=== PATIENT | female | born 1960 | race Caucasian/White ===

== ENCOUNTER 2021-06-24 11:18 | Emergency (ER) | payer BC, SELFPAY ==
--- NOTE | ~2021-06-24 | CT_ITS ---
EXAMINATION: CT HEAD WITHOUT CONTRAST CLINICAL INFORMATION: Dizziness. COMPARISON: 04/30/2020 TECHNIQUE: Contiguous axial imaging was performed from the skull base to vertex without intravenous administration of contrast. This CT examination was performed using dose optimization techniques as appropriate, variously including the following: *Automated exposure control *Adjustment of mA and/or kV according to patient size (this includes techniques or standardized protocols for targeted exams where dose is matched to indication/reason for exam; i.e. extremities or head) *Use of iterative reconstruction technique DLP: 616 mGy-cm FINDINGS: No evidence of acute intracranial hemorrhage or extra-axial fluid collection. No evidence of acute territorial infarction. No evidence of mass lesion, mass effect or midline shift. The ventricles are symmetric in configuration and normal in size. The basal cisterns are patent. The calvarium is intact. Limited views of the paranasal sinuses are unremarkable. Mastoid air cells are well aerated and middle ear cavities are clear. Limited views of the orbits demonstrate bilateral lens extractions. CT/CT head/brain wo con IMPRESSION: No acute intracranial pathology.
[2021-06-24 11:43] VITALS: BP 143/77; PULSE 89; RESP 18; TEMP 36.5; O2SAT 97; BMI 18.8
[2021-06-24 12:01] LABS: Glucose Urine UA NEG (NEG); Leukocyte Esterase Urine 1+ (NEG); Nitrite Urine NEG (NEG); Specific Gravity - Urine 1.025 (1.005-1.025); UACC Culture Trigger YES; Urine Blood NEG (NEG); Urine Ketones >=80 MG/DL (NEG); Urine Protein 1+ MG/DL (NEG-TRACE)
[2021-06-24 12:07] LABS: Appearance Urine HAZY; Color Urine YELLOW
[2021-06-24 12:20] LABS: Bacteria Urine 1+ /LPF; Mucus Urine TRACE /LPF; RBC Urine 0 /HPF (0); Squamous Epithelial Cell Urine 1+ /LPF
[2021-06-24 12:33] LABS: Basophils Percent Auto 0.4 % (0-2); Eosinophils Percent Auto 0.4 % (0-4); Hematocrit 37.1 % (37-47); Imm Gran Abs Auto 0.03 X10*3/uL (0.00-0.03); Imm Gran Pct Auto 0.4 % (0.0-0.4); Lymphocytes Absolute Auto 1.7 X10*3/uL (1.2-4.9); Lymphocytes Percent Auto 23.4 % (20-40); MANUAL DIFF FLAG NO; Mean Corpuscular Hemoglobin 34.9 pg (27.0-33.0); Mean Corpuscular Volume 99.5 fL (80-98); Mean Platelet Volume 10.1 fL (9.4-12.3); Monocytes Absolute Auto 0.7 X10*3/uL (0.1-1.2); Monocytes Percent Auto 9.5 % (2-11); Neutrophils Absolute Auto 4.9 X10*3/uL (2.0-8.3); Neutrophils Percent Auto 65.9 % (45-73); Platelet Count 136 X10*3/uL (160-400); Red Blood Count 3.73 X10*6/uL (4.20-5.50); Red Cell Distribution Width 13.6 % (11.0-16.0); White Blood Count 7.4 X10*3/uL (4.8-10.8)
--- NOTE | 2021-06-24 12:56 | ED_ITS ---
HPI - Dizziness General Chief Complaint: Dizziness Stated Complaint: dizziness Time Seen by Provider: 06/24/21 12:13 Source: patient Mode of arrival: ambulatory Limitations: no limitations History of Present Illness HPI Narrative: 60-year-old female who presents emergency department for evaluation of dizziness weakness, vomiting and diarrhea. Patient states that 4 days prior to evaluation she developed nausea vomiting and diarrhea. She states she vomited approximately 2-3 times per day for 2 days. She states that she had watery dark diarrhea every hour, too numerous to count events for 1-2 days. She states that the symptoms have resolved. During these 2 days, she did have midepigastric pain which she states felt like her pancreatitis pain-sharp, constant and 6/10. The patient does have a history of alcohol use disorder and she states that she was drinking 1 pt of vodka per day for 2 weeks, she has not had any alcohol to drink in 1 week. She states that yesterday at around 6:30 p.m. she felt off balance as if she was going to fall over. She also states she was feeling weak. She states that she has been most of the day in bed. She states that today whenever she got up she would feel off balance if she was going to fall over. She denied lightheadedness. She denied headache. She denied any other episodes of nausea, vomiting or diarrhea. She denied chest pain, shortness of breath or dyspnea on exertion. She has not noticed any pain or swelling in her extremities. Related Data Previous Rx's Medication Instructions Recorded solifenacin 5 mg tablet 5 mg PO DAILY #90 tab 11/03/20 alendronate 70 mg tablet 70 mg PO QWEEK #14 tab 11/07/20 magnesium 200 mg tablet 400 mg PO DAILY #180 tab 12/20/20 Allergies Allergy/AdvReac Type Severity Reaction Status Date / Time chlordiazepoxide AdvReac Intermediate severe Unverified 08/03/20 18:13 [From LIBRIUM] confusion and hallucinations Review of Systems Review of Systems: Yes all other systems are reviewed and are negative [facility] Past Medical History [facility] Narrative: Past medical history: Pancreatitis, alcohol use disorder. Past surgical history: None. Social history: The patient smokes 1 pack of cigarettes for many years she states too many years to count. The patient does have a history of alcohol use disorder, she states she was drinking 1 pt of vodka per day for 2 weeks but has not had an alcoholic drink for 1 week. She denies drug use. Medical History ETOH abuse Gallstone Osteoporosis Social History Social History Advance Directives: No Advance Directives Information Provided: No Patient : No Physical Exam Vital Signs: Vital Signs: Last Vital Signs Temp 97.7 F 06/24/21 11:43 Pulse 71 06/24/21 13:00 Resp 16 06/24/21 13:00 BP 135/86 06/24/21 13:00 Pulse Ox 100 06/24/21 13:00 Body Mass Index 18.8 Const: General: cooperative and no acute distress Orientation/consciousness : oriented to person and oriented to place Limitations: no limitations HENMT: Head: Yes normal to inspection, Yes normocephalic and Yes atraumatic Ears: external ears normal General nose exam: Normal external nose present Face and sinus: Yes normal facial exam Mouth: Normal oral and palatal mucosa present Throat: Yes posterior oropharynx normal Eyes: General: appearance normal, both eyes and all related structures Pupils: Equal, round and reactive pupils present Neck: Neck: Yes normal visual inspection, Yes no lymphadenopathy, Yes trachea midline and Yes supple Chest: Chest palpation & inspection: normal inspection of the chest and normal palpation of entire chest wall Resp: Effort & Inspection: normal respiratory effort and able to speak in complete sentences Auscultation: clear to auscultation bilaterally Cardio: Rate: regular rate Rhythm: regular rhythm Heart sounds: S1 normal heart sound present, S2 normal heart sound present and no murmurs GI: Inspection: Yes normal to inspection Palpation (GI): Soft to palpation, nontender and no guarding Auscultation: normal bowel sounds : General: Yes no CVA tenderness Back/Spine/Pelvis: Back: no CVA tenderness Skin: General skin exam: no rashes or lesions noted Neuro: General: oriented to person and oriented to place Cranial nerves: Yes CN's II-XII intact bilaterally and Yes Equal, round and reactive pupils present Cognition (Neuro): normal cognition Motor exam (neuro): 5/5 motor strength present throughout Coordination: [id number]-[id number] test normal and [id number] test normal Extrem: General: Yes normal to inspection Psych: Appearance: grossly normal Speech and movement: Normal speech and movement present Affect: normal affect Attitude: cooperative Thought process: Normal thought process present Thought content: Normal thought content present Course Course Course Narrative: 60-year-old female who presents emergency department for evaluation of nausea, vomiting diarrhea and abdominal pain 4 days prior which lasted 2 days resolved and lightheadedness and dizziness that started yesterday at around 6:30 p.m.. The patient's vital signs revealed elevated blood pressure of 143/77 otherwise were unremarkable. The patient's physical examination was normal including normal neurologic exam with normal cerebellar exam is well. The patient's differential includes but is not limited to stroke, cerebellar stroke, dehydration, positional vertigo, viral infection, GI bleed. I ordered a laboratory evaluation, CT scan of the brain, EKG, urinalysis. Patient will be treated with normal saline IV x1 L for potential dehydration is the cause for symptoms. 1505: The patient's laboratory evaluation revealed a low sodium of 129 otherwise was unremarkable. I suspect that this low-sodium is secondary to dilution the patient drinking large amounts of water. I did discuss this with the patient. Patient's symptoms are most likely consistent with a viral infection. Patient was able to get up and walk in the emergency department without any difficulty. The patient will be discharged home. The patient was given verbal and printed instructions prior to discharge. The patient was advised to follow-up with her PCP in 2 days and to return to the emergency department if her symptoms get worse or if she develops any new symptoms that are concerning to her. MDM - Dizziness Lab Data Result diagrams: 06/24/21 12:28 06/24/21 12:28 Labs: Lab Results 06/24/21 06/24/21 06/24/21 Range/Units 11:51 12:28 12:28 WBC 7.4 (4.8-10.8) X10*3/uL RBC 3.73 L (4.20-5.50) X10*6/uL Hgb 13.0 (12.0-16.0) g/dl Hct 37.1 (37-47) % MCV 99.5 H (80-98) fL MCH 34.9 H (27.0-33.0) pg MCHC 35.0 (31.0-35.0) g/dl RDW 13.6 (11.0-16.0) % Plt Count 136 L (160-400) X10*3/uL MPV 10.1 (9.4-12.3) fL Immature Gran % (Auto) 0.4 (0.0-0.4) % Neut % (Auto) 65.9 (45-73) % Lymph % (Auto) 23.4 (20-40) % [place] % (Auto) 9.5 (2-11) % Eos % (Auto) 0.4 (0-4) % Baso % (Auto) 0.4 (0-2) % Lymph # (Auto) 1.7 (1.2-4.9) X10*3/uL [place] # (Auto) 0.7 (0.1-1.2) X10*3/uL Eos # (Auto) 0.0 (0.0-0.4) X10*3/uL Baso # (Auto) 0.0 (0.0-0.2) X10*3/uL Abs Immat Gran (auto) 0.03 (0.00-0.03) X10*3/uL Absolute Neuts (auto) 4.9 (2.0-8.3) X10*3/uL Absolute Nucleated RBC 0.000 (0.0-0.012) X10*3/uL Nucleated RBC % (auto) 0.0 (0.0-0.2) /100WBC Sodium 129 L (135-145) mmol/L Potassium 4.2 (3.3-5.1) mmol/L Chloride 92 L (96-108) mmol/L Carbon Dioxide 24 (22-29) mmol/L Anion Gap 17 (12-20) BUN 13 (9-16) mg/dL Creatinine 0.67 (0.5-1.4) mg/dL Estim Creat Clear Calc 75.7 Estimated GFR > 60 Random Glucose 120 H (60-115) mg/dL Calcium 8.9 (8.4-10.2) mg/dL Troponin I High Sens (<3.5-17.0) ng/L Urine Color YELLOW Urine Appearance HAZY Urine pH 6.0 (5.0-8.0) Ur Specific [place] 1.025 (1.005-1.025) Urine Protein 1+ H (NEG-TRACE) MG/DL Urine Glucose (UA) NEG (NEG) MG/DL Urine Ketones >=80 (NEG) MG/DL Urine Blood NEG (NEG) Urine Nitrite NEG (NEG) Ur Leukocyte Esterase 1+ H (NEG) Urine RBC 0 (0) /HPF Urine WBC 5-9 H (0-4) /HPF Ur Squamous Epith Cells 1+ /LPF Urine Bacteria 1+ /LPF Urine Mucus TRACE /LPF 06/24/21 Range/Units 12:28 WBC (4.8-10.8) X10*3/uL RBC (4.20-5.50) X10*6/uL Hgb (12.0-16.0) g/dl Hct (37-47) % MCV (80-98) fL MCH (27.0-33.0) pg MCHC (31.0-35.0) g/dl RDW (11.0-16.0) % Plt Count (160-400) X10*3/uL MPV (9.4-12.3) fL Immature Gran % (Auto) (0.0-0.4) % Neut % (Auto) (45-73) % Lymph % (Auto) (20-40) % [place] % (Auto) (2-11) % Eos % (Auto) (0-4) % Baso % (Auto) (0-2) % Lymph # (Auto) (1.2-4.9) X10*3/uL [place] # (Auto) (0.1-1.2) X10*3/uL Eos # (Auto) (0.0-0.4) X10*3/uL Baso # (Auto) (0.0-0.2) X10*3/uL Abs Immat Gran (auto) (0.00-0.03) X10*3/uL Absolute Neuts (auto) (2.0-8.3) X10*3/uL Absolute Nucleated RBC (0.0-0.012) X10*3/uL Nucleated RBC % (auto) (0.0-0.2) /100WBC Sodium (135-145) mmol/L Potassium (3.3-5.1) mmol/L Chloride (96-108) mmol/L Carbon Dioxide (22-29) mmol/L Anion Gap (12-20) BUN (9-16) mg/dL Creatinine (0.5-1.4) mg/dL Estim Creat Clear Calc Estimated GFR Random Glucose (60-115) mg/dL Calcium (8.4-10.2) mg/dL Troponin I High Sens 3.5 (<3.5-17.0) ng/L Urine Color Urine Appearance Urine pH (5.0-8.0) Ur Specific [place] (1.005-1.025) Urine Protein (NEG-TRACE) MG/DL Urine Glucose (UA) (NEG) MG/DL Urine Ketones (NEG) MG/DL Urine Blood (NEG) Urine Nitrite (NEG) Ur Leukocyte Esterase (NEG) Urine RBC (0) /HPF Urine WBC (0-4) /HPF Ur Squamous Epith Cells /LPF Urine Bacteria /LPF Urine Mucus /LPF Discharge Plan Discharge Clinical Impression: Viral syndrome, Acute hyponatremia Patient Disposition: Home, Self-Care Instructions: Viral Syndrome (ED), Hyponatremia (ED) Additional Instructions: At this time I suspect that you have a viral illness that caused her to have nausea vomiting and diarrhea. Your CT scan of your brain was normal. Your urine test were negative for urine infection. Your blood sodium (salt) was low at 129. The normal range is 135-145. Your sodium is most likely low because you have been drinking too much water and have diluted your blood sodium. Sometimes a very low blood sodium can cause you to feel weak and off balance. I want you to go home and eat some salty food and restrict the amount of water that you drink . This will cause your sodium to come back to normal. Follow-up with your doctor in 2 days. Please return to the emergency department if your symptoms get worse or if you develop any symptoms that are concerning to you. Prescriptions: No Action solifenacin 5 mg tablet 5 mg PO DAILY Qty: 90 RF: 0 alendronate 70 mg tablet 70 mg PO QWEEK Qty: 14 RF: 3 magnesium 200 mg tablet 400 mg PO DAILY Qty: 180 RF: 2
[2021-06-24 12:58] LABS: Troponin-I High Sensitivity 3.5 ng/L (<3.5-17.0)
[2021-06-24 13:00] VITALS: BP 135/86; PULSE 71; RESP 16; O2SAT 100
[2021-06-24] MEDS: 0.9 % Sodium Chloride 1,000 ML 999 ML IV (13:00)
[2021-06-24 13:08] LABS: Anion Gap 17 (12-20); Blood Urea Nitrogen 13 mg/dL (9-16); Calcium 8.9 mg/dL (8.4-10.2); Carbon Dioxide 24 mmol/L (22-29); Chloride 92 mmol/L (96-108); Creatinine Clr Calc Pharmacy 75.7; Estimated Glomerular Filt Rate > 60; Glucose Random 120 mg/dL (60-115); Potassium 4.2 mmol/L (3.3-5.1); Sodium 129 mmol/L (135-145)
[2021-06-24 15:07] VITALS: BP 159/71; PULSE 77; RESP 19; TEMP 37.1; O2SAT 99
== END 2021-06-24 15:20 | disposition home or self-care (01) ==
PROVIDERS: Emergency Provider Emergency Medicine Emergency Medical Services; PCP Internal Medicine
DX: B34.9 Viral infection, unspecified (principal); E87.1 Hypo-osmolality and hyponatremia; R42 Dizziness and giddiness; F10.10 Alcohol abuse, uncomplicated
CPT/HCPCS: 36415; 70450; 80048; 81001; 81003; 84484; 85025; 87086; 96360; 99284

== ENCOUNTER 2021-06-29 08:23 | Outpatient (REF) | payer BC, SELFPAY ==
[2021-06-29 12:10] LABS: Alanine Aminotransferase 64 U/L (0-31); Albumin Level 4.2 g/dL (3.5-5.0); Alkaline Phosphatase 86 U/L (39-117); Anion Gap 14 (12-20); Aspartate Amino Transferase 77 U/L (5-31); Bilirubin Total 0.4 mg/dL (0.0-1.0); Blood Urea Nitrogen 15 mg/dL (9-16); Calcium 9.4 mg/dL (8.4-10.2); Carbon Dioxide 23 mmol/L (22-29); Chloride 104 mmol/L (96-108); Estimated Glomerular Filt Rate > 60; Glucose Fasting 114 mg/dL (60-99); Potassium 4.7 mmol/L (3.3-5.1); Sodium 136 mmol/L (135-145); Total Protein 7.2 g/dL (6.5-8.0)
[2021-06-30 15:35] LABS: Folate 19.1 ng/mL (> or = 4.0); Vitamin B12 1161 pg/mL (200-900)
== END 2021-06-29 08:24 | disposition home or self-care (01) ==
LOC: HO.HMGCLDS 08:23
PROVIDERS: PCP Internal Medicine; Visit Provider Internal Medicine
DX: E87.1 Hypo-osmolality and hyponatremia (principal)
CPT/HCPCS: 36415; 80053; 82607; 82746; 83735

== ENCOUNTER 2021-09-07 15:27 | Inpatient (IN) | payer BC, SELFPAY ==
--- NOTE | ~2021-09-07 | XR_ITS ---
EXAMINATION: XR CHEST CLINICAL INFORMATION: Weakness COMPARISON: April 14, 2020 TECHNIQUE: AP portable view of the chest was obtained. FINDINGS: Distended loops of bowel are seen below the hemidiaphragms. There is no evidence of acute parenchymal disease, pneumothorax, or pleural effusion. Heart normal size. No evidence of pulmonary edema. Old healed right rib fractures. XR/XR chest 1V IMPRESSION: No acute disease.
[2021-09-07 16:01] VITALS: BP 91/51; PULSE 85; RESP 18; TEMP 36.3; O2SAT 95; BMI 19.3
[2021-09-07 16:14] VITALS: BP 120/66; PULSE 69; RESP 18; TEMP 36.6; O2SAT 98
--- NOTE | 2021-09-07 16:23 | ECG_ITS ---
Test Reason : WEAKNESS Blood Pressure : / mmHG Vent. Rate : 074 BPM Atrial Rate : 074 BPM P-R Int : 144 ms QRS Dur : 084 ms QT Int : 436 ms P-R-T Axes : 000 054 065 degrees QTc Int : 483 ms Normal sinus rhythm biatrial enlargement Nonspecific ST abnormality Abnormal ECG p-waves have changed Referred By: Natasha Marcus Electronically Signed By:CLAYTON SEPULVEDA MD
--- NOTE | 2021-09-07 16:30 | ED_ITS ---
HPI - General Adult General Chief complaint: General Medical Stated complaint: can't walk, dehydration Time Seen by Provider: 09/07/21 16:22 Source: patient and old records reviewed Mode of arrival: ambulatory Limitations: no limitations History of Present Illness MD complaint: weakness Onset (ago): day(s) (4) Location: lower extremity Severity: severe Quality: dull Relieving factors: none Exacerbating factors: movement Associated symptoms: other (1 week had n/v/d that resolved, notes now she is so shaky and weak and her legs dont work denies trauma) Treatments prior to arrival: none Related Data Previous Rx's Medication Instructions Recorded solifenacin 5 mg tablet 5 mg PO DAILY #90 tab 11/03/20 alendronate 70 mg tablet 70 mg PO QWEEK #14 tab 11/07/20 magnesium 200 mg tablet 400 mg PO DAILY #180 tab 12/20/20 Allergies Allergy/AdvReac Type Severity Reaction Status Date / Time chlordiazepoxide AdvReac Intermediate severe Verified 09/07/21 16:05 [From LIBRIUM] confusion and hallucinations Review of Systems Review of Systems: Constitutional : No Weight loss, No Fever, No Chills, pos Fatigue, pos Malaise ENT/Mouth : No sore throat, No Rhinorrhea Eyes: No Eye Pain, No Swelling, No Redness Cardiovascular : No Chest Pain, No SOB, No Dyspnea on Exertion, No Orthopnea, No Edema, No Palpitations Respiratory : No Cough, No Sputum, No Wheezing Gastrointestinal : No Nausea, No Vomiting, No Diarrhea, No Constipation, No abdominal Pain, No Hematochezia, No Melena Genitourinary : No Dysuria, No Urinary Frequency, No Hematuria, Musculoskeletal : No joint pain, No Myalgias, No Joint Swelling Skin : No Skin Lesions, No rash Neuro : pos Weakness, No Numbness, No Dizziness, No Headache Psych : No Anxiety/Panic, No Depression Heme/Lymph: No Bruising, No Bleeding,No Lymphadenopathy Endocrine : No Polyuria, No Polydipsia All other systems reviewed and are negative [facility] Past Medical History Attestation statement: The following information was validated with the patient. Medical History ETOH abuse Gallstone Hyponatremia Osteoporosis Social History Social History (Reviewed 09/07/21 @ 16:35 by DICK Vazquez Housing: House Patient Tobacco Use Status: Current everyday Tobacco user Tobacco use type: Cigarette Cigarette Packs Per Day: 1 Cigarettes Per Day: 20 Years Smoked: on and off since 12 years old e-Cigarette/Vaping Use: Never Used Advance Directives: No Advance Directives Information Provided: Yes Current occupational status: employed Physical Exam Vital Signs: Vital Signs: Last Vital Signs Temp 98 F 09/07/21 16:14 Pulse 69 09/07/21 16:14 Resp 18 09/07/21 16:14 BP 120/66 09/07/21 16:14 Pulse Ox 98 09/07/21 16:14 Body Mass Index 19.3 Appearance: Alert. Oriented X3. Mild acute distress. Anxious, mild tremor Eyes: Pupils equal, round and reactive to light. ENT: Pharynx normal. Neck: Normal inspection. Neck supple. CVS: tachycardic heart rate and rhythm. Pulses normal. Respiratory: No respiratory distress. Breath sounds normal. Abdomen: Soft and nontender. Skin: Skin warm and dry. Normal skin color. poor skin turgor. Extremities: No lower extremity edema. No calf ttp Neuro: Oriented X 3. No motor deficit. No sensory deficit. Course Course Course Narrative: hypotension due to dehydration and not infection or severe sepsis plan to admit for hydration and lyte replacement Medical Decision Making MDM Narrative Medical decision making narrative: 60 yo female with hx of ETOH use, osteoporosis, reports last week she had n/v/d and it resolved but since then she has felt weak and dehydrated and she cannot walk - will give gentle fluids given hx of low Na, IV thiamine and magnesium, she has no pain and denies any fall or trauma. Dispo per results and findings. Lab Data Result diagrams: 09/07/21 16:37 09/07/21 17:13 Labs: Lab Results 09/07/21 09/07/21 09/07/21 Range/Units 16:37 16:37 16:42 WBC 7.6 (4.8-10.8) X10*3/uL RBC 3.25 L (4.20-5.50) X10*6/uL Hgb 11.4 L (12.0-16.0) g/dl Hct 31.9 L (37-47) % MCV 98.2 H (80-98) fL MCH 35.1 H (27.0-33.0) pg MCHC 35.7 H (31.0-35.0) g/dl RDW 13.6 (11.0-16.0) % Plt Count 82 L D (160-400) X10*3/uL MPV 12.1 (9.4-12.3) fL Immature Gran % (Auto) 0.4 (0.0-0.4) % Neut % (Auto) 67.9 (45-73) % Lymph % (Auto) 21.6 (20-40) % [place] % (Auto) 9.7 (2-11) % Eos % (Auto) 0.3 (0-4) % Baso % (Auto) 0.1 (0-2) % Lymph # (Auto) 1.6 (1.2-4.9) X10*3/uL [place] # (Auto) 0.7 (0.1-1.2) X10*3/uL Eos # (Auto) 0.0 (0.0-0.4) X10*3/uL Baso # (Auto) 0.0 (0.0-0.2) X10*3/uL Abs Immat Gran (auto) 0.03 (0.00-0.03) X10*3/uL Absolute Neuts (auto) 5.2 (2.0-8.3) X10*3/uL Absolute Nucleated RBC 0.000 (0.0-0.012) X10*3/uL Nucleated RBC % (auto) 0.0 (0.0-0.2) /100WBC VBG pH 7.59 H (7.32-7.43) VBG pCO2 30 mmHg VBG pO2 48 mmHg VBG HCO3 29 H (22-26) mmol/L VBG O2 Saturation 79.0 % VBG Base Excess 8.1 mmol/L Sodium (135-145) mmol/L Potassium (3.3-5.1) mmol/L Chloride (96-108) mmol/L Carbon Dioxide (22-29) mmol/L Anion Gap (12-20) BUN (9-16) mg/dL Creatinine (0.5-1.4) mg/dL Estim Creat Clear Calc Estimated GFR Random Glucose (60-115) mg/dL Lactic Acid (0.5-2.0) mmol/L Calcium (8.4-10.2) mg/dL Magnesium (1.6-2.6) mg/dL Total Bilirubin (0.0-1.0) mg/dL Direct Bilirubin (0.0-0.5) mg/dL AST (5-31) U/L ALT (0-31) U/L Alkaline Phosphatase (39-117) U/L Total Protein (6.5-8.0) g/dL Albumin (3.5-5.0) g/dL Lipase (8-78) U/L Urine Color Urine Appearance Urine pH (5.0-8.0) Ur Specific [place] (1.005-1.025) Urine Protein (NEG-TRACE) MG/DL Urine Glucose (UA) (NEG) MG/DL Urine Ketones (NEG) MG/DL Urine Blood (NEG) Urine Nitrite (NEG) Ur Leukocyte Esterase (NEG) Ethyl Alcohol mg/dL COVID-19 (BARBARA) Negative (Negative) COVID-19 Clin Com See Note 09/07/21 09/07/21 09/07/21 Range/Units 17:13 17:13 17:13 WBC (4.8-10.8) X10*3/uL RBC (4.20-5.50) X10*6/uL Hgb (12.0-16.0) g/dl Hct (37-47) % MCV (80-98) fL MCH (27.0-33.0) pg MCHC (31.0-35.0) g/dl RDW (11.0-16.0) % Plt Count (160-400) X10*3/uL MPV (9.4-12.3) fL Immature Gran % (Auto) (0.0-0.4) % Neut % (Auto) (45-73) % Lymph % (Auto) (20-40) % [place] % (Auto) (2-11) % Eos % (Auto) (0-4) % Baso % (Auto) (0-2) % Lymph # (Auto) (1.2-4.9) X10*3/uL [place] # (Auto) (0.1-1.2) X10*3/uL Eos # (Auto) (0.0-0.4) X10*3/uL Baso # (Auto) (0.0-0.2) X10*3/uL Abs Immat Gran (auto) (0.00-0.03) X10*3/uL Absolute Neuts (auto) (2.0-8.3) X10*3/uL Absolute Nucleated RBC (0.0-0.012) X10*3/uL Nucleated RBC % (auto) (0.0-0.2) /100WBC VBG pH (7.32-7.43) VBG pCO2 mmHg VBG pO2 mmHg VBG HCO3 (22-26) mmol/L VBG O2 Saturation % VBG Base Excess mmol/L Sodium 126 L (135-145) mmol/L Potassium 2.9 L D (3.3-5.1) mmol/L Chloride 80 L D (96-108) mmol/L Carbon Dioxide 30 H (22-29) mmol/L Anion Gap 19 (12-20) BUN 12 (9-16) mg/dL Creatinine 0.68 (0.5-1.4) mg/dL Estim Creat Clear Calc 74.6 Estimated GFR > 60 Random Glucose 99 (60-115) mg/dL Lactic Acid 1.8 (0.5-2.0) mmol/L Calcium 8.2 L D (8.4-10.2) mg/dL Magnesium 1.2 L* (1.6-2.6) mg/dL Total Bilirubin 1.6 H (0.0-1.0) mg/dL Direct Bilirubin 0.8 H (0.0-0.5) mg/dL AST 131 H (5-31) U/L ALT 59 H (0-31) U/L Alkaline Phosphatase 93 (39-117) U/L Total Protein 6.9 (6.5-8.0) g/dL Albumin 4.2 (3.5-5.0) g/dL Lipase < 4 L (8-78) U/L Urine Color Urine Appearance Urine pH (5.0-8.0) Ur Specific [place] (1.005-1.025) Urine Protein (NEG-TRACE) MG/DL Urine Glucose (UA) (NEG) MG/DL Urine Ketones (NEG) MG/DL Urine Blood (NEG) Urine Nitrite (NEG) Ur Leukocyte Esterase (NEG) Ethyl Alcohol < 10 mg/dL COVID-19 (BARBARA) (Negative) COVID-19 Clin Com 09/07/21 Range/Units 18:32 WBC (4.8-10.8) X10*3/uL RBC (4.20-5.50) X10*6/uL Hgb (12.0-16.0) g/dl Hct (37-47) % MCV (80-98) fL MCH (27.0-33.0) pg MCHC (31.0-35.0) g/dl RDW (11.0-16.0) % Plt Count (160-400) X10*3/uL MPV (9.4-12.3) fL Immature Gran % (Auto) (0.0-0.4) % Neut % (Auto) (45-73) % Lymph % (Auto) (20-40) % [place] % (Auto) (2-11) % Eos % (Auto) (0-4) % Baso % (Auto) (0-2) % Lymph # (Auto) (1.2-4.9) X10*3/uL [place] # (Auto) (0.1-1.2) X10*3/uL Eos # (Auto) (0.0-0.4) X10*3/uL Baso # (Auto) (0.0-0.2) X10*3/uL Abs Immat Gran (auto) (0.00-0.03) X10*3/uL Absolute Neuts (auto) (2.0-8.3) X10*3/uL Absolute Nucleated RBC (0.0-0.012) X10*3/uL Nucleated RBC % (auto) (0.0-0.2) /100WBC VBG pH (7.32-7.43) VBG pCO2 mmHg VBG pO2 mmHg VBG HCO3 (22-26) mmol/L VBG O2 Saturation % VBG Base Excess mmol/L Sodium (135-145) mmol/L Potassium (3.3-5.1) mmol/L Chloride (96-108) mmol/L Carbon Dioxide (22-29) mmol/L Anion Gap (12-20) BUN (9-16) mg/dL Creatinine (0.5-1.4) mg/dL Estim Creat Clear Calc Estimated GFR Random Glucose (60-115) mg/dL Lactic Acid (0.5-2.0) mmol/L Calcium (8.4-10.2) mg/dL Magnesium (1.6-2.6) mg/dL Total Bilirubin (0.0-1.0) mg/dL Direct Bilirubin (0.0-0.5) mg/dL AST (5-31) U/L ALT (0-31) U/L Alkaline Phosphatase (39-117) U/L Total Protein (6.5-8.0) g/dL Albumin (3.5-5.0) g/dL Lipase (8-78) U/L Urine Color DK YELLOW Urine Appearance HAZY Urine pH 7.0 (5.0-8.0) Ur Specific [place] <= 1.005 (1.005-1.025) Urine Protein TRACE (NEG-TRACE) MG/DL Urine Glucose (UA) NEG (NEG) MG/DL Urine Ketones 15 (NEG) MG/DL Urine Blood TRACE (NEG) Urine Nitrite NEG (NEG) Ur Leukocyte Esterase 3+ H (NEG) Ethyl Alcohol mg/dL COVID-19 (BARBARA) (Negative) COVID-19 Clin Com ECG Data Attestation: I personally reviewed and interpreted this ECG as follows: Interpretation: Rate: 74 Rhythm: NSR [place]: normal Normal P waves. Normal EMILY. Normal QRS complex. ST T wave : inverted V1-V2 , no JOEL qTC: prolonged prior studies: no acute ischemia The study has been interpreted contemporaneously by me. . Critical Care Time Critical Care Time Critical Care Time: Yes Total Critical Care Time: 40 Attestation: repletion of Na, K and magnesium, tele, review of records I attest to this time spent taking care of the patient Discharge Plan Discharge Clinical Impression: Hyponatremia, Acute hypokalemia, Hypomagnesemia Patient Disposition: Admitted As Inpatient Prescriptions: No Action solifenacin 5 mg tablet 5 mg PO DAILY Qty: 90 RF: 0 alendronate 70 mg tablet 70 mg PO QWEEK Qty: 14 RF: 3 magnesium 200 mg tablet 400 mg PO DAILY Qty: 180 RF: 2
[2021-09-07 16:46] LABS: MANUAL DIFF FLAG NO
[2021-09-07 16:47] LABS: Basophils Percent Auto 0.1 % (0-2); Eosinophils Percent Auto 0.3 % (0-4); Hematocrit 31.9 % (37-47); Hemoglobin 11.4 g/dl (12.0-16.0); Imm Gran Abs Auto 0.03 X10*3/uL (0.00-0.03); Imm Gran Pct Auto 0.4 % (0.0-0.4); Lymphocytes Absolute Auto 1.6 X10*3/uL (1.2-4.9); Lymphocytes Percent Auto 21.6 % (20-40); Mean Corpuscular HGB Conc 35.7 g/dl (31.0-35.0); Mean Corpuscular Hemoglobin 35.1 pg (27.0-33.0); Mean Corpuscular Volume 98.2 fL (80-98); Mean Platelet Volume 12.1 fL (9.4-12.3); Monocytes Absolute Auto 0.7 X10*3/uL (0.1-1.2); Monocytes Percent Auto 9.7 % (2-11); Neutrophils Absolute Auto 5.2 X10*3/uL (2.0-8.3); Neutrophils Percent Auto 67.9 % (45-73); Red Blood Count 3.25 X10*6/uL (4.20-5.50); Red Cell Distribution Width 13.6 % (11.0-16.0); White Blood Count 7.6 X10*3/uL (4.8-10.8)
[2021-09-07 16:52] LABS: VBG Base Excess 8.1 mmol/L; VBG HCO3 29 mmol/L (22-26); VBG pCO2 30 mmHg; VBG pH 7.59 (7.32-7.43); VBG pO2 48 mmHg
[2021-09-07 16:56] LABS: Venous Blood Gas Refer to POC result
[2021-09-07 17:04] LABS: COVID-19 Test Negative (Negative); IDNOW Serial# 9DD0AD1C
[2021-09-07 17:07] LABS: Platelet Count 82 X10*3/uL (160-400)
[2021-09-07] MEDS: 0.9 % Sodium Chloride 500 ML IV (17:18)
[2021-09-07] MEDS: Thiamine HCL 100 MG in 0.9 % Sodium Chloride 100 ML 202 MG IV (17:18)
[2021-09-07] MEDS: ondansetron HCL 4 MG/2 ML VIAL IVPUSH (17:19)
[2021-09-07 17:50] LABS: Ethanol < 10 mg/dL; Lactic Acid 1.8 mmol/L (0.5-2.0)
[2021-09-07 18:02] LABS: Alanine Aminotransferase 59 U/L (0-31); Albumin Level 4.2 g/dL (3.5-5.0); Alkaline Phosphatase 93 U/L (39-117); Anion Gap 19 (12-20); Aspartate Amino Transferase 131 U/L (5-31); Bilirubin Direct 0.8 mg/dL (0.0-0.5); Bilirubin Total 1.6 mg/dL (0.0-1.0); Blood Urea Nitrogen 12 mg/dL (9-16); Calcium 8.2 mg/dL (8.4-10.2); Carbon Dioxide 30 mmol/L (22-29); Chloride 80 mmol/L (96-108); Creatinine Clr Calc Pharmacy 74.6; Estimated Glomerular Filt Rate > 60; Glucose Random 99 mg/dL (60-115); Lipase < 4 U/L (8-78); Magnesium 1.2 mg/dL (1.6-2.6); Potassium 2.9 mmol/L (3.3-5.1); Sodium 126 mmol/L (135-145); Total Protein 6.9 g/dL (6.5-8.0)
[2021-09-07] MEDS: Potassium Chloride/H20 10 MEQ/100 ML PIGGYBACK 100 MEQ IV ×2 (18:26→19:51)
[2021-09-07] MEDS: Magnesium Sulfate/H2O 2 GM/50 ML PIGGYBACK IV (18:26)
[2021-09-07] MEDS: Potassium Chloride ER 20 MEQ TAB.ER.PRT 40 MEQ PO (18:28)
[2021-09-07] MEDS: 0.9 % Sodium Chloride 1,000 ML 100 ML IVCONT ×2 (18:30→23:53)
[2021-09-07 18:39] LABS: Appearance Urine HAZY; Color Urine DK YELLOW; Glucose Urine UA NEG (NEG); Leukocyte Esterase Urine 3+ (NEG); Nitrite Urine NEG (NEG); Specific Gravity - Urine <= 1.005 (1.005-1.025); UACC Culture Trigger YES; Urine Blood TRACE (NEG); Urine Ketones 15 MG/DL (NEG); Urine Protein TRACE MG/DL (NEG-TRACE)
[2021-09-07 18:49] LABS: Bacteria Urine 3+ /LPF; Squamous Epithelial Cell Urine TRACE /LPF; WBC Urine 30-49 /HPF (0-4)
--- NOTE | 2021-09-07 19:30 | PHA.MEDREC ---
Pharmacy Consult ? Medication Reconciliation Pharmacy has completed the medication reconciliation. Patient states that she doesn't take much other than vitamins. She states that she doesn't take her vitamins every day, she takes them when she remembers. Luz Maria Acosta, PharmD [phone]
[2021-09-07 21:14] LABS: Osmolality, Serum 262 mosm/kg (281-305)
[2021-09-07 21:19] LABS: Magnesium 1.7 mg/dL (1.6-2.6)
--- NOTE | 2021-09-07 22:55 | MHC.CM.PN ---
CM met with admitted pt with bed assignment 471. A&Ox3. No IMM necessary. Independent. No HCP on file. Reviewed and completed. HCP/daughter Thea Painting ([phone]). Contact Marciano Barnard S.O. ([phone]). PCP Dr. Lorenzana. Fully vaccinated with Pfizer. Pt lives with S.O. No DME or Services. Pt is employed at [employer] in [place]. D/C plan is home without services. Pt to arrange transportation. CM to follow for d/c needs.
[2021-09-07 23:14] VITALS: BMI 20.6
[2021-09-07 23:39] VITALS: BP 120/57; PULSE 81; RESP 20; TEMP 36.7; O2SAT 92
[2021-09-07] MEDS: Enoxaparin Sodium 40 MG/0.4 ML SYRINGE SUBCUT (23:52)
[2021-09-07] MEDS: cefTRIAXone sodium 1 GM in 0.9 % Sodium Chloride 50 ML IV (23:52)
[2021-09-08] VITALS: BP 122/56; PULSE 82; RESP 18; O2SAT 92
[2021-09-08 03:46] LABS: Creatinine Urine 34.68 mg/dL
[2021-09-08 03:54] VITALS: BP 121/57; PULSE 68; RESP 18; TEMP 36.3; O2SAT 92
[2021-09-08 03:54] LABS: Osmolality Urine 186 mosm/kg (373-1093)
--- NOTE | 2021-09-08 06:28 | PM.IMHP ---
History of Present Illness Date of Service: 09/07/21 Chief Complaint: Generalized weakness This is a 60-year-old female with past medical history of alcohol abuse with last drink about 2 weeks ago, osteoporosis who presents to the hospital with significant weakness to the point that she could not get up and walk today. Patient reports that she went through alcohol withdrawal on abstinence on her own about 2 weeks ago, was slowly recovering about 3 days ago but has developed significant weakness and inability to ambulate, patient reports that while she was withdrawing from alcohol she was also experiencing significant vomiting and diarrhea. She reports that she has not been eating nor drinking for the past 5 days due to the nausea and vomiting. She denies having experienced any delirium and or withdrawal seizures while she was withdrawn herself from alcohol. She denies any chest pain at this time, no shortness of breath, no cough, no headache or change in vision, no abdominal pain at this time and no diarrhea or constipation, reports urinary frequency with no dysuria or urgency. Denies any no lower extremity edema. Her nausea vomiting has now resolved. On arrival to the ED hemodynamically stable with no significant abnormal vitals Labs are significant for WBC count of 7.6, hemoglobin of 11.4, sodium of 126 with a baseline around 136, potassium of 2.9, chloride of 80, magnesium of 1.2, AST of 131, ALT of 59 both chronically elevated, UA that is positive for leukocyte Estrace and WBC. Review of Systems Review of Systems: Yes all other systems are reviewed and are negative [facility] Medical History (Updated 09/08/21 @ 06:33 by Sarah Pinzon MD) ETOH abuse Gallstone Hyponatremia Osteoporosis Pertinent family history: Denies any family history Surgical History (Updated 09/08/21 @ 06:32 by Sarah Pinzon MD) No pertinent past surgical history Social History Household Members: None Housing: House Patient Tobacco Use Status: Current everyday Tobacco user Tobacco use type: Cigarette Cigarette Packs Per Day: 1 Cigarettes Per Day: 20.0 Years Smoked: on and off since 12 years old Smoked in Last 30 Days: Yes e-Cigarette/Vaping Use: Never Used Patient Interested in Nicotine Replacement: No Patient Given Instructions on How to Stop Smoking: Yes Date Education Initiated: 09/07/21 Second Hand Smoke Exposure: No Use of substances other than those prescribed or required for medical reasons: No Substance Use Frequency: Weekly Last Used Substance: Weeks (ago) Currently Displaying Signs/Symptoms of Drug Intoxication Withdrawal: No Any prior treatment program specific to substance use: No Have you been hit, kicked, punched, or otherwise hurt by someone within the past year? If so, by whom?: No Do you feel safe in your current relationship?: No Is there a partner from a previous relationship who is making you feel unsafe now?: No Are you made to feel afraid or neglected: No Advance Directives: No Advance Directives Information Provided: Yes Advance Directives on File: No Do you have thoughts of harming others: None Do you have a plan to hurt others: No Plan Recently lost weight without trying: Unsure How much weight loss: Unsure Eating poorly because of decreased appetite: Yes Nutrition screen score: 5 Patient : No : No Poor oral hygiene: No service: No Current occupational status: employed Meds Allergies Allergy/AdvReac Type Severity Reaction Status Date / Time chlordiazepoxide AdvReac Intermediate severe Verified 09/07/21 16:05 [From LIBRIUM] confusion and hallucinations Active Medications: Current Medications Acetaminophen (Acetaminophen 325 Mg Tablet) 650 mg PO Q6H PRN PRN Reason: Pain, Mild (Pain Scale 1-3) Docusate Sodium (Docusate Sodium 100 Mg Capsule) 100 mg PO DAILY PRN PRN Reason: Constipation Enoxaparin Sodium (Enoxaparin Sodium 40 Mg/0.4 Ml Syringe) 40 mg SUBCUT Q24H [facility] Last Admin: 09/07/21 23:52 Dose: 40 mg Documented by: Ceftriaxone Sodium 1 gm/ (Sodium Chloride) 50 mls @ 100 mls/hr IV Q24H [facility] Last Infusion: 09/08/21 00:25 Dose: Infused Documented by: Sodium Chloride (Ns) 1,000 mls @ 100 mls/hr IVCONT .Q10H [facility] Magnesium Oxide (Magnesium Oxide 400 Mg Tablet) 400 mg PO DAILY [facility] Multivitamins/Vitamin C (Multivitamin Tablet) 1 tab PO DAILY [facility] Ondansetron HCl (Ondansetron Hcl 4 Mg/2 Ml Vial) 4 mg IVPUSH Q8H PRN PRN Reason: Nausea and Vomiting Pharmacy Consult (Consult Rx Perform Med Rec) 1 each MISCELLANE ONCE PRN PRN Reason: Consult order Sodium Chloride (0.9 % Sodium Chloride Flush 3 Ml Syringe) 3 ml IVFLUSH QSHIFT [facility] Last Admin: 09/07/21 23:57 Dose: Not Given Documented by: Home Medications Medication Instructions Recorded Confirmed Last Taken Type multivitamin 1 tab PO DAILY 09/07/21 09/07/21 Unknown History Physical Exam Vital Signs and Narrative: Vital Signs: Last Vital Signs Temp 97.3 F 09/08/21 03:54 Pulse 68 09/08/21 03:54 Resp 18 09/08/21 03:54 BP 121/57 L 09/08/21 03:54 Pulse Ox 92 09/08/21 03:54 Body Mass Index 20.6 Const: Other: Appears cachectic General: cooperative and no acute distress Orientation/consciousness: patient oriented x3 Eyes: General: appearance normal, both eyes and all related structures Pupils: Equal, round and reactive pupils present Resp: Effort & Inspection: normal respiratory effort and able to speak in complete sentences Auscultation: clear to auscultation bilaterally Cardio: Rate: regular rate Rhythm: regular rhythm GI: Palpation (GI): Soft to palpation Auscultation: normal bowel sounds Skin: General skin exam: no rashes or lesions noted Neuro: General: patient oriented x3 Cranial nerves: Yes Equal, round and reactive pupils present Cognition (Neuro): normal cognition Extrem: General: Yes normal to inspection and Yes no pedal edema Results Labs CBC and Chem 7: 09/07/21 16:37 09/07/21 17:13 Labs: Laboratory Results - last 24 hr 09/07/21 09/07/21 09/07/21 16:37 16:37 16:42 MCV 98.2 H MCH 35.1 H MCHC 35.7 H RDW 13.6 Plt Count 82 L D MPV 12.1 Immature Gran % (Auto) 0.4 Neut % (Auto) 67.9 Lymph % (Auto) 21.6 [place] % (Auto) 9.7 Eos % (Auto) 0.3 Baso % (Auto) 0.1 Lymph # (Auto) 1.6 [place] # (Auto) 0.7 Eos # (Auto) 0.0 Baso # (Auto) 0.0 Abs Immat Gran (auto) 0.03 Absolute Neuts (auto) 5.2 Absolute Nucleated RBC 0.000 Nucleated RBC % (auto) 0.0 VBG pH 7.59 H VBG pCO2 30 VBG pO2 48 VBG HCO3 29 H VBG O2 Saturation 79.0 VBG Base Excess 8.1 Anion Gap Estim Creat Clear Calc Estimated GFR Random Glucose Osmolality Lactic Acid Calcium Magnesium Total Bilirubin Direct Bilirubin AST ALT Alkaline Phosphatase Total Protein Albumin Lipase Urine Color Urine Appearance Urine pH Ur Specific [place] Urine Protein Urine Glucose (UA) Urine Ketones Urine Blood Urine Nitrite Ur Leukocyte Esterase Urine RBC Urine WBC Ur Squamous Epith Cells Urine Bacteria Urine Osmolality Ur Random Sodium Urine Creatinine Ethyl Alcohol COVID-19 (BARBARA) Negative COVID-19 Clin Com See Note 09/07/21 09/07/21 09/07/21 17:13 17:13 17:13 MCV MCH MCHC RDW Plt Count MPV Immature Gran % (Auto) Neut % (Auto) Lymph % (Auto) [place] % (Auto) Eos % (Auto) Baso % (Auto) Lymph # (Auto) [place] # (Auto) Eos # (Auto) Baso # (Auto) Abs Immat Gran (auto) Absolute Neuts (auto) Absolute Nucleated RBC Nucleated RBC % (auto) VBG pH VBG pCO2 VBG pO2 VBG HCO3 VBG O2 Saturation VBG Base Excess Anion Gap 19 Estim Creat Clear Calc 74.6 Estimated GFR > 60 Random Glucose 99 Osmolality Lactic Acid 1.8 Calcium 8.2 L D Magnesium 1.2 L* Total Bilirubin 1.6 H Direct Bilirubin 0.8 H AST 131 H ALT 59 H Alkaline Phosphatase 93 Total Protein 6.9 Albumin 4.2 Lipase < 4 L Urine Color Urine Appearance Urine pH Ur Specific [place] Urine Protein Urine Glucose (UA) Urine Ketones Urine Blood Urine Nitrite Ur Leukocyte Esterase Urine RBC Urine WBC Ur Squamous Epith Cells Urine Bacteria Urine Osmolality Ur Random Sodium Urine Creatinine Ethyl Alcohol < 10 COVID-19 (BARBARA) COVID-19 Clin Com 09/07/21 09/07/21 09/07/21 18:32 20:56 20:56 MCV MCH MCHC RDW Plt Count MPV Immature Gran % (Auto) Neut % (Auto) Lymph % (Auto) [place] % (Auto) Eos % (Auto) Baso % (Auto) Lymph # (Auto) [place] # (Auto) Eos # (Auto) Baso # (Auto) Abs Immat Gran (auto) Absolute Neuts (auto) Absolute Nucleated RBC Nucleated RBC % (auto) VBG pH VBG pCO2 VBG pO2 VBG HCO3 VBG O2 Saturation VBG Base Excess Anion Gap Estim Creat Clear Calc Estimated GFR Random Glucose Osmolality 262 L Lactic Acid Calcium Magnesium 1.7 Total Bilirubin Direct Bilirubin AST ALT Alkaline Phosphatase Total Protein Albumin Lipase Urine Color DK YELLOW Urine Appearance HAZY Urine pH 7.0 Ur Specific [place] <= 1.005 Urine Protein TRACE Urine Glucose (UA) NEG Urine Ketones 15 Urine Blood TRACE Urine Nitrite NEG Ur Leukocyte Esterase 3+ H Urine RBC 1-4 Urine WBC 30-49 H Ur Squamous Epith Cells TRACE Urine Bacteria 3+ Urine Osmolality Ur Random Sodium Urine Creatinine Ethyl Alcohol COVID-19 (BARBARA) COVID-19 amcure Com 09/08/21 09/08/21 03:15 03:15 MCV MCH MCHC RDW Plt Count MPV Immature Gran % (Auto) Neut % (Auto) Lymph % (Auto) [place] % (Auto) Eos % (Auto) Baso % (Auto) Lymph # (Auto) [place] # (Auto) Eos # (Auto) Baso # (Auto) Abs Immat Gran (auto) Absolute Neuts (auto) Absolute Nucleated RBC Nucleated RBC % (auto) VBG pH VBG pCO2 VBG pO2 VBG HCO3 VBG O2 Saturation VBG Base Excess Anion Gap Estim Creat Clear Calc Estimated GFR Random Glucose Osmolality Lactic Acid Calcium Magnesium Total Bilirubin Direct Bilirubin AST ALT Alkaline Phosphatase Total Protein Albumin Lipase Urine Color Urine Appearance Urine pH Ur Specific [place] Urine Protein Urine Glucose (UA) Urine Ketones Urine Blood Urine Nitrite Ur Leukocyte Esterase Urine RBC Urine WBC Ur Squamous Epith Cells Urine Bacteria Urine Osmolality 186 L Ur Random Sodium 29.0 Urine Creatinine 34.68 Ethyl Alcohol COVID-19 (BARBARA) COVID-19 Clin Com Imaging Radiologist's Impressions: Impressions Chest X-Ray 09/07/21 16:23 IMPRESSION: No acute disease. Assessment and Plan (1) Acute hypokalemia: Status: Acute (2) Hypomagnesemia: Status: Acute (3) Hyponatremia: Status: Acute (4) Generalized weakness: Status: Acute 60 year old female with past medical history of alcohol abuse who presents to the hospital with generalized weakness found to have multiple electrolyte abnormality # electrolyte abnormality including hypokalemia, hyponatremia, hypomagnesemia - most likely secondary to vomiting as well as diarrhea as well as history of alcohol abuse - repleted in the ED - repeat magnesium shows improvement in magnesium level, will follow potassium as well as sodium levels - consult Nephrology for hyponatremia # generalized weakness - most likely secondary to poor oral intake - started regular diet - PT O2 prior to discharge # history of alcohol abuse - patient reports that she self with true at home about 2 weeks ago, - currently has no withdrawal symptoms - startthiamine and folic acid supplement DVT prophylaxis: Lovenox Quality Stroke Does the patient have a stroke diagnosis?: No VTE Prior VTE?: No VTE Risk Level:: Medical - moderate - high VTE Device Contraindication: Treatment Not Indicated VTE Drug Contraindication: N/A - Med Ordered
[2021-09-08 07:32] LABS: Basophils Percent Auto 0.2 % (0-2); Hemoglobin 10.4 g/dl (12.0-16.0); MANUAL DIFF FLAG SCAN; Mean Platelet Volume 11.7 fL (9.4-12.3); PLT CLUMP 1; SCAN SMEAR FLAG 1
[2021-09-08 07:34] LABS: Eosinophils Absolute Auto 0.1 X10*3/uL (0.0-0.4); Eosinophils Percent Auto 1.7 % (0-4); Hematocrit 30.5 % (37-47); Imm Gran Abs Auto 0.02 X10*3/uL (0.00-0.03); Imm Gran Pct Auto 0.3 % (0.0-0.4); Lymphocytes Absolute Auto 2.4 X10*3/uL (1.2-4.9); Lymphocytes Percent Auto 36.8 % (20-40); Mean Corpuscular HGB Conc 34.1 g/dl (31.0-35.0); Mean Corpuscular Hemoglobin 35.1 pg (27.0-33.0); Monocytes Absolute Auto 0.8 X10*3/uL (0.1-1.2); Monocytes Percent Auto 12.3 % (2-11); Neutrophils Absolute Auto 3.2 X10*3/uL (2.0-8.3); Neutrophils Percent Auto 48.7 % (45-73); Red Blood Count 2.96 X10*6/uL (4.20-5.50); Red Cell Distribution Width 14.2 % (11.0-16.0); White Blood Count 6.6 X10*3/uL (4.8-10.8)
[2021-09-08 07:44] VITALS: BP 131/64; PULSE 63; RESP 17; TEMP 37; O2SAT 95
[2021-09-08 07:44] LABS: Platelet Count 67 X10*3/uL (160-400)
[2021-09-08 08:17] LABS: Anion Gap 14 (12-20); Blood Urea Nitrogen 10 mg/dL (9-16); Calcium 7.3 mg/dL (8.4-10.2); Carbon Dioxide 26 mmol/L (22-29); Chloride 92 mmol/L (96-108); Creatinine Clr Calc Pharmacy 88.5; Estimated Glomerular Filt Rate > 60; Glucose Random 89 mg/dL (60-115); Potassium 3.1 mmol/L (3.3-5.1); Sodium 129 mmol/L (135-145)
[2021-09-08] MEDS: Thiamine HCL 100 MG TABLET PO (09:55)
[2021-09-08] MEDS: Multivitamin TABLET 1 TAB PO (09:55)
[2021-09-08] MEDS: Folic Acid 1 MG TABLET PO (09:55)
[2021-09-08] MEDS: 0.9 % Sodium Chloride 1,000 ML 100 ML IVCONT (09:56)
[2021-09-08] MEDS: 0.9 % Sodium Chloride Flush 3 ML SYRINGE IVFLUSH (09:56)
[2021-09-08] MEDS: Magnesium Oxide 400 MG TABLET PO ×2 (09:56→16:57)
[2021-09-08] MEDS: Potassium Chloride/H20 10 MEQ/100 ML PIGGYBACK 100 MEQ IV ×4 (11:42→15:52)
[2021-09-08 11:51] VITALS: BP 139/70; PULSE 62; RESP 18; TEMP 36.9; O2SAT 95
[2021-09-08 12:38] LABS: Anion Gap 15 (12-20); Blood Urea Nitrogen 10 mg/dL (9-16); Calcium 7.6 mg/dL (8.4-10.2); Carbon Dioxide 25 mmol/L (22-29); Chloride 92 mmol/L (96-108); Creatinine Clr Calc Pharmacy 96.4; Estimated Glomerular Filt Rate > 60; Glucose Random 101 mg/dL (60-115); Magnesium 1.6 mg/dL (1.6-2.6); Sodium 129 mmol/L (135-145)
--- NOTE | 2021-09-08 13:13 | PM.EVENT ---
Event Note Date of Service: 09/08/21 Event Note: Chart reviewed/patient examined. Exam unchanged since admission. Agree with plan as outlined. Follow-up labs PT consult
[2021-09-08 15:15] VITALS: BP 133/79; PULSE 65; RESP 18; TEMP 37.2; O2SAT 96
[2021-09-08 18:54] LABS: Anion Gap 14 (12-20); Blood Urea Nitrogen 9 mg/dL (9-16); Calcium 7.4 mg/dL (8.4-10.2); Carbon Dioxide 24 mmol/L (22-29); Chloride 94 mmol/L (96-108); Creatinine Clr Calc Pharmacy 84.3; Estimated Glomerular Filt Rate > 60; Glucose Random 157 mg/dL (60-115); Potassium 4.1 mmol/L (3.3-5.1); Sodium 128 mmol/L (135-145)
[2021-09-08 19:31] VITALS: BP 151/72; PULSE 69; RESP 18; TEMP 37.1; O2SAT 97
--- NOTE | 2021-09-08 21:44 | PC.NURSE ---
pt c/o lac # 20 burning with NS @ 100ml hr. flushed with ease. pt agrees for new IV , 1st stick #20 in L h noted to have + blood return. NS started slowly @ 20ml/h and increased in increments, 40ml then 50ml. tolerates not greater than 50ml continuous. new iv # 20 to [facility] 1st stick, + blood return noted. again pt c/o burning at rate > 50ml/h. Dr. Pinzon aware - ok to run @ 50ml/h.
[2021-09-08] MEDS: cefTRIAXone sodium 1 GM in 0.9 % Sodium Chloride 50 ML IV (23:14)
[2021-09-08] MEDS: Enoxaparin Sodium 40 MG/0.4 ML SYRINGE SUBCUT (23:15)
[2021-09-08] MEDS: 0.9 % Sodium Chloride 1,000 ML 50 ML IVCONT (23:25)
[2021-09-09] VITALS (7 sets, daily range): BP systolic 127–148; BP diastolic 60–77; PULSE 57–74; RESP 18–20; TEMP 36.8–37.1; O2SAT 96–98
[2021-09-09 06:18] LABS: Basophils Percent Auto 0.4 % (0-2); Hematocrit 29.3 % (37-47); MANUAL DIFF FLAG SCAN; Mean Corpuscular Volume 102.1 fL (80-98); PLT CLUMP 1; Red Blood Count 2.87 X10*6/uL (4.20-5.50); SCAN SMEAR FLAG 1
[2021-09-09 06:19] LABS: Eosinophils Absolute Auto 0.2 X10*3/uL (0.0-0.4); Eosinophils Percent Auto 2.8 % (0-4); Hemoglobin 10.1 g/dl (12.0-16.0); Imm Gran Abs Auto 0.03 X10*3/uL (0.00-0.03); Imm Gran Pct Auto 0.6 % (0.0-0.4); Lymphocytes Absolute Auto 1.9 X10*3/uL (1.2-4.9); Lymphocytes Percent Auto 36.4 % (20-40); Mean Corpuscular HGB Conc 34.5 g/dl (31.0-35.0); Mean Corpuscular Hemoglobin 35.2 pg (27.0-33.0); Monocytes Absolute Auto 0.8 X10*3/uL (0.1-1.2); Monocytes Percent Auto 15.1 % (2-11); Neutrophils Absolute Auto 2.4 X10*3/uL (2.0-8.3); Neutrophils Percent Auto 44.7 % (45-73); Red Cell Distribution Width 13.8 % (11.0-16.0); White Blood Count 5.3 X10*3/uL (4.8-10.8)
[2021-09-09 06:22] LABS: Platelet Count 85 X10*3/uL (160-400)
[2021-09-09 06:40] LABS: Alanine Aminotransferase 47 U/L (0-31); Albumin Level 3.3 g/dL (3.5-5.0); Alkaline Phosphatase 71 U/L (39-117); Anion Gap 12 (12-20); Aspartate Amino Transferase 97 U/L (5-31); Bilirubin Total 0.8 mg/dL (0.0-1.0); Blood Urea Nitrogen 8 mg/dL (9-16); Calcium 7.5 mg/dL (8.4-10.2); Carbon Dioxide 26 mmol/L (22-29); Chloride 98 mmol/L (96-108); Creatinine Clr Calc Pharmacy 91.5; Estimated Glomerular Filt Rate > 60; Glucose Fasting 104 mg/dL (60-99); Magnesium 1.4 mg/dL (1.6-2.6); Phosphorus 2.3 mg/dL (2.7-4.5); Potassium 3.1 mmol/L (3.3-5.1); Sodium 133 mmol/L (135-145); Total Protein 5.5 g/dL (6.5-8.0)
[2021-09-09] MEDS: Magnesium Sulfate/H2O 2 GM/50 ML PIGGYBACK IV ×2 (07:31→09:38)
[2021-09-09] MEDS: Magnesium Oxide 400 MG TABLET PO ×3 (07:36→17:05)
[2021-09-09] MEDS: Multivitamin TABLET 1 TAB PO (07:36)
[2021-09-09] MEDS: Thiamine HCL 100 MG TABLET PO (07:36)
[2021-09-09] MEDS: Folic Acid 1 MG TABLET PO (07:36)
[2021-09-09] MEDS: Potassium Chloride Packet 20 MEQ PACKET 40 MEQ PO (07:38)
[2021-09-09 07:42] LABS: SLIDE REVIEW VERIFIED
--- NOTE | 2021-09-09 12:42 | P.PNIM_ITS ---
Subjective Subjective Date of Service: 09/09/21 Interval History: Doing well....improved since admission. Review of Systems Denies chesst pain Denies shortness of breath Denies N/V/D Denies fever/chills Physical Exam Vital Signs: Vital Signs: Last Vital Signs Temp 98.2 F 09/09/21 11:41 Pulse 62 09/09/21 11:41 Resp 20 09/09/21 11:41 BP 147/69 H 09/09/21 11:41 Pulse Ox 97 09/09/21 11:41 Body Mass Index 20.6 Const: Other: No acute distress Resp: Other: Clear to asculation bilaterally; no Rales/Rhonchi/Wheezes Cardio: Other: No S4; + S1/S2; no S3 M/R/G GI: Other: Soft NT/ND. NABS Extrem: Other: no edema Objective Data Active Medications Acetaminophen (Acetaminophen 325 Mg Tablet) 650 mg PO Q6H PRN PRN Reason: Pain, Mild (Pain Scale 1-3) Docusate Sodium (Docusate Sodium 100 Mg Capsule) 100 mg PO DAILY PRN PRN Reason: Constipation Enoxaparin Sodium (Enoxaparin Sodium 40 Mg/0.4 Ml Syringe) 40 mg SUBCUT Q24H [facility] Last Admin: 09/08/21 23:15 Dose: 40 mg Documented by: FAIZA Folic Acid (Folic Acid 1 Mg Tablet) 1 mg PO DAILY [facility] Last Admin: 09/09/21 07:36 Dose: 1 mg Documented by: SUSANNE Ceftriaxone Sodium 1 gm/ (Sodium Chloride) 50 mls @ 100 mls/hr IV Q24H [facility] Last Infusion: 09/08/21 23:58 Dose: 0 mls/hr Documented by: FAIZA Sodium Chloride (Ns) 1,000 mls @ 100 mls/hr IVCONT .Q10H [facility] Last Admin: 09/08/21 23:25 Dose: 50 mls/hr Documented by: FAIZA Magnesium Oxide (Magnesium Oxide 400 Mg Tablet) 400 mg PO DAILY [facility] Last Admin: 09/09/21 07:36 Dose: 400 mg Documented by: SUSANNE Magnesium Oxide (Magnesium Oxide 400 Mg Tablet) 400 mg PO BIDPC [facility] Last Admin: 09/09/21 07:37 Dose: 400 mg Documented by: SUSANNE Multivitamins/Vitamin C (Multivitamin Tablet) 1 tab PO DAILY [facility] Last Admin: 09/09/21 07:36 Dose: 1 tab Documented by: SUSANNE Ondansetron HCl (Ondansetron Hcl 4 Mg/2 Ml Vial) 4 mg IVPUSH Q8H PRN PRN Reason: Nausea and Vomiting Pharmacy Consult (Consult Rx Perform Med Rec) 1 each MISCELLANE ONCE PRN PRN Reason: Consult order Sodium Chloride (0.9 % Sodium Chloride Flush 3 Ml Syringe) 3 ml IVFLUSH QSHIFT [facility] Last Admin: 09/09/21 07:41 Dose: Not Given Documented by: SUSANNE Non-Admin Reason: IV Running Thiamine HCl (Thiamine Hcl 100 Mg Tablet) 100 mg PO DAILY [facility] Last Admin: 09/09/21 07:36 Dose: 100 mg Documented by: SUSANNE Labs CBC & Chem 7: 09/09/21 05:46 09/09/21 05:46 Labs: Laboratory Results - last 24 hr 09/08/21 09/09/21 09/09/21 18:08 05:46 05:46 MCV 102.1 H MCH 35.2 H MCHC 34.5 RDW 13.8 Plt Count 85 L D MPV 11.0 Immature Gran % (Auto) 0.6 H Neut % (Auto) 44.7 L Lymph % (Auto) 36.4 [place] % (Auto) 15.1 H Eos % (Auto) 2.8 Baso % (Auto) 0.4 Lymph # (Auto) 1.9 [place] # (Auto) 0.8 Eos # (Auto) 0.2 Baso # (Auto) 0.0 Abs Immat Gran (auto) 0.03 Absolute Neuts (auto) 2.4 Absolute Nucleated RBC 0.000 Nucleated RBC % (auto) 0.0 Smear Tech's Comments VERIFIED Anion Gap 14 12 Estim Creat Clear Calc 84.3 91.5 Estimated GFR > 60 > 60 Random Glucose 157 H Fasting Glucose 104 H Calcium 7.4 L 7.5 L Phosphorus 2.3 L Magnesium 1.4 L* Total Bilirubin 0.8 AST 97 H ALT 47 H Alkaline Phosphatase 71 D Total Protein 5.5 L D Albumin 3.3 L D Microbiology Microbiology Results: Microbiology 09/07/21 18:32 Urine Culture - Final Urine clean catch - Clean Catch Midstream 09/07/21 17:13 Blood Culture - Preliminary Blood - Venous No growth after 24 hours. 09/07/21 16:37 Blood Culture - Preliminary Blood - Venous No growth after 24 hours. Assessment and Plan (1) Generalized weakness: Status: Acute (2) Acute hypokalemia: Status: Acute (3) Hypomagnesemia: Status: Acute (4) ETOH abuse: Status: Acute Assessment and Plan: 60 year old female with past medical history of alcohol abuse who presents to the hospital with generalized weakness found to have multiple electrolyte abnormality 1.Hypokalemia, hyponatremia, hypomagnesemia Repleting as indicated. Sodium improved.(EToH related) Follow labs 2. Generalized weakness PT consult. Add thiamine/folate 3.Hiistory of alcohol abuse... last drink 2 weeks remote No S/S withdraw. COntinue thiamine/folte DVT prophylaxis: Lovenox Quality Stroke Does the patient have a stroke diagnosis?: No VTE Prior VTE?: No VTE Risk Level:: Medical - moderate - high VTE Device Contraindication: Treatment Not Indicated VTE Drug Contraindication: N/A - Med Ordered
[2021-09-09] MEDS: 0.9 % Sodium Chloride 1,000 ML 50 ML IVCONT (17:03)
[2021-09-09] MEDS: cefTRIAXone sodium 1 GM in 0.9 % Sodium Chloride 50 ML IV (19:28)
[2021-09-09] MEDS: Enoxaparin Sodium 40 MG/0.4 ML SYRINGE SUBCUT (19:28)
[2021-09-09] MEDS: 0.9 % Sodium Chloride Flush 3 ML SYRINGE IVFLUSH (19:29)
[2021-09-10 06:53] LABS: MANUAL DIFF FLAG NO
[2021-09-10 07:04] LABS: Basophils Percent Auto 0.5 % (0-2); Eosinophils Absolute Auto 0.2 X10*3/uL (0.0-0.4); Eosinophils Percent Auto 2.7 % (0-4); Hematocrit 32.1 % (37-47); Hemoglobin 10.9 g/dl (12.0-16.0); Imm Gran Abs Auto 0.03 X10*3/uL (0.00-0.03); Imm Gran Pct Auto 0.5 % (0.0-0.4); Lymphocytes Absolute Auto 2.1 X10*3/uL (1.2-4.9); Lymphocytes Percent Auto 37.5 % (20-40); Mean Corpuscular Hemoglobin 34.7 pg (27.0-33.0); Mean Corpuscular Volume 102.2 fL (80-98); Mean Platelet Volume 10.8 fL (9.4-12.3); Monocytes Absolute Auto 0.9 X10*3/uL (0.1-1.2); Monocytes Percent Auto 16.9 % (2-11); Neutrophils Absolute Auto 2.3 X10*3/uL (2.0-8.3); Neutrophils Percent Auto 41.9 % (45-73); Platelet Count 125 X10*3/uL (160-400); Red Blood Count 3.14 X10*6/uL (4.20-5.50); White Blood Count 5.5 X10*3/uL (4.8-10.8)
[2021-09-10 07:09] VITALS: BP 142/75; PULSE 63; RESP 18; TEMP 36.6; O2SAT 94
[2021-09-10 07:46] LABS: Alanine Aminotransferase 60 U/L (0-31); Albumin Level 3.5 g/dL (3.5-5.0); Alkaline Phosphatase 76 U/L (39-117); Anion Gap 12 (12-20); Aspartate Amino Transferase 102 U/L (5-31); Bilirubin Total 0.7 mg/dL (0.0-1.0); Blood Urea Nitrogen 10 mg/dL (9-16); Calcium 8.1 mg/dL (8.4-10.2); Carbon Dioxide 22 mmol/L (22-29); Chloride 102 mmol/L (96-108); Creatinine Clr Calc Pharmacy 80.6; Estimated Glomerular Filt Rate > 60; Glucose Fasting 143 mg/dL (60-99); Sodium 132 mmol/L (135-145); Total Protein 5.9 g/dL (6.5-8.0)
[2021-09-10] MEDS: Folic Acid 1 MG TABLET PO (08:31)
[2021-09-10] MEDS: Thiamine HCL 100 MG TABLET PO (08:31)
[2021-09-10] MEDS: Magnesium Oxide 400 MG TABLET PO ×2 (08:31)
[2021-09-10] MEDS: Multivitamin TABLET 1 TAB PO (08:31)
[2021-09-10] MEDS: 0.9 % Sodium Chloride Flush 3 ML SYRINGE IVFLUSH (08:34)
[2021-09-10 10:31] VITALS: BP 142/75; PULSE 63; O2SAT 94
[2021-09-10 11:21] VITALS: BP 139/65; PULSE 71; RESP 18; TEMP 36.7; O2SAT 98
--- NOTE | 2021-09-10 13:45 | P.DS_ITS ---
DS: Providers Provider Date of Service: 09/10/21 Date of admission: 09/07/21 20:19 Primary care physician: Nonstaff Physician Consults: 09/07/21 22:14 Consult to Nephrology Routine Consulting Provider: [facility] Reason for consultation: hyponatremia Has provider been notified: No DS: Diagnosis Discharge Diagnosis (1) Generalized weakness: Status: Resolved (2) Acute hypokalemia: Status: Resolved (3) Hypomagnesemia: Status: Resolved (4) ETOH abuse: Status: Resolved DS: Summary Time Spent with Patient Time attestation: Total time spent providing and/or coordinating discharge services: Discharge coordination time: Greater than 30 minutes Quality: Stroke Does the patient have a stroke diagnosis?: No Physical Exam Vital Signs: Vital Signs: Last Vital Signs Temp 98.0 F 09/10/21 11:21 Pulse 71 09/10/21 11:21 Resp 18 09/10/21 11:21 BP 139/65 09/10/21 11:21 Pulse Ox 98 09/10/21 11:21 Body Mass Index 20.6 DS: Data Data Completed and Pending Labs on day of discharge: Laboratory Results - last 24 hr 09/10/21 09/10/21 06:33 06:33 WBC 5.5 RBC 3.14 L Hgb 10.9 L Hct 32.1 L MCV 102.2 H MCH 34.7 H MCHC 34.0 RDW 14.0 Plt Count 125 L D MPV 10.8 Immature Gran % (Auto) 0.5 H Neut % (Auto) 41.9 L Lymph % (Auto) 37.5 [place] % (Auto) 16.9 H Eos % (Auto) 2.7 Baso % (Auto) 0.5 Lymph # (Auto) 2.1 [place] # (Auto) 0.9 Eos # (Auto) 0.2 Baso # (Auto) 0.0 Abs Immat Gran (auto) 0.03 Absolute Neuts (auto) 2.3 Absolute Nucleated RBC 0.000 Nucleated RBC % (auto) 0.0 Sodium 132 L Potassium 4.0 D Chloride 102 Carbon Dioxide 22 Anion Gap 12 BUN 10 Creatinine 0.67 Estim Creat Clear Calc 80.6 Estimated GFR > 60 Fasting Glucose 143 H Calcium 8.1 L D Total Bilirubin 0.7 AST 102 H ALT 60 H Alkaline Phosphatase 76 Total Protein 5.9 L Albumin 3.5 Preliminary micro results at discharge 09/07/21 17:13 Blood Culture - Preliminary Blood - Venous No growth after 48 hours. 09/07/21 16:37 Blood Culture - Preliminary Blood - Venous No growth after 48 hours. Discharge Plan Discharge Patient Disposition: Home, Self-Care Discharge Diagnosis: Hypokalemia with weakness Referrals: Physician,Nonstaff [Primary Care Provider] - 1 Week Discharge Medications: New folic acid 1 mg Tablet 1 mg PO DAILY Qty: 30 RF: 0 Continued alendronate 70 mg tablet 70 mg PO QWEEK Qty: 14 RF: 3 magnesium 200 mg tablet 400 mg PO DAILY Qty: 180 RF: 2 multivitamin Tablet 1 tab PO DAILY RF: 0 No Action thiamine mononitrate (vit B1) 100 mg tablet 100 mg PO DAILY Qty: 90 RF: 3 sertraline [Zoloft] 50 mg tablet 50 mg PO DAILY Qty: 30 RF: 4 Discharge Orders: Discharge Order (Routine); Ordered 09/10/21 Ordered By: Eliezer Higginbotham Diet: advance to usual diet Activity on Discharge: As tolerated Stand Alone Forms: Patient Portal Discharge page Care Plan Goals: Avoid alcohol Health Concerns: Alcohol avoidance Plan of Treatment: Follow-up with PCP Assessment: Improved Discharge Date/Time: 09/10/21 16:05
--- NOTE | 2021-09-10 13:47 | MHC.CM.PN ---
PT CLEARED TO DC HOME TODAY WITH NO SERVICES PT TO SELF ARRANGE TRANSPORTATION
== END 2021-09-10 16:05 | disposition home or self-care (01) | DRG 422 ==
LOC: HO.ED 18:44 → HO.EDOVER 20:24 → HO.IMC 22:28
PROVIDERS: Admitting Provider Internal Medicine; Emergency Provider Emergency Medicine; Visit Provider Hospitalist
DX: E87.6 Hypokalemia (principal); E86.0 Dehydration; I95.9 Hypotension, unspecified; E87.1 Hypo-osmolality and hyponatremia; E83.42 Hypomagnesemia; F17.210 Nicotine dependence, cigarettes, uncomplicated; Z71.6 Tobacco abuse counseling; F10.10 Alcohol abuse, uncomplicated; Z20.822 Contact with and (suspected) exposure to COVID-19; Z79.899 Other long term (current) drug therapy
CPT/HCPCS: 36415; 71045; 80048; 80053; 80076; 81001; 82077; 82803; 83605; 83690; 83735; 83930; 83935; 84100; 84300; 85025; 87040; 87086; 87635; 93005; 96365; 96366; 96367; 96375; 97161; 99285; 99291; J0696; J1650; J2405; J3411; J3475

== ENCOUNTER 2021-09-19 14:33 | Outpatient (REF) | payer BC, SELFPAY ==
[2021-09-19 17:03] LABS: Anion Gap 14 (12-20); Blood Urea Nitrogen 10 mg/dL (9-16); Calcium 9.4 mg/dL (8.4-10.2); Carbon Dioxide 22 mmol/L (22-29); Chloride 100 mmol/L (96-108); Estimated Glomerular Filt Rate > 60; Glucose Random 111 mg/dL (60-115); Magnesium 1.9 mg/dL (1.6-2.6); Potassium 4.4 mmol/L (3.3-5.1); Sodium 132 mmol/L (135-145)
== END 2021-09-19 14:34 | disposition home or self-care (01) ==
LOC: HO.HMGCLDS 14:33
PROVIDERS: Visit Provider Internal Medicine
DX: E87.6 Hypokalemia (principal); E83.42 Hypomagnesemia; F10.10 Alcohol abuse, uncomplicated
CPT/HCPCS: 36415; 80048; 83735

== ENCOUNTER 2022-04-30 05:13 | Emergency (ER) | payer OTHER, SELFPAY ==
[2022-04-30 05:17] VITALS: BP 144/76; PULSE 110; RESP 20; TEMP 36.6; O2SAT 98; BMI 20.3
--- NOTE | 2022-04-30 05:22 | ED_ITS ---
HPI - Abdominal Pain General Chief Complaint: Abdominal Pain Stated Complaint: pancreatitis Time Seen by Provider: 04/30/22 05:22 Source: patient Mode of arrival: ambulatory Limitations: no limitations History of Present Illness HPI narrative: Patient is an alcoholic and has had pancreatitis and this feels the same. MD elicited complaint: abdominal pain Pertinent past history: gastritis and other (pancreatitis) Onset (ago): hour(s) Pain Consistency: constant Location: epigastric Severity: mild Quality: sharp Radiation: epigastric Associated symptoms: nausea and vomiting Related Data Home Medications Medication Instructions Recorded Confirmed multivitamin 1 tab PO DAILY 09/07/21 09/19/21 Previous Rx's Medication Instructions Recorded magnesium 200 mg tablet 400 mg PO DAILY #180 tabs 12/20/20 folic acid 1 mg tablet 1 mg PO DAILY #30 tabs 09/10/21 thiamine mononitrate (vit B1) 100 100 mg PO DAILY #90 tabs 09/12/21 mg tablet sertraline 50 mg tablet (Zoloft) 50 mg PO DAILY #30 tabs 09/19/21 alendronate 70 mg tablet 70 mg PO QWEEK #12 tabs 12/10/21 ondansetron 4 mg disintegrating 4 mg PO Q8H 4 days #12 tabs 04/30/22 tablet pantoprazole 40 mg tablet,delayed 40 mg PO DAILY #20 tabs 04/30/22 release (Protonix) Allergies Allergy/AdvReac Type Severity Reaction Status Date / Time chlordiazepoxide AdvReac Intermediate severe Verified 04/30/22 05:21 [From LIBRIUM] confusion and hallucinations Review of Systems Constitutional: Reports no additional constitutional complaints Eyes: Reports no additional eye complaints Denies dizziness Cardiovascular: Reports no additional cardiovascular complaints Respiratory: Reports as per HPI Gastrointestinal: Reports no additional gastrointestinal complaints Genitourinary: Reports no additional female genitourinary complaints Musculoskeletal: Reports no additional musculoskeletal complaints Skin/Breast: Denies rash Reports system reviewed and no additional complaints, except as documented, Denies dizziness and Denies Sensory deficit (Neuro) Psychiatric: Denies anxiety PMFSH Past Medical History Medical History ETOH abuse Gallstone Osteoporosis Surgical History No pertinent past surgical history Family History Family History Other Substance use disorder Social History Social History Household Members: None Housing: House Alcohol intake: current Alcohol intake frequency: 3 or more drinks per day Alcohol type: hard liquor Patient Tobacco Use Status: Current everyday Tobacco user Tobacco use type: Cigarette Cigarette Packs Per Day: 1 Cigarettes Per Day: 20.0 Years Smoked: on and off since 12 years old Smoked in Last 30 Days: Yes e-Cigarette/Vaping Use: Never Used Second Hand Smoke Exposure: No Use of substances other than those prescribed or required for medical reasons: No Advance Directives: Yes Advance Directives on File: Yes Advance Directives Date on File: 09/07/21 service: No Current occupational status: employed Physical Exam ED Vital Signs: Vital Signs - 24 hr 04/30/22 05:17 Temperature 97.9 F Pulse Rate 110 H Respiratory Rate 20 Blood Pressure 144/76 H Pulse Oximetry 98 Oxygen Delivery Method Room Air BMI result Body Mass Index 20.3 Const Nutritional Appearance: thin Orientation/consciousness: oriented to person and patient oriented x3 Limitations: no limitations HENMT Head: Yes normal to inspection Ears: external ears normal General nose exam: Normal external nose present Mouth: Normal oral and palatal mucosa present and oropharynx normal Throat: Yes posterior oropharynx normal Eyes General: appearance normal, both eyes and all related structures Neck Neck: Yes normal visual inspection Chest Chest palpation & inspection: normal inspection of the chest Resp Auscultation: clear to auscultation bilaterally Cardio Jugular venous distension: no JVD Rate: regular rate Rhythm: regular rhythm Heart sounds: S1 normal heart sound present and S2 normal heart sound present GI Other: epigastric tenderness Palpation (GI): Soft to palpation and No hepatosplenomegaly present Auscultation: normal bowel sounds General: Yes no CVA tenderness Back/Spine/Pelvis Back: no CVA tenderness Skin General skin exam: no rashes or lesions noted Neuro General: oriented to person and patient oriented x3 Cranial nerves: Yes CN's II-XII intact bilaterally Motor exam (neuro): 5/5 motor strength present throughout Sensory Exam: No Sensory deficit (Neuro) Extrem General: Yes normal to inspection Psych Appearance: grossly normal Course Reevaluation(s) Reevaluation #1: Patient with recent alcohol binge, no evidence of pancreatitis will dc on zofran and protonix Time: 06:13 MDM - Abdominal Pain Lab Data Result diagrams: 04/30/22 05:32 04/30/22 05:32 Labs: Lab Results 04/30/22 04/30/22 Range/Units 05:32 05:32 WBC 10.6 (4.8-10.8) X10*3/uL RBC 3.61 L (4.20-5.50) X10*6/uL Hgb 12.5 (12.0-16.0) g/dl Hct 36.2 L (37.0-47.0) % MCV 100.3 H (80.0-98.0) fL MCH 34.6 H (27.0-33.0) pg MCHC 34.5 (31.0-35.0) g/dl RDW 15.4 (11.0-16.0) % Plt Count 163 (160-400) X10*3/uL MPV 9.5 (9.4-12.3) fL Immature Gran % (Auto) 0.4 (0.0-0.4) % Neut % (Auto) 56.6 (45-73) % Lymph % (Auto) 34.9 (20-40) % [place] % (Auto) 7.0 (2-11) % Eos % (Auto) 0.5 (0-4) % Baso % (Auto) 0.6 (0-2) % Lymph # (Auto) 3.7 (1.2-4.9) X10*3/uL [place] # (Auto) 0.7 (0.1-1.2) X10*3/uL Eos # (Auto) 0.1 (0.0-0.4) X10*3/uL Baso # (Auto) 0.1 (0.0-0.2) X10*3/uL Abs Immat Gran (auto) 0.04 H (0.00-0.03) X10*3/uL Absolute Neuts (auto) 6.0 (2.0-8.3) x10*3/uL Absolute Nucleated RBC 0.000 (0.0-0.012) X10*3/uL Nucleated RBC % (auto) 0.0 (0.0-0.2) /100WBC Sodium 138 (135-145) mmol/L Potassium 3.8 (3.3-5.1) mmol/L Chloride 99 (96-108) mmol/L Carbon Dioxide 23 (22-29) mmol/L Anion Gap 20 (12-20) BUN 15 (9-16) mg/dL Creatinine 0.64 (0.5-1.4) mg/dL Estim Creat Clear Calc 84.8 Estimated GFR > 60 Random Glucose 125 H (60-115) mg/dL Calcium 8.2 L D (8.4-10.2) mg/dL Total Bilirubin 0.8 (0.0-1.0) mg/dL AST 70 H (5-31) U/L ALT 33 H (0-31) U/L Alkaline Phosphatase 105 D (39-117) U/L Total Protein 6.7 (6.5-8.0) g/dL Albumin 3.9 (3.5-5.0) g/dL Lipase < 4 L (8-78) U/L Discharge Plan Discharge Clinical Impression: Acute alcoholic gastritis Patient Disposition: Home, Self-Care Instructions: Gastritis (ED) Prescriptions: New pantoprazole [Protonix] 40 mg tablet,delayed release (DR/EC) 40 mg PO DAILY Qty: 20 0RF ondansetron 4 mg tablet,disintegrating 4 mg PO Q8H 4 Days Qty: 12 0RF No Action magnesium 200 mg tablet 400 mg PO DAILY Qty: 180 2RF alendronate 70 mg tablet 70 mg PO QWEEK Qty: 12 3RF multivitamin Tablet 1 tab PO DAILY folic acid 1 mg Tablet 1 mg PO DAILY Qty: 30 0RF thiamine mononitrate (vit B1) 100 mg tablet 100 mg PO DAILY Qty: 90 3RF sertraline [Zoloft] 50 mg tablet 50 mg PO DAILY Qty: 30 4RF Rx Instructions: 1/2 tabl for 1 week, then 1 tabl QD Referrals: Physician,Unknown J [Primary Care Provider] - 1 week
[2022-04-30 05:36] LABS: MANUAL DIFF FLAG NO
[2022-04-30 05:37] LABS: Basophils Absolute Auto 0.1 X10*3/uL (0.0-0.2); Basophils Percent Auto 0.6 % (0-2); Eosinophils Absolute Auto 0.1 X10*3/uL (0.0-0.4); Eosinophils Percent Auto 0.5 % (0-4); Hematocrit 36.2 % (37.0-47.0); Hemoglobin 12.5 g/dl (12.0-16.0); Imm Gran Abs Auto 0.04 X10*3/uL (0.00-0.03); Imm Gran Pct Auto 0.4 % (0.0-0.4); Lymphocytes Absolute Auto 3.7 X10*3/uL (1.2-4.9); Lymphocytes Percent Auto 34.9 % (20-40); Mean Corpuscular HGB Conc 34.5 g/dl (31.0-35.0); Mean Corpuscular Hemoglobin 34.6 pg (27.0-33.0); Mean Corpuscular Volume 100.3 fL (80.0-98.0); Mean Platelet Volume 9.5 fL (9.4-12.3); Monocytes Absolute Auto 0.7 X10*3/uL (0.1-1.2); Neutrophils Percent Auto 56.6 % (45-73); Platelet Count 163 X10*3/uL (160-400); Red Blood Count 3.61 X10*6/uL (4.20-5.50); Red Cell Distribution Width 15.4 % (11.0-16.0); White Blood Count 10.6 X10*3/uL (4.8-10.8)
[2022-04-30] MEDS: 0.9 % Sodium Chloride 1,000 ML 250 ML IVCONT (05:37)
[2022-04-30] MEDS: ondansetron HCL 4 MG/2 ML VIAL IVPUSH (05:40)
[2022-04-30] MEDS: Pantoprazole Sodium 40 MG/10 ML VIAL IVPUSH (05:40)
[2022-04-30 06:00] LABS: Alanine Aminotransferase 33 U/L (0-31); Albumin Level 3.9 g/dL (3.5-5.0); Alkaline Phosphatase 105 U/L (39-117); Anion Gap 20 (12-20); Aspartate Amino Transferase 70 U/L (5-31); Bilirubin Total 0.8 mg/dL (0.0-1.0); Blood Urea Nitrogen 15 mg/dL (9-16); Calcium 8.2 mg/dL (8.4-10.2); Carbon Dioxide 23 mmol/L (22-29); Chloride 99 mmol/L (96-108); Creatinine Clr Calc Pharmacy 84.8; Estimated Glomerular Filt Rate > 60; Glucose Random 125 mg/dL (60-115); Lipase < 4 U/L (8-78); Potassium 3.8 mmol/L (3.3-5.1); Sodium 138 mmol/L (135-145); Total Protein 6.7 g/dL (6.5-8.0)
[2022-04-30 06:27] VITALS: BP 112/71; PULSE 84; RESP 14; TEMP 36.6; O2SAT 95
== END 2022-04-30 06:31 | disposition home or self-care (01) ==
PROVIDERS: Emergency Provider Emergency Medicine
DX: K29.20 Alcoholic gastritis without bleeding (principal); R10.9 Unspecified abdominal pain; R11.2 Nausea with vomiting, unspecified; F10.10 Alcohol abuse, uncomplicated; Y90.9 Presence of alcohol in blood, level not specified; F17.200 Nicotine dependence, unspecified, uncomplicated
CPT/HCPCS: 36415; 80053; 83690; 85025; 96361; 96374; 96375; 99284; J2405

== ENCOUNTER 2022-05-02 00:47 | Inpatient (IN) | payer OTHER, SELFPAY ==
[2022-05-02 01:14] VITALS: BP 143/86; PULSE 95; RESP 18; TEMP 36.9; O2SAT 100; BMI 20.9
--- NOTE | 2022-05-02 03:04 | ECG_ITS ---
Test Reason : ABD PAIN Blood Pressure : / mmHG Vent. Rate : 079 BPM Atrial Rate : 079 BPM P-R Int : 134 ms QRS Dur : 092 ms QT Int : 404 ms P-R-T Axes : 055 070 072 degrees QTc Int : 463 ms Normal sinus rhythm Normal ECG When compared with ECG of 07-SEP-2021 16:53, No significant change was found Referred By: Malou Mcdowell Electronically Signed By:Segundo Stephens
--- NOTE | 2022-05-02 03:06 | ED_ITS ---
HPI - GI Bleed General Chief complaint: GI Bleed Stated complaint: blood in stool Time Seen by Provider: 05/02/22 02:53 Source: patient Mode of arrival: ambulatory Limitations: no limitations History of Present Illness HPI Narrative: Patient comes to the emergency room complaining of having black bowel movements, foul-smelling starting yesterday. Patient states that she was diagnosed with gastritis couple of days ago when she was seen here in the emergency room. Patient states that she has no abdominal pain. Patient reports that for the last 3 days, patient has been taking at least 6 tablets of naproxen for a headache. Otherwise she does not use NSAIDs. Also, patient states that she has been drinking alcohol. Patient states that today she went to work, she was feeling lightheaded all day long especially with standing up. Patient denies room spinning, no chest pain or shortness of breath, no syncopal episodes. Patient states she had a colonoscopy over 5 years ago, states she is due for a colonoscopy Related Data Home Medications Medication Instructions Recorded Confirmed multivitamin 1 tab PO DAILY 09/07/21 09/19/21 Previous Rx's Medication Instructions Recorded magnesium 200 mg tablet 400 mg PO DAILY #180 tabs 12/20/20 folic acid 1 mg tablet 1 mg PO DAILY #30 tabs 09/10/21 thiamine mononitrate (vit B1) 100 100 mg PO DAILY #90 tabs 09/12/21 mg tablet sertraline 50 mg tablet (Zoloft) 50 mg PO DAILY #30 tabs 09/19/21 alendronate 70 mg tablet 70 mg PO QWEEK #12 tabs 12/10/21 ondansetron 4 mg disintegrating 4 mg PO Q8H 4 days #12 tabs 04/30/22 tablet pantoprazole 40 mg tablet,delayed 40 mg PO DAILY #20 tabs 04/30/22 release (Protonix) Allergies Allergy/AdvReac Type Severity Reaction Status Date / Time chlordiazepoxide AdvReac Intermediate severe Verified 05/02/22 01:14 [From LIBRIUM] confusion and hallucinations Review of Systems Review of Systems: Constitutional : No Weight loss, No Fever, No Chills, No Night Sweats, No Fatigue, No Malaise ENT/Mouth : No Hearing loss, No Ear Pain, No Nasal Congestion, No Sinus Pain, No Hoarseness, No sore throat, No Rhinorrhea, No Swallowing Difficulty Eyes: No Eye Pain, No Swelling, No Redness, No Foreign Body, No Discharge, No Vision Changes Cardiovascular : No Chest Pain, No SOB, No Dyspnea on Exertion, No Orthopnea, No Edema, No Palpitations Respiratory : No Cough, No Sputum, No Wheezing, No Smoke Exposure, No Dyspnea Gastrointestinal : No Nausea, No Vomiting, No Diarrhea, complaining of pasty black foul-smelling stool Genitourinary : no irregular bleeding, No Dysuria, No Urinary Frequency, No Hematuria, No Urinary Incontinence, No Urgency, No Flank Pain, No Urinary Flow Changes, No Hesitancy Musculoskeletal : No joint pain, No Myalgias, No Joint Swelling Skin : No Skin Lesions, No rash Neuro : No Weakness, No Numbness, No Paresthesias, complaining of lightheade dness with standing, Psych : No Anxiety/Panic, No Depression, No SI/HI/AH/VH, No Social Issues, Heme/Lymph: No Bruising, No Bleeding,No Lymphadenopathy Endocrine : No Polyuria, No Polydipsia, No Temperature Intolerance [facility] Past Medical History Medical History Anxiety ETOH abuse Gallstone Gastritis Hyponatremia Osteoporosis Surgical History No pertinent past surgical history Family History Family History Other Substance use disorder Social History Social History Household Members: None Housing: House Alcohol intake: current Alcohol intake frequency: 3 or more drinks per day Alcohol type: hard liquor Patient Tobacco Use Status: Current everyday Tobacco user Tobacco use type: Cigarette Cigarette Packs Per Day: 1 Cigarettes Per Day: 20.0 Years Smoked: on and off since 12 years old e-Cigarette/Vaping Use: Never Used Second Hand Smoke Exposure: No Use of substances other than those prescribed or required for medical reasons: No Advance Directives: Yes Advance Directives on File: Yes Advance Directives Date on File: 09/07/21 Patient : No service: No Current occupational status: employed Physical Exam Vital Signs: Vital Signs: Last Vital Signs Temp 98.5 F 05/02/22 01:14 Pulse 95 05/02/22 01:14 Resp 18 05/02/22 01:14 BP 143/86 H 05/02/22 01:14 Pulse Ox 100 05/02/22 01:14 O2 Del Method 05/02/22 01:14 BMI result Body Mass Index 20.9 Const: Other: Appearance: Alert. Oriented X3. No acute distress. Eyes: Pupils equal, round and reactive to light. ENT: Pharynx normal. Neck: Normal inspection. Neck supple. No lymph nodes noted. No crepitus CVS: Normal heart rate and rhythm. Pulses normal. Normal S1 and S2 Respiratory: No respiratory distress. Breath sounds normal. No Wheezing. No rales Abdomen: Soft and nontender. No rigidity. No distention. Digital rectal exam shows black pasty stool Skin: Skin warm and dry. Mildly pale skin color. Normal skin turgor. Extremities: No lower extremity edema. No Lacerations. No Rash Neuro: Oriented X 3. No motor deficit. No sensory deficit. Moving all extremities. No slurred speech. CN 2 through 12 grossly intact Psych: calm, cooperative, normal affect Course Course Course Narrative: Patient likely has an upper GI bleed secondary to naproxen use and alcohol abuse. Patient has no abdominal pain, perforated ulcer not suspected at this time. All of the labs are pending. Patient given IV Protonix Patient's vitals are stable, occult blood positive. Hemoglobin dropped from 12.5 to 10.1. Patient has had low hemoglobin in the past. I discussed the patient with Dr. Pinzon, patient being admitted for GI bleed [facility] - GI Bleed Lab Data Result diagrams: 05/02/22 03:17 05/02/22 03:17 Labs: Lab Results 05/02/22 05/02/22 05/02/22 Range/Units 03:05 03:17 03:17 WBC 9.0 (4.8-10.8) X10*3/uL RBC 2.86 L D (4.20-5.50) X10*6/uL Hgb 10.1 L (12.0-16.0) g/dl Hct 29.5 L (37.0-47.0) % MCV 103.1 H (80.0-98.0) fL MCH 35.3 H (27.0-33.0) pg MCHC 34.2 (31.0-35.0) g/dl RDW 14.8 (11.0-16.0) % Plt Count 134 L (160-400) X10*3/uL MPV 10.1 (9.4-12.3) fL Immature Gran % (Auto) 0.3 (0.0-0.4) % Neut % (Auto) 51.7 (45-73) % Lymph % (Auto) 39.1 (20-40) % [place] % (Auto) 7.7 (2-11) % Eos % (Auto) 0.9 (0-4) % Baso % (Auto) 0.3 (0-2) % Lymph # (Auto) 3.5 (1.2-4.9) X10*3/uL [place] # (Auto) 0.7 (0.1-1.2) X10*3/uL Eos # (Auto) 0.1 (0.0-0.4) X10*3/uL Baso # (Auto) 0.0 (0.0-0.2) X10*3/uL Abs Immat Gran (auto) 0.03 (0.00-0.03) X10*3/uL Absolute Neuts (auto) 4.6 (2.0-8.3) x10*3/uL Absolute Nucleated RBC 0.000 (0.0-0.012) X10*3/uL Nucleated RBC % (auto) 0.0 (0.0-0.2) /100WBC PT (9.9-13.0) SEC INR (0.9-1.1) Sodium 133 L (135-145) mmol/L Potassium 4.2 (3.3-5.1) mmol/L Chloride 95 L (96-108) mmol/L Carbon Dioxide 25 (22-29) mmol/L Anion Gap 17 (12-20) BUN 24 H D (9-16) mg/dL Creatinine 0.74 (0.5-1.4) mg/dL Estim Creat Clear Calc 73.1 Estimated GFR > 60 Random Glucose 102 (60-115) mg/dL Calcium 8.9 D (8.4-10.2) mg/dL Magnesium 2.1 (1.6-2.6) mg/dL Total Bilirubin 1.1 H (0.0-1.0) mg/dL Direct Bilirubin 0.7 H (0.0-0.5) mg/dL AST 81 H (5-31) U/L ALT 32 H (0-31) U/L Alkaline Phosphatase 99 (39-117) U/L Troponin I High Sens (<3.5-17.0) ng/L Total Protein 7.1 (6.5-8.0) g/dL Albumin 4.2 (3.5-5.0) g/dL Lipase < 4 L (8-78) U/L Stool Occult Blood POSITIVE (NEGATIVE) COVID-19 (BARBARA) (Negative) COVID-19 Clin Com 05/02/22 05/02/22 05/02/22 Range/Units 03:17 03:17 03:17 WBC (4.8-10.8) X10*3/uL RBC (4.20-5.50) X10*6/uL Hgb (12.0-16.0) g/dl Hct (37.0-47.0) % MCV (80.0-98.0) fL MCH (27.0-33.0) pg MCHC (31.0-35.0) g/dl RDW (11.0-16.0) % Plt Count (160-400) X10*3/uL MPV (9.4-12.3) fL Immature Gran % (Auto) (0.0-0.4) % Neut % (Auto) (45-73) % Lymph % (Auto) (20-40) % [place] % (Auto) (2-11) % Eos % (Auto) (0-4) % Baso % (Auto) (0-2) % Lymph # (Auto) (1.2-4.9) X10*3/uL [place] # (Auto) (0.1-1.2) X10*3/uL Eos # (Auto) (0.0-0.4) X10*3/uL Baso # (Auto) (0.0-0.2) X10*3/uL Abs Immat Gran (auto) (0.00-0.03) X10*3/uL Absolute Neuts (auto) (2.0-8.3) x10*3/uL Absolute Nucleated RBC (0.0-0.012) X10*3/uL Nucleated RBC % (auto) (0.0-0.2) /100WBC PT 11.6 (9.9-13.0) SEC INR 1.0 (0.9-1.1) Sodium (135-145) mmol/L Potassium (3.3-5.1) mmol/L Chloride (96-108) mmol/L Carbon Dioxide (22-29) mmol/L Anion Gap (12-20) BUN (9-16) mg/dL Creatinine (0.5-1.4) mg/dL Estim Creat Clear Calc Estimated GFR Random Glucose (60-115) mg/dL Calcium (8.4-10.2) mg/dL Magnesium (1.6-2.6) mg/dL Total Bilirubin (0.0-1.0) mg/dL Direct Bilirubin (0.0-0.5) mg/dL AST (5-31) U/L ALT (0-31) U/L Alkaline Phosphatase (39-117) U/L Troponin I High Sens 4.0 (<3.5-17.0) ng/L Total Protein (6.5-8.0) g/dL Albumin (3.5-5.0) g/dL Lipase (8-78) U/L Stool Occult Blood (NEGATIVE) COVID-19 (BARBARA) Negative (Negative) COVID-19 Clin Com See Note Discharge Plan Discharge Clinical Impression: Acute GI bleeding Patient Disposition: Admitted As Inpatient
[2022-05-02 03:12] LABS: OBS Int Ctl Valid YES; OBS1 POSITIVE (NEGATIVE)
[2022-05-02 03:27] LABS: Basophils Percent Auto 0.3 % (0-2); Eosinophils Absolute Auto 0.1 X10*3/uL (0.0-0.4); Eosinophils Percent Auto 0.9 % (0-4); Hematocrit 29.5 % (37.0-47.0); Hemoglobin 10.1 g/dl (12.0-16.0); Imm Gran Abs Auto 0.03 X10*3/uL (0.00-0.03); Imm Gran Pct Auto 0.3 % (0.0-0.4); Lymphocytes Absolute Auto 3.5 X10*3/uL (1.2-4.9); Lymphocytes Percent Auto 39.1 % (20-40); Mean Corpuscular HGB Conc 34.2 g/dl (31.0-35.0); Mean Corpuscular Hemoglobin 35.3 pg (27.0-33.0); Mean Corpuscular Volume 103.1 fL (80.0-98.0); Mean Platelet Volume 10.1 fL (9.4-12.3); Monocytes Absolute Auto 0.7 X10*3/uL (0.1-1.2); Monocytes Percent Auto 7.7 % (2-11); Neutrophils Absolute Auto 4.6 x10*3/uL (2.0-8.3); Neutrophils Percent Auto 51.7 % (45-73); Platelet Count 134 X10*3/uL (160-400); Red Blood Count 2.86 X10*6/uL (4.20-5.50); Red Cell Distribution Width 14.8 % (11.0-16.0)
[2022-05-02 03:28] LABS: MANUAL DIFF FLAG NO
[2022-05-02 03:32] LABS: Prothrombin Time 11.6 SEC (9.9-13.0)
[2022-05-02 03:35] LABS: COVID-19 Test Negative (Negative)
[2022-05-02] MEDS: Pantoprazole Sodium 40 MG/10 ML VIAL IVPUSH ×3 (03:49→15:39)
[2022-05-02 04:04] LABS: Alanine Aminotransferase 32 U/L (0-31); Albumin Level 4.2 g/dL (3.5-5.0); Alkaline Phosphatase 99 U/L (39-117); Anion Gap 17 (12-20); Aspartate Amino Transferase 81 U/L (5-31); Bilirubin Direct 0.7 mg/dL (0.0-0.5); Bilirubin Total 1.1 mg/dL (0.0-1.0); Blood Urea Nitrogen 24 mg/dL (9-16); Calcium 8.9 mg/dL (8.4-10.2); Carbon Dioxide 25 mmol/L (22-29); Chloride 95 mmol/L (96-108); Creatinine Clr Calc Pharmacy 73.1; Estimated Glomerular Filt Rate > 60; Glucose Random 102 mg/dL (60-115); Lipase < 4 U/L (8-78); Magnesium 2.1 mg/dL (1.6-2.6); Potassium 4.2 mmol/L (3.3-5.1); Sodium 133 mmol/L (135-145); Total Protein 7.1 g/dL (6.5-8.0)
[2022-05-02 05:07] VITALS: BP 98/50; PULSE 77; RESP 16; TEMP 37.1; O2SAT 97
[2022-05-02 07:04] LABS: Basophils Percent Auto 0.4 % (0-2); Eosinophils Absolute Auto 0.1 X10*3/uL (0.0-0.4); Eosinophils Percent Auto 1.3 % (0-4); Hematocrit 26.4 % (37.0-47.0); Imm Gran Abs Auto 0.02 X10*3/uL (0.00-0.03); Imm Gran Pct Auto 0.3 % (0.0-0.4); Lymphocytes Absolute Auto 2.9 X10*3/uL (1.2-4.9); Lymphocytes Percent Auto 41.5 % (20-40); MANUAL DIFF FLAG NO; Mean Corpuscular HGB Conc 34.1 g/dl (31.0-35.0); Mean Corpuscular Hemoglobin 34.6 pg (27.0-33.0); Mean Corpuscular Volume 101.5 fL (80.0-98.0); Mean Platelet Volume 10.2 fL (9.4-12.3); Monocytes Absolute Auto 0.5 X10*3/uL (0.1-1.2); Monocytes Percent Auto 7.7 % (2-11); Neutrophils Absolute Auto 3.4 x10*3/uL (2.0-8.3); Neutrophils Percent Auto 48.8 % (45-73); Platelet Count 119 X10*3/uL (160-400); Red Cell Distribution Width 14.6 % (11.0-16.0)
--- NOTE | 2022-05-02 07:08 | PM.IMHP ---
History of Present Illness Date of Service: 05/02/22 Chief Complaint: GI bleed this is a 61-year-old female with past medical history of alcohol abuse, who presents to the hospital with complaints of dark black stools. Patient reports that she noticed black stools since the night prior, had for more episodes of black stool as well as bright blood mixed with stool, she became alarmed and came to the hospital. Patient reports no abdominal pain nausea or vomiting. No dizziness no shortness breath, headache change in vision. She she reports that she had a headache last week for which she took naproxen for 3 days secondly but usually does not take NSAIDs regularly. Patient reports history of alcohol use, last drink was Friday, she reports that she has shaking but that now she is feeling better. She reports history of Alcoholic gastritis. patient otherwise denies any chest pain, shortness of breath, no cough, no urinary symptoms and no lower extremity edema. On arrival to the ED patient hemodynamically stable with no significant abnormality labs are significant for a WBC count of 9.0, hemoglobin of 10.1, MCV of 103.1, sodium of 133, BUN of 24, otherwise unremarkable patient will be admitted for further management Review of Systems Review of Systems: Yes all other systems are reviewed and are negative [facility] Medical History Anxiety ETOH abuse Gallstone Gastritis Hyponatremia Osteoporosis Family History Other Substance use disorder Surgical History No pertinent past surgical history Social History Household Members: None Housing: House Alcohol intake: current Alcohol intake frequency: 3 or more drinks per day Alcohol type: hard liquor Patient Tobacco Use Status: Current everyday Tobacco user Tobacco use type: Cigarette Cigarette Packs Per Day: 1 Cigarettes Per Day: 20.0 Years Smoked: on and off since 12 years old e-Cigarette/Vaping Use: Never Used Second Hand Smoke Exposure: No Use of substances other than those prescribed or required for medical reasons: No Advance Directives: Yes Advance Directives on File: Yes Advance Directives Date on File: 09/07/21 Patient : No service: No Current occupational status: employed Meds Allergies Allergy/AdvReac Type Severity Reaction Status Date / Time chlordiazepoxide AdvReac Intermediate severe Verified 05/02/22 01:14 [From LIBRIUM] confusion and hallucinations Active Medications: Current Medications Acetaminophen (Acetaminophen 325 Mg Tablet) 650 mg PO Q6H PRN PRN Reason: Pain, Mild (Pain Scale 1-3) Ondansetron HCl (Ondansetron Hcl 4 Mg/2 Ml Vial) 4 mg IVPUSH Q8H PRN PRN Reason: Nausea and Vomiting Pantoprazole Sodium (Pantoprazole Sodium 40 Mg/10 Ml Vial) 40 mg IVPUSH BID@0630,1630 [facility] Sodium Chloride (0.9 % Sodium Chloride Flush 3 Ml Syringe) 3 ml IVFLUSH QSHIFT [facility] Physical Exam Vital Signs and Narrative: Vital Signs: Last Vital Signs Temp 98.8 F 05/02/22 05:07 Pulse 77 05/02/22 05:07 Resp 16 05/02/22 05:07 BP 98/50 L 05/02/22 05:07 Pulse Ox 97 05/02/22 05:07 O2 Del Method 05/02/22 05:07 BMI result Body Mass Index 20.9 Const: General: cooperative and no acute distress Orientation/consciousness: patient oriented x3 Eyes: General: appearance normal, both eyes and all related structures Resp: Effort & Inspection: normal respiratory effort Auscultation: clear to auscultation bilaterally Cardio: Rate: regular rate Rhythm: regular rhythm GI: Other: no rebound, no guarding, no GI tenderness Palpation (GI): Soft to palpation Auscultation: normal bowel sounds Skin: General skin exam: no rashes or lesions noted Neuro: General: patient oriented x3 Cognition (Neuro): normal cognition Extrem: General: Yes normal to inspection and Yes no pedal edema Results Labs CBC and Chem 7: 05/02/22 06:46 05/02/22 03:17 Labs: Laboratory Results - last 24 hr 05/02/22 05/02/22 05/02/22 03:05 03:17 03:17 MCV 103.1 H MCH 35.3 H MCHC 34.2 RDW 14.8 Plt Count 134 L MPV 10.1 Immature Gran % (Auto) 0.3 Neut % (Auto) 51.7 Lymph % (Auto) 39.1 [place] % (Auto) 7.7 Eos % (Auto) 0.9 Baso % (Auto) 0.3 Lymph # (Auto) 3.5 [place] # (Auto) 0.7 Eos # (Auto) 0.1 Baso # (Auto) 0.0 Abs Immat Gran (auto) 0.03 Absolute Neuts (auto) 4.6 Absolute Nucleated RBC 0.000 Nucleated RBC % (auto) 0.0 PT INR Anion Gap 17 Estim Creat Clear Calc 73.1 Estimated GFR > 60 Random Glucose 102 Calcium 8.9 D Magnesium 2.1 Total Bilirubin 1.1 H Direct Bilirubin 0.7 H AST 81 H ALT 32 H Alkaline Phosphatase 99 Troponin I High Sens Total Protein 7.1 Albumin 4.2 Lipase < 4 L Stool Occult Blood POSITIVE COVID-19 (BARBARA) COVID-19 Clin Com 05/02/22 05/02/22 05/02/22 03:17 03:17 03:17 MCV MCH MCHC RDW Plt Count MPV Immature Gran % (Auto) Neut % (Auto) Lymph % (Auto) [place] % (Auto) Eos % (Auto) Baso % (Auto) Lymph # (Auto) [place] # (Auto) Eos # (Auto) Baso # (Auto) Abs Immat Gran (auto) Absolute Neuts (auto) Absolute Nucleated RBC Nucleated RBC % (auto) PT 11.6 INR 1.0 Anion Gap Estim Creat Clear Calc Estimated GFR Random Glucose Calcium Magnesium Total Bilirubin Direct Bilirubin AST ALT Alkaline Phosphatase Troponin I High Sens 4.0 Total Protein Albumin Lipase Stool Occult Blood COVID-19 (BARBARA) Negative COVID-19 Clin Com See Note 05/02/22 06:46 MCV 101.5 H MCH 34.6 H MCHC 34.1 RDW 14.6 Plt Count 119 L MPV 10.2 Immature Gran % (Auto) 0.3 Neut % (Auto) 48.8 Lymph % (Auto) 41.5 H [place] % (Auto) 7.7 Eos % (Auto) 1.3 Baso % (Auto) 0.4 Lymph # (Auto) 2.9 [place] # (Auto) 0.5 Eos # (Auto) 0.1 Baso # (Auto) 0.0 Abs Immat Gran (auto) 0.02 Absolute Neuts (auto) 3.4 Absolute Nucleated RBC 0.000 Nucleated RBC % (auto) 0.0 PT INR Anion Gap Estim Creat Clear Calc Estimated GFR Random Glucose Calcium Magnesium Total Bilirubin Direct Bilirubin AST ALT Alkaline Phosphatase Troponin I High Sens Total Protein Albumin Lipase Stool Occult Blood COVID-19 (BARBARA) COVID-19 Clin Com Assessment and Plan (1) Acute GI bleeding: Status: Acute (2) Macrocytic anemia: Status: Acute Plan this is a 61-year-old female with history of alcohol abuse and alcoholic gastritis who presents to the hospital with complaints of black stool found to have GI bleed # acute GI bleed - guaiac-positive - hemodynamically stable, - hemoglobin stable - will consult GI - keep NPO - follow CBC # anemia - macrocytic - chronic - likely multifactorial - full check ferritin, B12, and folic acid - follow CBC # history of alcohol abuse - no evidence of withdrawal - last drink was Friday - will prescribed thiamine and folic acid DVT prophylaxis: SCDs Quality Stroke Does the patient have a stroke diagnosis?: No VTE Prior VTE?: No VTE Risk Level:: Medical - moderate - high VTE Device Contraindication: N/A - Device Ordered VTE Drug Contraindication: Treatment Not Indicated
[2022-05-02 07:28] VITALS: BP 128/69; PULSE 65; RESP 16; TEMP 37.1; O2SAT 98
[2022-05-02 07:31] LABS: Anion Gap 13 (12-20); Blood Urea Nitrogen 22 mg/dL (9-16); Calcium 8.4 mg/dL (8.4-10.2); Carbon Dioxide 26 mmol/L (22-29); Chloride 96 mmol/L (96-108); Creatinine Clr Calc Pharmacy 88.7; Estimated Glomerular Filt Rate > 60; Glucose Random 90 mg/dL (60-115); Potassium 3.8 mmol/L (3.3-5.1); Sodium 131 mmol/L (135-145)
[2022-05-02 08:19] LABS: Ferritin 345 ng/mL (10-250)
[2022-05-02] MEDS: Thiamine HCL 100 MG TABLET PO (08:41)
[2022-05-02] MEDS: 0.9 % Sodium Chloride Flush 3 ML SYRINGE IVFLUSH ×3 (08:42→23:53)
[2022-05-02] MEDS: Folic Acid 1 MG TABLET PO (08:42)
[2022-05-02 09:44] LABS: Iron 49 mcg/dL (30-160); Percent Iron Saturation 22 % (15-50); Total Iron Binding Capacity 219 mcg/dL (228-428); Unsaturated Iron Binding 170 ug/dL
[2022-05-02 09:49] LABS: Folate > 20.0 ng/mL (> or = 4.0); Vitamin B12 784 pg/mL (200-900)
--- NOTE | 2022-05-02 10:00 | PC.NURSE ---
rn to rn report given to pacheco martinez aware of plan of care for transfer to overflow unit
[2022-05-02 10:52] LABS: Appearance Urine HAZY; Color Urine YELLOW; Glucose Urine UA NEG (NEG); Leukocyte Esterase Urine NEG (NEG); Nitrite Urine NEG (NEG); PH 7.5 (5.0-8.0); Urine Blood NEG (NEG); Urine Ketones 15 MG/DL (NEG); Urine Protein NEG (NEG-TRACE)
--- NOTE | 2022-05-02 11:29 | P.PNIM_ITS ---
Subjective Subjective Date of Service: 05/02/22 Interval History: cc: melena interval history: denies withdrawal symptoms Respiratory Respiratory: Reports no additional respiratory complaints Gastrointestinal Gastrointestinal: Reports no additional gastrointestinal complaints Physical Exam Vital Signs: Vital Signs: Last Vital Signs Temp 98.8 F 05/02/22 07:28 Pulse 65 05/02/22 07:28 Resp 16 05/02/22 07:28 BP 128/69 05/02/22 07:28 Pulse Ox 98 05/02/22 07:28 O2 Del Method 05/02/22 07:28 BMI result Body Mass Index 20.9 General: AO X 3, no acute distress Resp: CTA bilateral, no accessory muscles used CVS: S1,S2,RRR GI: soft, non tender, non distended Neuro: motor grossly intact, alert Psych: appropriate affect, appropriate insight Objective Data Active Medications Acetaminophen (Acetaminophen 325 Mg Tablet) 650 mg PO Q6H PRN PRN Reason: Pain, Mild (Pain Scale 1-3) Folic Acid (Folic Acid 1 Mg Tablet) 1 mg PO DAILY [facility] Last Admin: 05/02/22 08:42 Dose: 1 mg Documented By: DESI Ondansetron HCl (Ondansetron Hcl 4 Mg/2 Ml Vial) 4 mg IVPUSH Q8H PRN PRN Reason: Nausea and Vomiting Pantoprazole Sodium (Pantoprazole Sodium 40 Mg/10 Ml Vial) 40 mg IVPUSH BID@0630,1630 [facility] Last Admin: 05/02/22 08:42 Dose: 40 mg Documented By: DESI Sodium Chloride (0.9 % Sodium Chloride Flush 3 Ml Syringe) 3 ml IVFLUSH QSHIFT [facility] Last Admin: 05/02/22 08:42 Dose: 3 ml Documented By: DESI Thiamine HCl (Thiamine Hcl 100 Mg Tablet) 100 mg PO DAILY [facility] Last Admin: 05/02/22 08:41 Dose: 100 mg Documented By: DESI Labs CBC & Chem 7: 05/02/22 06:46 05/02/22 06:46 Labs: Laboratory Results - last 24 hr 05/02/22 05/02/22 05/02/22 03:05 03:17 03:17 MCV 103.1 H MCH 35.3 H MCHC 34.2 RDW 14.8 Plt Count 134 L MPV 10.1 Immature Gran % (Auto) 0.3 Neut % (Auto) 51.7 Lymph % (Auto) 39.1 [place] % (Auto) 7.7 Eos % (Auto) 0.9 Baso % (Auto) 0.3 Lymph # (Auto) 3.5 [place] # (Auto) 0.7 Eos # (Auto) 0.1 Baso # (Auto) 0.0 Abs Immat Gran (auto) 0.03 Absolute Neuts (auto) 4.6 Absolute Nucleated RBC 0.000 Nucleated RBC % (auto) 0.0 PT INR Anion Gap 17 Estim Creat Clear Calc 73.1 Estimated GFR > 60 Random Glucose 102 Calcium 8.9 D Magnesium 2.1 Iron TIBC % Saturation Unsat Iron Binding Ferritin Total Bilirubin 1.1 H Direct Bilirubin 0.7 H AST 81 H ALT 32 H Alkaline Phosphatase 99 Troponin I High Sens Total Protein 7.1 Albumin 4.2 Lipase < 4 L Vitamin B12 Folate Urine Color Urine Appearance Urine pH Ur Specific [place] Urine Protein Urine Glucose (UA) Urine Ketones Urine Blood Urine Nitrite Ur Leukocyte Esterase Stool Occult Blood POSITIVE COVID-19 (BARBARA) COVID-19 Clin Com 05/02/22 05/02/22 05/02/22 03:17 03:17 03:17 MCV MCH MCHC RDW Plt Count MPV Immature Gran % (Auto) Neut % (Auto) Lymph % (Auto) [place] % (Auto) Eos % (Auto) Baso % (Auto) Lymph # (Auto) [place] # (Auto) Eos # (Auto) Baso # (Auto) Abs Immat Gran (auto) Absolute Neuts (auto) Absolute Nucleated RBC Nucleated RBC % (auto) PT 11.6 INR 1.0 Anion Gap Estim Creat Clear Calc Estimated GFR Random Glucose Calcium Magnesium Iron TIBC % Saturation Unsat Iron Binding Ferritin Total Bilirubin Direct Bilirubin AST ALT Alkaline Phosphatase Troponin I High Sens 4.0 Total Protein Albumin Lipase Vitamin B12 Folate Urine Color Urine Appearance Urine pH Ur Specific [place] Urine Protein Urine Glucose (UA) Urine Ketones Urine Blood Urine Nitrite Ur Leukocyte Esterase Stool Occult Blood COVID-19 (BARBARA) Negative COVID-19 [employer] Com See Note 05/02/22 05/02/22 05/02/22 06:46 06:46 06:46 MCV 101.5 H MCH 34.6 H MCHC 34.1 RDW 14.6 Plt Count 119 L MPV 10.2 Immature Gran % (Auto) 0.3 Neut % (Auto) 48.8 Lymph % (Auto) 41.5 H [place] % (Auto) 7.7 Eos % (Auto) 1.3 Baso % (Auto) 0.4 Lymph # (Auto) 2.9 [place] # (Auto) 0.5 Eos # (Auto) 0.1 Baso # (Auto) 0.0 Abs Immat Gran (auto) 0.02 Absolute Neuts (auto) 3.4 Absolute Nucleated RBC 0.000 Nucleated RBC % (auto) 0.0 PT INR Anion Gap 13 Estim Creat Clear Calc 88.7 Estimated GFR > 60 Random Glucose 90 Calcium 8.4 Magnesium Iron 49 TIBC 219 L % Saturation 22 Unsat Iron Binding 170 Ferritin 345 H Total Bilirubin Direct Bilirubin AST ALT Alkaline Phosphatase Troponin I High Sens Total Protein Albumin Lipase Vitamin B12 784 Folate > 20.0 Urine Color Urine Appearance Urine pH Ur Specific [place] Urine Protein Urine Glucose (UA) Urine Ketones Urine Blood Urine Nitrite Ur Leukocyte Esterase Stool Occult Blood COVID-19 (BARBARA) COVID-19 Clin Com 05/02/22 10:42 MCV MCH MCHC RDW Plt Count MPV Immature Gran % (Auto) Neut % (Auto) Lymph % (Auto) [place] % (Auto) Eos % (Auto) Baso % (Auto) Lymph # (Auto) [place] # (Auto) Eos # (Auto) Baso # (Auto) Abs Immat Gran (auto) Absolute Neuts (auto) Absolute Nucleated RBC Nucleated RBC % (auto) PT INR Anion Gap Estim Creat Clear Calc Estimated GFR Random Glucose Calcium Magnesium Iron TIBC % Saturation Unsat Iron Binding Ferritin Total Bilirubin Direct Bilirubin AST ALT Alkaline Phosphatase Troponin I High Sens Total Protein Albumin Lipase Vitamin B12 Folate Urine Color YELLOW Urine Appearance HAZY Urine pH 7.5 Ur Specific [place] 1.010 Urine Protein NEG Urine Glucose (UA) NEG Urine Ketones 15 Urine Blood NEG Urine Nitrite NEG Ur Leukocyte Esterase NEG Stool Occult Blood COVID-19 (BARBARA) COVID-19 Clin Com Assessment and Plan (1) Macrocytic anemia: Status: Acute Plan 61F presented with melena anemia multifactorial etoh related, acute blood loss due to suspected upper gi bleed monitor h and h ppi gi eval clears for now, npo after midnight for possible egd alcohol dependence drinks about 1L of vodka per day, currently no signs of withdrawal, monitor ciwa dvt prophylaxis - mechanical due to melena full code reason for continued hospitalization: ongoing treatment with iv ppi and close monitoring of h and h for melena Quality Stroke Does the patient have a stroke diagnosis?: No VTE Prior VTE?: No VTE Risk Level:: Medical - moderate - high VTE Device Contraindication: N/A - Device Ordered VTE Drug Contraindication: Treatment Not Indicated
--- NOTE | 2022-05-02 12:59 | MHC.CM.PN ---
Addendum entered by Analisa Ha 05/03/22 08:33: CORRECTION: HCP ON FILE Original Note: PT REPORTS SHE LIVES WITH HER BOYFRIEND. PT DROVE HERSELF TO HOSPITAL AND WILL DRIVE HERSELF HOME PT HAS PCP IN PLACE, DR. JONNIE SMITH pT'S DAUGHTER IS HER DAUGHTER. PT REPORTS THERE IS A COPY OF THE HCP AT HER PCP'S OFFICE PT IS COVID VACCINATED X2 PT REPORTS SHE DOES NOT USE ANY DME OR RECEIVE SERVICES IN HOME IMM DELIVERED TO PT AT BEDSIDE ON 05/02/22
--- NOTE | 2022-05-02 14:34 | MHC.SHP ---
Pre-Procedural Eval Section A Date of Service: 05/03/22 The patient is an INPATIENT: Yes The History & Physical has been completed within 30 days and I have reviewed it.: Yes Section B Chief Complaint: GI Bleed Allergies: Allergies Allergy/AdvReac Type Severity Reaction Status Date / Time chlordiazepoxide AdvReac Intermediate severe Verified 05/02/22 01:14 [From LIBRIUM] confusion and hallucinations Plan I have reviewed the history and physical and performed a pertinent physical examination on my patient. No changes have occurred unless specified.
--- NOTE | 2022-05-02 14:34 | PM.EVENT ---
Event Note Date of Service: 05/02/22 Event Note: GI Consult-Full note dictated-Hx via patient, RN, and EMR. Imp: 61 yo female with chronic hx of EtOH abuse and smoking, as well as a very recent hx of OTC Naproxen use, presenting with melena and anemia. Denies any hematemesis or coffee grounds emesis. Describes some abdominal cramps. Denies any hx of PUD. She has never had an upper endoscopy, but describes a negative colonoscopy > 5 years ago. She has been stable since admission and has had no BM's today. Diff dx: PUD, portal gastropathy. Does not sound c/w a variceal bleed. Rec: EGD tomorrow with me or Dr. Becerra. Full consent obtained from her for this, including risks of bleeding and perforation. Continue PPI and F/U labs. 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 She was comfortable with this plan. Thanks.
--- NOTE | 2022-05-02 16:15 | CONS_ITS ---
DATE OF SERVICE: 05/02/2022 REASON FOR CONSULTATION: Melena and anemia. HISTORY OF PRESENT ILLNESS: The patient is a 61-year-old female with a history of chronic alcohol abuse and tobacco use, who presents with new-onset melena and anemia. The patient drinks vodka on a daily and excessive basis. However, she was otherwise well until about 2 days before admission when she noticed the onset of black stools. She describes having taken 4 [id number] naproxen about 2 days prior to that. She does not use any aspirin nor any other NSAIDs on a regular basis. Prior to the onset of the black stool, she had been feeling well from a GI standpoint. She denies any significant heartburn, dysphagia, anorexia, early satiety, nor chronic abdominal pain. Her bowel movements have been regular without previous melena nor hematochezia. She denies any jaundice nor weight loss. She denies any previous history of peptic ulcer disease in herself nor family members. She describes a negative colonoscopy over 5 years ago, but has never had an upper endoscopy. Since admission here, she has been stable and has not had any bowel movement today. Her hemoglobin was 12.5 on April 30. Her hemoglobin was 10.1 early this morning and then followup was 9.0. MEDICATIONS: At home, she has recently been started on an oral PPI when she had been in the ER a couple days before the onset of these symptoms with abdominal pain. Her medications here in the hospital include IV Protonix, folic acid, thiamine, and acetaminophen. PAST MEDICAL HISTORY: Alcohol abuse. She denies a significant surgeries. She denies history of CA, diabetes, stroke, nor lung disease. She does have a history of anxiety. Osteoporosis. 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 She smokes and drinks alcohol every day. FAMILY HISTORY: Noncontributory. REVIEW OF SYSTEMS: CONSTITUTIONAL: Up until the past 2 or 3 days, she had been feeling well with good appetite. SKIN: No rash. No pruritus. CARDIAC: No chest pain. PULMONARY: No cough. No hemoptysis. GI: As above. PHYSICAL EXAMINATION: GENERAL: The patient is a pleasant alert female, in no distress. SKIN: Warm and dry. Nonjaundiced. HEENT: Anicteric sclerae. NECK: Supple. CARDIAC: Normal S1, S2. ABDOMEN: Soft, nondistended, and nontender. LABORATORY DATA: CBC as above. Platelet count 119,000. PT 11.6 with INR 1.0. Sodium 131, potassium 3.8, chloride 96, CO2 26, BUN 22, creatinine 0.6. Iron 49, iron saturation 22%. Ferritin 345 this morning. Total bilirubin 1.1, AST 81, ALT 32, alkaline phosphatase 99, albumin 4.2, lipase less than 4. IMPRESSION: Given the patient's clinical history this certainly seems consistent with an upper GI bleed in relation to her chronic alcohol and tobacco use, as well as the more recent onset of some naproxen. This could represent an ulcer disease, erosive gastritis, component of gastropathy and/or erosive esophagitis. I would recommend she undergo upper endoscopy with myself or Dr. Becerra tomorrow with monitored anesthesia care. Full consent has been obtained from her for this, including risks of bleeding and perforation. In the meantime, I will continue her PPI and follow up laboratories in the morning. I did advise her that she obviously needs to abstain from alcohol completely on long-term going forward. She was comfortable with this plan. Thank you for this consultation. MD HENRY Quintero/NEVIN / [phone]
[2022-05-02 20:23] VITALS: BP 139/72; PULSE 73; RESP 16; TEMP 36.8; O2SAT 98
--- NOTE | 2022-05-02 20:56 | PC.NURSE ---
Pt alert and oriented x4, calm and cooperative. Pt denies pain now. Denies N/V. Pt having clear liquids diet and tolerating well, denied N/V, abd pain with liquid diet. Pt educated on being NPO at midnight and stated an understanding. Pt eductaed by MD and RN about endoscopy tomorrow and agrees to plan of care, aware of being admitted to room 379. Pt ambulating with steady gait, denies complaints with ambulation. Vitals stable. IV in left AC intact and flushing without issues, no redness or swelling noted at IV site, pt denies pain at IV site. Pt denies BM this shift, denies any rectal bleeding this shift. Report given to NANCY Wheeler. Pt taken to room 379 in wheelchair by Rosina Gallo on med surge.
[2022-05-02 21:02] VITALS: BMI 22.0
[2022-05-02] MEDS: Benzonatate 100 MG CAPSULE 200 MG PO (23:53)
[2022-05-03] VITALS (7 sets, daily range): BP systolic 118–147; BP diastolic 58–83; PULSE 61–87; RESP 16–18; TEMP 36.1–36.8; O2SAT 8–99
[2022-05-03] MEDS: Pantoprazole Sodium 40 MG/10 ML VIAL IVPUSH (05:31)
[2022-05-03 06:32] LABS: Hematocrit 29.1 % (37.0-47.0); Hemoglobin 9.8 g/dl (12.0-16.0); Mean Corpuscular HGB Conc 33.7 g/dl (31.0-35.0); Mean Corpuscular Volume 103.9 fL (80.0-98.0); Mean Platelet Volume 10.5 fL (9.4-12.3); Platelet Count 136 X10*3/uL (160-400); Red Cell Distribution Width 14.3 % (11.0-16.0); White Blood Count 6.2 X10*3/uL (4.8-10.8)
[2022-05-03 06:59] LABS: Anion Gap 13 (12-20); Blood Urea Nitrogen 9 mg/dL (9-16); Calcium 8.2 mg/dL (8.4-10.2); Carbon Dioxide 24 mmol/L (22-29); Chloride 97 mmol/L (96-108); Creatinine Clr Calc Pharmacy 95.8; Estimated Glomerular Filt Rate > 60; Glucose Fasting 116 mg/dL (60-99); Potassium 3.7 mmol/L (3.3-5.1); Sodium 130 mmol/L (135-145)
[2022-05-03] MEDS: Folic Acid 1 MG TABLET PO (07:30)
[2022-05-03] MEDS: Thiamine HCL 100 MG TABLET PO (07:30)
[2022-05-03] MEDS: 0.9 % Sodium Chloride Flush 3 ML SYRINGE IVFLUSH (07:30)
--- NOTE | 2022-05-03 07:52 | PHA.MEDREC ---
Pharmacy Consult ? Medication Reconciliation Pharmacy has reviewed the medication reconciliation complete by Jasmin. Rianna Feliciano, RinaD
--- NOTE | 2022-05-03 11:43 | P.CONAN_ITS ---
[facility] Active Problems Active Problems: All Active Problems (Updated 05/02/22 @ 07:28 by Sarah Pinzon MD) Macrocytic anemia (Acute) Acute GI bleeding (Acute) Past Medical History Medical History Anxiety ETOH abuse Gall[place] Gastritis Hyponatremia Osteoporosis Family History Family History Other Substance use disorder Surgical History Surgical History Hx of colonoscopy No pertinent past surgical history History of Problems with Anesthesia: No Social History Social History Household Members: Significant Other Housing: House Do you presently have visiting nurse or other home services: No Alcohol intake: current Alcohol intake frequency: 3 or more drinks per day Alcohol type: hard liquor Patient Tobacco Use Status: Current everyday Tobacco user Tobacco use type: Cigarette Cigarette Packs Per Day: 1 Cigarettes Per Day: 20.0 Years Smoked: on and off since 12 years old e-Cigarette/Vaping Use: Never Used Second Hand Smoke Exposure: No Advance Directives Date on File: 09/07/21 service: No Current occupational status: employed Meds Allergies Allergy/AdvReac Type Severity Reaction Status Date / Time chlordiazepoxide AdvReac Intermediate severe Verified 05/02/22 01:14 [From LIBRIUM] confusion and hallucinations Active Medications: Current Medications Acetaminophen (Acetaminophen 325 Mg Tablet) 650 mg PO Q6H PRN PRN Reason: Pain, Mild (Pain Scale 1-3) Benzonatate (Benzonatate 100 Mg Capsule) 200 mg PO TID PRN PRN Reason: cough Last Admin: 05/02/22 23:53 Dose: 200 mg Folic Acid (Folic Acid 1 Mg Tablet) 1 mg PO DAILY [facility] Last Admin: 05/03/22 07:30 Dose: 1 mg Ondansetron HCl (Ondansetron Hcl 4 Mg/2 Ml Vial) 4 mg IVPUSH Q8H PRN PRN Reason: Nausea and Vomiting Pantoprazole Sodium (Pantoprazole Sodium 40 Mg/10 Ml Vial) 40 mg IVPUSH BID@0630,1630 [facility] Last Admin: 05/03/22 05:31 Dose: 40 mg Sodium Chloride (0.9 % Sodium Chloride Flush 3 Ml Syringe) 3 ml IVFLUSH QSHIFT [facility] Last Admin: 05/03/22 07:30 Dose: 3 ml Thiamine HCl (Thiamine Hcl 100 Mg Tablet) 100 mg PO DAILY [facility] Last Admin: 05/03/22 07:30 Dose: 100 mg Exam Exam Date and Time: May 03, 2022 1143 Height,Weight and Vital Signs: Height 5 ft 6 in Weight 62 kg Last Vital Signs Temp 97.6 F 05/03/22 07:49 Pulse 68 05/03/22 07:49 Resp 16 05/03/22 07:49 BP 121/69 05/03/22 07:49 Pulse Ox 94 05/03/22 07:49 O2 Del Method 05/03/22 07:49 Pertinent Lab Results Pertinent Lab Results: Laboratory Tests 05/02/22 05/02/22 05/02/22 03:05 03:17 03:17 WBC 9.0 RBC 2.86 L D Hgb 10.1 L Hct 29.5 L MCV 103.1 H MCH 35.3 H MCHC 34.2 RDW 14.8 Plt Count 134 L MPV 10.1 Immature Gran % (Auto) 0.3 Neut % (Auto) 51.7 Lymph % (Auto) 39.1 [place] % (Auto) 7.7 Eos % (Auto) 0.9 Baso % (Auto) 0.3 Lymph # (Auto) 3.5 [place] # (Auto) 0.7 Eos # (Auto) 0.1 Baso # (Auto) 0.0 Abs Immat Gran (auto) 0.03 Absolute Neuts (auto) 4.6 Absolute Nucleated RBC 0.000 Nucleated RBC % (auto) 0.0 PT INR Sodium 133 L Potassium 4.2 Chloride 95 L Carbon Dioxide 25 Anion Gap 17 BUN 24 H D Creatinine 0.74 Estim Creat Clear Calc 73.1 Estimated GFR > 60 Random Glucose 102 Fasting Glucose Calcium 8.9 D Magnesium 2.1 Iron TIBC % Saturation Unsat Iron Binding Ferritin Total Bilirubin 1.1 H Direct Bilirubin 0.7 H AST 81 H ALT 32 H Alkaline Phosphatase 99 Troponin I High Sens Total Protein 7.1 Albumin 4.2 Lipase < 4 L Vitamin B12 Folate Urine Color Urine Appearance Urine pH Ur Specific [place] Urine Protein Urine Glucose (UA) Urine Ketones Urine Blood Urine Nitrite Ur Leukocyte Esterase Stool Occult Blood POSITIVE COVID-19 (BARBARA) COVID-19 Clin Com 05/02/22 05/02/22 05/02/22 03:17 03:17 03:17 WBC RBC Hgb Hct MCV MCH MCHC RDW Plt Count MPV Immature Gran % (Auto) Neut % (Auto) Lymph % (Auto) [place] % (Auto) Eos % (Auto) Baso % (Auto) Lymph # (Auto) [place] # (Auto) Eos # (Auto) Baso # (Auto) Abs Immat Gran (auto) Absolute Neuts (auto) Absolute Nucleated RBC Nucleated RBC % (auto) PT 11.6 INR 1.0 Sodium Potassium Chloride Carbon Dioxide Anion Gap BUN Creatinine Estim Creat Clear Calc Estimated GFR Random Glucose Fasting Glucose Calcium Magnesium Iron TIBC % Saturation Unsat Iron Binding Ferritin Total Bilirubin Direct Bilirubin AST ALT Alkaline Phosphatase Troponin I High Sens 4.0 Total Protein Albumin Lipase Vitamin B12 Folate Urine Color Urine Appearance Urine pH Ur Specific [place] Urine Protein Urine Glucose (UA) Urine Ketones Urine Blood Urine Nitrite Ur Leukocyte Esterase Stool Occult Blood COVID-19 (BARBARA) Negative COVID-19 Clin Com See Note 05/02/22 05/02/22 05/02/22 06:46 06:46 06:46 WBC 7.0 RBC 2.60 L Hgb 9.0 L Hct 26.4 L MCV 101.5 H MCH 34.6 H MCHC 34.1 RDW 14.6 Plt Count 119 L MPV 10.2 Immature Gran % (Auto) 0.3 Neut % (Auto) 48.8 Lymph % (Auto) 41.5 H [place] % (Auto) 7.7 Eos % (Auto) 1.3 Baso % (Auto) 0.4 Lymph # (Auto) 2.9 [place] # (Auto) 0.5 Eos # (Auto) 0.1 Baso # (Auto) 0.0 Abs Immat Gran (auto) 0.02 Absolute Neuts (auto) 3.4 Absolute Nucleated RBC 0.000 Nucleated RBC % (auto) 0.0 PT INR Sodium 131 L Potassium 3.8 Chloride 96 Carbon Dioxide 26 Anion Gap 13 BUN 22 H Creatinine 0.61 Estim Creat Clear Calc 88.7 Estimated GFR > 60 Random Glucose 90 Fasting Glucose Calcium 8.4 Magnesium Iron 49 TIBC 219 L % Saturation 22 Unsat Iron Binding 170 Ferritin 345 H Total Bilirubin Direct Bilirubin AST ALT Alkaline Phosphatase Troponin I High Sens Total Protein Albumin Lipase Vitamin B12 784 Folate > 20.0 Urine Color Urine Appearance Urine pH Ur Specific [place] Urine Protein Urine Glucose (UA) Urine Ketones Urine Blood Urine Nitrite Ur Leukocyte Esterase Stool Occult Blood COVID-19 (BARBARA) COVID-19 [employer] Com 05/02/22 05/03/22 05/03/22 10:42 05:49 05:49 WBC 6.2 RBC 2.80 L Hgb 9.8 L Hct 29.1 L MCV 103.9 H MCH 35.0 H MCHC 33.7 RDW 14.3 Plt Count 136 L MPV 10.5 Immature Gran % (Auto) Neut % (Auto) Lymph % (Auto) [place] % (Auto) Eos % (Auto) Baso % (Auto) Lymph # (Auto) [place] # (Auto) Eos # (Auto) Baso # (Auto) Abs Immat Gran (auto) Absolute Neuts (auto) Absolute Nucleated RBC 0.000 Nucleated RBC % (auto) 0.0 PT INR Sodium 130 L Potassium 3.7 Chloride 97 Carbon Dioxide 24 Anion Gap 13 BUN 9 D Creatinine 0.57 Estim Creat Clear Calc 95.8 Estimated GFR > 60 Random Glucose Fasting Glucose 116 H Calcium 8.2 L Magnesium Iron TIBC % Saturation Unsat Iron Binding Ferritin Total Bilirubin Direct Bilirubin AST ALT Alkaline Phosphatase Troponin I High Sens Total Protein Albumin Lipase Vitamin B12 Folate Urine Color YELLOW Urine Appearance HAZY Urine pH 7.5 Ur Specific [place] 1.010 Urine Protein NEG Urine Glucose (UA) NEG Urine Ketones 15 Urine Blood NEG Urine Nitrite NEG Ur Leukocyte Esterase NEG Stool Occult Blood COVID-19 (BARBARA) COVID-19 Clin Com Airway Mallampati Class: II TM Dist: >3cm Neck ROM: Full Loose/Missing/Broken Teeth: No Heart: RRR Lungs: mild wheezing throughout Assessment and Plan Assessment Anesthesia Assessment: Anesthesia Plan Discussed and Chart Reviewed Final Anesthetic Review History of Problems with Anesthesia: No NPO: Yes ASA Class: III Final Preanesthetic Review: Meds/Allgs Chart Reviewed, Consent Obtained/Reviewed and Anes Risks/Benef Reviewed Patient Risk: Intermediate Procedure Risk: Intermediate Anesthetic Plan Anesthetic Plan: MAC: Disposition: Standard PACU
--- NOTE | 2022-05-03 12:36 | PC.NURSE ---
iv to left ac from floor, patent, attached to lr as ordered
[2022-05-03] MEDS: Lactated Ringers 1,000 ML 50 ML IVCONT (12:56)
[2022-05-03] MEDS: Albuterol Sulfate (0.083%) 2.5 MG/3 ML VIAL.NEB INHALE (12:57)
--- NOTE | 2022-05-03 12:59 | MHC.CM.PN ---
PLAN IS UPPER ENDOSCOPY TODAY.
--- NOTE | 2022-05-03 13:39 | P.BOP_ITS ---
Brief Operative Note Date of Service: 05/03/22 Pre-op diagnosis: UGIB Post-op diagnosis: same (gastric and duodenal ulcers) Surgeon: Jermaine Becerra Anesthesia: MAC Was an Wireless Store Manager used for this Procedure?: No Estimated blood loss (mL): 2 Pathology: other (antral biopsies) Condition: stable Disposition: PACU
--- NOTE | 2022-05-03 13:40 | PM.EVENT ---
Event Note Date of Service: 05/03/22 Event Note: EGD note dictated multiple nonbleeding antral and duodenal ulcers no therapy performed antral biopsies obtained Rec: f/u bx results bid ppi x2 weeks then daily d/c tobacco, alcohol, nsaids repeat egd in 12 weeks diet advanced, can d/c when stable.
--- NOTE | 2022-05-03 13:58 | OP_ITS ---
SURGEON: Jermaine Becerra MD INDICATIONS: Upper GI bleeding. PREOPERATIVE DIAGNOSIS: POSTOPERATIVE DIAGNOSIS: PROCEDURE PERFORMED: Upper endoscopy with biopsy. ESTIMATED BLOOD LOSS: COMPLICATIONS: ANESTHESIA: ASSISTANTS: SPECIMENS: MEDICATIONS: Monitored anesthesia care. DESCRIPTION OF PROCEDURE: History and physical were performed. The risks and benefits of the procedure were explained to the patient. Informed consent was obtained. The patient was placed in the left lateral decubitus position. The Olympus video gastroscope was introduced into the esophagus, stomach, and duodenum. Examination was performed. The scope was removed. She tolerated the procedure well and was returned to recovery area in stable condition. FINDINGS: Esophagus: The esophagus was normal. There were no varices and there was no esophagitis. Stomach: The stomach showed no bleeding. There were multiple small less than 10 mm gastric antral ulcers with clean bases. Biopsies were obtained from the antrum to evaluate for H pylori. Duodenum: There were multiple serpiginous ulcers involving the bulb and proximal 2nd portion with no active bleeding. No therapy was performed. The distal 2nd portion was normal. IMPRESSION: Multiple gastric and duodenal ulcers. RECOMMENDATION: 1. Follow up the biopsy results. 2. Advanced diet. 3. B.i.d. proton pump inhibitor x2 weeks, then daily. 4. Repeat endoscopy in 12 weeks for reassessment of gastric antral ulcers. MD MIKA Rothman/NEVIN / [id number]
--- NOTE | 2022-05-03 14:59 | P.DS_ITS ---
DS: Providers Provider Date of Service: 05/03/22 Date of admission: 05/02/22 04:46 Primary care physician: Stephy Lorenzana MD Consults: 05/02/22 04:46 Consult to Gastroenterology Routine Consulting Provider: Eliel Cortes Reason for consultation: gi bleed Has provider been notified: No DS: Diagnosis Discharge Diagnosis (1) Macrocytic anemia: Status: Acute DS: Summary Hospital Course Hospital Course: Chief Complaint: GI bleed 61-year-old female with past medical history of alcohol abuse, who presents to the hospital? with complaints of dark black stools.? Patient reports that? she noticed black stools since the night prior, had for more episodes of? black stool as well as bright blood mixed with stool, she became alarmed and came to the hospital.? Patient reports no abdominal pain nausea or vomiting.? No dizziness no shortness breath, headache change in vision.? She she reports that she had a headache last week for which she took naproxen for 3 days secondly but? usually does not take NSAIDs regularly.? Patient reports history of alcohol use, last drink was Friday, she reports that she has shaking but that now she is feeling better.? 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 patient otherwise denies any chest pain, shortness of breath, no cough, no urinary symptoms and no lower extremity edema.? On arrival to the ED patient hemodynamically? stable with no significant abnorm ality labs are significant for a WBC count of 9.0, hemoglobin of 10.1, MCV of 103.1, sodium of 133, BUN? of 24, otherwise unremarkable patient? admitted for further management. hospital course 61F presented with melena, labs showed macrocytic anemia underwent upper endoscopy and noted to have multiple nonbleeding antral and duodenal ulcers, no therapy perform since no bleeding notedted,, antral biopsies obtained,likely multifactorial related to alcohol, tobacco use and NSAIDs, patient has been strongly advised to abstain from alcohol smoking and use of NSAIDs she is being discharged home on Protonix 40 mg twice daily for 2 weeks followed by 40 mg once daily, H&H remains stable did not require blood transfusion. alcohol dependence drinks about 1L of vodka per day, no signs of withdrawal Noted strongly recommend to abstain from, patient declined outpatient counseling and referrals for alcohol use disorder. tobacco use disorder patient declined nicotine patch. Time Spent with Patient Time attestation: Total time spent providing and/or coordinating discharge services: Discharge coordination time: Greater than 30 minutes Quality: Safe Use of Opioids Does Pt have an Active Cancer Diagnosis on the Problem List?: No Quality: Stroke Does the patient have a stroke diagnosis?: No Physical Exam Vital Signs: Vital Signs: Last Vital Signs Temp 97.0 F 05/03/22 13:51 Pulse 78 05/03/22 13:51 Resp 18 05/03/22 13:51 BP 139/69 05/03/22 13:51 Pulse Ox 96 05/03/22 13:51 O2 Del Method 05/03/22 13:51 O2 Flow Rate 4 05/03/22 13:35 BMI result Body Mass Index 22.0 Const: Other: General: A O X 3, no acute distress neck no JVD Resp:? CTA bilateral, no accessory muscles used CVS: S1,S2,RRR GI: soft, non tender, non distended Neuro:? motor grossly intact, alert Psych: appropriate affect, appropriate insight? DS: Data Data Completed and Pending Pending studies at discharge: Pending at discharge 05/03/22 13:24 Surgical [PTH] Routine Labs on day of discharge: Laboratory Results - last 24 hr 05/03/22 05/03/22 05:49 05:49 WBC 6.2 RBC 2.80 L Hgb 9.8 L Hct 29.1 L MCV 103.9 H MCH 35.0 H MCHC 33.7 RDW 14.3 Plt Count 136 L MPV 10.5 Absolute Nucleated RBC 0.000 Nucleated RBC % (auto) 0.0 Sodium 130 L Potassium 3.7 Chloride 97 Carbon Dioxide 24 Anion Gap 13 BUN 9 D Creatinine 0.57 Estim Creat Clear Calc 95.8 Estimated GFR > 60 Fasting Glucose 116 H Calcium 8.2 L Discharge Plan Discharge Patient Disposition: Home, Self-Care Discharge Diagnosis: acute blood loss anemia alcohol dependence tobacco use disorder Referrals: Stephy Lorenzana MD [Primary Care Provider] - 1 Week Discharge Medications: New pantoprazole [Protonix] 40 mg tablet,delayed release (DR/EC) 40 mg PO DAILY Qty: 60 0RF Rx Instructions: take Protonix 40 mg 1 tablet twice daily for 2 weeks then take Protonix 1 tablet once daily Discontinued pantoprazole [Protonix] 40 mg tablet,delayed release (DR/EC) 40 mg PO DAILY Qty: 20 0RF Discharge Orders: Discharge Order (Routine); Ordered 05/03/22 Ordered By: Shanelle Bland Diet: advance to usual diet Activity on Discharge: As tolerated Stand Alone Forms: Patient Portal Discharge page, Work/School Release Care Plan Goals: acute blood loss anemia noted to have multiple nonbleeding antral and duodenal ulcers no therapy performed recommend to take Protonix 40 mg twice daily for 2 weeks then Protonix 40 mg 1 daily strongly recommend to abstain from tobacco alcohol and NSAIDs Health Concerns: Alcohol use/ tobacco use disorder strongly recommend to abstain from smoking and alcohol, since likely causing gastric/duodenal ulcer Plan of Treatment: outpatient follow-up with primary care physician in 1-2 weeks, outpatient follow-up with Dr. Becerra in 12 weeks for repeat upper endoscopy. Assessment: as per discharge summary
--- NOTE | 2022-05-03 15:02 | MHC.CM.PN ---
PATIENT IS DC HOME - SELF CARE RN AWARE
== END 2022-05-03 16:45 | disposition home or self-care (01) | DRG 241 ==
LOC: HO.ED 04:15 → HO.EDOVER 04:51 → HO.S3 19:50
PROVIDERS: Internal Medicine; Internal Medicine Gastroenterology; Admitting Provider Internal Medicine; Emergency Provider Emergency Medicine; PCP Internal Medicine; Visit Provider Hospitalist
PROC: 0DB98ZX Excision of Duodenum, Via Natural or Artificial Opening Endoscopic, Diagnostic (ICD-10-PCS; principal; 2022-05-03 13:10)
DX: K25.4 Chronic or unspecified gastric ulcer with hemorrhage (principal); F10.20 Alcohol dependence, uncomplicated; K26.4 Chronic or unspecified duodenal ulcer with hemorrhage; D62 Acute posthemorrhagic anemia; T39.315A Adverse effect of propionic acid derivatives, initial encounter; F17.210 Nicotine dependence, cigarettes, uncomplicated; Z20.822 Contact with and (suspected) exposure to COVID-19; Z71.6 Tobacco abuse counseling; Z88.8 Allergy status to other drugs, medicaments and biological substances; Z79.899 Other long term (current) drug therapy
CPT/HCPCS: 36415; 80048; 80076; 81003; 82272; 82607; 82728; 82746; 83540; 83690; 83735; 84484; 85025; 85027; 85610; 87635; 88305; 88342; 93005; 94640; 96374; 99285

== ENCOUNTER 2022-07-07 09:15 | Inpatient (IN) | payer OTHER, SELFPAY ==
[2022-07-07 09:26] VITALS: BP 140/65; PULSE 100; RESP 18; TEMP 36.5; O2SAT 97
[2022-07-07 09:36] VITALS: BMI 20.3
--- NOTE | 2022-07-07 12:16 | ED_ITS ---
HPI - General Adult General Chief complaint: General Medical Stated complaint: Black stools, weak, Dizzy Time Seen by Provider: 07/07/22 12:16 Source: patient Mode of arrival: ambulatory Limitations: no limitations History of Present Illness HPI narrative: Patient is a 61 year old female presenting to the emergency department today with 3 days of black tarry stools. Patient states that she has had black tarry stools for the last 3 days and that this has happened before, this past April. Patient states at that time she was admitted for the issue. Patient states that she used to be an alcoholic but has been sober since the incident in April and has stopped taking any NSAIDs since the incident in April. Patient denies any dizziness, lightheadedness, abdominal pain, nausea, vomiting, fever, chills, b lurry vision, double vision, loss of vision, chest pain, difficulty breathing, shortness of breath, back pain, night sweats, pain with urination, increased urinary frequency, increased urinary urgency, blood in her urine, syncope or a near syncopal episode, recent trauma or falls, bowel incontinence, bladder incontinence, bowel retention, bladder retention, or any other complaints at this time. Onset (ago): day(s) (3) Severity: mild Severity scale (1-10): 3 Relieving factors: none Exacerbating factors: none Associated symptoms: weakness Treatments prior to arrival: none Related Data Home Medications Medication Instructions Recorded Confirmed magnesium 250 mg tablet 500 mg PO DAILY 07/07/22 07/07/22 omega 2-eqf-cqo-fish oil 1,000 mg 1 cap PO DAILY 07/07/22 07/07/22 (120 mg-180 mg) capsule (Fish Oil) ondansetron 4 mg disintegrating 1 tab PO Q8H PRN Nausea 07/07/22 07/07/22 tablet vitamin B complex 1 cap PO DAILY 07/07/22 07/07/22 Allergies Allergy/AdvReac Type Severity Reaction Status Date / Time No Known Allergies Allergy Verified 07/07/22 09:38 Review of Systems Constitutional: Constitutional: Reports no additional constitutional complaints, Denies chills, Denies fever(s) and Denies night sweats Eyes: Eyes: Reports no additional eye complaints, Denies blurry vision, Denies change in vision, Denies diplopia, Denies eye discharge, Denies loss of vision and Denies eye pain ENT: Denies dizziness Cardiovascular: Cardiovascular: Reports no additional cardiovascular complaints, Denies chest pain, Denies lightheadedness, Denies Loss of Consciousness and Denies dyspnea Respiratory: Respiratory: Reports no additional respiratory complaints and Denies dyspnea Gastrointestinal: Gastrointestinal: Reports no additional gastrointestinal complaints, Denies abdominal pain, Reports melena, Denies hematochezia, Denies change in bowel habits and Denies change in stool character Musculoskeletal: Musculoskeletal: Reports no additional musculoskeletal complaints, Denies numbness and Denies tingling Neurologic: Denies dizziness, Denies loss of vision, Denies numbness and Denies tingling Psychiatric: Psychiatric: Reports no additional psychiatric complaints Endocrine: Endocrine: Reports no additional endocrine complaints Hematologic/Lymphatic: Hematologic/Lymphatic: Reports no additional hematologic/lymphatic complaints Allergic/Immunologic: Allergic/Immunologic: Reports no additional allergic/immunologic complaints PMFSH Past Medical History Attestation statement: The following information was validated with the patient. Source: old records reviewed Medical History Duodenal ulcer EtOH dependence Family History Family History Other Substance abuse Social History Social History Patient Tobacco Use Status: Current everyday Tobacco user Smoked in Last 30 Days: Yes Use of substances other than those prescribed or required for medical reasons: No Advance Directives: No Advance Directives Information Provided: No Physical Exam ED Vital Signs: Vital Signs - 24 hr 07/07/22 09:26 07/07/22 13:40 Temperature 97.7 F 98.6 F Pulse Rate 100 73 Respiratory Rate 18 12 Blood Pressure 140/65 H 137/79 Pulse Oximetry 97 97 Oxygen Delivery Method Room Air Room Air BMI result Body Mass Index 20.3 Const General: cooperative, no acute distress, alert and awake Nutritional Appearance: well nourished Orientation/consciousness: patient oriented x3 Limitations: no limitations HENMT Head: Yes normal to inspection and Yes atraumatic Ears: hearing grossly normal bilaterally and external ears normal General nose exam: Normal external nose present, no nasal discharge noted and no epistaxis Face and sinus: Yes normal facial exam, No abrasion and No laceration Mouth: Normal oral and palatal mucosa present, no drooling and no muffled voice Eyes General: appearance normal, both eyes and all related structures Periorbital: periorbital findings normal Eyelids: Yes eyelids normal Conjunctivae: conjunctivae normal Pupils: Equal, round and reactive pupils present EOM: EOMs intact bilaterally Neck Neck: Yes normal visual inspection, Yes full ROM and Yes no lymphadenopathy Chest Chest palpation & inspection: normal inspection of the chest Resp Effort & Inspection: normal respiratory effort and able to speak in complete sentences Auscultation: clear to auscultation bilaterally Cardio Rate: regular rate Rhythm: regular rhythm GI Inspection: Yes normal to inspection Palpation (GI): Soft to palpation, not firm, nontender, no guarding and not rigid Neuro General: patient oriented x3 and moves all extremities Cranial nerves: Yes Equal, round and reactive pupils present Cognition (Neuro): normal cognition Motor exam (neuro): 5/5 motor strength present throughout Sensory Exam: Normal double simultaneous stimulation for sensation Coordination: [id number] test normal Extrem General: Yes normal to inspection, Yes full ROM and Yes capillary refill normal Psych Appearance: grossly normal Mental Status: mental status grossly normal Affect: normal affect Attitude: cooperative Thought process: Normal thought process present Thought content: Normal thought content present Insight: Good insight present (Psych) Medical Decision Making MDM Narrative Medical decision making narrative: Patient is a 61 year old female presenting to the emergency department today with black tarry stools and weakness. Patient's previous medical records here ( ) showed duodenal ulcers in April of 2022 for which she was perscribed a PPI and no intervention was necessary. Patient states that she was taking that PPI faithfully for 2 weeks after her incident in April but then stopped. Patient's physical exam was unremarkable including brown stool and a normal rectal examination. Patient's blood work showed a hyponatremia of 122. Patient's hemoglobin is 9.2 however, the patient's previous was 9.8, I believe this to be chronic for the patient. Patient is guiac positive. Patient's EKG was unremarkable. I explained my physical exam findings as well as all test results to the patient. I answered all questions asked by the patient. Patient was given IV fluids at 80ml/hr. I spoke to Dr. Swann, who agreed to hospital admission. Patient verbalized agreement and understanding with this treatment plan and admission. Differential Diagnosis Differential Diagnosis: GI bleed, hyponatremia Medical Records Medical records reviewed: Yes I reviewed the patient's medical records. Lab Data Lab results reviewed: Yes I reviewed the patient's lab results. Result diagrams: 07/07/22 14:03 07/07/22 14:51 Labs: Lab Results 07/07/22 07/07/22 07/07/22 Range/Units 14:02 14:03 14:05 WBC 7.7 (4.8-10.8) X10*3/uL RBC 2.80 L (4.20-5.50) X10*6/uL Hgb 9.2 L (12.0-16.0) g/dl Hct 26.1 L (37.0-47.0) % MCV 93.2 (80.0-98.0) fL MCH 32.9 (27.0-33.0) pg MCHC 35.2 H (31.0-35.0) g/dl RDW 16.6 H (11.0-16.0) % Plt Count 112 L (160-400) X10*3/uL MPV 11.2 (9.4-12.3) fL Immature Gran % (Auto) 0.5 H (0.0-0.4) % Neut % (Auto) 53.8 (45-73) % Lymph % (Auto) 33.2 (20-40) % [place] % (Auto) 11.5 H (2-11) % Eos % (Auto) 0.7 (0-4) % Baso % (Auto) 0.3 (0-2) % Lymph # (Auto) 2.6 (1.2-4.9) X10*3/uL [place] # (Auto) 0.9 (0.1-1.2) X10*3/uL Eos # (Auto) 0.1 (0.0-0.4) X10*3/uL Baso # (Auto) 0.0 (0.0-0.2) X10*3/uL Abs Immat Gran (auto) 0.04 H (0.00-0.03) X10*3/uL Absolute Neuts (auto) 4.1 (2.0-8.3) x10*3/uL Absolute Nucleated RBC 0.020 H (0.0-0.012) X10*3/uL Nucleated RBC % (auto) 0.3 H (0.0-0.2) /100WBC Sodium (135-145) mmol/L Potassium (3.3-5.1) mmol/L Chloride (96-108) mmol/L Carbon Dioxide (22-29) mmol/L Anion Gap (12-20) BUN (9-16) mg/dL Creatinine (0.5-1.4) mg/dL Estim Creat Clear Calc Estimated GFR Random Glucose (60-115) mg/dL Osmolality (281-305) mosm/kg Calcium (8.4-10.2) mg/dL Magnesium (1.6-2.6) mg/dL Total Bilirubin (0.0-1.0) mg/dL AST (5-31) U/L ALT (0-31) U/L Alkaline Phosphatase (39-117) U/L Total Protein (6.5-8.0) g/dL Albumin (3.5-5.0) g/dL Stool Occult Blood POSITIVE (NEGATIVE) Urine Opiates Screen (Not Detect) Urine Fentanyl Screen (Not Detect) Ur Barbiturates Screen (Not Detect) Ur Phencyclidine Scrn (Not Detect) Ur Amphetamines Screen (Not Detect) U Benzodiazepines Scrn (Not Detect) Urine Cocaine Screen (Not Detect) U Marijuana (THC) Screen (Not Detect) Ethyl Alcohol Cancelled 07/07/22 07/07/22 07/07/22 Range/Units 14:22 14:51 15:57 WBC (4.8-10.8) X10*3/uL RBC (4.20-5.50) X10*6/uL Hgb (12.0-16.0) g/dl Hct (37.0-47.0) % MCV (80.0-98.0) fL MCH (27.0-33.0) pg MCHC (31.0-35.0) g/dl RDW (11.0-16.0) % Plt Count (160-400) X10*3/uL MPV (9.4-12.3) fL Immature Gran % (Auto) (0.0-0.4) % Neut % (Auto) (45-73) % Lymph % (Auto) (20-40) % [place] % (Auto) (2-11) % Eos % (Auto) (0-4) % Baso % (Auto) (0-2) % Lymph # (Auto) (1.2-4.9) X10*3/uL [place] # (Auto) (0.1-1.2) X10*3/uL Eos # (Auto) (0.0-0.4) X10*3/uL Baso # (Auto) (0.0-0.2) X10*3/uL Abs Immat Gran (auto) (0.00-0.03) X10*3/uL Absolute Neuts (auto) (2.0-8.3) x10*3/uL Absolute Nucleated RBC (0.0-0.012) X10*3/uL Nucleated RBC % (auto) (0.0-0.2) /100WBC Sodium 122 L (135-145) mmol/L Potassium 3.3 (3.3-5.1) mmol/L Chloride 82 L (96-108) mmol/L Carbon Dioxide 26 (22-29) mmol/L Anion Gap 17 (12-20) BUN 10 (9-16) mg/dL Creatinine 0.62 (0.5-1.4) mg/dL Estim Creat Clear Calc 87.6 Estimated GFR > 60 Random Glucose 150 H (60-115) mg/dL Osmolality 255 L (281-305) mosm/kg Calcium 8.5 (8.4-10.2) mg/dL Magnesium 1.6 (1.6-2.6) mg/dL Total Bilirubin 1.0 (0.0-1.0) mg/dL AST 55 H (5-31) U/L ALT 26 (0-31) U/L Alkaline Phosphatase 68 (39-117) U/L Total Protein 6.3 L (6.5-8.0) g/dL Albumin 3.9 (3.5-5.0) g/dL Stool Occult Blood (NEGATIVE) Urine Opiates Screen Not Detected (Not Detect) Urine Fentanyl Screen Not Detected (Not Detect) Ur Barbiturates Screen Not Detected (Not Detect) Ur Phencyclidine Scrn Not Detected (Not Detect) Ur Amphetamines Screen Not Detected (Not Detect) U Benzodiazepines Scrn Not Detected (Not Detect) Urine Cocaine Screen Not Detected (Not Detect) U Marijuana (THC) Screen Not Detected (Not Detect) Ethyl Alcohol < 10 Discharge Plan Discharge Clinical Impression: GI bleed, Acute hyponatremia Patient Disposition: Admitted As Inpatient
--- NOTE | 2022-07-07 12:27 | ECG_ITS ---
Test Reason : bloody stools Blood Pressure : / mmHG Vent. Rate : 067 BPM Atrial Rate : 067 BPM P-R Int : 132 ms QRS Dur : 090 ms QT Int : 452 ms P-R-T Axes : 072 069 078 degrees QTc Int : 477 ms Normal sinus rhythm Normal ECG No previous ECGs available Referred By: Karlene Nunn Electronically Signed By:WALDO JOHNSTON
[2022-07-07 13:40] VITALS: BP 137/79; PULSE 73; RESP 12; TEMP 37; O2SAT 97
[2022-07-07] MEDS: Pantoprazole Sodium 40 MG/10 ML VIAL IVPUSH ×2 (14:03→18:48)
[2022-07-07 14:13] LABS: MANUAL DIFF FLAG NO
[2022-07-07 14:15] LABS: OBS Int Ctl Valid YES; OBS1 POSITIVE (NEGATIVE)
[2022-07-07 14:16] LABS: Basophils Percent Auto 0.3 % (0-2); Imm Gran Abs Auto 0.04 X10*3/uL (0.00-0.03); Imm Gran Pct Auto 0.5 % (0.0-0.4); PLT CLUMP 1; Red Cell Distribution Width 16.6 % (11.0-16.0); SCAN SMEAR FLAG 1
[2022-07-07 14:17] LABS: Eosinophils Absolute Auto 0.1 X10*3/uL (0.0-0.4); Eosinophils Percent Auto 0.7 % (0-4); Hematocrit 26.1 % (37.0-47.0); Hemoglobin 9.2 g/dl (12.0-16.0); Lymphocytes Absolute Auto 2.6 X10*3/uL (1.2-4.9); Lymphocytes Percent Auto 33.2 % (20-40); Mean Corpuscular HGB Conc 35.2 g/dl (31.0-35.0); Mean Corpuscular Hemoglobin 32.9 pg (27.0-33.0); Mean Corpuscular Volume 93.2 fL (80.0-98.0); Mean Platelet Volume 11.2 fL (9.4-12.3); Monocytes Absolute Auto 0.9 X10*3/uL (0.1-1.2); Monocytes Percent Auto 11.5 % (2-11); NRBC Pct Auto 0.3 /100WBC (0.0-0.2); Neutrophils Absolute Auto 4.1 x10*3/uL (2.0-8.3); Neutrophils Percent Auto 53.8 % (45-73)
[2022-07-07 14:18] LABS: Platelet Count 112 X10*3/uL (160-400); White Blood Count 7.7 X10*3/uL (4.8-10.8)
[2022-07-07 14:47] LABS: Amphetamine Screen Urine Not Detected (Not Detect); Barbiturates, Urine Not Detected (Not Detect); Benzodiazepines Screen Urine Not Detected (Not Detect); Cannabinoid Screen Urine Not Detected (Not Detect); Cocaine Screen Urine Not Detected (Not Detect); Fentanyl, urine Not Detected (Not Detect); Opiate Screen Urine Not Detected (Not Detect); Phencyclidine Screen Urine Not Detected (Not Detect)
[2022-07-07 15:19] LABS: Alanine Aminotransferase 26 U/L (0-31); Albumin Level 3.9 g/dL (3.5-5.0); Alkaline Phosphatase 68 U/L (39-117); Anion Gap 17 (12-20); Aspartate Amino Transferase 55 U/L (5-31); Blood Urea Nitrogen 10 mg/dL (9-16); Calcium 8.5 mg/dL (8.4-10.2); Carbon Dioxide 26 mmol/L (22-29); Chloride 82 mmol/L (96-108); Creatinine Clr Calc Pharmacy 87.6; Estimated Glomerular Filt Rate > 60; Ethanol < 10 mg/dL; Glucose Random 150 mg/dL (60-115); Magnesium 1.6 mg/dL (1.6-2.6); Potassium 3.3 mmol/L (3.3-5.1); Sodium 122 mmol/L (135-145); Total Protein 6.3 g/dL (6.5-8.0)
--- NOTE | 2022-07-07 16:26 | PHA.MEDREC ---
Pharmacy Consult ? Medication Reconciliation Pharmacy has completed the medication reconciliation. Patient is not adherent to medications. Pt aware of alendronate prescription, however is not adherent. Patient reports being on and off adherence schedule with vitamins (magnesium, b complex, and fish oil).
--- NOTE | 2022-07-07 16:28 | PM.IMHP ---
History of Present Illness Date of Service: 07/07/22 Chief Complaint: melena, weakness 61F presented with melena, weakness. patient was admitted for april 2022 for duodenal ulcer bleed. likely related to NSAID use. she reports stopping ETOH and NSAIDs since, but has not been taking protonix religiously she reports several days melena, weakness. she reports poor oral intake and excessive free water intake. in ED noted to have sodium of 122 and stable hgb of 9. Review of Systems Review of Systems: Constitutional: Denies fever, denies Chills Eyes: denies blurry vision ENT: denies sore throat CVS: denies chest pain Respiratory: Denies dyspnea GI: melena : denies dysuria MSK: denies neck pain Skin: denies rash Neuro: denies specific motor weakness Psych: denies suicidal ideation Endocrine: denies heat/cold intolerance Hematologic: denies easy bleeding Allergy: denies hives [facility] Medical History Duodenal ulcer EtOH dependence Family History Other Substance abuse Social History Patient Tobacco Use Status: Current everyday Tobacco user Smoked in Last 30 Days: Yes Use of substances other than those prescribed or required for medical reasons: No Advance Directives: No Advance Directives Information Provided: No Meds Allergies Allergy/AdvReac Type Severity Reaction Status Date / Time No Known Allergies Allergy Verified 07/07/22 09:38 Active Medications: Current Medications Pantoprazole Sodium (Pantoprazole Sodium 40 Mg/10 Ml Vial) 40 mg IVPUSH BID@0630,1630 [facility] Pharmacy Consult (Consult Rx Perform Med Rec) 1 each MISCELLANE ONCE PRN PRN Reason: Consult order Home Medications Medication Instructions Recorded Confirmed Last Taken Type magnesium 250 mg tablet 500 mg PO DAILY 07/07/22 07/07/22 07/07/22 History omega 2-dbs-ylm-fish oil 1,000 mg 1 cap PO DAILY 07/07/22 07/07/22 07/07/22 History (120 mg-180 mg) capsule (Fish Oil) ondansetron 4 mg disintegrating 1 tab PO Q8H PRN Nausea 07/07/22 07/07/22 07/05/22 History tablet vitamin B complex 1 cap PO DAILY 07/07/22 07/07/22 07/06/22 History Physical Exam Vital Signs and Narrative: Vital Signs: Last Vital Signs Temp 98.6 F 07/07/22 13:40 Pulse 73 07/07/22 13:40 Resp 12 07/07/22 13:40 BP 137/79 07/07/22 13:40 Pulse Ox 97 07/07/22 13:40 O2 Del Method 07/07/22 13:40 BMI result Body Mass Index 20.3 General: no acute distress HEENT: atraumatic Neck: normal to visual inspection CVS: S1, S2, RRR Resp: CTA bilateral Chest: non tender GI: soft, non tender, non distended : no CVA tenderness Skin: no rashes Extremities: no edema Neuro: Oriented X3, grossly intact Psych: cooperative Results Labs CBC and Chem 7: 07/07/22 14:03 07/07/22 14:51 Labs: Laboratory Results - last 24 hr 07/07/22 07/07/22 07/07/22 14:02 14:03 14:05 MCV 93.2 MCH 32.9 MCHC 35.2 H RDW 16.6 H Plt Count 112 L MPV 11.2 Immature Gran % (Auto) 0.5 H Neut % (Auto) 53.8 Lymph % (Auto) 33.2 [place] % (Auto) 11.5 H Eos % (Auto) 0.7 Baso % (Auto) 0.3 Lymph # (Auto) 2.6 [place] # (Auto) 0.9 Eos # (Auto) 0.1 Baso # (Auto) 0.0 Abs Immat Gran (auto) 0.04 H Absolute Neuts (auto) 4.1 Absolute Nucleated RBC 0.020 H Nucleated RBC % (auto) 0.3 H Anion Gap Estim Creat Clear Calc Estimated GFR Random Glucose Calcium Magnesium Total Bilirubin AST ALT Alkaline Phosphatase Total Protein Albumin Stool Occult Blood POSITIVE Urine Opiates Screen Urine Fentanyl Screen Ur Barbiturates Screen Ur Phencyclidine Scrn Ur Amphetamines Screen U Benzodiazepines Scrn Urine Cocaine Screen U Marijuana (THC) Screen Ethyl Alcohol Cancelled 07/07/22 07/07/22 14:22 14:51 MCV MCH MCHC RDW Plt Count MPV Immature Gran % (Auto) Neut % (Auto) Lymph % (Auto) [place] % (Auto) Eos % (Auto) Baso % (Auto) Lymph # (Auto) [place] # (Auto) Eos # (Auto) Baso # (Auto) Abs Immat Gran (auto) Absolute Neuts (auto) Absolute Nucleated RBC Nucleated RBC % (auto) Anion Gap 17 Estim Creat Clear Calc 87.6 Estimated GFR > 60 Random Glucose 150 H Calcium 8.5 Magnesium 1.6 Total Bilirubin 1.0 AST 55 H ALT 26 Alkaline Phosphatase 68 Total Protein 6.3 L Albumin 3.9 Stool Occult Blood Urine Opiates Screen Not Detected Urine Fentanyl Screen Not Detected Ur Barbiturates Screen Not Detected Ur Phencyclidine Scrn Not Detected Ur Amphetamines Screen Not Detected U Benzodiazepines Scrn Not Detected Urine Cocaine Screen Not Detected U Marijuana (THC) Screen Not Detected Ethyl Alcohol < 10 Assessment and Plan (1) Duodenal ulcer: Status: Acute Plan 61F presented with melena and hyponatremia hyponatremia likely tea and toast fluid restrict, salt liberal diet, monitor, nephro eval melena hgb stable restart ppi, gi eval npo aftermidnight in case EGD planned etoh dependence reports 2 month soberiety dvt prophyalxis - mechanical due to melena full code patient with significant hyponatremia of 122, at risk for further decompensation which could lead to seizure or , close monitoring to avoid overcorrection, therefore, expected to require atleast 2 midnights in hospital Quality Stroke Does the patient have a stroke diagnosis?: No VTE Prior VTE?: No VTE Risk Level:: Medical - moderate - high VTE Device Contraindication: Treatment Not Indicated VTE Drug Contraindication: N/A - Med Ordered
[2022-07-07 16:38] LABS: Osmolality, Serum 255 mosm/kg (281-305)
--- NOTE | 2022-07-07 18:10 | PC.NURSE ---
Pt ambulating to the bathroom with steady gait. Reports dizziness.
--- NOTE | 2022-07-07 19:59 | PC.NURSE ---
Pt up to eat. additional salt offered for meal. dizziness is absent when resting at bed.
[2022-07-07 21:20] VITALS: BP 112/60; PULSE 74; RESP 14; TEMP 36.8; O2SAT 97
[2022-07-07 21:48] LABS: COVID-19 Test Negative (Negative)
[2022-07-07 23:53] VITALS: BP 89/43; PULSE 79; RESP 15; O2SAT 96
[2022-07-07] MEDS: 0.9 % Sodium Chloride Flush 3 ML SYRINGE IVFLUSH (23:57)
[2022-07-07 23:59] VITALS: BP 97/46
[2022-07-08 00:25] LABS: Creatinine Urine 21.45 mg/dL; Microalbumin Urine < 5.0 mg/L; Potassium Urine Random 11.8 mmol/L
[2022-07-08 00:32] LABS: Osmolality Urine 158 mosm/kg (373-1093)
[2022-07-08 04:52] LABS: Hemoglobin 9.8 g/dl (12.0-16.0); PLT CLUMP 1; Red Cell Distribution Width 16.7 % (11.0-16.0)
[2022-07-08 04:54] LABS: Mean Corpuscular Hemoglobin 32.9 pg (27.0-33.0); Mean Platelet Volume 11.5 fL (9.4-12.3); Red Blood Count 2.98 X10*6/uL (4.20-5.50); White Blood Count 6.2 X10*3/uL (4.8-10.8)
[2022-07-08 04:55] LABS: Platelet Count 105 X10*3/uL (160-400)
[2022-07-08 05:09] LABS: Anion Gap 18 (12-20); Blood Urea Nitrogen 12 mg/dL (9-16); Calcium 8.2 mg/dL (8.4-10.2); Carbon Dioxide 27 mmol/L (22-29); Chloride 85 mmol/L (96-108); Creatinine Clr Calc Pharmacy 78.6; Estimated Glomerular Filt Rate > 60; Glucose Fasting 114 mg/dL (60-99); Potassium 3.8 mmol/L (3.3-5.1); Sodium 126 mmol/L (135-145)
[2022-07-08 06:00] VITALS: BP 112/67; PULSE 70; RESP 13; O2SAT 95
--- NOTE | 2022-07-08 06:09 | PC.NURSE ---
Report received and care assumed at 0530. Pt observed to be resting comfortably and quietly in stretcher without distress noted. Call harper is in reach and this RN will continue to monitor.
[2022-07-08 08:00] VITALS: BP 113/58; PULSE 68; RESP 20; TEMP 36.7; O2SAT 94
[2022-07-08] MEDS: HYDROmorphone HCl 0.5 MG/0.5 ML SYRINGE IVPUSH (10:07)
[2022-07-08] MEDS: Pantoprazole Sodium 40 MG/10 ML VIAL IVPUSH ×2 (10:07→16:13)
[2022-07-08] MEDS: 0.9 % Sodium Chloride Flush 3 ML SYRINGE IVFLUSH ×3 (10:08→20:03)
[2022-07-08] MEDS: Sodium Chloride Tab 1 GM TABLET PO ×2 (10:08→20:02)
--- NOTE | 2022-07-08 10:19 | MHC.CM.PN ---
met with pt who is independent pt is covid vac x 2 ,pt has own ride home dc plan home no servcies
--- NOTE | 2022-07-08 11:12 | P.PNIM_ITS ---
Subjective Subjective Date of Service: 07/08/22 Interval History: cc: weakness, melena interval history: still with melena Cardiovascular Cardiovascular: Reports no additional cardiovascular complaints Respiratory Respiratory: Reports no additional respiratory complaints Physical Exam Vital Signs: Vital Signs: Last Vital Signs Temp 98.0 F 07/08/22 08:00 Pulse 68 07/08/22 08:00 Resp 20 07/08/22 08:00 BP 113/58 L 07/08/22 08:00 Pulse Ox 94 07/08/22 08:00 O2 Del Method 07/08/22 08:00 BMI result Body Mass Index 20.3 General: AO X 3, no acute distress Resp: CTA bilateral, no accessory muscles used CVS: S1,S2,RRR GI: soft, non tender, non distended Neuro: motor grossly intact, alert Psych: appropriate affect, appropriate insight Objective Data Active Medications Acetaminophen (Acetaminophen 325 Mg Tablet) 650 mg PO Q6H PRN PRN Reason: Pain, Mild (Pain Scale 1-3) Hydromorphone HCl (Hydromorphone Hcl 0.5 Mg/0.5 Ml Syringe) 0.5 mg IVPUSH Q4H PRN; Protocol PRN Reason: Breakthrough Pain Last Admin: 07/08/22 10:07 Dose: 0.5 mg Documented By: MELISA Pantoprazole Sodium (Pantoprazole Sodium 40 Mg/10 Ml Vial) 40 mg IVPUSH BID@0630,1630 [facility] Last Admin: 07/08/22 10:07 Dose: 40 mg Documented By: MELISA Pharmacy Consult (Consult Rx Perform Med Rec) 1 each MISCELLANE ONCE PRN PRN Reason: Consult order Sodium Chloride (0.9 % Sodium Chloride Flush 3 Ml Syringe) 3 ml IVFLUSH QSHIFT [facility] Last Admin: 07/08/22 10:08 Dose: 3 ml Documented By: MELISA Sodium Chloride (Sodium Chloride Tab 1 Gm Tablet) 1 gm PO BID [facility] Last Admin: 07/08/22 10:08 Dose: 1 gm Documented By: MELISA Labs CBC & Chem 7: 07/08/22 04:31 07/08/22 04:31 Labs: Laboratory Results - last 24 hr 07/07/22 07/07/22 07/07/22 14:02 14:03 14:05 MCV 93.2 MCH 32.9 MCHC 35.2 H RDW 16.6 H Plt Count 112 L MPV 11.2 Immature Gran % (Auto) 0.5 H Neut % (Auto) 53.8 Lymph % (Auto) 33.2 [place] % (Auto) 11.5 H Eos % (Auto) 0.7 Baso % (Auto) 0.3 Lymph # (Auto) 2.6 [place] # (Auto) 0.9 Eos # (Auto) 0.1 Baso # (Auto) 0.0 Abs Immat Gran (auto) 0.04 H Absolute Neuts (auto) 4.1 Absolute Nucleated RBC 0.020 H Nucleated RBC % (auto) 0.3 H Anion Gap Estim Creat Clear Calc Estimated GFR Random Glucose Fasting Glucose Osmolality Calcium Magnesium Total Bilirubin AST ALT Alkaline Phosphatase Total Protein Albumin Urine Osmolality Ur Random Sodium Ur Random Potassium Urine Creatinine Urine Microalbumin Microalb/Creat Ratio Stool Occult Blood POSITIVE Urine Opiates Screen Urine Fentanyl Screen Ur Barbiturates Screen Ur Phencyclidine Scrn Ur Amphetamines Screen U Benzodiazepines Scrn Urine Cocaine Screen U Marijuana (THC) Screen Ethyl Alcohol Cancelled COVID-19 (BARBARA) COVID-19 [employer] 07/07/22 07/07/22 07/07/22 14:22 14:51 15:57 MCV MCH MCHC RDW Plt Count MPV Immature Gran % (Auto) Neut % (Auto) Lymph % (Auto) [place] % (Auto) Eos % (Auto) Baso % (Auto) Lymph # (Auto) [place] # (Auto) Eos # (Auto) Baso # (Auto) Abs Immat Gran (auto) Absolute Neuts (auto) Absolute Nucleated RBC Nucleated RBC % (auto) Anion Gap 17 Estim Creat Clear Calc 87.6 Estimated GFR > 60 Random Glucose 150 H Fasting Glucose Osmolality 255 L Calcium 8.5 Magnesium 1.6 Total Bilirubin 1.0 AST 55 H ALT 26 Alkaline Phosphatase 68 Total Protein 6.3 L Albumin 3.9 Urine Osmolality Ur Random Sodium Ur Random Potassium Urine Creatinine Urine Microalbumin Microalb/Creat Ratio Stool Occult Blood Urine Opiates Screen Not Detected Urine Fentanyl Screen Not Detected Ur Barbiturates Screen Not Detected Ur Phencyclidine Scrn Not Detected Ur Amphetamines Screen Not Detected U Benzodiazepines Scrn Not Detected Urine Cocaine Screen Not Detected U Marijuana (THC) Screen Not Detected Ethyl Alcohol < 10 COVID-19 (BARBARA) COVID-19 Clin Com 07/07/22 07/07/22 07/07/22 21:26 23:56 23:56 MCV MCH MCHC RDW Plt Count MPV Immature Gran % (Auto) Neut % (Auto) Lymph % (Auto) [place] % (Auto) Eos % (Auto) Baso % (Auto) Lymph # (Auto) [place] # (Auto) Eos # (Auto) Baso # (Auto) Abs Immat Gran (auto) Absolute Neuts (auto) Absolute Nucleated RBC Nucleated RBC % (auto) Anion Gap Estim Creat Clear Calc Estimated GFR Random Glucose Fasting Glucose Osmolality Calcium Magnesium Total Bilirubin AST ALT Alkaline Phosphatase Total Protein Albumin Urine Osmolality 158 L Ur Random Sodium 27.0 Ur Random Potassium 11.8 Urine Creatinine 21.45 Urine Microalbumin < 5.0 Microalb/Creat Ratio TNP Stool Occult Blood Urine Opiates Screen Urine Fentanyl Screen Ur Barbiturates Screen Ur Phencyclidine Scrn Ur Amphetamines Screen U Benzodiazepines Scrn Urine Cocaine Screen U Marijuana (THC) Screen Ethyl Alcohol COVID-19 (BARBARA) Negative COVID-19 Clin Com See Note 07/08/22 07/08/22 04:31 04:31 MCV 94.0 MCH 32.9 MCHC 35.0 RDW 16.7 H Plt Count 105 L MPV 11.5 Immature Gran % (Auto) Neut % (Auto) Lymph % (Auto) [place] % (Auto) Eos % (Auto) Baso % (Auto) Lymph # (Auto) [place] # (Auto) Eos # (Auto) Baso # (Auto) Abs Immat Gran (auto) Absolute Neuts (auto) Absolute Nucleated RBC 0.000 Nucleated RBC % (auto) 0.0 Anion Gap 18 Estim Creat Clear Calc 78.6 Estimated GFR > 60 Random Glucose Fasting Glucose 114 H Osmolality Calcium 8.2 L Magnesium Total Bilirubin AST ALT Alkaline Phosphatase Total Protein Albumin Urine Osmolality Ur Random Sodium Ur Random Potassium Urine Creatinine Urine Microalbumin Microalb/Creat Ratio Stool Occult Blood Urine Opiates Screen Urine Fentanyl Screen Ur Barbiturates Screen Ur Phencyclidine Scrn Ur Amphetamines Screen U Benzodiazepines Scrn Urine Cocaine Screen U Marijuana (THC) Screen Ethyl Alcohol COVID-19 (BARBARA) COVID-19 Clin Com Assessment and Plan (1) EtOH dependence: Status: Acute Plan 61F presented with melena and hyponatremia hyponatremia likely tea and toast improved from 122 to 126 continue fluid restrict, salt liberal diet, monitor, nephro eval monitor closely melena hgb stable, continue to monitor ppi, gi eval etoh dependence reports 2 month soberiety dvt prophyalxis - mechanical due to melena full code reason for continued hospitalization:significant hyponatremia Quality Stroke Does the patient have a stroke diagnosis?: No VTE Prior VTE?: No VTE Risk Level:: Medical - moderate - high VTE Device Contraindication: Treatment Not Indicated VTE Drug Contraindication: N/A - Med Ordered
[2022-07-08 11:34] VITALS: BP 117/71; PULSE 67; RESP 20; TEMP 36.6; O2SAT 93
[2022-07-08 15:13] VITALS: BP 108/66; PULSE 76; RESP 18; TEMP 36.7; O2SAT 95
[2022-07-08 19:03] VITALS: BP 99/55; PULSE 66; RESP 18; TEMP 36.3; O2SAT 95
--- NOTE | 2022-07-08 19:12 | PM.EVENT ---
Event Note Date of Service: 07/08/22 Event Note: Imp: Recurrent UGI bleed with associated melena. She had an UGI bleed in 04/2022 with an EGD showing ulcers in the stomach and duodenum, but with biopsies neg for H.pylori. She had been using EtOH and some NSAIDs at that time. She reports avoidance of both of those since then. She reports using her PPI only intermittently at home. She has had some vomiting, but denies hematemesis or coffee grounds emesis. She presently appears stable. Rec: EGD on 07/09 or 07/10 pending resolution of her hyponatremia and schedule availability. Full consent has been obtained from her for this, including risks of bleeding and perforation, Continue her PPI and following of her Hgb. Thanks.
[2022-07-08 19:25] LABS: Anion Gap 15 (12-20); Carbon Dioxide 27 mmol/L (22-29); Chloride 90 mmol/L (96-108); Potassium 3.3 mmol/L (3.3-5.1); Sodium 129 mmol/L (135-145)
--- NOTE | 2022-07-08 19:50 | MHC.SHP ---
Pre-Procedural Eval Section A Date of Service: 07/09/22 The patient is an INPATIENT: Yes The History & Physical has been completed within 30 days and I have reviewed it.: Yes Section B Chief Complaint: Hyponatremia Allergies: Allergies Allergy/AdvReac Type Severity Reaction Status Date / Time chlordiazepoxide AdvReac Intermediate severe Verified 07/08/22 07:04 [From LIBRIUM] confusion and hallucinations Plan I have reviewed the history and physical and performed a pertinent physical examination on my patient. No changes have occurred unless specified.
[2022-07-08 23:45] VITALS: BP 99/62; PULSE 68; RESP 18; TEMP 37.1; O2SAT 97
[2022-07-09] VITALS (10 sets, daily range): BP systolic 106–156; BP diastolic 55–71; PULSE 59–76; RESP 15–20; TEMP 36.2–37.1; O2SAT 96–100
--- NOTE | 2022-07-09 02:46 | CONS_ITS ---
DATE OF SERVICE: 07/08/2022 REASON FOR CONSULTATION: Melena and anemia. HISTORY OF PRESENT ILLNESS: The patient is a 61-year-old female, known to me from a hospitalization in April at which time, she had presented with gastrointestinal bleeding. At that time, she was using alcohol on a daily and regular basis to excess and was also using some NSAIDs. At that time, she had an upper gastrointestinal bleed and underwent upper endoscopy with Dr. Becerra, which revealed multiple gastric ulcers and duodenal ulcers. Gastric biopsies were negative for H pylori. She was discharged on a PPI as well as iron therapy. She is scheduled for a followup endoscopy in July with Dr. Becerra to assess for healing of the ulcers. She reports that she has been sober from alcohol since the April admission, other than a pint of liquor on May 20. She has not been using any NSAIDs. She has not been very compliant with her PPI by her description and has not been using any iron. In any event, she was well up until recently when she began having some vomiting and weakness. She denies any hematemesis nor coffee-grounds emesis. However, she began having some black stools and came to the hospital. She did have one or two more black stools today, but has had no further vomiting, abdominal pain, nor change in vital signs. She has been tolerating her diet. She was actually going to have an upper endoscopy today, but this had to be canceled due to her significant hyponatremia. MEDICATIONS: Her medications at home were to have included Protonix. There is also fish oil, magnesium, and other vitamins on the list along with p.r.n. Zofran. Her medications here in the hospital include IV pantoprazole and hydromorphone p.r.n. PAST MEDICAL HISTORY: Previous alcohol abuse with reported sobriety since April, other than drinking some alcohol on May 20. Upper gastrointestinal bleed with multiple ulcers as above. She denies any significant surgeries. She denies a history of myocardial infarction, diabetes, stroke, nor lung disease. She has history of anxiety and osteoporosis. SOCIAL HISTORY: She is presently not working. She does smoke. Alcohol as above. FAMILY HISTORY: Noncontributory. REVIEW OF SYSTEMS: CONSTITUTIONAL: Up until recently, she has been feeling well with good appetite. She denies any dysphagia nor chronic heartburn. SKIN: Without rash. No pruritus. CARDIAC: No chest pain. PULMONARY: No cough. No hemoptysis. GASTROINTESTINAL: As above. PHYSICAL EXAMINATION: GENERAL: The patient is a pleasant, alert, comfortable-appearing female. SKIN: Warm and dry. HEENT: Anicteric sclerae. NECK: Supple. CHEST: Clear. CARDIAC: Normal S1, S2. ABDOMEN: Soft, nondistended, nontender without mass. LABORATORY DATA: White blood cell count 7.7, hemoglobin 9.2 on admission and 9.8 today. Her hemoglobin was 9.8 at the time of discharge in April. MCV 94. Platelets 105,000. Sodium most recently is 129, potassium 3.3. BUN on admission was 10 and repeat was 12. Creatinine 0.7. Total bilirubin 1.0, AST 55, ALT 26, alkaline phosphatase 68, albumin 3.9. Stool was heme positive. IMPRESSION: Given the patient's clinical history, this seems quite consistent with a recurrent upper gastrointestinal bleed with associated melena, anemia, and previous history of ulcer disease. She has not been particularly compliant with her PPI therapy. She does report abstinence from alcohol and NSAIDs. At this point, she appears stable, but I would recommend a repeat upper endoscopy with monitored anesthesia care. Full consent was obtained from her for this, including risks of bleeding and perforation. This will be scheduled for the next 24 to 48 hours pending stabilization of the serum sodium. Full consent has been obtained from her for the endoscopy, including risks of bleeding and perforation. I would continue to monitor the hemoglobin closely and continue her IV PPI therapy. I did advise her of the need to remain compliant with her PPI daily once she is discharged. She was comfortable with this plan. Thank you for the consultation. MD HENRY Quintero/NEVIN / [phone] [place]IR[place]
[2022-07-09] MEDS: Pantoprazole Sodium 40 MG/10 ML VIAL IVPUSH (05:34)
[2022-07-09 07:15] LABS: Hemoglobin 8.8 g/dl (12.0-16.0); Mean Corpuscular HGB Conc 33.8 g/dl (31.0-35.0); Mean Corpuscular Hemoglobin 32.6 pg (27.0-33.0); Mean Corpuscular Volume 96.3 fL (80.0-98.0); Red Cell Distribution Width 17.2 % (11.0-16.0); White Blood Count 4.2 X10*3/uL (4.8-10.8)
[2022-07-09 07:28] LABS: Prothrombin Time 11.4 SEC (10.0-13.1)
[2022-07-09 07:34] LABS: Anion Gap 15 (12-20); Blood Urea Nitrogen 12 mg/dL (9-16); Calcium 7.8 mg/dL (8.4-10.2); Carbon Dioxide 25 mmol/L (22-29); Chloride 93 mmol/L (96-108); Creatinine Clr Calc Pharmacy 93.6; Estimated Glomerular Filt Rate > 60; Glucose Fasting 120 mg/dL (60-99); Sodium 130 mmol/L (135-145)
[2022-07-09] MEDS: 0.9 % Sodium Chloride Flush 3 ML SYRINGE IVFLUSH (07:42)
[2022-07-09 07:55] LABS: TSH reflex Free T4 0.86 uIU/mL (0.32-4.0)
[2022-07-09 07:57] LABS: Mean Platelet Volume 11.5 fL (9.4-12.3); Platelet Count 104 X10*3/uL (160-400)
[2022-07-09 08:02] LABS: Cortisol Random 12.8 ug/dL
[2022-07-09] MEDS: Potassium Chloride ER 20 MEQ TAB.ER.PRT 40 MEQ PO (09:14)
--- NOTE | 2022-07-09 11:23 | CONS_ITS ---
DATE OF SERVICE: 07/08/2022 REASON FOR CONSULTATION: I was asked to see patient to assist in evaluation of patient's hyponatremia with a serum sodium 122 from July 07, at 2:51 p.m. when she was admitted. HISTORY OF PRESENT ILLNESS: In summary, she is a 61-year-old patient, who was hospitalized back in April for a GI bleed, felt to be due to a duodenal ulcer. She now presents to the hospital with melena and feeling generally weak. Her labs showed a serum sodium of 122, hence a current consultation. Repeat serum sodium at 4:31 a.m. on July 08, was 126. She presently just is in bed and feels generally weak. She admits to drinking a lot of water and states that after her last hospitalization in April, she stopped drinking alcohol. As part of the evaluation in the ER, she had urine studies done, which showed a urine osmolality 158 consistent with patient self correcting with her serum sodium going from 122 to 126 thus far. PAST MEDICAL HISTORY: Notable for again alcohol use and a duodenal ulcer. FAMILY HISTORY: Noncontributory. SOCIAL HISTORY: She continues to smoke cigarettes. She stopped drinking alcohol back in April. ALLERGIES: SHE HAS ALLERGIES NOTED IN ELECTRONIC MEDICAL RECORD. REVIEW OF SYSTEMS: As noted above. PHYSICAL EXAMINATION: VITAL SIGNS: Blood pressure of 110/60 with a heart rate in the 70s. HEAD: Atraumatic, normocephalic. NECK: Supple. Mucous membranes are moist. LUNGS: Clear. CARDIAC: Regular rate and rhythm without rub. ABDOMEN: Soft and nontender. Good bowel sounds. No CVA tenderness. EXTREMITIES: Shows no edema. LABORATORY DATA: From admission at 2:51 p.m. on July 07, sodium 122, potassium 3.3, chloride 82, bicarb 26, BUN 10, creatinine 0.62, blood sugar 150. Repeat labs at 4:31 a.m. on July 08, sodium 126, potassium 3.8, chloride 85. Hemoglobin 9.2, hematocrit 26, white blood cell count 7.7. As mentioned, urine studies showed urine osmolality 158 and urine sodium of 27. In reviewing her records, her serum sodium has been intermittently low to 126 back a year ago. IMPRESSION: 61-YEAR-OLD PATIENT ADMITTED TO THE HOSPITAL WITH GASTROINTESTINAL BLEED, FEELING UNWELL, AND HYPONATREMIA WITH SERUM SODIUM 122. Euvolemic hyponatremia. The patient seems to give a good history for polydipsia. However, it is unusual for polydipsia itself to cause hyponatremia unless it is excessive. It may be a combination of intermittent inappropriate ADH along with the excessive fluid intake because of hyponatremia. The good news is that the serum sodium has gradually corrected just with fluid restriction and salt tablets. It has gone from 122 to 126 in just over 12 hours, which is a gradual correction. We need to rule out adrenal insufficiency and hypothyroidism. We also need to obtain repeat lytes to make sure it does not correct too fast and nor does it go back down. SUGGESTIONS: At this time include stat lytes. Check TSH and cortisol level in the morning. We will need to discuss with her about avoidance of excessive fluid intake. I suspect she may have a component of low solute intake associated hyponatremia as well. Given her alcohol history and history of poor nutritional intake, this could be playing a role. 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 We will follow the patient closely with the team. MD SACHA Tesfaye/NEVIN / [phone]
--- NOTE | 2022-07-09 12:52 | HO.PM.IMPN ---
Subjective Subjective Date of Service: 07/09/22 Interval History: cc: weakness, melena interval history: no further melena today Cardiovascular Cardiovascular: Reports no additional cardiovascular complaints Respiratory Respiratory: Reports no additional respiratory complaints Physical Exam Vital Signs: Vital Signs: Last Vital Signs Temp 97.7 F 07/09/22 11:50 Pulse 69 07/09/22 11:50 Resp 20 07/09/22 11:50 BP 118/60 07/09/22 11:50 Pulse Ox 96 07/09/22 11:50 O2 Del Method 07/09/22 11:50 BMI result Body Mass Index 20.3 General: AO X 3, no acute distress Resp: CTA bilateral, no accessory muscles used CVS: S1,S2,RRR GI: soft, non tender, non distended Neuro: motor grossly intact, alert Psych: appropriate affect, appropriate insight Objective Data Active Medications Acetaminophen (Acetaminophen 325 Mg Tablet) 650 mg PO Q6H PRN PRN Reason: Pain, Mild (Pain Scale 1-3) Hydromorphone HCl (Hydromorphone Hcl 0.5 Mg/0.5 Ml Syringe) 0.5 mg IVPUSH Q4H PRN; Protocol PRN Reason: Breakthrough Pain Last Admin: 07/08/22 10:07 Dose: 0.5 mg Documented By: MELISA Pantoprazole Sodium (Pantoprazole Sodium 40 Mg/10 Ml Vial) 40 mg IVPUSH BID@0630,1630 [facility] Last Admin: 07/09/22 05:34 Dose: 40 mg Documented By: MARIELA Pharmacy Consult (Consult Rx Perform Med Rec) 1 each MISCELLANE ONCE PRN PRN Reason: Consult order Sodium Chloride (0.9 % Sodium Chloride Flush 3 Ml Syringe) 3 ml IVFLUSH QSHIFT [facility] Last Admin: 07/09/22 07:42 Dose: 3 ml Documented By: MARU Labs CBC & Chem 7: 07/09/22 06:49 07/09/22 06:49 Labs: Laboratory Results - last 24 hr 07/08/22 07/09/22 07/09/22 18:57 06:49 06:49 MCV 96.3 MCH 32.6 MCHC 33.8 RDW 17.2 H Plt Count 104 L MPV 11.5 Absolute Nucleated RBC 0.000 Nucleated RBC % (auto) 0.0 PT INR Anion Gap 15 15 Estim Creat Clear Calc 93.6 Estimated GFR > 60 Fasting Glucose 120 H Calcium 7.8 L TSH 0.86 Random Cortisol 07/09/22 07/09/22 07/09/22 06:49 06:49 06:49 MCV MCH MCHC RDW Plt Count MPV Absolute Nucleated RBC Nucleated RBC % (auto) PT 11.4 INR 1.0 Anion Gap Cancelled Estim Creat Clear Calc Estimated GFR Fasting Glucose Calcium TSH Cancelled Random Cortisol 07/09/22 06:49 MCV MCH MCHC RDW Plt Count MPV Absolute Nucleated RBC Nucleated RBC % (auto) PT INR Anion Gap Estim Creat Clear Calc Estimated GFR Fasting Glucose Calcium TSH Random Cortisol 12.8 Assessment and Plan (1) EtOH dependence: Status: Acute Plan 61F presented with melena and hyponatremia hyponatremia likely tea and toast with excess free fluid intake improved from 122 to 126 then 130 today continue fluid restrict, salt liberal diet, monitor, nephro appreciated melena egd today ppi etoh dependence reports 2 month soberiety dvt prophyalxis - mechanical due to melena full code reason for continued hospitalization: plan for egd today for melena Quality Stroke Does the patient have a stroke diagnosis?: No VTE Prior VTE?: No VTE Risk Level:: Medical - moderate - high VTE Device Contraindication: Treatment Not Indicated VTE Drug Contraindication: N/A - Med Ordered
--- NOTE | 2022-07-09 18:49 | PC.NURSE ---
MD DR. GARCIA AWARE OF NA 130.
--- NOTE | 2022-07-09 19:14 | P.CONAN_ITS ---
HPI - Anesthesia Eval Consult details Narrative: Anemia PMFSH Active Problems Active Problems: All Active Problems (Updated 07/08/22 @ 07:04 by Lorraine Lowery) Macrocytic anemia (Acute) EtOH dependence (Acute) Duodenal ulcer (Acute) GI bleed (Acute) Acute hyponatremia (Acute) Past Medical History Medical History (Updated 07/08/22 @ 07:04 by Lorraine Lowery) Anxiety Duodenal ulcer ETOH abuse EtOH dependence Gallstone Gastritis Hyponatremia Osteoporosis Family History Family History Other Substance use disorder Family history of problems with anesthesia: No Surgical History Surgical History (System 07/08/22 @ 07:04 by Lorraine Lowery) History of surgery on arm Hx of colonoscopy No pertinent past surgical history History of Problems with Anesthesia: No Social History Social History (System 07/08/22 @ 07:04 by Lorraine Lowery) Household Members: Significant Other Housing: House Do you presently have visiting nurse or other home services: No Alcohol intake: current Alcohol intake frequency: does not drink Alcohol type: hard liquor Patient Tobacco Use Status: Current everyday Tobacco user Tobacco use type: Cigarette Cigarette Packs Per Day: 1 Cigarettes Per Day: 20.0 Years Smoked: on and off since 12 years old e-Cigarette/Vaping Use: Never Used Second Hand Smoke Exposure: No Advance Directives Date on File: 09/07/21 service: No Current occupational status: employed Meds Allergies Allergy/AdvReac Type Severity Reaction Status Date / Time chlordiazepoxide AdvReac Intermediate severe Verified 07/08/22 07:04 [From LIBRIUM] confusion and hallucinations Active Medications: Current Medications Acetaminophen (Acetaminophen 325 Mg Tablet) 650 mg PO Q6H PRN PRN Reason: Pain, Mild (Pain Scale 1-3) Hydromorphone HCl (Hydromorphone Hcl 0.5 Mg/0.5 Ml Syringe) 0.5 mg IVPUSH Q4H PRN; Protocol PRN Reason: Breakthrough Pain Last Admin: 07/08/22 10:07 Dose: 0.5 mg Pantoprazole Sodium (Pantoprazole Sodium 40 Mg/10 Ml Vial) 40 mg IVPUSH BID@0630,1630 YUE Last Admin: 07/09/22 16:18 Dose: Not Given Pharmacy Consult (Consult Rx Perform Med Rec) 1 each MISCELLANE ONCE PRN PRN Reason: Consult order Sodium Chloride (0.9 % Sodium Chloride Flush 3 Ml Syringe) 3 ml IVFLUSH QSHIFT [facility] Last Admin: 07/09/22 16:18 Dose: Not Given Home Medications Medication Instructions Recorded Confirmed Last Taken Type magnesium 250 mg tablet 500 mg PO DAILY 07/07/22 07/07/22 07/07/22 History omega 4-syr-vtv-fish oil 1,000 mg 1 cap PO DAILY 07/07/22 07/07/22 07/07/22 History (120 mg-180 mg) capsule (Fish Oil) ondansetron 4 mg disintegrating 1 tab PO Q8H PRN Nausea 07/07/22 07/07/22 07/05/22 History tablet vitamin B complex 1 cap PO DAILY 07/07/22 07/07/22 07/06/22 History Exam Exam Date and Time: July 09, [id number] Height,Weight and Vital Signs: Height 5 ft 7 in Weight 58.967 kg Last Vital Signs Temp 98 F 07/09/22 15:50 Pulse 59 07/09/22 17:46 Resp 18 07/09/22 17:46 BP 107/61 07/09/22 17:46 Pulse Ox 96 07/09/22 17:46 O2 Del Method 07/09/22 17:46 Pertinent Lab Results Pertinent Lab Results: Laboratory Tests 07/07/22 07/07/22 07/07/22 14:02 14:03 14:05 WBC 7.7 RBC 2.80 L Hgb 9.2 L Hct 26.1 L MCV 93.2 MCH 32.9 MCHC 35.2 H RDW 16.6 H Plt Count 112 L MPV 11.2 Immature Gran % (Auto) 0.5 H Neut % (Auto) 53.8 Lymph % (Auto) 33.2 Cameron % (Auto) 11.5 H Eos % (Auto) 0.7 Baso % (Auto) 0.3 Lymph # (Auto) 2.6 Cameron # (Auto) 0.9 Eos # (Auto) 0.1 Baso # (Auto) 0.0 Abs Immat Gran (auto) 0.04 H Absolute Neuts (auto) 4.1 Absolute Nucleated RBC 0.020 H Nucleated RBC % (auto) 0.3 H PT INR Sodium Potassium Chloride Carbon Dioxide Anion Gap BUN Creatinine Estim Creat Clear Calc Estimated GFR Random Glucose Fasting Glucose Osmolality Calcium Magnesium Total Bilirubin AST ALT Alkaline Phosphatase Total Protein Albumin TSH Random Cortisol Urine Osmolality Ur Random Sodium Ur Random Potassium Urine Creatinine Urine Microalbumin Microalb/Creat Ratio Stool Occult Blood POSITIVE Urine Opiates Screen Urine Fentanyl Screen Ur Barbiturates Screen Ur Phencyclidine Scrn Ur Amphetamines Screen U Benzodiazepines Scrn Urine Cocaine Screen U Marijuana (THC) Screen Ethyl Alcohol Cancelled COVID-19 (BARBARA) COVID-19 Clin Com 07/07/22 07/07/22 07/07/22 14:22 14:51 15:57 WBC RBC Hgb Hct MCV MCH MCHC RDW Plt Count MPV Immature Gran % (Auto) Neut % (Auto) Lymph % (Auto) Cameron % (Auto) Eos % (Auto) Baso % (Auto) Lymph # (Auto) Cameron # (Auto) Eos # (Auto) Baso # (Auto) Abs Immat Gran (auto) Absolute Neuts (auto) Absolute Nucleated RBC Nucleated RBC % (auto) PT INR Sodium 122 L Potassium 3.3 Chloride 82 L Carbon Dioxide 26 Anion Gap 17 BUN 10 Creatinine 0.62 Estim Creat Clear Calc 87.6 Estimated GFR > 60 Random Glucose 150 H Fasting Glucose Osmolality 255 L Calcium 8.5 Magnesium 1.6 Total Bilirubin 1.0 AST 55 H ALT 26 Alkaline Phosphatase 68 Total Protein 6.3 L Albumin 3.9 TSH Random Cortisol Urine Osmolality Ur Random Sodium Ur Random Potassium Urine Creatinine Urine Microalbumin Microalb/Creat Ratio Stool Occult Blood Urine Opiates Screen Not Detected Urine Fentanyl Screen Not Detected Ur Barbiturates Screen Not Detected Ur Phencyclidine Scrn Not Detected Ur Amphetamines Screen Not Detected U Benzodiazepines Scrn Not Detected Urine Cocaine Screen Not Detected U Marijuana (THC) Screen Not Detected Ethyl Alcohol < 10 COVID-19 (BARBARA) COVID-19 Clin Com 07/07/22 07/07/22 07/07/22 21:26 23:56 23:56 WBC RBC Hgb Hct MCV MCH MCHC RDW Plt Count MPV Immature Gran % (Auto) Neut % (Auto) Lymph % (Auto) Cameron % (Auto) Eos % (Auto) Baso % (Auto) Lymph # (Auto) Cameron # (Auto) Eos # (Auto) Baso # (Auto) Abs Immat Gran (auto) Absolute Neuts (auto) Absolute Nucleated RBC Nucleated RBC % (auto) PT INR Sodium Potassium Chloride Carbon Dioxide Anion Gap BUN Creatinine Estim Creat Clear Calc Estimated GFR Random Glucose Fasting Glucose Osmolality Calcium Magnesium Total Bilirubin AST ALT Alkaline Phosphatase Total Protein Albumin TSH Random Cortisol Urine Osmolality 158 L Ur Random Sodium 27.0 Ur Random Potassium 11.8 Urine Creatinine 21.45 Urine Microalbumin < 5.0 Microalb/Creat Ratio TNP Stool Occult Blood Urine Opiates Screen Urine Fentanyl Screen Ur Barbiturates Screen Ur Phencyclidine Scrn Ur Amphetamines Screen U Benzodiazepines Scrn Urine Cocaine Screen U Marijuana (THC) Screen Ethyl Alcohol COVID-19 (BARBARA) Negative COVID-19 Clin Com See Note 07/08/22 07/08/22 07/08/22 04:31 04:31 18:57 WBC 6.2 RBC 2.98 L Hgb 9.8 L Hct 28.0 L MCV 94.0 MCH 32.9 MCHC 35.0 RDW 16.7 H Plt Count 105 L MPV 11.5 Immature Gran % (Auto) Neut % (Auto) Lymph % (Auto) Cameron % (Auto) Eos % (Auto) Baso % (Auto) Lymph # (Auto) Cameron # (Auto) Eos # (Auto) Baso # (Auto) Abs Immat Gran (auto) Absolute Neuts (auto) Absolute Nucleated RBC 0.000 Nucleated RBC % (auto) 0.0 PT INR Sodium 126 L 129 L Potassium 3.8 3.3 Chloride 85 L 90 L Carbon Dioxide 27 27 Anion Gap 18 15 BUN 12 Creatinine 0.69 Estim Creat Clear Calc 78.6 Estimated GFR > 60 Random Glucose Fasting Glucose 114 H Osmolality Calcium 8.2 L Magnesium Total Bilirubin AST ALT Alkaline Phosphatase Total Protein Albumin TSH Random Cortisol Urine Osmolality Ur Random Sodium Ur Random Potassium Urine Creatinine Urine Microalbumin Microalb/Creat Ratio Stool Occult Blood Urine Opiates Screen Urine Fentanyl Screen Ur Barbiturates Screen Ur Phencyclidine Scrn Ur Amphetamines Screen U Benzodiazepines Scrn Urine Cocaine Screen U Marijuana (THC) Screen Ethyl Alcohol COVID-19 (BARBARA) COVID-19 Clin Com 07/09/22 07/09/22 07/09/22 06:49 06:49 06:49 WBC 4.2 L RBC 2.70 L Hgb 8.8 L Hct 26.0 L MCV 96.3 MCH 32.6 MCHC 33.8 RDW 17.2 H Plt Count 104 L MPV 11.5 Immature Gran % (Auto) Neut % (Auto) Lymph % (Auto) Cameron % (Auto) Eos % (Auto) Baso % (Auto) Lymph # (Auto) Cameron # (Auto) Eos # (Auto) Baso # (Auto) Abs Immat Gran (auto) Absolute Neuts (auto) Absolute Nucleated RBC 0.000 Nucleated RBC % (auto) 0.0 PT 11.4 INR 1.0 Sodium 130 L Potassium 3.0 L Chloride 93 L Carbon Dioxide 25 Anion Gap 15 BUN 12 Creatinine 0.58 Estim Creat Clear Calc 93.6 Estimated GFR > 60 Random Glucose Fasting Glucose 120 H Osmolality Calcium 7.8 L Magnesium Total Bilirubin AST ALT Alkaline Phosphatase Total Protein Albumin TSH 0.86 Random Cortisol Urine Osmolality Ur Random Sodium Ur Random Potassium Urine Creatinine Urine Microalbumin Microalb/Creat Ratio Stool Occult Blood Urine Opiates Screen Urine Fentanyl Screen Ur Barbiturates Screen Ur Phencyclidine Scrn Ur Amphetamines Screen U Benzodiazepines Scrn Urine Cocaine Screen U Marijuana (THC) Screen Ethyl Alcohol COVID-19 (BARBARA) COVID-19 Reflect Systems 07/09/22 07/09/22 07/09/22 06:49 06:49 06:49 WBC RBC Hgb Hct MCV MCH MCHC RDW Plt Count MPV Immature Gran % (Auto) Neut % (Auto) Lymph % (Auto) Cameron % (Auto) Eos % (Auto) Baso % (Auto) Lymph # (Auto) Cameron # (Auto) Eos # (Auto) Baso # (Auto) Abs Immat Gran (auto) Absolute Neuts (auto) Absolute Nucleated RBC Nucleated RBC % (auto) PT INR Sodium Cancelled Potassium Cancelled Chloride Cancelled Carbon Dioxide Cancelled Anion Gap Cancelled BUN Creatinine Estim Creat Clear Calc Estimated GFR Random Glucose Fasting Glucose Osmolality Calcium Magnesium Total Bilirubin AST ALT Alkaline Phosphatase Total Protein Albumin TSH Cancelled Random Cortisol 12.8 Urine Osmolality Ur Random Sodium Ur Random Potassium Urine Creatinine Urine Microalbumin Microalb/Creat Ratio Stool Occult Blood Urine Opiates Screen Urine Fentanyl Screen Ur Barbiturates Screen Ur Phencyclidine Scrn Ur Amphetamines Screen U Benzodiazepines Scrn Urine Cocaine Screen U Marijuana (THC) Screen Ethyl Alcohol COVID-19 (BARBARA) COVID-19 BESOS Com Airway Mallampati Class: II TM Dist: >3cm Neck ROM: Full Loose/Missing/Broken Teeth: No Heart: RRR Lungs: CTA Assessment and Plan Assessment Anesthesia Assessment: Anesthesia Plan Discussed and Chart Reviewed Final Anesthetic Review Family History of Problems with Anesthesia: No History of Problems with Anesthesia: No NPO: Yes ASA Class: II Final Preanesthetic Review: No Changes in Pt Med Stat, Meds/Allgs Chart Reviewed, Consent Obtained/Reviewed and Anes Risks/Benef Reviewed Patient Risk: Intermediate Procedure Risk: Low Anesthetic Plan Anesthetic Plan: MAC: Disposition: Standard PACU
--- NOTE | 2022-07-09 20:05 | P.BOP_ITS ---
Brief Operative Note Date of Service: 07/09/22 Pre-op diagnosis: UGI Bleed Post-op diagnosis: other (Erosive esophagitis, Hiatal hernia, Gastritis, Duodenal ulcers) Procedure: EGD with biopsies Surgeon: Eliel Cortes Anesthesia: MAC Was an Denial Management Representative used for this Procedure?: No Estimated blood loss (mL): 2.0 Pathology: other (A. Gastric antrum) Condition: stable Disposition: PACU
--- NOTE | 2022-07-09 20:06 | PM.EVENT ---
Event Note Date of Service: 07/09/22 Event Note: GI-Full note dictated EGD with biopsies Findings: 1. Erosive esophagitis 2. Moderate-sized hiatal hernia 3. Gastritis-Antrum biopsied x 3 4. Shallow duodenal bulb ulcers and duodenitis. No bleeding nor old blood in the UGI tract Rec: Change to BID PO PPI, advance diet, F/U labs in AM, hopefully continue to avoid alcohol and NSAIDs. Thanks
[2022-07-09] MEDS: Omeprazole 40 MG CAPSULE.DR PO (20:51)
--- NOTE | 2022-07-09 21:11 | P.PNNP_ITS ---
Subjective Subjective Date of Service: 07/09/22 Interval history: Seen and examiend,barbara perez noted Physical Exam Vital Signs: Vital Signs: Last Vital Signs Temp 98.7 F 07/09/22 20:17 Pulse 69 07/09/22 20:17 Resp 18 07/09/22 20:17 BP 130/63 07/09/22 20:17 Pulse Ox 99 07/09/22 20:17 O2 Del Method 07/09/22 20:17 BMI result Body Mass Index 20.3 Const: General: cooperative, no acute distress, alert and awake Nutritional Appearance: well nourished Orientation/consciousness: patient oriented x3 Limitations: no limitations HEENT: Head: Yes normal to inspection and Yes atraumatic Ears: hearing grossly normal bilaterally and external ears normal General nose exam: Normal external nose present, no nasal discharge noted and no epistaxis Face and sinus: Yes normal facial exam, No abrasion and No laceration Mouth: Normal oral and palatal mucosa present, no drooling and no muffled voice Eyes: General: appearance normal, both eyes and all related structures Periorbital: periorbital findings normal Eyelids: Yes eyelids normal Conjunctivae: conjunctivae normal Pupils: Equal, round and reactive pupils present EOM: EOMs intact bilaterally Neck: Neck: Yes normal visual inspection, Yes full ROM and Yes no lymphadenopathy Chest: Chest palpation & inspection: normal inspection of the chest Resp: Effort & Inspection: normal respiratory effort and able to speak in complete sentences Auscultation: clear to auscultation bilaterally Cardio: Rate: regular rate Rhythm: regular rhythm GI: Inspection: Yes normal to inspection Palpation (GI): Soft to palpation, not firm, nontender, no guarding and not rigid Neuro: General: patient oriented x3 and moves all extremities Cranial nerves: Yes Equal, round and reactive pupils present Cognition (Neuro): normal cognition Motor exam (neuro): 5/5 motor strength present throughout Sensory Exam: Normal double simultaneous stimulation for sensation Coordination: [id number] test normal Extrem: General: Yes normal to inspection, Yes full ROM and Yes capillary ref ill normal Psych: Appearance: grossly normal Mental Status: mental status grossly normal Affect: normal affect Attitude: cooperative Thought process: Normal thought process present Thought content: Normal thought content present Insight: Good insight present (Psych) Objective Data Labs CBC & Chem 7: 07/09/22 06:49 07/09/22 06:49 Labs: Laboratory Results - last 24 hr 07/09/22 07/09/22 07/09/22 06:49 06:49 06:49 WBC 4.2 L RBC 2.70 L Hgb 8.8 L Hct 26.0 L MCV 96.3 MCH 32.6 MCHC 33.8 RDW 17.2 H Plt Count 104 L MPV 11.5 Absolute Nucleated RBC 0.000 Nucleated RBC % (auto) 0.0 PT 11.4 INR 1.0 Sodium 130 L Potassium 3.0 L Chloride 93 L Carbon Dioxide 25 Anion Gap 15 BUN 12 Creatinine 0.58 Estim Creat Clear Calc 93.6 Estimated GFR > 60 Fasting Glucose 120 H Calcium 7.8 L TSH 0.86 Random Cortisol 07/09/22 07/09/22 07/09/22 06:49 06:49 06:49 WBC RBC Hgb Hct MCV MCH MCHC RDW Plt Count MPV Absolute Nucleated RBC Nucleated RBC % (auto) PT INR Sodium Cancelled Potassium Cancelled Chloride Cancelled Carbon Dioxide Cancelled Anion Gap Cancelled BUN Creatinine Estim Creat Clear Calc Estimated GFR Fasting Glucose Calcium TSH Cancelled Random Cortisol 12.8 Procedures Date of Service Date of Service: 07/09/22 Assessment & Plan Assessment and plan (1) Acute hyponatremia: Status: Acute Assessment and Plan: 1. Euvolemic HypoNa: w/u c/wcombination of factors including low solute intake and ?polydipsia: this is supported by ongoing self correction and Uosm 150 TSH and cortisol OK REC: cont po flid restirction and track SNa; stress incr protein intake and avodi excess po fluid intake will follow with team Time Spent With Patient Time: Total time spent is greater than 50% in coordination of care (as documented) at patient's floor/unit and/or counseling patient: Progress Note: Quality Stroke Does the patient have a stroke diagnosis?: No
[2022-07-09 21:55] LABS: Anion Gap 17 (12-20); Carbon Dioxide 21 mmol/L (22-29); Chloride 98 mmol/L (96-108); Potassium 3.9 mmol/L (3.3-5.1); Sodium 132 mmol/L (135-145)
[2022-07-10] MEDS: 0.9 % Sodium Chloride Flush 3 ML SYRINGE IVFLUSH ×2 (00:37→08:24)
[2022-07-10 03:18] VITALS: BP 109/58; PULSE 62; RESP 20; TEMP 36.6; O2SAT 97
[2022-07-10] MEDS: Omeprazole 40 MG CAPSULE.DR PO (05:27)
--- NOTE | 2022-07-10 05:39 | OP_ITS ---
SURGEON: Eliel Cortes MD INDICATIONS: The patient presents for evaluation of upper GI bleeding. Full consent has been obtained from her for this, including risks of bleeding and perforation. PREOPERATIVE DIAGNOSIS: Upper gastrointestinal bleeding. POSTOPERATIVE DIAGNOSIS: Upper gastrointestinal bleeding, erosive esophagitis, hiatal hernia, gastritis, duodenal ulcers, and duodenitis. PROCEDURE PERFORMED: Esophagogastroduodenoscopy with biopsies. ESTIMATED BLOOD LOSS: COMPLICATIONS: ANESTHESIA: Monitored anesthesia care. ASSISTANTS: SPECIMENS: DESCRIPTION OF PROCEDURE: The patient was placed in the left lateral decubitus position. The Olympus video gastroscope was passed in the posterior oropharynx and upper esophagus under direct vision. The scope was passed slowly into the distal esophagus. The gastroesophageal junction appeared at 34 cm. Extending from this to approximately 28 cm were changes consistent with erosive esophagitis with some overlying exudate. There was no bleeding, mass, nor stricture. The scope entered into the stomach. There was a moderate-sized hiatal hernia. The scope was advanced to the pylorus, and the duodenum was cannulated to the descending portion. Second and third portions of duodenum appeared normal. The duodenal bulb was notable for edema, duodenitis, and at least 2 shallow less than 10 mm ulcers. There was no active bleeding. The scope was withdrawn back to the stomach. The gastric antrum and body had changes consistent with chronic gastritis, but there were no discrete ulcerations. There was good peristalsis. Biopsies were obtained from the antrum. The scope was retroflexed visualizing the proximal stomach carefully which appeared normal, without any sign of mass or ulceration. The scope was straightened. The scope was withdrawn back in the esophagus. Proximal to 28 cm, the esophageal mucosa appeared normal. The scope was withdrawn from the patient. She tolerated the procedure well and was returned to the recovery area in stable condition. IMPRESSION: 1. Duodenal ulcers, with associated duodenitis. 2. Gastritis, rule out Helicobacter pylori. 3. Hiatal hernia. 4. Erosive esophagitis. PLAN: The patient will have her diet advanced tonight. She will be changed from IV pantoprazole to omeprazole 40 mg p.o. b.i.d. She will have followup laboratories in the morning. She should continue to hopefully avoid alcohol and all NSAIDs long-term. MD HENRY Quintero/NEVIN / [phone] SHIRLEY
[2022-07-10 07:09] LABS: Hematocrit 28.1 % (37.0-47.0); Hemoglobin 9.2 g/dl (12.0-16.0); Mean Corpuscular HGB Conc 32.7 g/dl (31.0-35.0); Mean Corpuscular Hemoglobin 32.1 pg (27.0-33.0); Mean Corpuscular Volume 97.9 fL (80.0-98.0); Mean Platelet Volume 10.6 fL (9.4-12.3); Platelet Count 138 X10*3/uL (160-400); Red Blood Count 2.87 X10*6/uL (4.20-5.50); Red Cell Distribution Width 17.7 % (11.0-16.0); White Blood Count 5.1 X10*3/uL (4.8-10.8)
[2022-07-10 07:27] LABS: Anion Gap 14 (12-20); Blood Urea Nitrogen 11 mg/dL (9-16); Carbon Dioxide 24 mmol/L (22-29); Chloride 98 mmol/L (96-108); Creatinine Clr Calc Pharmacy 90.4; Estimated Glomerular Filt Rate > 60; Glucose Fasting 112 mg/dL (60-99); Potassium 3.6 mmol/L (3.3-5.1); Sodium 132 mmol/L (135-145)
[2022-07-10 07:38] VITALS: BP 124/67; PULSE 62; RESP 17; TEMP 36.4; O2SAT 97
--- NOTE | 2022-07-10 10:30 | HO.POSTANES ---
Post Anesthesia Evaluation Post Anesthesia Evaluation Vital Signs: Vital Signs Temp Pulse Resp BP Pulse Ox O2 Del Method 07/10/22 07:38 97.5 F 62 17 124/67 97 Room Air 07/10/22 03:18 97.8 F 62 20 109/58 L 97 Room Air 07/09/22 23:42 97.1 F 76 18 145/55 H 99 Room Air Anesthesia: Monitored Mental Status: Awake Pain Control: Satisfactory Nausea/Vomiting: None Hydration: Adequate Anesthesia-Related Issues: No Anes. Related Issues
[2022-07-10 11:01] VITALS: BP 124/57; PULSE 65; RESP 18; TEMP 36.7; O2SAT 97
--- NOTE | 2022-07-10 11:39 | P.DS_ITS ---
DS: Providers Provider Date of Service: 07/10/22 Date of admission: 07/07/22 16:24 Primary care physician: Nonstaff Physician Consults: 07/07/22 16:23 Consult to Gastroenterology Routine Consulting Provider: Gaby Sutherland Reason for consultation: melena Consult to Nephrology Routine Consulting Provider: Urban Vidal Reason for consultation: hyponatremia DS: Diagnosis Discharge Diagnosis (1) EtOH dependence: Status: Acute (2) Duodenal ulcer: Status: Acute (3) GI bleed: Status: Acute (4) Acute hyponatremia: Status: Acute DS: Summary Hospital Course Hospital Course: Admission note HPI [id number] presented with melena, weakness. patient was admitted for april 2022 for duodenal ulcer bleed. likely related to NSAID use. she reports stopping ETOH and NSAIDs since, but has not been taking protonix religiously she reports several days melena, weakness. she reports poor oral intake and excessive free water intake. in ED noted to have sodium of 122 and stable hgb of 9. Hospital course The patient was admitted for evaluation of melena and hyponatremia at time of presentation. Her sodium level was noted to be at 01:22 at time of presentation believed to be secondary to tea and toast diet with excess fluid intake. She reports being sober for the last 2 months from alcohol. Evaluated by automotive internet sales consultant as she was managed with fluid restriction, regular diet as her sodium level improved to 133 at the day of discharge. Advised to eat regular diet and to avoid alcohol with fluid restriction up to 2 L of fluid. Evaluated by garage construction equipment mechanic Dr. Cortes with upper endoscopy that showed an evidence of duodenal ulcer with no active bleeding. Her hemoglobin level remained stable as she tolerated diet well and treated with IV pantoprazole during the hospital stay. Will be discharged on b.i.d. pantoprazole and to follow-up as outpatient with GI with repeat CBC in 1 week. Start pantoprazole twice Daily Avoid alcohol Eat balance diet, restrict fluid intake to 1.5-2 L. To follow-up with PCP as outpatient with repeat blood work Time Spent with Patient Time attestation: Total time spent providing and/or coordinating discharge services: Discharge coordination time: Greater than 30 minutes Quality: Safe Use of Opioids Does Pt have an Active Cancer Diagnosis on the Problem List?: No Quality: Stroke Does the patient have a stroke diagnosis?: No Physical Exam Vital Signs: Vital Signs: Last Vital Signs Temp 98.1 F 07/10/22 11:01 Pulse 65 07/10/22 11:01 Resp 18 07/10/22 11:01 BP 124/57 L 07/10/22 11:01 Pulse Ox 97 07/10/22 11:01 O2 Del Method 07/10/22 11:01 BMI result Body Mass Index 20.3 Const: Other: Constitutional : Alert, oriented, not in distress Neck : Normal inspection, Supple Cardiovascular : RRR, no JVP, no lower extremity edema Respiratory : fair bilateral air entry, no crackles, wheezes or rhonchi Gastrointestinal: soft, lax, Normal bowel sounds, Non tender Skin : Warm, Dry Neurological : Alert & oriented x3, No focal deficit , CN 2-12 within normal DS: Data Data Completed and Pending Completed studies during hospitalization [Text1]: Procedures Excision of Duodenum, Via Natural or Artificial Opening Endoscopic, Diagnostic (05/02/22) Excision of Stomach, Pylorus, Via Natural or Artificial Opening Endoscopic, Diagnostic (05/02/22) Pending studies at discharge: Pending at discharge 07/09/22 19:52 Surgical [PTH] Routine Labs on day of discharge: Laboratory Results - last 24 hr 07/09/22 07/10/22 07/10/22 21:29 06:19 06:19 WBC 5.1 RBC 2.87 L Hgb 9.2 L Hct 28.1 L MCV 97.9 MCH 32.1 MCHC 32.7 RDW 17.7 H Plt Count 138 L D MPV 10.6 Absolute Nucleated RBC 0.000 Nucleated RBC % (auto) 0.0 Sodium 132 L 132 L Potassium 3.9 D 3.6 Chloride 98 98 Carbon Dioxide 21 L 24 Anion Gap 17 14 BUN 11 Creatinine 0.60 Estim Creat Clear Calc 90.4 Estimated GFR > 60 Fasting Glucose 112 H Calcium 8.0 L Discharge Plan Discharge Patient Disposition: Home, Self-Care Discharge Diagnosis: Low sodium level A duodenal ulcer Referrals: Physician,Nonstaff [Primary Care Provider] - 1 Week Discharge Medications: Continued ondansetron 4 mg tablet,disintegrating 1 tab PO Q8H PRN (Reason: Nausea) magnesium 250 mg Tablet 500 mg PO DAILY vitamin B complex Capsule 1 cap PO DAILY omega 0-lab-asl-fish oil [Fish Oil] 1,000 mg (120 mg-180 mg) Capsule 1 cap PO DAILY Changed pantoprazole [Protonix] 40 mg tablet,delayed release (DR/EC) 40 mg PO BID Qty: 60 2RF Rx Instructions: take Protonix 40 mg 1 tablet twice daily for 2 weeks then take Protonix 1 tablet once daily Discharge Orders: Discharge Order (Routine); Ordered 07/10/22 Ordered By: Leela Allison Diet: Fluid restriction 2 L Activity on Discharge: As tolerated Stand Alone Forms: Patient Portal Discharge page Other Ambulatory Orders: Basic Metabolic Panel (Routine) Timeframe: 1 Week Facility: [facility] - Location: Laboratory Ordered By: Leela Allison Complete Blood Count no Diff (Routine) Timeframe: 1 Week Facility: [facility] - Location: Laboratory Ordered By: Leela Allison Care Plan Goals: Read below Health Concerns: Read below Plan of Treatment: Read below Assessment: You were admitted to the hospital for evidence of bloody stool. Evaluated by garage construction equipment mechanic Dr. Cortes who did an upper endoscopy showing evidence of duodenal ulcer. Treated with pantoprazole with good response as no further bleeding noticed. Your sodium level was noticed to be running low. Believed to be secondary to chronic alcohol usage. Advised to eat a balanced diet per nephrology team with from with restrictions as your sodium improved back close to normal values. Start pantoprazole twice Daily Avoid alcohol Eat balance diet, restrict fluid intake to 1.5-2 L. To follow-up with PCP as outpatient with repeat blood work
--- NOTE | 2022-07-10 12:02 | MHC.CM.PN ---
Patient has been medically cleared for dc to home today, self care.
== END 2022-07-10 12:30 | disposition home or self-care (01) | DRG 241 ==
LOC: HO.ED 15:58 → HO.EDOVER 16:30 → HO.IMC 07-08 07:34
PROVIDERS: Internal Medicine; Internal Medicine Nephrology; Physician Assistant Medical; Admitting Provider Internal Medicine; Emergency Provider Emergency Medicine; Visit Provider Student in an Organized Health Care Education/Training Program
PROC: 0DB78ZX Excision of Stomach, Pylorus, Via Natural or Artificial Opening Endoscopic, Diagnostic (ICD-10-PCS; principal; 2022-07-09 17:30)
DX: K26.4 Chronic or unspecified duodenal ulcer with hemorrhage (principal); K20.91 Esophagitis, unspecified with bleeding; E87.1 Hypo-osmolality and hyponatremia; K29.71 Gastritis, unspecified, with bleeding; F41.9 Anxiety disorder, unspecified; K44.9 Diaphragmatic hernia without obstruction or gangrene; M81.0 Age-related osteoporosis without current pathological fracture; F10.21 Alcohol dependence, in remission; F17.210 Nicotine dependence, cigarettes, uncomplicated; Z20.822 Contact with and (suspected) exposure to COVID-19; Z71.6 Tobacco abuse counseling; Z79.899 Other long term (current) drug therapy
CPT/HCPCS: 36415; 80048; 80051; 80053; 80307; 82043; 82077; 82272; 82533; 83735; 83930; 83935; 84133; 84300; 84443; 85025; 85027; 85610; 87635; 88305; 88342; 93005; 96374; 99285; J1170; J3010

== ENCOUNTER 2022-07-26 08:11 | Outpatient (REF) | payer OTHER, SELFPAY ==
[2022-07-26 11:43] LABS: Hematocrit 32.3 % (37.0-47.0); Hemoglobin 10.3 g/dl (12.0-16.0); Mean Corpuscular HGB Conc 31.9 g/dl (31.0-35.0); Mean Corpuscular Hemoglobin 30.5 pg (27.0-33.0); Mean Corpuscular Volume 95.6 fL (80.0-98.0); Mean Platelet Volume 9.2 fL (9.4-12.3); Platelet Count 367 X10*3/uL (160-400); Red Blood Count 3.38 X10*6/uL (4.20-5.50); Red Cell Distribution Width 18.3 % (11.0-16.0); White Blood Count 8.4 X10*3/uL (4.8-10.8)
[2022-07-26 11:55] LABS: Alanine Aminotransferase 22 U/L (0-31); Albumin Level 3.8 g/dL (3.5-5.0); Alkaline Phosphatase 84 U/L (39-117); Anion Gap 15 (12-20); Aspartate Amino Transferase 32 U/L (5-31); Bilirubin Total 0.2 mg/dL (0.0-1.0); Blood Urea Nitrogen 8 mg/dL (9-16); Calcium 8.9 mg/dL (8.4-10.2); Carbon Dioxide 22 mmol/L (22-29); Chloride 106 mmol/L (96-108); Estimated Glomerular Filt Rate > 60; Glucose Fasting 102 mg/dL (60-99); Potassium 5.3 mmol/L (3.3-5.1); Sodium 138 mmol/L (135-145); Total Protein 6.6 g/dL (6.5-8.0)
== END 2022-07-26 08:12 | disposition home or self-care (01) ==
LOC: HO.HMGCLDS 08:11
PROVIDERS: PCP Internal Medicine; Visit Provider Student in an Organized Health Care Education/Training Program
DX: K92.2 Gastrointestinal hemorrhage, unspecified (principal); E87.1 Hypo-osmolality and hyponatremia; F41.9 Anxiety disorder, unspecified
CPT/HCPCS: 36415; 80048; 80053; 85027

== ENCOUNTER 2022-09-19 09:12 | Outpatient (REF) | payer OTHER, SELFPAY ==
[2022-09-19 11:22] LABS: MANUAL DIFF FLAG NO
[2022-09-19 11:26] LABS: Basophils Absolute Auto 0.1 X10*3/uL (0.0-0.2); Basophils Percent Auto 1.1 % (0-2); Eosinophils Absolute Auto 0.2 X10*3/uL (0.0-0.4); Eosinophils Percent Auto 2.3 % (0-4); Hematocrit 34.8 % (37.0-47.0); Hemoglobin 10.8 g/dl (12.0-16.0); Imm Gran Abs Auto 0.04 X10*3/uL (0.00-0.03); Imm Gran Pct Auto 0.5 % (0.0-0.4); Lymphocytes Absolute Auto 3.1 X10*3/uL (1.2-4.9); Mean Corpuscular Hemoglobin 27.6 pg (27.0-33.0); Mean Platelet Volume 9.9 fL (9.4-12.3); Monocytes Absolute Auto 0.8 X10*3/uL (0.1-1.2); Neutrophils Absolute Auto 4.2 x10*3/uL (2.0-8.3); Neutrophils Percent Auto 50.1 % (45-73); Platelet Count 337 X10*3/uL (160-400); Red Blood Count 3.91 X10*6/uL (4.20-5.50); Red Cell Distribution Width 20.3 % (11.0-16.0); White Blood Count 8.4 X10*3/uL (4.8-10.8)
[2022-09-19 11:38] LABS: Alanine Aminotransferase 17 U/L (0-31); Albumin Level 4.1 g/dL (3.5-5.0); Alkaline Phosphatase 107 U/L (39-117); Anion Gap 16 (12-20); Aspartate Amino Transferase 27 U/L (5-31); Bilirubin Total 0.4 mg/dL (0.0-1.0); Blood Urea Nitrogen 13 mg/dL (9-16); Calcium 8.9 mg/dL (8.4-10.2); Carbon Dioxide 21 mmol/L (22-29); Chloride 105 mmol/L (96-108); Estimated Glomerular Filt Rate > 60; Glucose Fasting 95 mg/dL (60-99); Iron 45 mcg/dL (30-160); Percent Iron Saturation 10 % (15-50); Potassium 4.9 mmol/L (3.3-5.1); Sodium 137 mmol/L (135-145); Total Iron Binding Capacity 460 mcg/dL (228-428); Unsaturated Iron Binding 415 ug/dL
[2022-09-19 13:05] LABS: Folate > 20.0 ng/mL (> or = 4.0); Vitamin B12 491 pg/mL (200-900)
== END 2022-09-19 09:13 | disposition home or self-care (01) ==
LOC: HO.HMGCLDS 09:12
PROVIDERS: PCP Internal Medicine; Visit Provider Internal Medicine
DX: F10.10 Alcohol abuse, uncomplicated (principal); D53.9 Nutritional anemia, unspecified; K26.4 Chronic or unspecified duodenal ulcer with hemorrhage
CPT/HCPCS: 36415; 80053; 82607; 82746; 83540; 85025

== ENCOUNTER 2022-12-06 15:06 | Outpatient (REF) | payer OTHER, SELFPAY ==
--- NOTE | ~2022-12-06 | CT_ITS ---
EXAMINATION: CT CHEST SCREENING CLINICAL INFORMATION: F17.210 - Nicotine dependence, cigarettes, uncomplicated. 49 pack years. COMPARISON: Chest radiograph 09/07/2021, CT abdomen 12/09/2014 TECHNIQUE: Multidetector volumetric CT imaging of the chest is performed without contrast using low dose technique. Additional 2D coronal and sagittal reformatted images and axial 3D maximum intensity projection (MIP) images are generated on the CT workstation. This CT examination was performed using dose optimization techniques as appropriate, variously including the following: *Automated exposure control *Adjustment of mA and/or kV according to patient size (this includes techniques or standardized protocols for targeted exams where dose is matched to indication/reason for exam; i.e. extremities or head) *Use of iterative reconstruction technique DLP: 40 mGy-cm FINDINGS: LUNGS: Central airways are clear and there is no endobronchial lesion or bronchiectasis. No lobar or segmental airspace consolidation or groundglass opacity. There is some fine linear scarring versus disc atelectasis at both bases. There are centrilobular emphysematous changes upper zones better appreciated on the coronal and sagittal reformats. Left lung shows no mass or significant nodule. There is an incidental small fissural based nodule under 4 mm, series 5/313, likely intraparenchymal node. Right lung shows no mass or significant nodule. MEDIASTINUM: Mediastinum is unremarkable. Small precarinal node 0.7 cm. No adenopathy. Thoracic aorta normal in caliber. Heart size normal. No pericardial effusion. CORONARY ARTERY CALCIFICATION: None visualized on this study. PLEURA: There is no pleural effusion. No pleural mass or thickening. AXILLA: No lymphadenopathy. UPPER ABDOMEN: Unremarkable. Lobulated splenic contour stable. OSSEOUS STRUCTURES: No suspicious bony abnormality. There is accentuated superior endplate concavity at T12, new from prior CT 2015. No paraspinal soft tissue swelling. CT/CT lung screening IMPRESSION: -No mass or significant nodule. -Centrilobular emphysematous changes upper zones. -Accentuated superior endplate concavity T12, new from prior CT 2015. ASSESSMENT: Lung-RADS category 2: Benign RECOMMENDATION: Routine annual low-dose CT screening in 12 months.
== END 2022-12-06 15:07 | disposition home or self-care (01) ==
LOC: HO.CT 15:06
PROVIDERS: PCP Internal Medicine; Visit Provider Physician Assistant Medical
DX: Z12.2 Encounter for screening for malignant neoplasm of respiratory organs (principal); F17.210 Nicotine dependence, cigarettes, uncomplicated
CPT/HCPCS: 71271; G0296

== ENCOUNTER 2023-07-14 06:34 | Outpatient (REF) | payer OTHER, SELFPAY ==
[2023-07-14 11:31] LABS: MANUAL DIFF FLAG NO
[2023-07-14 11:38] LABS: Basophils Absolute Auto 0.1 X10*3/uL (0.0-0.2); Basophils Percent Auto 0.6 % (0-2); Eosinophils Absolute Auto 0.1 X10*3/uL (0.0-0.4); Hematocrit 40.5 % (37.0-47.0); Hemoglobin 13.7 g/dl (12.0-16.0); Imm Gran Abs Auto 0.04 X10*3/uL (0.00-0.03); Imm Gran Pct Auto 0.5 % (0.0-0.4); Lymphocytes Absolute Auto 2.5 X10*3/uL (1.2-4.9); Lymphocytes Percent Auto 29.9 % (20-40); Mean Corpuscular HGB Conc 33.8 g/dl (31.0-35.0); Mean Corpuscular Volume 97.6 fL (80.0-98.0); Monocytes Absolute Auto 0.8 X10*3/uL (0.1-1.2); Monocytes Percent Auto 9.8 % (2-11); Neutrophils Absolute Auto 4.8 x10*3/uL (2.0-8.3); Neutrophils Percent Auto 58.2 % (45-73); Platelet Count 164 X10*3/uL (160-400); Red Blood Count 4.15 X10*6/uL (4.20-5.50); Red Cell Distribution Width 15.2 % (11.0-16.0); White Blood Count 8.3 X10*3/uL (4.8-10.8)
[2023-07-14 12:02] LABS: Alanine Aminotransferase 25 U/L (0-31); Albumin Level 4.3 g/dL (3.5-5.0); Alkaline Phosphatase 86 U/L (39-117); Anion Gap 14 (12-20); Aspartate Amino Transferase 38 U/L (5-31); Bilirubin Total 0.7 mg/dL (0.0-1.0); Blood Urea Nitrogen 10 mg/dL (9-16); Calcium 8.9 mg/dL (8.4-10.2); Carbon Dioxide 24 mmol/L (22-29); Chloride 94 mmol/L (96-108); Cholesterol 204 mg/dL (<200); Estimated Glomerular Filt Rate > 60; Glucose Fasting 124 mg/dL (60-99); HDL Cholesterol 129 mg/dL (>40); Iron 40 mcg/dL (30-160); LDL Cholesterol Calculated 67 mg/dL (<100); Magnesium 1.9 mg/dL (1.6-2.6); Percent Iron Saturation 16 % (15-50); Potassium 3.2 mmol/L (3.3-5.1); Sodium 129 mmol/L (135-145); Total Iron Binding Capacity 251 mcg/dL (228-428); Total Protein 7.6 g/dL (6.5-8.0); Triglycerides 40 mg/dL (<150); Unsaturated Iron Binding 211 ug/dL
== END 2023-07-14 06:35 | disposition home or self-care (01) ==
LOC: HO.HMGCLDS 06:34
PROVIDERS: PCP Internal Medicine; Visit Provider Internal Medicine
DX: D53.9 Nutritional anemia, unspecified (principal); E83.42 Hypomagnesemia; E87.1 Hypo-osmolality and hyponatremia; K26.9 Duodenal ulcer, unspecified as acute or chronic, without hemorrhage or perforation
CPT/HCPCS: 36415; 80053; 80061; 83540; 83735; 85025

== ENCOUNTER 2023-07-16 12:34 | Outpatient (AMB) | payer OTHER, SELFPAY ==
[2023-07-16 12:47] VITALS: BP 122/74; PULSE 78; TEMP 36.7; O2SAT 97; BMI 21.5
--- NOTE | 2023-07-16 12:47 | MHC.OFFWIV ---
Intake Vital Signs 07/16/23 12:47 Height 5 ft 6.25 in Weight 134 lb BMI 21.5 BP 122/74 Blood Pressure Location Rt brachial Position Sitting Pulse 78 Pulse Source Pulse Oximeter Temp 98.0 F Temp Source Temporal Artery Scan Pulse Oximetry (%) 97 Intake Visit Reasons: c/o severe anxiety/troube sleeping Intake Note: pt is here for c/o severe anxiety and trouble sleeping Patient Tobacco Use Status: Current everyday Tobacco user Allergies chlordiazepoxide [From LIBRIUM] Adverse Reaction (Intermediate, Verified 07/16/23 13:25) severe confusion and hallucinations Medication List - Last Reconciled 07/16/23 by Percy Berman MD magnesium 500 mg PO DAILY pantoprazole (Protonix) 40 mg PO BID umeclidinium-vilanterol 62.5-25 mcg/actuation (Anoro Ellipta) 1 inh inhalation DAILY vitamin B complex 1 cap PO DAILY Do you need a note to return to daycare/school/sports/work: No HPI c/o severe anxiety/troube sleeping HPI Details 62-year-old female presents to the office for a sick visit. Patient is reporting symptoms of marked anxiety since June 25. She has racing thoughts and is unable to sleep. She has been smoking excessively. Her last drink has been more than a year ago. Unable to go to work because of panic attacks. She has not had these before. [facility] Medical History (Updated 07/16/23 @ 09:27 by Mitzi Solano MD) Anxiety Duodenal ulcer ETOH abuse Gallstone Gastritis Hyponatremia Nicotine dependence, cigarettes, uncomplicated Osteoporosis (~2019) Surgical History (Updated 12/06/22 @ 14:58 by Fouzia Fischer PA-C) History of colonoscopy History of esophagogastroduodenoscopy (EGD) History of surgery on arm Family History (Updated 12/03/22 @ 12:29 by Fouzia Fischer PA-C) Father No problems noted. Mother Lung cancer Other Substance abuse Substance use disorder Social History (Updated 12/06/22 @ 14:56 by Fouzia Fischer PA-C) Household Members: Significant Other Housing: House Do you presently have visiting nurse or other home services: No Alcohol intake: current Alcohol intake frequency: does not drink Alcohol type: hard liquor Patient Tobacco Use Status: Current everyday Tobacco user Cigarette Packs Per Day: 1 Cigarettes Per Day: 20.0 Years Smoked: onset 15yo, 1ppd x 46yrs, 40+pyh e-Cigarette/Vaping Use: Currently Using Second Hand Smoke Exposure: No Advance Directives Date on File: 09/07/21 service: No Current occupational status: employed Cognitive needs: No Hearing needs: No Vision needs: Yes Physical Exam Vital Signs: Last Vital Signs Temp 98.0 F 07/16/23 12:47 Pulse 78 07/16/23 12:47 BP 122/74 07/16/23 12:47 Pulse Ox 97 07/16/23 12:47 BMI result Body Mass Index 21.5 Const General: cooperative and healthy appearing Nutritional Appearance: well nourished Orientation/consciousness: patient oriented x3 Limitations: no limitations HEENT Head: Yes normal to inspection Eyes General: appearance normal, both eyes and all related structures Neck Neck: Yes normal visual inspection Chest Chest palpation & inspection: normal palpation of entire chest wall Resp Effort & Inspection: normal respiratory effort Neuro General: patient oriented x3 Assessment & Plan Assessment & Plan (1) Anxiety: Code(s): F41.9 - Anxiety disorder, unspecified Plan: Patient was given an urgent follow-up with her primary care provider on July 21. Clonazepam for 7 days was ordered. Orders: Orders Thyroid Stimulating Hormone Today F41.9 - Anxiety disorder, unspecified Coding Level of Care Code Est Pt Level 4 (15257) Diagnoses Anxiety F41.9 Additional Codes CHRISTINE-7 Assessment Billing - CHRISTINE-7 Assessment Tool: CHRISTINE-7 Assessment [id number] ([id number]) CHRISTINE-7 AMB Questionnaire CHRISTINE-7 Date CHRISTINE - 7 assessed: 07/16/23 Feeling nervous, anxious, or on edge: 3 = Nearly every day Not being able to stop or control worryin = Nearly every day Worrying too much about different things: 3 = Nearly every day Trouble relaxin = Nearly every day Being so restless that it is hard to sit still: 3 = Nearly every day Becoming easily annoyed or irritable: 3 = Nearly every day Feeling afraid as if something awful might happen: 3 = Nearly every day Total CHRISTINE-7 score (0-4 normal; 5-9 mild; 10-14 moderate; 15-21 severe): 21 Source: Developed by Miriam Brewster Willie, Rob Amin and colleagues, with an educational josseline from [employer] CHRISTINE-7 Assessment Billing CHRISTINE-7 Assessment Tool: CHRISTINE-7 Assessment [id number]
== END 2023-07-16 13:38 | disposition home or self-care (01) ==
PROVIDERS: PCP Internal Medicine; Visit Provider Internal Medicine
DX: F41.9 Anxiety disorder, unspecified (principal)
CPT/HCPCS: 99214

== ENCOUNTER 2023-07-17 06:13 | Outpatient (REF) | payer OTHER, SELFPAY ==
[2023-07-17 12:19] LABS: Anion Gap 14 (12-20); Carbon Dioxide 24 mmol/L (22-29); Chloride 98 mmol/L (96-108); Potassium 4.9 mmol/L (3.3-5.1); Sodium 131 mmol/L (135-145)
[2023-07-17 12:24] LABS: Thyroid Stimulating Hormone 0.52 uIU/mL (0.32-4.0)
== END 2023-07-17 06:14 | disposition home or self-care (01) ==
LOC: HO.HMGCLDS 06:13
PROVIDERS: Absent Provider Internal Medicine; PCP Internal Medicine; Visit Provider Internal Medicine
DX: F41.9 Anxiety disorder, unspecified (principal); E87.8 Other disorders of electrolyte and fluid balance, not elsewhere classified
CPT/HCPCS: 36415; 80051; 84443

== ENCOUNTER 2023-07-23 12:37 | Outpatient (AMB) | payer OTHER, SELFPAY ==
[2023-07-23 12:39] VITALS: BP 114/72; PULSE 75; O2SAT 97; BMI 21.5
--- NOTE | 2023-07-23 12:39 | MHC.PC.OV ---
Vital Signs 07/23/23 12:39 Height 5 ft 6.25 in Weight 134 lb BMI 21.5 BP 114/72 Blood Pressure Location Lt brachial Position Sitting Pulse 75 Pulse Source Pulse Oximeter Pulse Oximetry (%) 97 Oxygen Delivery Method Room Air Intake Visit Reasons: Follow up on anxiety. Intake Note: Pt is here today for a follow up visit on anxiety. Pt was seen in a walk in last week. Allergies chlordiazepoxide [From LIBRIUM] Adverse Reaction (Intermediate, Verified 07/23/23 12:43) severe confusion and hallucinations Medication List - Last Reconciled 07/23/23 by Stephy Lorenzana MD magnesium 500 mg PO DAILY melatonin mg PO .4 gummies daily pantoprazole (Protonix) 40 mg PO DAILY sertraline 50 mg PO DAILY trazodone 100 mg PO BEDTIME PRN 10 days umeclidinium-vilanterol 62.5-25 mcg/actuation (Anoro Ellipta) 1 inh inhalation DAILY vitamin B complex 1 cap PO DAILY Tobacco use date assessed: 05/21/23 HPI Follow up on anxiety. HPI Details Pt presents for follow-up of walk-in visit for increasing anxiety, insomnia and panic attacks. Patient reports having lot of stress at work and in her personal life for the last 2 months. Patient noticed increasing anxiety, difficulty concentrating and sleeping at and night. She denies depression or suicidal ideation. Patient has a history of depression in the past and alcohol abuse but has been sober for the last 6 months. She used to take sertraline with good effect last year. Patient has been taking trazodone 100 mg q.h.s. which has been only effective for about 2-3 hours at night. [facility] Medical History (Updated 07/23/23 @ 13:21 by Stephy Lorenzana MD) Anxiety Duodenal ulcer ETOH abuse Gallstone Gastritis Hyponatremia Nicotine dependence, cigarettes, uncomplicated Osteoporosis (~2019) Surgical History (Updated 12/06/22 @ 14:58 by Fouzia Fischer PA-C) History of colonoscopy History of esophagogastroduodenoscopy (EGD) History of surgery on arm Family History (Updated 12/03/22 @ 12:29 by Fouzia Fischer PA-C) Father No problems noted. Mother Lung cancer Other Substance abuse Substance use disorder Social History (Updated 12/06/22 @ 14:56 by Fouzia Fischer PA-C) Household Members: Significant Other Housing: House Do you presently have visiting nurse or other home services: No Alcohol intake: current Alcohol intake frequency: does not drink Alcohol type: hard liquor Patient Tobacco Use Status: Current everyday Tobacco user Cigarette Packs Per Day: 1 Cigarettes Per Day: 20.0 Years Smoked: onset 15yo, 1ppd x 46yrs, 40+pyh e-Cigarette/Vaping Use: Currently Using Second Hand Smoke Exposure: No Advance Directives Date on File: 09/07/21 service: No Current occupational status: employed Cognitive needs: No Hearing needs: No Vision needs: Yes Questionnaire Thrive Questionnaire Date Thrive assessed: 05/21/23 CHRISTINE-7 AMB Questionnaire CHRISTINE-7 Date CHRISTINE - 7 assessed: 07/16/23 Source: Developed by Drs. Eliel Ulloa, Miriam Tapia, Rob Amin and colleagues, with an educational josseline from [employer]. Review of Systems Const All systems reviewed & are unremarkable except as noted in HPI and below Reports no additional complaints Eyes Reports no additional complaints ENT Reports no additional complaints Card Reports no additional complaints Resp Reports no additional complaints GI Reports no additional complaints Reports no additional complaints Physical exam (Primary Care) Vital Signs: Last Vital Signs Pulse 75 07/23/23 12:39 BP 114/72 07/23/23 12:39 Pulse Ox 97 07/23/23 12:39 Oxygen Delivery Method Room Air 07/23/23 12:39 BMI result Body Mass Index 21.5 Tobacco/Smoking Status: Tobacco use Status Tobacco use date assessed 05/21/23 07/23/23 12:45 Patient Tobacco Use Status Current everyday Tobacco 07/23/23 12:45 Tobacco use type 08/29/22 08:08 e-Cigarette/Vaping Use Currently Using 07/23/23 12:45 Thrive Assessment: Date of Thrive Assessment Date Thrive assessed 05/21/23 07/23/23 12:45 Const General: no acute distress HENMT Head: Yes normal to inspection Eyes General: appearance normal, both eyes and all related structures Neck Neck: Yes supple Resp Effort & Inspection: normal respiratory effort Auscultation: clear to auscultation bilaterally Cardio Rhythm: regular rhythm Heart sounds: S1 normal heart sound present and S2 normal heart sound present Assessment and Plan Assessment & Plan (1) Anxiety: Code(s): F41.9 - Anxiety disorder, unspecified Plan: Stress management discussed with the patient. She will be referred to counseling. Patient used to follow-up with [facility] year. Sertraline 25 mg for the first 3 days and then increase to 50 mg daily will be started. Patient will continue trazodone as needed for insomnia. She will follow-up in 1 month. Patient was given out of work note until August 11 which may be extended depending on patient's symptoms Orders: Referrals Counseling Referral F41.9 - Anxiety disorder, unspecified Medications: New sertraline 1/2 tabl for 3 days, then 1 tabl QD 50 mg PO DAILY 30 tabs 2RF Changed From pantoprazole (Protonix) take Protonix 40 mg 1 tablet twice daily for 2 weeks then take Protonix 1 tablet once daily 40 mg PO BID 60 tabs 2RF To pantoprazole (Protonix) take Protonix 40 mg 1 tablet twice daily for 2 weeks then take Protonix 1 tablet once daily 40 mg PO DAILY From trazodone 100 mg PO BEDTIME 10 days PRN 10 tabs 0RF sleep To trazodone 100 mg PO BEDTIME 30 days PRN 30 tabs 2RF sleep Coding Level of Care Code Est Pt Level 3 (52894) Diagnoses Anxiety F41.9
== END 2023-07-23 14:52 | disposition home or self-care (01) ==
PROVIDERS: PCP Internal Medicine; Visit Provider Internal Medicine
DX: F41.9 Anxiety disorder, unspecified (principal)
CPT/HCPCS: 99213

== ENCOUNTER 2023-08-28 09:51 | Outpatient (AMB) | payer OTHER, SELFPAY ==
[2023-08-28 09:52] VITALS: BP 122/74; PULSE 70; O2SAT 98; BMI 20.8
--- NOTE | 2023-08-28 09:52 | MHC.PC.OV ---
Vital Signs 08/28/23 09:52 Height 5 ft 6.25 in Weight 130 lb BMI 20.8 BP 122/74 Blood Pressure Location Lt brachial Position Sitting Pulse 70 Pulse Source Pulse Oximeter Pulse Oximetry (%) 98 Oxygen Delivery Method Room Air Intake Visit Reasons: 1 month follow up Intake Note: Pt is here today for 1 month follow up visit. Allergies chlordiazepoxide [From LIBRIUM] Adverse Reaction (Intermediate, Verified 08/28/23 09:57) severe confusion and hallucinations Tobacco use date assessed: 08/28/23 Dental Screening Dental Screen Date: 08/28/23 Did you have a dental visit in the last 12 months?: No Did you have a dental problem in the last 6 months where you did not have access to dental care?: Yes Was dental information given to patient?: Yes HPI 1 month follow up HPI Details Pt presents for f/u anxiety better on Zoloft. COPD is stable on Anoro and patient has been cutting down, smoking 3/4 pack a day PFSH Medical History Nicotine dependence, cigarettes, uncomplicated Duodenal ulcer Gastritis Anxiety Hyponatremia Osteoporosis (~2018) Gallstone ETOH abuse Surgical History (Updated 12/06/22 @ 14:58 by Fouzia Fischer PA-C) History of colonoscopy History of esophagogastroduodenoscopy (EGD) History of surgery on arm Family History (Updated 12/03/22 @ 12:29 by Fouzia Fischer PA-C) Father No problems noted. Mother Lung cancer Other Substance abuse Substance use disorder Social History (Updated 12/06/22 @ 14:56 by Fouzia Fischer PA-C) Household Members: Significant Other Housing: House Do you presently have visiting nurse or other home services: No Alcohol intake: current Alcohol intake frequency: does not drink Alcohol type: hard liquor Patient Tobacco Use Status: Current everyday Tobacco user Cigarette Packs Per Day: 1 Cigarettes Per Day: 20.0 Years Smoked: onset 15yo, 1ppd x 46yrs, 40+pyh e-Cigarette/Vaping Use: Currently Using Second Hand Smoke Exposure: No Advance Directives Date on File: 09/07/21 service: No Current occupational status: employed Cognitive needs: No Hearing needs: No Vision needs: Yes Questionnaire Thrive Questionnaire Date Thrive assessed: 05/21/23 CHRISTINE-7 AMB Questionnaire CHRISTINE-7 Date CHRISTINE - 7 assessed: 07/16/23 Source: Developed by Drs. Eliel Ulloa, Miriam Tapia, Rob Amin and colleagues, with an educational josseline from [employer]. Review of Systems Const All systems reviewed & are unremarkable except as noted in HPI and below Reports no additional complaints Eyes Reports no additional complaints ENT Reports no additional complaints Card Reports no additional complaints Resp Reports no additional complaints GI Reports no additional complaints Reports no additional complaints Physical exam (Primary Care) Vital Signs: Last Vital Signs Pulse 70 08/28/23 09:52 BP 122/74 08/28/23 09:52 Pulse Ox 98 08/28/23 09:52 Oxygen Delivery Method Room Air 08/28/23 09:52 BMI result Body Mass Index 20.8 Tobacco/Smoking Status: Tobacco use Status Tobacco use date assessed 08/28/23 08/28/23 09:59 Patient Tobacco Use Status Current everyday Tobacco 08/28/23 09:54 Tobacco use type 08/29/22 08:08 e-Cigarette/Vaping Use Currently Using 08/28/23 09:54 Thrive Assessment: Date of Thrive Assessment Date Thrive assessed 05/21/23 08/28/23 09:54 Const General: no acute distress HENMT Head: Yes normal to inspection Throat: Yes posterior oropharynx normal Neck Neck: Yes no lymphadenopathy and Yes supple Resp Effort & Inspection: normal respiratory effort Auscultation: wheezes and diminished lung sounds Cardio Rhythm: regular rhythm Heart sounds: S1 normal heart sound present and S2 normal heart sound present GI Inspection: Yes normal to inspection Assessment and Plan Assessment & Plan (1) Electrolyte abnormality: Code(s): E87.8 - Other disorders of electrolyte and fluid balance, not elsewhere classified Plan: Check BMP (2) Anxiety: Code(s): F41.9 - Anxiety disorder, unspecified Plan: Continue Zoloft (3) COPD (chronic obstructive pulmonary disease): Code(s): J44.9 - Chronic obstructive pulmonary disease, unspecified Plan: change Anoro to Trelegy, f/u with lung ca screening program Orders: Orders Basic Metabolic Panel Today E87.8 - Other disorders of electrolyte and fluid balance, not elsewhere classified Medications: New [id number]-[id number]-omaamqga 100-62.5-25 mcg (Trelegy Ellipta) 1 inh inhalation DAILY 60 ea 5RF Coding Level of Care Code Est Pt Level 4 (50992) Diagnoses Electrolyte abnormality E87.8 Anxiety F41.9 COPD (chronic obstructive pulmonary disease) J44.9
== END 2023-08-28 10:39 | disposition home or self-care (01) ==
PROVIDERS: PCP Internal Medicine; Visit Provider Internal Medicine
DX: E87.8 Other disorders of electrolyte and fluid balance, not elsewhere classified (principal); F41.9 Anxiety disorder, unspecified; J44.9 Chronic obstructive pulmonary disease, unspecified; F17.210 Nicotine dependence, cigarettes, uncomplicated
CPT/HCPCS: 99214

== ENCOUNTER 2023-09-04 12:25 | Outpatient (REF) | payer OTHER, SELFPAY ==
[2023-09-04 16:10] LABS: Anion Gap 15 (12-20); Blood Urea Nitrogen 21 mg/dL (9-16); Calcium 9.6 mg/dL (8.4-10.2); Carbon Dioxide 22 mmol/L (22-29); Chloride 104 mmol/L (96-108); Estimated Glomerular Filt Rate > 60; Glucose Random 87 mg/dL (60-115); Potassium 4.5 mmol/L (3.3-5.1); Sodium 136 mmol/L (135-145)
== END 2023-09-04 12:26 | disposition home or self-care (01) ==
LOC: HO.HMGCLDS 12:25
PROVIDERS: PCP Internal Medicine; Visit Provider Internal Medicine
DX: E87.8 Other disorders of electrolyte and fluid balance, not elsewhere classified (principal)
CPT/HCPCS: 36415; 80048

== ENCOUNTER 2024-01-01 15:14 | Outpatient (REF) | payer OTHER, SELFPAY ==
--- NOTE | ~2024-01-01 | CT_ITS ---
EXAMINATION: CT CHEST SCREENING CLINICAL INFORMATION: Current smoker with 45 pack years. One pack per day. COMPARISON: CT lung screening 12/06/2022. TECHNIQUE: Multidetector volumetric CT imaging of the chest is performed without contrast using low dose technique. Additional 2D coronal and sagittal reformatted images and axial 3D maximum intensity projection (MIP) images are generated on the CT workstation. This CT examination was performed using dose optimization techniques as appropriate, variously including the following: *Automated exposure control *Adjustment of mA and/or kV according to patient size (this includes techniques or standardized protocols for targeted exams where dose is matched to indication/reason for exam; i.e. extremities or head) *Use of iterative reconstruction technique DLP: 41 mGy-cm FINDINGS: LUNGS: Mild emphysematous changes are present in the lungs. A small 1.4 cm bolus noted in the right lower lobe. Tiny 3 mm perifissural nodule in the major fissure on the left is unchanged (5:305, compare prior 5:314) The lungs are otherwise clear with no evidence of inflammation or worrisome nodules MEDIASTINUM: The mediastinum is normal. CORONARY ARTERY CALCIFICATION: None visualized on this study. PLEURA: There is no pleural effusion. No pleural mass or thickening. AXILLA: No lymphadenopathy. UPPER ABDOMEN: Unremarkable OSSEOUS STRUCTURES: Mild degenerative changes are present in the spine with mild compression of the superior endplate of T12, unchanged from prior. CT/CT lung screening IMPRESSION: 1. Mild emphysema. 2. No worrisome nodules. ASSESSMENT: Lung-RADS category 2: Benign RECOMMENDATION: Routine annual low-dose CT screening in 12 months.
== END 2024-01-01 15:15 | disposition home or self-care (01) ==
LOC: HO.CT 15:14
PROVIDERS: Visit Provider Nurse Practitioner Family
DX: Z12.2 Encounter for screening for malignant neoplasm of respiratory organs (principal); F17.210 Nicotine dependence, cigarettes, uncomplicated
CPT/HCPCS: 71271

== ENCOUNTER 2024-02-26 11:45 | Outpatient (AMB) | payer OTHER, SELFPAY ==
[2024-02-26 12:23] VITALS: BP 120/68; PULSE 61; O2SAT 98; BMI 20.3
--- NOTE | 2024-02-26 12:23 | MHC.PC.OV ---
Vital Signs 02/26/24 12:23 Height 5 ft 6.25 in Weight 126 lb 8 oz BMI 20.3 BP 120/68 Blood Pressure Location Rt brachial Position Sitting Pulse 61 Pulse Source Pulse Oximeter Pulse Oximetry (%) 98 Oxygen Delivery Method Room Air Intake Visit Reasons: annual PE Allergies chlordiazepoxide [From LIBRIUM] Adverse Reaction (Intermediate, Verified 02/26/24 12:25) severe confusion and hallucinations Tobacco use date assessed: 02/26/24 Fall risk assessment: No Falls in past year Last assessed Fall Risk: 02/26/24 Dental Screening Dental Screen Date: 02/26/24 Did you have a dental visit in the last 12 months?: No Did you have a dental problem in the last 6 months where you did not have access to dental care?: No Was dental information given to patient?: No HPI annual PE HPI Details Patient presents for physical. PFSH Medical History Nicotine dependence, cigarettes, uncomplicated Duodenal ulcer Gastritis Anxiety Hyponatremia Osteoporosis (~2019) Gallstone ETOH abuse Surgical History History of colonoscopy History of esophagogastroduodenoscopy (EGD) History of surgery on arm Family History Father No problems noted. Mother Lung cancer Other Substance abuse Substance use disorder Social History Household Members: Significant Other Housing: House Do you presently have visiting nurse or other home services: No Alcohol intake: current Alcohol intake frequency: does not drink Alcohol type: hard liquor Patient Tobacco Use Status: Current everyday Tobacco user Cigarette Packs Per Day: 1 Cigarettes Per Day: 20.0 Years Smoked: onset 15yo, 1ppd x 46yrs, 40+pyh Packs Per Year: 0 Packs per year/per ci.00 e-Cigarette/Vaping Use: Currently Using Second Hand Smoke Exposure: No Advance Directives Date on File: 09/07/21 service: No Current occupational status: employed Cognitive needs: No Hearing needs: No Vision needs: No Questionnaire PHQ-9 Over the last 2 weeks, how often have you been bothered by any of the following problems? 1. Little interest or pleasure in doing things: not at all 2. Feeling down, depressed, or hopeless: not at all 3. Trouble falling or staying asleep, or sleeping too much: not at all 4. Feeling tired or having little energy: not at all 5. Poor appetite or overeating: not at all 6. Feeling bad about yourself - or that you are a failure or have let yourself or your family down: not at all 7. Trouble concentrating on things, such as reading the newspaper or watching television: not at all 8. Moving or speaking so slowly that other people could have noticed. Or the opposite - being so fidgety or restless that you have been moving around a lot more than usual: not at all 9. Thoughts that you would be better off or of hurting yourself in some way: not at all Total score: 0 Depression Screening Interpretation: Negative Depression Screening Done: Yes 43255 - PHQ-9 Billing: Yes Source: Developed by Drs. Eliel Ulloa, Miriam Tapia, Rob Amin and colleagues, with an educational josseline from [employer]. Thrive Questionnaire Date Thrive assessed: 02/26/24 I am a: Patient What is your living situation today?: I have a steady place to live Within the past 12 months, did the food you bought not last and you didn't have the money to get more?: Never true Within the past 12 months, did you worry whether your food would run out before you got money to buy more?: Never true Do you have trouble paying for medicines?: No Do you have trouble getting transportation to medical appointments?: No Do you have trouble paying your heating and electricity bill?: No Do you have trouble taking care of your child, family member or friend?: No Do you have trouble with day-to-day activities such as bathing, preparing meals, shopping, managing finances, etc.?: No Are you currently unemployed and looking for a job?: No Are you interested in more education?: No Please select the resources that you would like help with: None Currently or been in a relationship where the following occur: no concerns reported THRIVE Score: 0 AUDIT C Alcohol Use Questionnaire (AUDIT-C) 1. How often do you have a drink containing alcohol?: Never 3. How often do you have six or more drinks on one occasion?: Never Total Score: 0 Score Reviewed/Action Taken: Yes CHRISTINE-7 AMB Questionnaire CHRISTINE-7 Date CHRISTINE - 7 assessed: 02/26/24 Feeling nervous, anxious, or on edge: 0 = Not at all Not being able to stop or control worryin = Not at all Worrying too much about different things: 0 = Not at all Trouble relaxin = Not at all Being so restless that it is hard to sit still: 0 = Not at all Becoming easily annoyed or irritable: 0 = Not at all Feeling afraid as if something awful might happen: 0 = Not at all Total CHRISTINE-7 score (0-4 normal; 5-9 mild; 10-14 moderate; 15-21 severe): 0 Source: Developed by Drs. Eliel Ulloa, Miriam Tapia, Rob Amin and colleagues, with an educational josseline from [employer]. CHRISTINE-7 Assessment Billing CHRISTINE-7 Assessment Tool: CHRISTINE-7 Assessment 20131 Review of Systems Const All systems reviewed & are unremarkable except as noted in HPI and below Reports no additional complaints Eyes Reports no additional complaints ENT Reports no additional complaints Card Reports no additional complaints Resp Reports no additional complaints GI Reports no additional complaints Physical exam (Primary Care) Vital Signs: Last Vital Signs Pulse 61 02/26/24 12:23 BP 120/68 02/26/24 12:23 Pulse Ox 98 02/26/24 12:23 Oxygen Delivery Method Room Air 02/26/24 12:23 BMI result Body Mass Index 20.3 Tobacco/Smoking Status: Tobacco use Status Tobacco use date assessed 02/26/24 02/26/24 12:27 Patient Tobacco Use Status Current everyday Tobacco 02/26/24 12:27 Tobacco use type 08/29/22 08:08 e-Cigarette/Vaping Use Currently Using 02/26/24 12:27 PHQ-9: PHQ-9 Score PHQ-9: Total score 0 02/26/24 13:00 Depression Screening Interpretation: Negative Thrive Assessment: Date of Thrive Assessment Date Thrive assessed 02/26/24 02/26/24 12:27 Currently or been in a relationship where the following occur: no concerns reported Const General: no acute distress HENMT Ears: hearing grossly normal bilaterally Throat: Yes posterior oropharynx normal Neck Neck: Yes no lymphadenopathy and Yes supple Resp Effort & Inspection: normal respiratory effort Auscultation: clear to auscultation bilaterally Cardio Rhythm: regular rhythm Heart sounds: S1 normal heart sound present and S2 normal heart sound present GI Inspection: Yes normal to inspection Palpation (GI): Soft to palpation Percussion: Yes normal to percussion Auscultation: normal bowel sounds Assessment and Plan Assessment & Plan (1) COPD (chronic obstructive pulmonary disease): Code(s): J44.9 - Chronic obstructive pulmonary disease, unspecified Plan: Patient has been cutting down on smoking down to half a pack a day. She has been using Trelegy only occasionally (2) Osteoporosis: Onset Date: ~2018 Comment: (Bone Dexa Femoral T-Score -3.7 on 12/25/2018), patient never took Fosamax Code(s): M81.0 - Age-related osteoporosis without current pathological fracture Plan: Check DEXA (3) Hyponatremia: Code(s): E87.1 - Hypo-osmolality and hyponatremia (4) Nicotine dependence, cigarettes, uncomplicated: Comment: (current smoker, onset 15yo, 1ppd x 46yrs, 40+pyh - fam hx lung ca) Code(s): F17.210 - Nicotine dependence, cigarettes, uncomplicated Plan: Tobacco quitting discussed with the patient patient is in lung cancer screening program (5) Annual physical exam: Code(s): Z00.00 - Encounter for general adult medical examination without abnormal findings Plan: Well-balanced diet regular physical activity discussed with the patient. She is up-to-date with mammogram colonoscopy (6) Anxiety: Code(s): F41.9 - Anxiety disorder, unspecified Plan: Continue sertraline Orders: Orders Comprehensive [place]. Panel Fast Today E87.1 - Hypo-osmolality and hyponatremia, F17.210 - Nicotine dependence, cigarettes, uncomplicated, J44.9 - Chronic obstructive pulmonary disease, unspecified, M81.0 - Age-related osteoporosis without current pathological fracture, Z00.00 - Encounter for general adult medical examination without abnormal findings Complete Blood Count Auto Diff Today E87.1 - Hypo-osmolality and hyponatremia, F17.210 - Nicotine dependence, cigarettes, uncomplicated, J44.9 - Chronic obstructive pulmonary disease, unspecified, M81.0 - Age-related osteoporosis without current pathological fracture, Z00.00 - Encounter for general adult medical examination without abnormal findings Lipid Panel Today E87.1 - Hypo-osmolality and hyponatremia, F17.210 - Nicotine dependence, cigarettes, uncomplicated, J44.9 - Chronic obstructive pulmonary disease, unspecified, M81.0 - Age-related osteoporosis without current pathological fracture, Z00.00 - Encounter for general adult medical examination without abnormal findings TSH reflex Free T4 Today E87.1 - Hypo-osmolality and hyponatremia, F17.210 - Nicotine dependence, cigarettes, uncomplicated, J44.9 - Chronic obstructive pulmonary disease, unspecified, M81.0 - Age-related osteoporosis without current pathological fracture, Z00.00 - Encounter for general adult medical examination without abnormal findings XR DEXA axial skeleton Today E87.1 - Hypo-osmolality and hyponatremia, F17.210 - Nicotine dependence, cigarettes, uncomplicated, J44.9 - Chronic obstructive pulmonary disease, unspecified, M81.0 - Age-related osteoporosis without current pathological fracture, Z00.00 - Encounter for general adult medical examination without abnormal findings Vitamin D 25-OH Total Today E87.1 - Hypo-osmolality and hyponatremia, F17.210 - Nicotine dependence, cigarettes, uncomplicated, J44.9 - Chronic obstructive pulmonary disease, unspecified, M81.0 - Age-related osteoporosis without current pathological fracture, Z00.00 - Encounter for general adult medical examination without abnormal findings Medications: Refilled sertraline 50 mg PO DAILY 90 tabs 3RF Coding Level of Care Code Est Pt Prev Care 40-64y(50489) Diagnoses COPD (chronic obstructive pulmonary disease) J44.9 Osteoporosis M81.0 Hyponatremia E87.1 Nicotine dependence, cigarettes, uncomplicated F17.210 Annual physical exam Z00.00 Anxiety F41.9 Additional Codes CHRISTINE-7 Assessment Billing - CHRISTINE-7 Assessment Tool: CHRISTINE-7 Assessment 95550 ([id number])
== END 2024-02-26 15:28 | disposition home or self-care (01) ==
PROVIDERS: PCP Internal Medicine; Visit Provider Internal Medicine
DX: Z00.00 Encounter for general adult medical examination without abnormal findings (principal); J44.9 Chronic obstructive pulmonary disease, unspecified; M81.0 Age-related osteoporosis without current pathological fracture; E87.1 Hypo-osmolality and hyponatremia; F17.210 Nicotine dependence, cigarettes, uncomplicated; F41.9 Anxiety disorder, unspecified
CPT/HCPCS: 99396

== ENCOUNTER 2024-04-01 13:25 | Outpatient (REF) | payer OTHER, SELFPAY ==
--- NOTE | ~2024-04-01 | MM_ITS ---
EXAMINATION: BONE DENSITOMETRY CLINICAL INDICATION: Age-related osteoporosis without current pathological fracture. COMPARISON: Baseline BD dated 12/25/2018. TECHNIQUE: Using a [employer] DXA System (software version: 13.1) manufactured by [employer], dual-energy x-ray absorptiometry was performed of the lumbar spine and left hip. The images are of good technical quality. Summary results are attached. FINDINGS: LEFT FEMUR, NECK: Current: BMD 0.549 g/cm2, Z-score -1.9, T-score -3.5, osteoporosis. Baseline: BMD 0.528 g/cm2. LEFT FEMUR, TOTAL: Current: BMD 0.615 g/cm2, Z-score -1.7, T-score -3.1, osteoporosis, 0.7% increase from baseline (<5% change is not significant). Baseline: BMD 0.611 g/cm2. AP SPINE L1-L4: Current: BMD 0.845 g/cm2, Z-score -0.9, T-score -2.8, osteoporosis, 8.9% decrease from baseline (<5% change is not significant). Baseline: BMD 0.928 g/cm2. IDENTIFIED RISK FACTORS: Early menopause, history of fracture (adult), alcohol (3 or more units per day), osteoporosis, renal, tobacco use (current smoker), secondary osteoporosis. HISTORY OF FRACTURE: Spine. MEDICATIONS: Multivitamin. MM/XR DEXA axial skeleton IMPRESSION: 1. DIAGNOSIS: Severe osteoporosis based on the lowest T-score value of -3.5 in the femur neck and history of fracture of spine applying World Health Organization criteria. 2. 10-YEAR FRACTURE RISK PREDICTION, FRAX: According to the guidelines, FRAX calculation should only be performed on patients in the osteopenia bone density category. Therefore, FRAX was not performed on this patient. 3. Treatment Recommendations: NOF guidelines recommend consideration for treatment in postmenopausal women and men age 50 and older presenting with the following: -A hip or vertebral (clinical or morphometric) fracture. -T-score less than or equal to -2.5 at the femoral neck or spine after appropriate evaluation to exclude secondary causes. -Low bone mass at the hip or spine and a 10-year fracture probability by FRAX of greater than or equal to 3% for hip fracture or greater than or equal to 20% for major osteoporotic fracture based on the [place] adapted WHO algorithm. 4. Other Recommendations: All treatment decisions require clinical judgment and consideration of individual patient factors, including patient preferences, comorbidities, previous drug use, risk factors not captured in the FRAX model (e.g. frailty, falls, vitamin D deficiency, increased bone turnover, interval significant decline in bone density) and possible under or overestimation of fracture risk by FRAX. Additional medical evaluation for secondary cause of low bone mineral density may be appropriate. FUTURE SCAN RECOMMENDATION: People with diagnosed cases of osteoporosis or at high risk for fracture should have regular bone mineral density tests. For patients eligible for Medicare, routine testing is allowed once every 2 years. The testing frequency can be increased to one year for patients who have rapidly progressing disease, those who are receiving or discontinuing medical therapy to restore bone mass, or have additional risk factors.
== END 2024-04-01 13:26 | disposition home or self-care (01) ==
LOC: HO.MAMMO 13:25
PROVIDERS: PCP Internal Medicine; Visit Provider Internal Medicine
DX: M81.0 Age-related osteoporosis without current pathological fracture (principal); J44.9 Chronic obstructive pulmonary disease, unspecified; E87.1 Hypo-osmolality and hyponatremia; F17.210 Nicotine dependence, cigarettes, uncomplicated
CPT/HCPCS: 77080

== ENCOUNTER 2024-07-29 15:32 | Inpatient (IN) | payer OTHER, SELFPAY ==
[2024-07-29 15:59] VITALS: BP 148/78; PULSE 73; RESP 16; TEMP 36.6; O2SAT 98; BMI 20.9
--- NOTE | 2024-07-29 16:01 | ED_ITS ---
HPI - General Adult General Chief complaint: General Medical Stated complaint: weakness/chills Time Seen by Provider: 07/30/24 02:29 Source: patient Mode of arrival: ambulatory Limitations: no limitations History of Present Illness ED Provider: Dr. Malou Mcdowell HPI narrative: Patient comes to the emergency room complaining of fatigue, body aches. Patient states that she is so weak that she can barely walk 2-3 feet. Patient states that 5 days ago she stopped drinking alcohol. The patient reports that she has been seeing black stool with the diarrhea. Patient has not taking any medications for diarrhea. Patient complaining of generalized malaise, chills, no fever. No significant abdominal pain. Related Data Home Medications ?Medication ?Instructions ?Recorded ?Confirmed magnesium 250 mg tablet 500 mg PO DAILY 07/07/22 07/30/24 vitamin B complex 1 cap PO DAILY 07/07/22 07/30/24 alendronate 70 mg tablet 70 mg PO TH 07/30/24 07/30/24 folic acid 1 mg tablet 1 mg PO DAILY 07/30/24 07/30/24 Previous Rx's ?Medication ?Instructions ?Recorded sertraline 50 mg tablet 50 mg PO DAILY #90 tabs 02/26/24 Allergies Allergy/AdvReac Type Severity Reaction Status Date / Time chlordiazepoxide AdvReac Intermediate severe Verified 07/29/24 16:00 [From [facility]] confusion and hallucinations Review of Systems 2 Review of Systems: Constitutional : No Weight loss, No Fever, complaining of Chills, No Night Sweats, complaining of fatigue, generalized malaise, significant weakness ENT/Mouth : No Hearing loss, No Ear Pain, No Nasal Congestion, No Sinus Pain, No Hoarseness, No sore throat, No Rhinorrhea, No Swallowing Difficulty Eyes: No Eye Pain, No Swelling, No Redness, No Foreign Body, No Discharge, No Vision Changes Cardiovascular : No Chest Pain, No SOB, No Dyspnea on Exertion, No Orthopnea, No Edema, No Palpitations Respiratory : No Cough, No Sputum, No Wheezing, No Smoke Exposure, No Dyspnea Gastrointestinal : No Nausea, No Vomiting, complaining of diarrhea, black stool, no bright red blood per rectum No Constipation, No abdominal Pain, No Hematochezia, No Melena Genitourinary : no irregular bleeding, No Dysuria, No Urinary Frequency, No Hematuria, No Urinary Incontinence, No Urgency, No Flank Pain, No Urinary Flow Changes, No Hesitancy Musculoskeletal : No joint pain, No Myalgias, No Joint Swelling Skin : No Skin Lesions, No rash Neuro : No Weakness, No Numbness, No Paresthesias, No Loss of Consciousness, No Dizziness, No Headache Psych : No Anxiety/Panic, No Depression, No SI/HI/AH/VH, No Social Issues, Heme/Lymph: No Bruising, No Bleeding,No Lymphadenopathy Endocrine : No Polyuria, No Polydipsia, No Temperature Intolerance [facility] Past Medical History Medical History Nicotine dependence, cigarettes, uncomplicated Duodenal ulcer Gastritis Anxiety Hyponatremia Osteoporosis (~2019) Gallstone ETOH abuse Surgical History History of colonoscopy History of esophagogastroduodenoscopy (EGD) History of surgery on arm Family History Family History Father No problems noted. Mother Lung cancer Other Substance abuse Substance use disorder Social History Social History Household Members: Significant Other Housing: House Do you presently have visiting nurse or other home services: No Alcohol intake: former Patient Tobacco Use Status: Current everyday Tobacco user Cigarette Packs Per Day: 1 Cigarettes Per Day: 20.0 Years Smoked: onset 15yo, 1ppd x 46yrs, 40+pyh Smoked in Last 30 Days: Yes e-Cigarette/Vaping Use: Currently Using Second Hand Smoke Exposure: No Use of substances other than those prescribed or required for medical reasons: No Advance Directives: Yes Advance Directives on File: Yes Advance Directives Date on File: 09/07/21 Do you have a plan to hurt others: No Plan Patient : No service: No Current occupational status: employed Cognitive needs: No Hearing needs: No Vision needs: No Physical Exam ED Vital Signs: Vital Signs - 24 hr 07/29/24 15:59 07/29/24 20:45 07/29/24 22:00 Temperature 97.8 F 97.8 F 98.8 F Pulse Rate 73 62 66 Pulse Rate [Monitor] Respiratory Rate 16 20 16 Blood Pressure 148/78 H 136/75 142/79 H Pulse Oximetry 98 97 97 Oxygen Delivery Method Room Air Room Air Room Air 07/29/24 23:38 07/30/24 00:00 07/30/24 02:00 Temperature 98.2 F 98.0 F Pulse Rate 66 64 Pulse Rate [Monitor] 68 Respiratory Rate 16 16 Blood Pressure 148/70 H 144/71 H Pulse Oximetry 96 96 Oxygen Delivery Method Room Air Room Air BMI result Body Mass Index 20.9 Const Other: Appearance: Alert. Oriented X3. No acute distress. Eyes: Pupils equal, round and reactive to light. ENT: Pharynx normal. Neck: Normal inspection. Neck supple. No lymph nodes noted. No crepitus CVS: Normal heart rate and rhythm. Pulses normal. Normal S1 and S2 Respiratory: No respiratory distress. Breath sounds normal. No Wheezing. No rales Abdomen: Soft and nontender. No rigidity. No distention. Skin: Skin warm and dry. Normal skin color. Normal skin turgor. Extremities: No lower extremity edema. No Lacerations. No Rash Neuro: Oriented X 3. No motor deficit. No sensory deficit. Moving all extremities. No slurred speech. CN 2 through 12 grossly intact Psych: calm, cooperative, normal affect Course Course Course Narrative: RME: Done by JOAN Mulligan. 63-year-old female presents to ED for 3 days of body aches, chills, diarrhea, weakness described as fatigue. Physical exam negative for signs of any neuro deficits. NIH score is 0. Abdominal exam benign. Labs ordered. Medications Administered Generic Name Dose Route Start Last Admin Trade Name Freq PRN Reason Stop Dose Admin Enoxaparin Sodium 40 mg 07/30/24 09:00 07/30/24 08:39 Enoxaparin Sodium 40 Mg/0.4 Ml Syringe SUBCUT 40 mg DAILY YUE Administration Folic Acid 1 mg 07/30/24 09:00 07/30/24 08:40 Folic Acid 1 Mg Tablet PO 08/01/24 09:01 1 mg DAILY YUE Administration Phenobarbital Sodium 110 mg 07/30/24 08:00 07/30/24 08:01 Phenobarbital Sodium 65 Mg/Ml Vial Q3hx2 IM 07/30/24 11:01 110 mg Q3H YUE Administration Protocol Sodium Chloride 3 ml 07/30/24 08:00 07/30/24 07:42 0.9 % Sodium Chloride Flush 3 Ml Syringe IVFLUSH Not Given QSHIFT YUE Thiamine HCl 100 mg 07/30/24 09:00 07/30/24 08:40 Thiamine Hcl 100 Mg Tablet PO 08/01/24 09:01 100 mg DAILY YUE Administration Discontinued Medications Generic Name Dose Route Start Last Admin Trade Name Shaila PRN Reason Stop Dose Admin Ceftriaxone Sodium 1 gm/ 50 mls @ 100 mls/hr 07/30/24 02:33 07/30/24 03:34 Sodium Chloride IV 07/30/24 03:02 100 mls/hr ONCE ONE Administration Magnesium Sulfate 2 gm in 50 mls @ 25 mls/hr 07/30/24 03:37 07/30/24 03:46 Magnesium Sulfate/H2o IV 07/30/24 05:36 25 mls/hr ONCE ONE Administration Loperamide HCl 4 mg 07/30/24 02:37 07/30/24 03:34 Loperamide Hcl 2 Mg Capsule PO 07/30/24 02:38 4 mg ONCE ONE Administration Ondansetron HCl 4 mg 07/30/24 02:37 07/30/24 03:34 Ondansetron Hcl 4 Mg/2 Ml Vial IVPUSH 07/30/24 02:38 4 mg ONCE ONE Administration Phenobarbital Sodium 147 mg 07/30/24 04:00 07/30/24 04:51 Phenobarbital Sodium 130 Mg/Ml Im Once IM 07/30/24 04:01 147 mg ONCE ONE Administration Protocol Medical Decision Making Medical Decision Making MDM Narrative: My interpretation of labs: Patient's white blood cell count 12.2, chemistry shows a sodium of 127. Last sodium level in August of 2023 was 136. Patient known to drink heavy amounts of alcohol. UTI positive, COVID and flu test negative. -patient's vitals are stable. Patient's blood pressure stable, no episodes of hypotension or tachycardia, no fever. Sepsis is not suspected. -patient will be given ceftriaxone for the UTI. However we will not give fluids at this time as patient has hyponatremia and needs to be corrected slowly. -troponin negative -occult blood negative -my interpretation of EKG, normal sinus rhythm, heart rate 68, T-wave abnormality in V1 V2 V3, seems to be new. Patient has no chest pain at all. Differential Diagnosis Differential Diagnoses: The differential diagnosis associated with the presentation includes (Beer potomania, hyponatremia, UTI, GI bleed) Admission/Observation Consideration of admission/observation: Escalation of care including admission/observation considered Consult Healthcare Provider Management of the patient was discussed with: Hospitalist Lab Data MDM Lab Attestation statement: I reviewed the patient's lab results. 07/29/24 16:22 07/30/24 07:31 Labs: Lab Results 07/29/24 07/29/24 07/29/24 Range/Units 16:22 16:23 17:02 WBC 12.2 H (4.8-10.8) X10*3/uL RBC 3.85 L (4.20-5.50) X10*6/uL Hgb 13.4 (12.0-16.0) g/dl Hct 38.2 (37.0-47.0) % MCV 99.2 H (80.0-98.0) fL MCH 34.8 H (27.0-33.0) pg MCHC 35.1 H (31.0-35.0) g/dl RDW 12.4 (11.0-16.0) % Plt Count 112 L D (160-400) X10*3/uL MPV 10.3 (9.4-12.3) fL Immature Gran % (Auto) 1.1 H (0.0-0.4) % Neut % (Auto) 77.2 H (45-73) % Lymph % (Auto) 10.0 L (20-40) % [place] % (Auto) 11.2 H (2-11) % Eos % (Auto) 0.1 (0-4) % Baso % (Auto) 0.4 (0-2) % Lymph # (Auto) 1.2 (1.2-4.9) X10*3/uL [place] # (Auto) 1.4 H (0.1-1.2) X10*3/uL Eos # (Auto) 0.0 (0.0-0.4) X10*3/uL Baso # (Auto) 0.1 (0.0-0.2) X10*3/uL Abs Immat Gran (auto) 0.13 H (0.00-0.03) X10*3/uL Absolute Neuts (auto) 9.4 H (2.0-8.3) x10*3/uL Absolute Nucleated RBC 0.000 (0.0-0.012) X10*3/uL Nucleated RBC % (auto) 0.0 (0.0-0.2) /100WBC Sodium 127 L (135-145) mmol/L Potassium (3.3-5.1) mmol/L Chloride (96-108) mmol/L Carbon Dioxide (22-29) mmol/L Anion Gap (12-20) BUN (9-16) mg/dL Creatinine (0.5-1.4) mg/dL Estim Creat Clear Calc Estimated GFR Random Glucose (60-115) mg/dL Calcium (8.4-10.2) mg/dL Magnesium (1.6-2.6) mg/dL Total Bilirubin (0.0-1.0) mg/dL AST (5-31) U/L ALT (0-31) U/L Alkaline Phosphatase (39-117) U/L Troponin I High Sens (<3.5-17.0) ng/L Total Protein (6.5-8.0) g/dL Albumin (3.5-5.0) g/dL Lipase (8-78) U/L TSH (0.32-4.0) uIU/mL Random Cortisol ug/dL Urine Color Urine Appearance Urine pH (5.0-9.0) Ur Specific [place] (1.005-1.025) Urine Protein (Neg-Trace) mg/dL Urine Glucose (UA) (Negative) mg/dL Urine Ketones (Negative) mg/dL Urine Blood (Negative) Urine Nitrite (Negative) Ur Leukocyte Esterase (Negative) Urine RBC (0-2) /HPF Urine WBC (0-5) /HPF Ur Squamous Epith Cells (0-2) /HPF Urine Bacteria (None Seen) Hyaline Casts (0-2) /LPF Stool Occult Blood (NEGATIVE) Influenza Type A (PCR) NEGATIVE (Negative) Influenza Type B (PCR) NEGATIVE (Negative) RSV RNA Qual (PCR) NEGATIVE (Negative) SARS-CoV-2 RNA (RT-PCR) NEGATIVE (Negative) 07/29/24 07/29/24 07/29/24 Range/Units 17:02 17:02 17:02 WBC (4.8-10.8) X10*3/uL RBC (4.20-5.50) X10*6/uL Hgb (12.0-16.0) g/dl Hct (37.0-47.0) % MCV (80.0-98.0) fL MCH (27.0-33.0) pg MCHC (31.0-35.0) g/dl RDW (11.0-16.0) % Plt Count (160-400) X10*3/uL MPV (9.4-12.3) fL Immature Gran % (Auto) (0.0-0.4) % Neut % (Auto) (45-73) % Lymph % (Auto) (20-40) % [place] % (Auto) (2-11) % Eos % (Auto) (0-4) % Baso % (Auto) (0-2) % Lymph # (Auto) (1.2-4.9) X10*3/uL [place] # (Auto) (0.1-1.2) X10*3/uL Eos # (Auto) (0.0-0.4) X10*3/uL Baso # (Auto) (0.0-0.2) X10*3/uL Abs Immat Gran (auto) (0.00-0.03) X10*3/uL Absolute Neuts (auto) (2.0-8.3) x10*3/uL Absolute Nucleated RBC (0.0-0.012) X10*3/uL Nucleated RBC % (auto) (0.0-0.2) /100WBC Sodium Cancelled (135-145) mmol/L Potassium 3.9 Cancelled (3.3-5.1) mmol/L Chloride 88 L Cancelled (96-108) mmol/L Carbon Dioxide 25 (22-29) mmol/L Anion Gap (12-20) BUN (9-16) mg/dL Creatinine (0.5-1.4) mg/dL Estim Creat Clear Calc Estimated GFR Random Glucose (60-115) mg/dL Calcium (8.4-10.2) mg/dL Magnesium (1.6-2.6) mg/dL Total Bilirubin (0.0-1.0) mg/dL AST (5-31) U/L ALT (0-31) U/L Alkaline Phosphatase (39-117) U/L Troponin I High Sens (<3.5-17.0) ng/L Total Protein (6.5-8.0) g/dL Albumin (3.5-5.0) g/dL Lipase (8-78) U/L TSH (0.32-4.0) uIU/mL Random Cortisol ug/dL Urine Color Urine Appearance Urine pH (5.0-9.0) Ur Specific [place] (1.005-1.025) Urine Protein (Neg-Trace) mg/dL Urine Glucose (UA) (Negative) mg/dL Urine Ketones (Negative) mg/dL Urine Blood (Negative) Urine Nitrite (Negative) Ur Leukocyte Esterase (Negative) Urine RBC (0-2) /HPF Urine WBC (0-5) /HPF Ur Squamous Epith Cells (0-2) /HPF Urine Bacteria (None Seen) Hyaline Casts (0-2) /LPF Stool Occult Blood (NEGATIVE) Influenza Type A (PCR) (Negative) Influenza Type B (PCR) (Negative) RSV RNA Qual (PCR) (Negative) SARS-CoV-2 RNA (RT-PCR) (Negative) 07/29/24 07/29/24 07/29/24 Range/Units 17:02 17:02 17:02 WBC (4.8-10.8) X10*3/uL RBC (4.20-5.50) X10*6/uL Hgb (12.0-16.0) g/dl Hct (37.0-47.0) % MCV (80.0-98.0) fL MCH (27.0-33.0) pg MCHC (31.0-35.0) g/dl RDW (11.0-16.0) % Plt Count (160-400) X10*3/uL MPV (9.4-12.3) fL Immature Gran % (Auto) (0.0-0.4) % Neut % (Auto) (45-73) % Lymph % (Auto) (20-40) % [place] % (Auto) (2-11) % Eos % (Auto) (0-4) % Baso % (Auto) (0-2) % Lymph # (Auto) (1.2-4.9) X10*3/uL [place] # (Auto) (0.1-1.2) X10*3/uL Eos # (Auto) (0.0-0.4) X10*3/uL Baso # (Auto) (0.0-0.2) X10*3/uL Abs Immat Gran (auto) (0.00-0.03) X10*3/uL Absolute Neuts (auto) (2.0-8.3) x10*3/uL Absolute Nucleated RBC (0.0-0.012) X10*3/uL Nucleated RBC % (auto) (0.0-0.2) /100WBC Sodium (135-145) mmol/L Potassium (3.3-5.1) mmol/L Chloride (96-108) mmol/L Carbon Dioxide Cancelled (22-29) mmol/L Anion Gap 18 Cancelled (12-20) BUN 16 Cancelled (9-16) mg/dL Creatinine 0.72 (0.5-1.4) mg/dL Estim Creat Clear Calc Estimated GFR Random Glucose (60-115) mg/dL Calcium (8.4-10.2) mg/dL Magnesium (1.6-2.6) mg/dL Total Bilirubin (0.0-1.0) mg/dL AST (5-31) U/L ALT (0-31) U/L Alkaline Phosphatase (39-117) U/L Troponin I High Sens (<3.5-17.0) ng/L Total Protein (6.5-8.0) g/dL Albumin (3.5-5.0) g/dL Lipase (8-78) U/L TSH (0.32-4.0) uIU/mL Random Cortisol ug/dL Urine Color Urine Appearance Urine pH (5.0-9.0) Ur Specific [place] (1.005-1.025) Urine Protein (Neg-Trace) mg/dL Urine Glucose (UA) (Negative) mg/dL Urine Ketones (Negative) mg/dL Urine Blood (Negative) Urine Nitrite (Negative) Ur Leukocyte Esterase (Negative) Urine RBC (0-2) /HPF Urine WBC (0-5) /HPF Ur Squamous Epith Cells (0-2) /HPF Urine Bacteria (None Seen) Hyaline Casts (0-2) /LPF Stool Occult Blood (NEGATIVE) Influenza Type A (PCR) (Negative) Influenza Type B (PCR) (Negative) RSV RNA Qual (PCR) (Negative) SARS-CoV-2 RNA (RT-PCR) (Negative) 07/29/24 07/29/24 07/29/24 Range/Units 17:02 17:02 17:02 WBC (4.8-10.8) X10*3/uL RBC (4.20-5.50) X10*6/uL Hgb (12.0-16.0) g/dl Hct (37.0-47.0) % MCV (80.0-98.0) fL MCH (27.0-33.0) pg MCHC (31.0-35.0) g/dl RDW (11.0-16.0) % Plt Count (160-400) X10*3/uL MPV (9.4-12.3) fL Immature Gran % (Auto) (0.0-0.4) % Neut % (Auto) (45-73) % Lymph % (Auto) (20-40) % [place] % (Auto) (2-11) % Eos % (Auto) (0-4) % Baso % (Auto) (0-2) % Lymph # (Auto) (1.2-4.9) X10*3/uL [place] # (Auto) (0.1-1.2) X10*3/uL Eos # (Auto) (0.0-0.4) X10*3/uL Baso # (Auto) (0.0-0.2) X10*3/uL Abs Immat Gran (auto) (0.00-0.03) X10*3/uL Absolute Neuts (auto) (2.0-8.3) x10*3/uL Absolute Nucleated RBC (0.0-0.012) X10*3/uL Nucleated RBC % (auto) (0.0-0.2) /100WBC Sodium (135-145) mmol/L Potassium (3.3-5.1) mmol/L Chloride (96-108) mmol/L Carbon Dioxide (22-29) mmol/L Anion Gap (12-20) BUN (9-16) mg/dL Creatinine Cancelled (0.5-1.4) mg/dL Estim Creat Clear Calc 65.3 Cancelled Estimated GFR > 60 Cancelled Random Glucose 150 H (60-115) mg/dL Calcium (8.4-10.2) mg/dL Magnesium (1.6-2.6) mg/dL Total Bilirubin (0.0-1.0) mg/dL AST (5-31) U/L ALT (0-31) U/L Alkaline Phosphatase (39-117) U/L Troponin I High Sens (<3.5-17.0) ng/L Total Protein (6.5-8.0) g/dL Albumin (3.5-5.0) g/dL Lipase (8-78) U/L TSH (0.32-4.0) uIU/mL Random Cortisol ug/dL Urine Color Urine Appearance Urine pH (5.0-9.0) Ur Specific [place] (1.005-1.025) Urine Protein (Neg-Trace) mg/dL Urine Glucose (UA) (Negative) mg/dL Urine Ketones (Negative) mg/dL Urine Blood (Negative) Urine Nitrite (Negative) Ur Leukocyte Esterase (Negative) Urine RBC (0-2) /HPF Urine WBC (0-5) /HPF Ur Squamous Epith Cells (0-2) /HPF Urine Bacteria (None Seen) Hyaline Casts (0-2) /LPF Stool Occult Blood (NEGATIVE) Influenza Type A (PCR) (Negative) Influenza Type B (PCR) (Negative) RSV RNA Qual (PCR) (Negative) SARS-CoV-2 RNA (RT-PCR) (Negative) 07/29/24 07/29/24 07/29/24 Range/Units 17:02 17:02 17:02 WBC (4.8-10.8) X10*3/uL RBC (4.20-5.50) X10*6/uL Hgb (12.0-16.0) g/dl Hct (37.0-47.0) % MCV (80.0-98.0) fL MCH (27.0-33.0) pg MCHC (31.0-35.0) g/dl RDW (11.0-16.0) % Plt Count (160-400) X10*3/uL MPV (9.4-12.3) fL Immature Gran % (Auto) (0.0-0.4) % Neut % (Auto) (45-73) % Lymph % (Auto) (20-40) % [place] % (Auto) (2-11) % Eos % (Auto) (0-4) % Baso % (Auto) (0-2) % Lymph # (Auto) (1.2-4.9) X10*3/uL [place] # (Auto) (0.1-1.2) X10*3/uL Eos # (Auto) (0.0-0.4) X10*3/uL Baso # (Auto) (0.0-0.2) X10*3/uL Abs Immat Gran (auto) (0.00-0.03) X10*3/uL Absolute Neuts (auto) (2.0-8.3) x10*3/uL Absolute Nucleated RBC (0.0-0.012) X10*3/uL Nucleated RBC % (auto) (0.0-0.2) /100WBC Sodium (135-145) mmol/L Potassium (3.3-5.1) mmol/L Chloride (96-108) mmol/L Carbon Dioxide (22-29) mmol/L Anion Gap (12-20) BUN (9-16) mg/dL Creatinine (0.5-1.4) mg/dL Estim Creat Clear Calc Estimated GFR Random Glucose Cancelled (60-115) mg/dL Calcium 9.3 Cancelled (8.4-10.2) mg/dL Magnesium 1.4 L* (1.6-2.6) mg/dL Total Bilirubin 1.2 H Cancelled (0.0-1.0) mg/dL AST 77 H (5-31) U/L ALT (0-31) U/L Alkaline Phosphatase (39-117) U/L Troponin I High Sens (<3.5-17.0) ng/L Total Protein (6.5-8.0) g/dL Albumin (3.5-5.0) g/dL Lipase (8-78) U/L TSH (0.32-4.0) uIU/mL Random Cortisol ug/dL Urine Color Urine Appearance Urine pH (5.0-9.0) Ur Specific [place] (1.005-1.025) Urine Protein (Neg-Trace) mg/dL Urine Glucose (UA) (Negative) mg/dL Urine Ketones (Negative) mg/dL Urine Blood (Negative) Urine Nitrite (Negative) Ur Leukocyte Esterase (Negative) Urine RBC (0-2) /HPF Urine WBC (0-5) /HPF Ur Squamous Epith Cells (0-2) /HPF Urine Bacteria (None Seen) Hyaline Casts (0-2) /LPF Stool Occult Blood (NEGATIVE) Influenza Type A (PCR) (Negative) Influenza Type B (PCR) (Negative) RSV RNA Qual (PCR) (Negative) SARS-CoV-2 RNA (RT-PCR) (Negative) 07/29/24 07/29/24 07/29/24 Range/Units 17:02 17:02 17:02 WBC (4.8-10.8) X10*3/uL RBC (4.20-5.50) X10*6/uL Hgb (12.0-16.0) g/dl Hct (37.0-47.0) % MCV (80.0-98.0) fL MCH (27.0-33.0) pg MCHC (31.0-35.0) g/dl RDW (11.0-16.0) % Plt Count (160-400) X10*3/uL MPV (9.4-12.3) fL Immature Gran % (Auto) (0.0-0.4) % Neut % (Auto) (45-73) % Lymph % (Auto) (20-40) % [place] % (Auto) (2-11) % Eos % (Auto) (0-4) % Baso % (Auto) (0-2) % Lymph # (Auto) (1.2-4.9) X10*3/uL [place] # (Auto) (0.1-1.2) X10*3/uL Eos # (Auto) (0.0-0.4) X10*3/uL Baso # (Auto) (0.0-0.2) X10*3/uL Abs Immat Gran (auto) (0.00-0.03) X10*3/uL Absolute Neuts (auto) (2.0-8.3) x10*3/uL Absolute Nucleated RBC (0.0-0.012) X10*3/uL Nucleated RBC % (auto) (0.0-0.2) /100WBC Sodium (135-145) mmol/L Potassium (3.3-5.1) mmol/L Chloride (96-108) mmol/L Carbon Dioxide (22-29) mmol/L Anion Gap (12-20) BUN (9-16) mg/dL Creatinine (0.5-1.4) mg/dL Estim Creat Clear Calc Estimated GFR Random Glucose (60-115) mg/dL Calcium (8.4-10.2) mg/dL Magnesium (1.6-2.6) mg/dL Total Bilirubin (0.0-1.0) mg/dL AST Cancelled (5-31) U/L ALT 69 H Cancelled (0-31) U/L Alkaline Phosphatase 100 Cancelled (39-117) U/L Troponin I High Sens (<3.5-17.0) ng/L Total Protein 7.8 (6.5-8.0) g/dL Albumin (3.5-5.0) g/dL Lipase (8-78) U/L TSH (0.32-4.0) uIU/mL Random Cortisol ug/dL Urine Color Urine Appearance Urine pH (5.0-9.0) Ur Specific [place] (1.005-1.025) Urine Protein (Neg-Trace) mg/dL Urine Glucose (UA) (Negative) mg/dL Urine Ketones (Negative) mg/dL Urine Blood (Negative) Urine Nitrite (Negative) Ur Leukocyte Esterase (Negative) Urine RBC (0-2) /HPF Urine WBC (0-5) /HPF Ur Squamous Epith Cells (0-2) /HPF Urine Bacteria (None Seen) Hyaline Casts (0-2) /LPF Stool Occult Blood (NEGATIVE) Influenza Type A (PCR) (Negative) Influenza Type B (PCR) (Negative) RSV RNA Qual (PCR) (Negative) SARS-CoV-2 RNA (RT-PCR) (Negative) 07/29/24 07/29/24 07/30/24 Range/Units 17:02 17:02 01:23 WBC (4.8-10.8) X10*3/uL RBC (4.20-5.50) X10*6/uL Hgb (12.0-16.0) g/dl Hct (37.0-47.0) % MCV (80.0-98.0) fL MCH (27.0-33.0) pg MCHC (31.0-35.0) g/dl RDW (11.0-16.0) % Plt Count (160-400) X10*3/uL MPV (9.4-12.3) fL Immature Gran % (Auto) (0.0-0.4) % Neut % (Auto) (45-73) % Lymph % (Auto) (20-40) % [place] % (Auto) (2-11) % Eos % (Auto) (0-4) % Baso % (Auto) (0-2) % Lymph # (Auto) (1.2-4.9) X10*3/uL [place] # (Auto) (0.1-1.2) X10*3/uL Eos # (Auto) (0.0-0.4) X10*3/uL Baso # (Auto) (0.0-0.2) X10*3/uL Abs Immat Gran (auto) (0.00-0.03) X10*3/uL Absolute Neuts (auto) (2.0-8.3) x10*3/uL Absolute Nucleated RBC (0.0-0.012) X10*3/uL Nucleated RBC % (auto) (0.0-0.2) /100WBC Sodium (135-145) mmol/L Potassium (3.3-5.1) mmol/L Chloride (96-108) mmol/L Carbon Dioxide (22-29) mmol/L Anion Gap (12-20) BUN (9-16) mg/dL Creatinine (0.5-1.4) mg/dL Estim Creat Clear Calc Estimated GFR Random Glucose (60-115) mg/dL Calcium (8.4-10.2) mg/dL Magnesium (1.6-2.6) mg/dL Total Bilirubin (0.0-1.0) mg/dL AST (5-31) U/L ALT (0-31) U/L Alkaline Phosphatase (39-117) U/L Troponin I High Sens (<3.5-17.0) ng/L Total Protein Cancelled (6.5-8.0) g/dL Albumin 4.6 Cancelled (3.5-5.0) g/dL Lipase < 4 L (8-78) U/L TSH 0.47 (0.32-4.0) uIU/mL Random Cortisol ug/dL Urine Color Dark Yellow Urine Appearance Cloudy Urine pH 6.0 (5.0-9.0) Ur Specific [place] 1.020 (1.005-1.025) Urine Protein 100 (2+) H (Neg-Trace) mg/dL Urine Glucose (UA) Negative (Negative) mg/dL Urine Ketones 40 (Negative) mg/dL Urine Blood Trace H (Negative) Urine Nitrite Negative (Negative) Ur Leukocyte Esterase Moderate (2+) H (Negative) Urine RBC 3-5 H (0-2) /HPF Urine WBC 21-50 H (0-5) /HPF Ur Squamous Epith Cells 3-5 (0-2) /HPF Urine Bacteria 4+ (None Seen) Hyaline Casts 3-5 (0-2) /LPF Stool Occult Blood (NEGATIVE) Influenza Type A (PCR) (Negative) Influenza Type B (PCR) (Negative) RSV RNA Qual (PCR) (Negative) SARS-CoV-2 RNA (RT-PCR) (Negative) 07/30/24 07/30/24 Range/Units 02:48 03:18 WBC (4.8-10.8) X10*3/uL RBC (4.20-5.50) X10*6/uL Hgb (12.0-16.0) g/dl Hct (37.0-47.0) % MCV (80.0-98.0) fL MCH (27.0-33.0) pg MCHC (31.0-35.0) g/dl RDW (11.0-16.0) % Plt Count (160-400) X10*3/uL MPV (9.4-12.3) fL Immature Gran % (Auto) (0.0-0.4) % Neut % (Auto) (45-73) % Lymph % (Auto) (20-40) % [place] % (Auto) (2-11) % Eos % (Auto) (0-4) % Baso % (Auto) (0-2) % Lymph # (Auto) (1.2-4.9) X10*3/uL [place] # (Auto) (0.1-1.2) X10*3/uL Eos # (Auto) (0.0-0.4) X10*3/uL Baso # (Auto) (0.0-0.2) X10*3/uL Abs Immat Gran (auto) (0.00-0.03) X10*3/uL Absolute Neuts (auto) (2.0-8.3) x10*3/uL Absolute Nucleated RBC (0.0-0.012) X10*3/uL Nucleated RBC % (auto) (0.0-0.2) /100WBC Sodium (135-145) mmol/L Potassium (3.3-5.1) mmol/L Chloride (96-108) mmol/L Carbon Dioxide (22-29) mmol/L Anion Gap (12-20) BUN (9-16) mg/dL Creatinine (0.5-1.4) mg/dL Estim Creat Clear Calc Estimated GFR Random Glucose (60-115) mg/dL Calcium (8.4-10.2) mg/dL Magnesium (1.6-2.6) mg/dL Total Bilirubin (0.0-1.0) mg/dL AST (5-31) U/L ALT (0-31) U/L Alkaline Phosphatase (39-117) U/L Troponin I High Sens 9.8 (<3.5-17.0) ng/L Total Protein (6.5-8.0) g/dL Albumin (3.5-5.0) g/dL Lipase (8-78) U/L TSH (0.32-4.0) uIU/mL Random Cortisol 19.0 ug/dL Urine Color Urine Appearance Urine pH (5.0-9.0) Ur Specific [place] (1.005-1.025) Urine Protein (Neg-Trace) mg/dL Urine Glucose (UA) (Negative) mg/dL Urine Ketones (Negative) mg/dL Urine Blood (Negative) Urine Nitrite (Negative) Ur Leukocyte Esterase (Negative) Urine RBC (0-2) /HPF Urine WBC (0-5) /HPF Ur Squamous Epith Cells (0-2) /HPF Urine Bacteria (None Seen) Hyaline Casts (0-2) /LPF Stool Occult Blood NEGATIVE (NEGATIVE) Influenza Type A (PCR) (Negative) Influenza Type B (PCR) (Negative) RSV RNA Qual (PCR) (Negative) SARS-CoV-2 RNA (RT-PCR) (Negative) Critical Care Time Critical Care Time Critical Care Time: Yes Total Critical Care Time: 60 Attestation: I have personally provided critical care time. Time includes review of lab data, radiology results, discussion with consultants, and monitoring for potential decompensation. Intervention performed as documented. Discharge Plan Discharge Clinical Impression: Diarrhea, Weakness, UTI (urinary tract infection), Acute hyponatremia, Hypomagnesemia Patient Disposition: Admitted As Inpatient Interventions: Admission Worksheet (ED) Last Done: 07/30/24 09:55
[2024-07-29 16:28] LABS: MANUAL DIFF FLAG NO
[2024-07-29 16:35] LABS: Basophils Absolute Auto 0.1 X10*3/uL (0.0-0.2); Basophils Percent Auto 0.4 % (0-2); Eosinophils Percent Auto 0.1 % (0-4); Hematocrit 38.2 % (37.0-47.0); Hemoglobin 13.4 g/dl (12.0-16.0); Imm Gran Abs Auto 0.13 X10*3/uL (0.00-0.03); Imm Gran Pct Auto 1.1 % (0.0-0.4); Lymphocytes Absolute Auto 1.2 X10*3/uL (1.2-4.9); Mean Corpuscular HGB Conc 35.1 g/dl (31.0-35.0); Mean Corpuscular Hemoglobin 34.8 pg (27.0-33.0); Mean Corpuscular Volume 99.2 fL (80.0-98.0); Mean Platelet Volume 10.3 fL (9.4-12.3); Monocytes Absolute Auto 1.4 X10*3/uL (0.1-1.2); Monocytes Percent Auto 11.2 % (2-11); Neutrophils Absolute Auto 9.4 x10*3/uL (2.0-8.3); Neutrophils Percent Auto 77.2 % (45-73); Platelet Count 112 X10*3/uL (160-400); Red Blood Count 3.85 X10*6/uL (4.20-5.50); Red Cell Distribution Width 12.4 % (11.0-16.0); White Blood Count 12.2 X10*3/uL (4.8-10.8)
[2024-07-29 17:10] LABS: Influenza A PCR NEGATIVE (Negative); Influenza B PCR NEGATIVE (Negative); Resp Syncy Virus RNA Qual PCR NEGATIVE (Negative); SARS COV2 PCR INHOUSE NEGATIVE (Negative)
[2024-07-29 17:24] LABS: Alanine Aminotransferase 69 U/L (0-31); Albumin Level 4.6 g/dL (3.5-5.0); Alkaline Phosphatase 100 U/L (39-117); Anion Gap 18 (12-20); Aspartate Amino Transferase 77 U/L (5-31); Bilirubin Total 1.2 mg/dL (0.0-1.0); Blood Urea Nitrogen 16 mg/dL (9-16); Calcium 9.3 mg/dL (8.4-10.2); Carbon Dioxide 25 mmol/L (22-29); Chloride 88 mmol/L (96-108); Creatinine Clr Calc Pharmacy 65.3; Estimated Glomerular Filt Rate > 60; Glucose Random 150 mg/dL (60-115); Lipase < 4 U/L (8-78); Potassium 3.9 mmol/L (3.3-5.1); Sodium 127 mmol/L (135-145); Total Protein 7.8 g/dL (6.5-8.0)
[2024-07-29 20:45] VITALS: BP 136/75; PULSE 62; RESP 20; TEMP 36.6; O2SAT 97
[2024-07-29 22:00] VITALS: BP 142/79; PULSE 66; RESP 16; TEMP 37.1; O2SAT 97
[2024-07-29 23:38] VITALS: PULSE 68
--- NOTE | 2024-07-29 23:46 | PC.NURSE ---
PT reports diarrhea, chills, shaking, since friday or friday . pt reports she stopped drinking on Friday. She was sober for 11 months and began drinking 3 months ago. RENATE 10. Plan of care ongoing.
[2024-07-30] VITALS (7 sets, daily range): BP systolic 124–162; BP diastolic 60–87; PULSE 64–81; RESP 16–20; TEMP 36.6–37.3; O2SAT 93–97
[2024-07-30 01:32] LABS: Appearance Urine Cloudy; Color Urine Dark Yellow; Glucose Urine UA Negative (Negative); Leukocyte Esterase Urine Moderate (2+) (Negative); Nitrite Urine Negative (Negative); UMIC TRIGGER UACC YES; Urine Blood Trace (Negative); Urine Ketones 40 mg/dL (Negative); Urine Protein 100 (2+) mg/dL (Neg-Trace)
[2024-07-30 01:35] LABS: Bacteria Urine 4+ (None Seen); UACC Culture Trigger YES; WBC Urine 21-50 /HPF (0-5)
--- NOTE | 2024-07-30 02:32 | ECG_ITS ---
Test Reason : WEAKNESS Blood Pressure : / mmHG Vent. Rate : 068 BPM Atrial Rate : 068 BPM P-R Int : 138 ms QRS Dur : 088 ms QT Int : 460 ms P-R-T Axes : 000 069 076 degrees QTc Int : 489 ms Normal sinus rhythm T wave abnormality, consider anterior ischemia Abnormal ECG When compared with ECG of 02-MAY-2022 03:04, T wave inversion now evident in Anterior leads Referred By: Malou Mcdowell Electronically Signed By:WALDO JOHNSTON
[2024-07-30 03:04] LABS: OBS Int Ctl Valid YES; OBS1 NEGATIVE (NEGATIVE)
--- NOTE | 2024-07-30 03:21 | P.HPHOSP_ITS ---
History of Present Illness Date of Service: 07/30/24 Chief Complaint: weakness, diarrhea 63-year-old female with history of alcohol dependency, history of alcohol withdrawal and alcohol-related issues such as hyponatremia. She presented to the emergency room with 3 days of diarrhea, described as non-bloody, watery up to 5 times a day, no associated abd pain, n/v, she report fever and chills . She stopped drinking about 5 days ago because she thinks she was killing herself and went cold turkey . No seizure. She has dysuria and UA is positive for UTI for which ceftriaxone is started. Sodium is 127 and mag of 1.4 given IV mag Review of Systems 2 Review of Systems: Gen: fever, +chills Resp: no sob, no cough CV: no chest, no CONCEPCION, no leg edema GI: No n/v, no abd pain,+diarhea Neuro: No confusion, no seizure, no tremors at this time Yes all other systems are reviewed and are negative [facility] Medical History Nicotine dependence, cigarettes, uncomplicated Duodenal ulcer Gastritis Anxiety Hyponatremia Osteoporosis (~2019) Gallstone ETOH abuse Family History Father No problems noted. Mother Lung cancer Other Substance abuse Substance use disorder Surgical History History of colonoscopy History of esophagogastroduodenoscopy (EGD) History of surgery on arm Social History Household Members: Significant Other Housing: House Do you presently have visiting nurse or other home services: No Alcohol intake: former Patient Tobacco Use Status: Current everyday Tobacco user Cigarette Packs Per Day: 1 Cigarettes Per Day: 20.0 Years Smoked: onset 15yo, 1ppd x 46yrs, 40+pyh Smoked in Last 30 Days: Yes e-Cigarette/Vaping Use: Currently Using Second Hand Smoke Exposure: No Use of substances other than those prescribed or required for medical reasons: No Advance Directives: Yes Advance Directives on File: Yes Advance Directives Date on File: 09/07/21 Do you have a plan to hurt others: No Plan Patient : No service: No Current occupational status: employed Cognitive needs: No Hearing needs: No Vision needs: No Meds Allergies Allergy/AdvReac Type Severity Reaction Status Date / Time chlordiazepoxide AdvReac Intermediate severe Verified 07/29/24 16:00 [From LIBRIUM] confusion and hallucinations Home Medications ?Medication ?Instructions ?Recorded ?Confirmed ?Last Taken ?Type magnesium 250 mg tablet 500 mg PO DAILY 07/07/22 07/23/23 07/07/22 History vitamin B complex 1 cap PO DAILY 07/07/22 07/23/23 07/06/22 History pantoprazole 40 mg tablet,delayed 40 mg PO DAILY 02/26/24 02/26/24 Unknown History release (Protonix) Physical Exam 2 Vital Signs and Narrative: Vital Signs: Last Vital Signs Temp 98.0 F 07/30/24 02:00 Pulse 64 07/30/24 02:00 Resp 16 07/30/24 02:00 BP 144/71 H 07/30/24 02:00 Pulse Ox 96 07/30/24 02:00 O2 Del Method Room Air 07/30/24 02:00 BMI result Body Mass Index 20.9 Results Labs 07/29/24 16:22 07/29/24 17:02 Labs: Laboratory Results - last 24 hr 07/29/24 07/29/24 07/29/24 16:22 16:23 17:02 MCV 99.2 H MCH 34.8 H MCHC 35.1 H RDW 12.4 Plt Count 112 L D MPV 10.3 Immature Gran % (Auto) 1.1 H Neut % (Auto) 77.2 H Lymph % (Auto) 10.0 L [place] % (Auto) 11.2 H Eos % (Auto) 0.1 Baso % (Auto) 0.4 Lymph # (Auto) 1.2 [place] # (Auto) 1.4 H Eos # (Auto) 0.0 Baso # (Auto) 0.1 Abs Immat Gran (auto) 0.13 H Absolute Neuts (auto) 9.4 H Absolute Nucleated RBC 0.000 Nucleated RBC % (auto) 0.0 Anion Gap 18 Estim Creat Clear Calc Estimated GFR Random Glucose Calcium Total Bilirubin AST ALT Alkaline Phosphatase Total Protein Albumin Lipase Urine Color Urine Appearance Urine pH Ur Specific [place] Urine Protein Urine Glucose (UA) Urine Ketones Urine Blood Urine Nitrite Ur Leukocyte Esterase Urine RBC Urine WBC Ur Squamous Epith Cells Urine Bacteria Hyaline Casts Stool Occult Blood Influenza Type A (PCR) NEGATIVE Influenza Type B (PCR) NEGATIVE RSV RNA Qual (PCR) NEGATIVE SARS-CoV-2 RNA (RT-PCR) NEGATIVE 07/29/24 07/29/24 07/29/24 17:02 17:02 17:02 MCV MCH MCHC RDW Plt Count MPV Immature Gran % (Auto) Neut % (Auto) Lymph % (Auto) [place] % (Auto) Eos % (Auto) Baso % (Auto) Lymph # (Auto) [place] # (Auto) Eos # (Auto) Baso # (Auto) Abs Immat Gran (auto) Absolute Neuts (auto) Absolute Nucleated RBC Nucleated RBC % (auto) Anion Gap Cancelled Estim Creat Clear Calc 65.3 Cancelled Estimated GFR > 60 Cancelled Random Glucose 150 H Calcium Total Bilirubin AST ALT Alkaline Phosphatase Total Protein Albumin Lipase Urine Color Urine Appearance Urine pH Ur Specific [place] Urine Protein Urine Glucose (UA) Urine Ketones Urine Blood Urine Nitrite Ur Leukocyte Esterase Urine RBC Urine WBC Ur Squamous Epith Cells Urine Bacteria Hyaline Casts Stool Occult Blood Influenza Type A (PCR) Influenza Type B (PCR) RSV RNA Qual (PCR) SARS-CoV-2 RNA (RT-PCR) 07/29/24 07/29/24 07/29/24 17:02 17:02 17:02 MCV MCH MCHC RDW Plt Count MPV Immature Gran % (Auto) Neut % (Auto) Lymph % (Auto) [place] % (Auto) Eos % (Auto) Baso % (Auto) Lymph # (Auto) [place] # (Auto) Eos # (Auto) Baso # (Auto) Abs Immat Gran (auto) Absolute Neuts (auto) Absolute Nucleated RBC Nucleated RBC % (auto) Anion Gap Estim Creat Clear Calc Estimated GFR Random Glucose Cancelled Calcium 9.3 Cancelled Total Bilirubin 1.2 H Cancelled AST 77 H ALT Alkaline Phosphatase Total Protein Albumin Lipase Urine Color Urine Appearance Urine pH Ur Specific [place] Urine Protein Urine Glucose (UA) Urine Ketones Urine Blood Urine Nitrite Ur Leukocyte Esterase Urine RBC Urine WBC Ur Squamous Epith Cells Urine Bacteria Hyaline Casts Stool Occult Blood Influenza Type A (PCR) Influenza Type B (PCR) RSV RNA Qual (PCR) SARS-CoV-2 RNA (RT-PCR) 07/29/24 07/29/24 07/29/24 17:02 17:02 17:02 MCV MCH MCHC RDW Plt Count MPV Immature Gran % (Auto) Neut % (Auto) Lymph % (Auto) [place] % (Auto) Eos % (Auto) Baso % (Auto) Lymph # (Auto) [place] # (Auto) Eos # (Auto) Baso # (Auto) Abs Immat Gran (auto) Absolute Neuts (auto) Absolute Nucleated RBC Nucleated RBC % (auto) Anion Gap Estim Creat Clear Calc Estimated GFR Random Glucose Calcium Total Bilirubin AST Cancelled ALT 69 H Cancelled Alkaline Phosphatase 100 Cancelled Total Protein 7.8 Albumin Lipase Urine Color Urine Appearance Urine pH Ur Specific [place] Urine Protein Urine Glucose (UA) Urine Ketones Urine Blood Urine Nitrite Ur Leukocyte Esterase Urine RBC Urine WBC Ur Squamous Epith Cells Urine Bacteria Hyaline Casts Stool Occult Blood Influenza Type A (PCR) Influenza Type B (PCR) RSV RNA Qual (PCR) SARS-CoV-2 RNA (RT-PCR) 07/29/24 07/29/24 07/30/24 17:02 17:02 01:23 MCV MCH MCHC RDW Plt Count MPV Immature Gran % (Auto) Neut % (Auto) Lymph % (Auto) [place] % (Auto) Eos % (Auto) Baso % (Auto) Lymph # (Auto) [place] # (Auto) Eos # (Auto) Baso # (Auto) Abs Immat Gran (auto) Absolute Neuts (auto) Absolute Nucleated RBC Nucleated RBC % (auto) Anion Gap Estim Creat Clear Calc Estimated GFR Random Glucose Calcium Total Bilirubin AST ALT Alkaline Phosphatase Total Protein Cancelled Albumin 4.6 Cancelled Lipase < 4 L Urine Color Dark Yellow Urine Appearance Cloudy Urine pH 6.0 Ur Specific [place] 1.020 Urine Protein 100 (2+) H Urine Glucose (UA) Negative Urine Ketones 40 Urine Blood Trace H Urine Nitrite Negative Ur Leukocyte Esterase Moderate (2+) H Urine RBC 3-5 H Urine WBC 21-50 H Ur Squamous Epith Cells 3-5 Urine Bacteria 4+ Hyaline Casts 3-5 Stool Occult Blood Influenza Type A (PCR) Influenza Type B (PCR) RSV RNA Qual (PCR) SARS-CoV-2 RNA (RT-PCR) 07/30/24 02:48 MCV MCH MCHC RDW Plt Count MPV Immature Gran % (Auto) Neut % (Auto) Lymph % (Auto) [place] % (Auto) Eos % (Auto) Baso % (Auto) Lymph # (Auto) [place] # (Auto) Eos # (Auto) Baso # (Auto) Abs Immat Gran (auto) Absolute Neuts (auto) Absolute Nucleated RBC Nucleated RBC % (auto) Anion Gap Estim Creat Clear Calc Estimated GFR Random Glucose Calcium Total Bilirubin AST ALT Alkaline Phosphatase Total Protein Albumin Lipase Urine Color Urine Appearance Urine pH Ur Specific [place] Urine Protein Urine Glucose (UA) Urine Ketones Urine Blood Urine Nitrite Ur Leukocyte Esterase Urine RBC Urine WBC Ur Squamous Epith Cells Urine Bacteria Hyaline Casts Stool Occult Blood NEGATIVE Influenza Type A (PCR) Influenza Type B (PCR) RSV RNA Qual (PCR) SARS-CoV-2 RNA (RT-PCR) Assessment and Plan (1) Acute hyponatremia: Status: Acute (2) UTI (urinary tract infection): Status: Acute (3) Alcohol withdrawal: Status: Acute Plan 63-year-old female with alcohol dependency here with withdrawal symptoms, hyponatremia, UTI a week and a alcohol withdrawal, very high risk for withdrawal - start phenobarbital protocol -folic acid and thiamine supplementation. Hyponatremia-- possibly beer potomania, she appears euvolemic - Check urine and serum Osmo - check TSH, random cortisol in the morning -free water restriction -nephrology consult if worsening Hypomagensemia--1.4, received IV mag 2 gram at 3 am, repeat level in the morning UTI- continue ceftriaxone started 07/30, follow urine culture. Diarrhea-- check GI panel and C diff IV fluid if appearing hypovolemic Depression--Sertraline DVT prophyalxis: lovenox Full code at least 2 midnights admit for alcohol withdrawal, hyponatermia, and hypomagnesemia Quality Stroke Does the patient have a stroke diagnosis?: No VTE Prior VTE?: No VTE Risk Level:: Medical - moderate - high VTE Device Contraindication: Treatment Not Indicated VTE Drug Contraindication: N/A - Med Ordered
[2024-07-30] MEDS: ondansetron HCL 4 MG/2 ML VIAL IVPUSH (03:34)
[2024-07-30] MEDS: Loperamide HCl 2 MG CAPSULE 4 MG PO (03:34)
[2024-07-30] MEDS: cefTRIAXone sodium 1 GM in 0.9 % Sodium Chloride 50 ML IV ×2 (03:34→23:14)
[2024-07-30 03:36] LABS: Magnesium 1.4 mg/dL (1.6-2.6)
[2024-07-30] MEDS: Magnesium Sulfate/H2O 2 GM/50 ML PIGGYBACK IV (03:46)
[2024-07-30 03:55] LABS: Thyroid Stimulating Hormone 0.47 uIU/mL (0.32-4.0)
[2024-07-30 03:55] LABS: Troponin-I High Sensitivity 9.8 ng/L (<3.5-17.0)
[2024-07-30] MEDS: PHENobarbitaL sodium 130 MG/ML IM ONCE 147 MG IM (04:51)
[2024-07-30 07:49] LABS: Anion Gap 18 (12-20); Blood Urea Nitrogen 12 mg/dL (9-16); Calcium 8.6 mg/dL (8.4-10.2); Carbon Dioxide 24 mmol/L (22-29); Chloride 88 mmol/L (96-108); Creatinine Clr Calc Pharmacy 78.3; Estimated Glomerular Filt Rate > 60; Glucose Random 111 mg/dL (60-115); Potassium 3.2 mmol/L (3.3-5.1); Sodium 127 mmol/L (135-145)
[2024-07-30 07:50] LABS: Magnesium 2.1 mg/dL (1.6-2.6)
[2024-07-30] MEDS: PHENobarbitaL sodium 65 MG/ML VIAL Q3Hx2 110 MG IM ×2 (08:01→11:34)
--- NOTE | 2024-07-30 08:06 | PC.NURSE ---
no complaints. no tremor. axox3. skin pwd. unlabored resp. NAD. aware of plan.
[2024-07-30] MEDS: Enoxaparin Sodium 40 MG/0.4 ML SYRINGE SUBCUT (08:39)
[2024-07-30] MEDS: Thiamine HCL 100 MG TABLET PO (08:40)
[2024-07-30] MEDS: Folic Acid 1 MG TABLET PO (08:40)
--- NOTE | 2024-07-30 08:59 | PHA.MEDREC ---
Addendum entered by Rianna Feliciano RPh 07/30/24 09:36: Reviewed by this [facility] Original Note: Pharmacy Consult ? Medication Reconciliation Pharmacy has completed the medication reconciliation. Confirmed medications with patient. Patient confirmed she takes Alendronate 70mg tab on and she state she took that yesterday 07/29. Patient also confirmed her Sertraline 50mg tab dosing and she states she takes it in the morning. Patient confirmed she was taking Magnesium 250mg 2 tabs (500mg) in the morning but states she has not taken it in about a week due to it giving her diarrhea. She also takes Vitamin B Complex 1 cap daily and Folic Acid 1mg 1 daily but claims she hasn't been compliant with taking them and she also hasn't had those in about a week.
--- NOTE | 2024-07-30 12:31 | PM.EVENT ---
Event Note Date of Service: 07/30/24 Event Note: Day hospitalist update. Na unchanged at 127, continue fluid restriction of 1500 mL/d and send urine Osm/Na/Cr Mg repleted K 3.2, will replete PO On ceftriaxone for UTI, follow UCx Ongoing diarrhea, GI panel + Cdiff pending Continue phenobarbital taper; addiction team consult continue sertraline Time Spent With Patient Time: Total time managing care of this patient today ____ minutes.
--- NOTE | 2024-07-30 14:52 | MHC.RECOVRN ---
Met with pt in ED12 after Addiction Medicine consult received for alcohol use. Pt had presented to the ED reporting 3 days of fever, chills, body aches, and diarrhea. Upon evaluation, pt admitted for acute hyponatremia, UTI, and alcohol withdrawal. Pt laying in bed, awake, alert, easily engages in conversation. Pt reports alcohol use, 1 pint vodka daily since May. Last drink 07/25/24. Pt reports prior to May she was in recovery x 11 months. Pt unable to identify what helped with recovery, states I just didn't think about it. Pt reports occurrence happened when one of her dogs in May. Pt reports problematic alcohol use began in her 40s when her children were grown, states It was my time to have fun. Pt denies ATS admissions. Reports 3 hospital admissions for alcohol withdrawal. Pt denies hx AUD treatment. Discussed recovery resources and supports and provided pt with written materials. Pt declines referrals at this time. Also provided pt with t/w contact information if needed. Denies questions or concerns. Discussed with Isadora Workman APRN.
[2024-07-30] MEDS: Potassium Chloride ER 20 MEQ TAB.ER.PRT 40 MEQ PO (15:31)
--- NOTE | 2024-07-30 17:30 | PC.NURSE ---
hAS been sleeping mostly. NAD
[2024-07-30] MEDS: PHENobarbitaL 15 MG TABLET 45 MG PO (20:35)
[2024-07-30] MEDS: 0.9 % Sodium Chloride Flush 3 ML SYRINGE IVFLUSH (20:40)
[2024-07-31] VITALS: BP 113/61; PULSE 66; RESP 20; TEMP 36.7; O2SAT 93
[2024-07-31 04:00] VITALS: BP 111/59; PULSE 70; RESP 20; TEMP 36.4
[2024-07-31 06:34] LABS: Hematocrit 38.6 % (37.0-47.0); Hemoglobin 13.7 g/dl (12.0-16.0); Mean Corpuscular HGB Conc 35.5 g/dl (31.0-35.0); Mean Corpuscular Volume 98.7 fL (80.0-98.0); Mean Platelet Volume 10.1 fL (9.4-12.3); Platelet Count 122 X10*3/uL (160-400); Red Blood Count 3.91 X10*6/uL (4.20-5.50); Red Cell Distribution Width 12.2 % (11.0-16.0); White Blood Count 7.2 X10*3/uL (4.8-10.8)
[2024-07-31 06:55] LABS: Alanine Aminotransferase 45 U/L (0-31); Albumin Level 3.7 g/dL (3.5-5.0); Alkaline Phosphatase 73 U/L (39-117); Anion Gap 14 (12-20); Aspartate Amino Transferase 53 U/L (5-31); Bilirubin Total 0.7 mg/dL (0.0-1.0); Blood Urea Nitrogen 18 mg/dL (9-16); Calcium 8.4 mg/dL (8.4-10.2); Carbon Dioxide 24 mmol/L (22-29); Chloride 94 mmol/L (96-108); Creatinine Clr Calc Pharmacy 74.5; Estimated Glomerular Filt Rate > 60; Glucose Random 116 mg/dL (60-115); Magnesium 1.9 mg/dL (1.6-2.6); Potassium 3.3 mmol/L (3.3-5.1); Sodium 129 mmol/L (135-145); Total Protein 6.3 g/dL (6.5-8.0)
[2024-07-31 07:30] VITALS: BP 118/71; PULSE 73; RESP 18; TEMP 36.8; O2SAT 94
[2024-07-31 07:31] LABS: Folate 14.8 ng/mL (> or = 4.0); Vitamin B12 673 pg/mL (200-900)
--- NOTE | 2024-07-31 08:41 | MHC.CM.PN ---
Pt lives with sig. other, she is independent, no home health services or DME. HCP is on file and confirmed: Thea [facility]ting. PCP confirmed: Stephy Lorenzana. Pt is able to arrange transport home at [place]. DCP: home, self care. CM to follow for DC needs.
[2024-07-31] MEDS: Magnesium Oxide 400 MG TABLET PO (08:45)
[2024-07-31] MEDS: PHENobarbitaL 15 MG TABLET 45 MG PO ×2 (08:45→20:44)
[2024-07-31] MEDS: Sertraline HCL 50 MG TABLET PO (08:45)
[2024-07-31] MEDS: Folic Acid 1 MG TABLET PO (08:45)
[2024-07-31] MEDS: Multivitamin TABLET 1 TAB PO (08:45)
[2024-07-31] MEDS: Thiamine HCL 100 MG TABLET PO (08:45)
[2024-07-31] MEDS: 0.9 % Sodium Chloride Flush 3 ML SYRINGE IVFLUSH ×2 (08:46→20:47)
[2024-07-31] MEDS: Enoxaparin Sodium 40 MG/0.4 ML SYRINGE SUBCUT (08:46)
[2024-07-31 11:39] VITALS: BP 131/70; PULSE 65; RESP 18; TEMP 36.8; O2SAT 96
[2024-07-31 14:15] LABS: CDiff Gene PCR NEGATIVE (Negative)
--- NOTE | 2024-07-31 15:22 | P.PNIM_ITS ---
Subjective Subjective Date of Service: 07/31/24 Interval History: No acute issues overnight; CIWA remains 0 Review of Systems Denies chest pain Denies shortness of breath Denies nausea vomiting diarrhea Denies fever chills Physical Exam 2 Vital Signs: Vital Signs: Last Vital Signs Temp 98.3 F 07/31/24 11:39 Pulse 65 07/31/24 11:39 Resp 18 07/31/24 11:39 BP 131/70 07/31/24 11:39 Pulse Ox 96 07/31/24 11:39 O2 Del Method Room Air 07/31/24 11:39 BMI result Body Mass Index 20.9 Const: Other: Awake alert oriented x3 no acute distress Resp: Other: Clear to auscultation bilaterally no rales rhonchi or wheezes Cardio: Other: No S4; positive S1-S2; no S3 murmurs rubs or gallops GI: Other: Soft nontender nondistended normoactive bowel sounds Extrem: Other: No edema bilaterally Objective Data Active Medications Acetaminophen (Acetaminophen 325 Mg Tablet) 650 mg PO Q6H PRN PRN Reason: Pain, Mild (Pain Scale 1-3), fever or headache Calcium Carbonate (Calcium Carbonate 750 Mg Tab.Chew) 750 mg PO Q4H PRN PRN Reason: Heartburn Enoxaparin Sodium (Enoxaparin Sodium 40 Mg/0.4 Ml Syringe) 40 mg SUBCUT DAILY [facility] Last Admin: 07/31/24 08:46 Dose: 40 mg Documented By: SNEHAL Folic Acid (Folic Acid 1 Mg Tablet) 1 mg PO DAILY [facility] Stop: 08/01/24 09:01 Last Admin: 07/31/24 08:45 Dose: 1 mg Documented By: SNEHAL Ceftriaxone Sodium 1 gm/ (Sodium Chloride) 50 mls @ 100 mls/hr IV Q24H [facility] Last Infusion: 07/30/24 23:45 Dose: Infused Documented By: GUME Magnesium Hydroxide (Milk Of Magnesia 30 Ml Oral.Susp) 30 ml PO DAILY PRN PRN Reason: Constipation Magnesium Oxide (Magnesium Oxide 400 Mg Tablet) 400 mg PO DAILY [facility] Last Admin: 07/31/24 08:45 Dose: 400 mg Documented By: SNEHAL Melatonin (Melatonin 3 Mg Tablet) 6 mg PO BEDTIME PRN PRN Reason: Insomnia Multivitamins/Vitamin C (Multivitamin Tablet) 1 tab PO DAILY [facility] Last Admin: 07/31/24 08:45 Dose: 1 tab Documented By: SNEHAL Pharmacy Consult (Consult Rx Etoh Phenob Im/Po) 1 each MISCELLANE ONCE PRN; Protocol PRN Reason: Consult order Phenobarbital (Phenobarbital 15 Mg Tablet) 45 mg PO BID [facility]; Protocol Stop: 08/01/24 09:01 Last Admin: 07/31/24 08:45 Dose: 45 mg Documented By: SNEHAL Phenobarbital (Phenobarbital 15 Mg Tablet) 15 mg PO BID [facility]; Protocol Stop: 08/03/24 09:01 Phenobarbital (Phenobarbital 15 Mg Tablet) 15 mg PO DAILY [facility]; Protocol Stop: 08/05/24 09:01 Sertraline HCl (Sertraline Hcl 50 Mg Tablet) 50 mg PO DAILY [facility] Last Admin: 07/31/24 08:45 Dose: 50 mg Documented By: SNEHAL Sodium Chloride (0.9 % Sodium Chloride Flush 3 Ml Syringe) 3 ml IVFLUSH QSWYFT [facility] Last Admin: 07/31/24 08:46 Dose: 3 ml Documented By: SNEHAL Thiamine HCl (Thiamine Hcl 100 Mg Tablet) 100 mg PO DAILY [facility] Stop: 08/01/24 09:01 Last Admin: 07/31/24 08:45 Dose: 100 mg Documented By: SNEHAL Labs 07/31/24 05:59 07/31/24 05:59 Labs: Laboratory Results - last 24 hr 07/31/24 07/31/24 05:59 13:10 MCV 98.7 H MCH 35.0 H MCHC 35.5 H RDW 12.2 Plt Count 122 L MPV 10.1 Absolute Nucleated RBC 0.000 Nucleated RBC % (auto) 0.0 Anion Gap 14 Estim Creat Clear Calc 74.5 Estimated GFR > 60 Random Glucose 116 H Calcium 8.4 Magnesium 1.9 Total Bilirubin 0.7 AST 53 H ALT 45 H Alkaline Phosphatase 73 Total Protein 6.3 L Albumin 3.7 Vitamin B12 673 Folate 14.8 C. difficile Tox B Gene NEGATIVE Microbiology Microbiology Results: Microbiology 07/30/24 02:58 Urine Culture - Preliminary Urine clean catch - Clean Catch Midstream Gram negative tanvir 07/30/24 03:27 Blood Culture - Preliminary Blood - Venous No growth after 24 hours. 07/30/24 03:18 Blood Culture - Preliminary Blood - Venous No growth after 24 hours. Assessment and Plan (1) Alcohol withdrawal: Status: Acute (2) Acute hyponatremia: Status: Acute Plan 63-year-old female with alcohol dependency here with withdrawal symptoms, hyponatremia, UTI 1. Alcohol withdrawal -CIWA 0 after last 24 hours -phenobarbital protocol -folic acid and thiamine supplementation. -consider discharge in a.m. if CIWA remains 0 2.Hyponatremia -slowly improving with fluid restriction -follow renals/divalents 3.Hypomagensemia -repleted -check in a.m. 4.UTI -ceftriaxone (2) -await formal culture Lovenox Full code Requires ongoing hospitalization to document normalization of hyponatremia and await formal urine culture Quality Stroke Does the patient have a stroke diagnosis?: No VTE Prior VTE?: No VTE Risk Level:: Medical - moderate - high VTE Device Contraindication: Treatment Not Indicated VTE Drug Contraindication: N/A - Med Ordered
[2024-07-31 15:43] VITALS: BP 133/76; PULSE 64; RESP 20; TEMP 36.3; O2SAT 96
[2024-07-31 20:00] VITALS: BP 126/71; PULSE 71; RESP 20; TEMP 36.7; O2SAT 96
[2024-07-31] MEDS: cefTRIAXone sodium 1 GM in 0.9 % Sodium Chloride 50 ML IV (20:45)
[2024-08-01] VITALS (7 sets, daily range): BP systolic 115–173; BP diastolic 57–74; PULSE 57–72; RESP 16–20; TEMP 36.1–37; O2SAT 96–100
[2024-08-01 06:52] LABS: MANUAL DIFF FLAG NO
[2024-08-01 07:18] LABS: Basophils Absolute Auto 0.1 X10*3/uL (0.0-0.2); Basophils Percent Auto 0.7 % (0-2); Eosinophils Absolute Auto 0.1 X10*3/uL (0.0-0.4); Eosinophils Percent Auto 1.7 % (0-4); Hematocrit 36.8 % (37.0-47.0); Hemoglobin 12.7 g/dl (12.0-16.0); Imm Gran Pct Auto 1.3 % (0.0-0.4); Lymphocytes Absolute Auto 2.7 X10*3/uL (1.2-4.9); Lymphocytes Percent Auto 35.1 % (20-40); Mean Corpuscular HGB Conc 34.5 g/dl (31.0-35.0); Mean Corpuscular Volume 101.4 fL (80.0-98.0); Mean Platelet Volume 10.1 fL (9.4-12.3); Monocytes Percent Auto 12.7 % (2-11); Neutrophils Absolute Auto 3.7 x10*3/uL (2.0-8.3); Neutrophils Percent Auto 48.5 % (45-73); Platelet Count 122 X10*3/uL (160-400); Red Blood Count 3.63 X10*6/uL (4.20-5.50); Red Cell Distribution Width 11.9 % (11.0-16.0); White Blood Count 7.5 X10*3/uL (4.8-10.8)
[2024-08-01 07:40] LABS: Alanine Aminotransferase 40 U/L (0-31); Albumin Level 3.4 g/dL (3.5-5.0); Alkaline Phosphatase 65 U/L (39-117); Anion Gap 11 (12-20); Aspartate Amino Transferase 47 U/L (5-31); Bilirubin Total 0.6 mg/dL (0.0-1.0); Blood Urea Nitrogen 14 mg/dL (9-16); Calcium 8.2 mg/dL (8.4-10.2); Carbon Dioxide 26 mmol/L (22-29); Chloride 97 mmol/L (96-108); Creatinine Clr Calc Pharmacy 66.2; Estimated Glomerular Filt Rate > 60; Glucose Fasting 122 mg/dL (60-99); Magnesium 1.8 mg/dL (1.6-2.6); Potassium 4.1 mmol/L (3.3-5.1); Sodium 130 mmol/L (135-145); Total Protein 5.9 g/dL (6.5-8.0)
[2024-08-01] MEDS: Thiamine HCL 100 MG TABLET PO (08:18)
[2024-08-01] MEDS: 0.9 % Sodium Chloride Flush 3 ML SYRINGE IVFLUSH ×3 (08:18→21:29)
[2024-08-01] MEDS: Enoxaparin Sodium 40 MG/0.4 ML SYRINGE SUBCUT (08:18)
[2024-08-01] MEDS: Folic Acid 1 MG TABLET PO (08:18)
[2024-08-01] MEDS: Multivitamin TABLET 1 TAB PO (08:18)
[2024-08-01] MEDS: Magnesium Oxide 400 MG TABLET PO (08:18)
[2024-08-01] MEDS: Sertraline HCL 50 MG TABLET PO (08:18)
[2024-08-01] MEDS: PHENobarbitaL 15 MG TABLET 45 MG PO (08:18)
[2024-08-01] MEDS: Loperamide HCl 2 MG CAPSULE PO (09:49)
--- NOTE | 2024-08-01 12:48 | P.PNIM_ITS ---
Subjective Subjective Date of Service: 08/01/24 Interval History: Multiple episodes of diarrhea which patient states is related to magnesium. CIWA remains 0 Review of Systems Denies chest pain Denies shortness of breath Denies nausea vomiting diarrhea Denies fever chills Physical Exam 2 Vital Signs: Vital Signs: Last Vital Signs Temp 97.3 F 08/01/24 12:00 Pulse 72 08/01/24 12:00 Resp 18 08/01/24 12:00 BP 120/62 08/01/24 12:00 Pulse Ox 99 08/01/24 12:00 O2 Del Method Room Air 08/01/24 12:00 BMI result Body Mass Index 20.9 Const: Other: Awake alert oriented x3 no acute distress Resp: Other: Clear to auscultation bilaterally no rales rhonchi or wheezes Cardio: Other: No S4; positive S1-S2; no S3 murmurs rubs or gallops GI: Other: Soft nontender nondistended normoactive bowel sounds Extrem: Other: No edema bilaterally Objective Data Active Medications Acetaminophen (Acetaminophen 325 Mg Tablet) 650 mg PO Q6H PRN PRN Reason: Pain, Mild (Pain Scale 1-3), fever or headache Calcium Carbonate (Calcium Carbonate 750 Mg Tab.Chew) 750 mg PO Q4H PRN PRN Reason: Heartburn Enoxaparin Sodium (Enoxaparin Sodium 40 Mg/0.4 Ml Syringe) 40 mg SUBCUT DAILY [facility] Last Admin: 08/01/24 08:18 Dose: 40 mg Documented By: SNEHAL Ceftriaxone Sodium 1 gm/ (Sodium Chloride) 50 mls @ 100 mls/hr IV Q24H [facility] Last Infusion: 08/01/24 02:10 Dose: Infused Documented By: JORGE Loperamide HCl (Loperamide Hcl 2 Mg Capsule) 2 mg PO Q4H PRN PRN Reason: Diarrhea Last Admin: 08/01/24 09:49 Dose: 2 mg Documented By: JOSE Magnesium Hydroxide (Milk Of Magnesia 30 Ml Oral.Susp) 30 ml PO DAILY PRN PRN Reason: Constipation Magnesium Oxide (Magnesium Oxide 400 Mg Tablet) 400 mg PO DAILY [facility] Last Admin: 08/01/24 08:18 Dose: 400 mg Documented By: SNEHAL Melatonin (Melatonin 3 Mg Tablet) 6 mg PO BEDTIME PRN PRN Reason: Insomnia Multivitamins/Vitamin C (Multivitamin Tablet) 1 tab PO DAILY [facility] Last Admin: 08/01/24 08:18 Dose: 1 tab Documented By: SNEHAL Pharmacy Consult (Consult Rx Etoh Phenob Im/Po) 1 each MISCELLANE ONCE PRN; Protocol PRN Reason: Consult order Phenobarbital (Phenobarbital 15 Mg Tablet) 15 mg PO BID [facility]; Protocol Stop: 08/03/24 09:01 Phenobarbital (Phenobarbital 15 Mg Tablet) 15 mg PO DAILY [facility]; Protocol Stop: 08/05/24 09:01 Sertraline HCl (Sertraline Hcl 50 Mg Tablet) 50 mg PO DAILY [facility] Last Admin: 08/01/24 08:18 Dose: 50 mg Documented By: SNEHAL Sodium Chloride (0.9 % Sodium Chloride Flush 3 Ml Syringe) 3 ml IVFLUSH QSHIFT [facility] Last Admin: 08/01/24 08:18 Dose: 3 ml Documented By: SNEHAL Labs 08/01/24 06:36 08/01/24 06:36 Labs: Laboratory Results - last 24 hr 07/31/24 08/01/24 13:10 06:36 MCV 101.4 H MCH 35.0 H MCHC 34.5 RDW 11.9 Plt Count 122 L MPV 10.1 Immature Gran % (Auto) 1.3 H Neut % (Auto) 48.5 Lymph % (Auto) 35.1 [place] % (Auto) 12.7 H Eos % (Auto) 1.7 Baso % (Auto) 0.7 Lymph # (Auto) 2.7 [place] # (Auto) 1.0 Eos # (Auto) 0.1 Baso # (Auto) 0.1 Abs Immat Gran (auto) 0.10 H Absolute Neuts (auto) 3.7 Absolute Nucleated RBC 0.000 Nucleated RBC % (auto) 0.0 Anion Gap 11 L Estim Creat Clear Calc 66.2 Estimated GFR > 60 Fasting Glucose 122 H Calcium 8.2 L Magnesium 1.8 Total Bilirubin 0.6 AST 47 H ALT 40 H Alkaline Phosphatase 65 Total Protein 5.9 L Albumin 3.4 L C. difficile Tox B Gene NEGATIVE Microbiology Microbiology Results: Microbiology 07/30/24 02:58 Urine Culture - Final Urine clean catch - Clean Catch Midstream Escherichia coli 07/30/24 03:27 Blood Culture - Preliminary Blood - Venous No growth after 48 hours. 07/30/24 03:18 Blood Culture - Preliminary Blood - Venous No growth after 48 hours. Assessment and Plan (1) Alcohol withdrawal: Status: Acute (2) Acute hyponatremia: Status: Acute Plan 63-year-old female with alcohol dependency here with withdrawal symptoms, hyponatremia, UTI 1. Alcohol withdrawal -CIWA 0 -phenobarbital protocol x 24 additional hours -folic acid and thiamine supplementation. 2.Hyponatremia -slowly improving with fluid restriction... We will continue until normalized -follow renals/divalents 3.Hypomagensemia -repleted -check in a.m. 4.UTI -ceftriaxone (3) -await formal culture Lovenox Full code Requires ongoing hospitalization to document normalization of hyponatremia and await formal urine culture Quality Stroke Does the patient have a stroke diagnosis?: No VTE Prior VTE?: No VTE Risk Level:: Medical - moderate - high VTE Device Contraindication: Treatment Not Indicated VTE Drug Contraindication: N/A - Med Ordered
[2024-08-01] MEDS: cefTRIAXone sodium 1 GM in 0.9 % Sodium Chloride 50 ML IV (21:23)
[2024-08-02] MEDS: Melatonin 3 MG TABLET 6 MG PO (01:19)
[2024-08-02 03:55] VITALS: BP 141/70; PULSE 55; RESP 16; TEMP 36.4; O2SAT 98
[2024-08-02 07:09] VITALS: BP 135/84; PULSE 64; RESP 16; TEMP 36.6; O2SAT 97
[2024-08-02] MEDS: 0.9 % Sodium Chloride Flush 3 ML SYRINGE IVFLUSH (08:07)
[2024-08-02] MEDS: Enoxaparin Sodium 40 MG/0.4 ML SYRINGE SUBCUT (08:07)
[2024-08-02] MEDS: Multivitamin TABLET 1 TAB PO (08:08)
[2024-08-02] MEDS: Sertraline HCL 50 MG TABLET PO (08:08)
[2024-08-02] MEDS: Magnesium Oxide 400 MG TABLET PO (08:08)
[2024-08-02] MEDS: Loperamide HCl 2 MG CAPSULE PO (08:10)
[2024-08-02 11:31] VITALS: BP 116/65; PULSE 69; RESP 16; TEMP 36.1; O2SAT 96
--- NOTE | 2024-08-02 12:32 | P.DS_ITS ---
DS: Providers Provider Date of Service: 08/02/24 Date of admission: 07/30/24 03:52 Primary care physician: Stephy Lorenzana MD Consults: 07/30/24 07:15 Addiction Medicine Routine Consulting Provider: Addiction Covering Reason for consultation: etoh DS: Diagnosis Discharge Diagnosis (1) Alcohol withdrawal: Status: Acute (2) Acute hyponatremia: Status: Acute DS: Summary Hospital Course Hospital Course: 63-year-old female with history of alcohol dependency, history of alcohol withdrawal and alcohol-related issues such as hyponatremia. She presented to [facility] emergency room with 3 days of diarrhea, described as non-bloody, watery up to 5 times a day, no associated abd pain, n/v, she report fever and chills . She stopped drinking about 5 days ago because she thinks she was killing herself and went cold turkey . No seizure. She has dysuria and UA is positive for UTI for which ceftriaxone is started. Sodium is 127 and mag of 1.4 given IV mag Hospital course Patient admitted to telemetry and observe on CIWA protocol. CIWA was maintained at 0 throughout the hospital stay. Urine ultimately grew out E coli sensitive to ceftriaxone. Sodium responded to volume restriction. At this point in time she is medically acceptable for discharge to home. She is strongly advised to avoid alcohol at all cost and to quit smoking. She will follow-up with her primary care next available. She declines any alcohol interventions at this time despite being offered Time Attestation Discharge Coordination Time (in mins): 35 Quality: Safe Use of Opioids Does Pt have an Active Cancer Diagnosis on the Problem List?: No Quality: Stroke Does the patient have a stroke diagnosis?: No Physical Exam Vital Signs: Vital Signs: Last Vital Signs Temp 97 F 08/02/24 11:31 Pulse 69 08/02/24 11:31 Resp 16 08/02/24 11:31 BP 116/65 08/02/24 11:31 Pulse Ox 96 08/02/24 11:31 O2 Del Method Room Air 08/02/24 11:31 BMI result Body Mass Index 20.9 Const: Other: Awake alert oriented x3 no acute distress Resp: Other: Clear to auscultation bilaterally no rales rhonchi or wheezes Cardio: Other: No S4; positive S1-S2; no S3 murmurs rubs or gallops GI: Other: Soft nontender nondistended normoactive bowel sounds Extrem: Other: No edema bilaterally DS: Data Data Completed and Pending Completed studies during hospitalization [Text1]: Procedures Excision of Duodenum, Via Natural or Artificial Opening Endoscopic, Diagnostic (05/02/22) Excision of Stomach, Pylorus, Via Natural or Artificial Opening Endoscopic, Diagnostic (07/07/22) Labs on day of discharge: Preliminary micro results at discharge 07/30/24 03:27 Blood Culture - Preliminary Blood - Venous No growth after 48 hours. 07/30/24 03:18 Blood Culture - Preliminary Blood - Venous No growth after 48 hours. Discharge Plan Discharge Anticipated Discharge Date/Time: 08/02/24 12:26 Patient Disposition: Home, Self-Care Discharge Diagnosis: Alcohol withdrawal Referrals: Stephy Lorenzana MD [Primary Care Provider] - 1 Week Discharge Medications: New cefuroxime axetil 500 mg tablet 500 mg PO BID 7 Days Qty: 14 0RF Continued magnesium 250 mg Tablet 500 mg PO DAILY vitamin B complex Capsule 1 cap PO DAILY alendronate 70 mg tablet 70 mg PO TH folic acid 1 mg Tablet 1 mg PO DAILY sertraline 50 mg tablet 50 mg PO DAILY Qty: 90 3RF Discharge Orders: Discharge Order (Routine); Ordered 08/02/24 Ordered By: Eliezer Higginbotham Diet: Advance to usual diet Activity on Discharge: As tolerated Stand Alone Forms: Patient Portal Discharge page Print Language: Urdu Care Plan Goals: Resume all pre-hospital medications. Ceftin 500 mg twice daily for 7 days has been added to treat a urinary tract infection Health Concerns: You must refrain from alcohol and tobacco Plan of Treatment: Follow up with PCP next available Assessment: See discharge summary
--- NOTE | 2024-08-02 12:33 | MHC.CM.PN ---
Patient has been medically cleared for dc to home today, self care.
== END 2024-08-02 13:56 | disposition home or self-care (01) | DRG 463 ==
LOC: HO.ED 07-30 02:49 → HO.EDOVER 07-30 03:57 → HO.IMC 07-30 15:48
PROVIDERS: Family Medicine; Physician Assistant; Admitting Provider Internal Medicine; Emergency Provider Emergency Medicine; PCP Internal Medicine; Visit Provider Hospitalist
DX: N39.0 Urinary tract infection, site not specified (principal); E87.1 Hypo-osmolality and hyponatremia; E83.42 Hypomagnesemia; F32.A Depression, unspecified; F10.239 Alcohol dependence with withdrawal, unspecified; B96.20 Unspecified Escherichia coli [E. coli] as the cause of diseases classified elsewhere; F17.210 Nicotine dependence, cigarettes, uncomplicated; Z20.822 Contact with and (suspected) exposure to COVID-19; Z79.899 Other long term (current) drug therapy
CPT/HCPCS: 0241U; 36415; 80048; 80053; 81001; 82272; 82533; 82607; 82746; 83690; 83735; 84443; 84484; 85025; 85027; 87040; 87086; 87088; 87186; 87493; 93005; 99285; J0696; J1650; J2405; J2560; J3475

== ENCOUNTER → 2024-07-30 03:52 | Outpatient (BNV) | payer OTHER, SELFPAY | PROVIDERS: Admitting Provider Internal Medicine; Emergency Provider Emergency Medicine; PCP Internal Medicine; Visit Provider Family Medicine | DX: F10.939 Alcohol use, unspecified with withdrawal, unspecified (principal); E87.1 Hypo-osmolality and hyponatremia | CPT/HCPCS: 99223; 99232; 99239; 99499 ==

== ENCOUNTER 2024-08-09 06:15 | Outpatient (REF) | payer OTHER, SELFPAY ==
[2024-08-09 10:29] LABS: MANUAL DIFF FLAG NO
[2024-08-09 10:37] LABS: Basophils Absolute Auto 0.1 X10*3/uL (0.0-0.2); Basophils Percent Auto 1.4 % (0-2); Eosinophils Absolute Auto 0.1 X10*3/uL (0.0-0.4); Eosinophils Percent Auto 1.3 % (0-4); Hematocrit 40.8 % (37.0-47.0); Hemoglobin 13.6 g/dl (12.0-16.0); Imm Gran Abs Auto 0.06 X10*3/uL (0.00-0.03); Imm Gran Pct Auto 0.8 % (0.0-0.4); Lymphocytes Absolute Auto 2.9 X10*3/uL (1.2-4.9); Lymphocytes Percent Auto 37.4 % (20-40); Mean Corpuscular HGB Conc 33.3 g/dl (31.0-35.0); Mean Corpuscular Hemoglobin 35.4 pg (27.0-33.0); Mean Corpuscular Volume 106.3 fL (80.0-98.0); Mean Platelet Volume 8.8 fL (9.4-12.3); Monocytes Absolute Auto 0.8 X10*3/uL (0.1-1.2); Monocytes Percent Auto 9.7 % (2-11); Neutrophils Absolute Auto 3.9 x10*3/uL (2.0-8.3); Neutrophils Percent Auto 49.4 % (45-73); Red Blood Count 3.84 X10*6/uL (4.20-5.50); Red Cell Distribution Width 12.5 % (11.0-16.0); White Blood Count 7.8 X10*3/uL (4.8-10.8)
[2024-08-09 10:49] LABS: Platelet Count 469 X10*3/uL (160-400)
[2024-08-09 11:06] LABS: Alanine Aminotransferase 36 U/L (0-31); Albumin Level 4.1 g/dL (3.5-5.0); Alkaline Phosphatase 57 U/L (39-117); Anion Gap 12 (12-20); Aspartate Amino Transferase 33 U/L (5-31); Bilirubin Total 0.2 mg/dL (0.0-1.0); Blood Urea Nitrogen 11 mg/dL (9-16); Calcium 9.6 mg/dL (8.4-10.2); Carbon Dioxide 23 mmol/L (22-29); Chloride 104 mmol/L (96-108); Cholesterol 184 mg/dL (<200); Estimated Glomerular Filt Rate > 60; Glucose Fasting 104 mg/dL (60-99); HDL Cholesterol 87 mg/dL (>40); LDL Cholesterol Calculated 82 mg/dL (<100); Potassium 5.2 mmol/L (3.3-5.1); Sodium 134 mmol/L (135-145); TSH reflex Free T4 0.96 uIU/mL (0.32-4.0); Triglycerides 78 mg/dL (<150); Vitamin D 25-OH Total 41.8 ng/mL (>30)
[2024-08-12 05:54] LABS: TS Negative Control Passed; TS Panel A 0; TS Panel B 0; TS Positive Control Passed; TSpotTB Negative (Negative)
== END 2024-08-09 06:16 | disposition home or self-care (01) ==
LOC: HO.HMGCLDS 06:15
PROVIDERS: PCP Internal Medicine; Visit Provider Internal Medicine
DX: Z00.00 Encounter for general adult medical examination without abnormal findings (principal); F17.210 Nicotine dependence, cigarettes, uncomplicated; M81.0 Age-related osteoporosis without current pathological fracture; E87.1 Hypo-osmolality and hyponatremia; J44.9 Chronic obstructive pulmonary disease, unspecified
CPT/HCPCS: 36415; 80053; 80061; 82306; 84443; 85025; 86481

== ENCOUNTER 2024-08-13 12:54 | Outpatient (AMB) | payer OTHER, SELFPAY ==
--- NOTE | 2024-08-13 12:57 | MHC.PC.OV ---
Vital Signs 08/13/24 13:00 Height 5 ft 3 in Weight 120 lb BMI 21.3 BP 110/70 Blood Pressure Location Rt brachial Position Sitting Pulse 83 Pulse Source Pulse Oximeter Pulse Oximetry (%) 96 Oxygen Delivery Method Room Air Intake Visit Reasons: TCM Allergies chlordiazepoxide [From LIBRIUM] Adverse Reaction (Intermediate, Verified 08/13/24 12:59) severe confusion and hallucinations Medication List - Last Reconciled 08/13/24 by Stephy Lorenzana MD alendronate 70 mg PO TH folic acid 1 mg PO DAILY magnesium 500 mg PO DAILY sertraline 50 mg PO DAILY vitamin B complex 1 cap PO DAILY Tobacco use date assessed: 08/13/24 Fall risk assessment: No Falls in past year Last assessed Fall Risk: 08/13/24 Dental Screening Dental Screen Date: 08/13/24 Did you have a dental visit in the last 12 months?: Yes Did you have a dental problem in the last 6 months where you did not have access to dental care?: No Was dental information given to patient?: Patient has dentist HPI TCM HPI Details Pt presents for f/u of hospitalization for ETOH withdrawal and hyponatremia. Patient is feeling better as getting established with a new counselor. Depression is controlled on sertraline. Patient has been sober since hospitalization. TCM TCM Information Date of Discharge 08/02/24 Discharged From [facility] Interactive Contact Date (Reference documentation from this date) 08/03/24 [facility] Medical History Nicotine dependence, cigarettes, uncomplicated Duodenal ulcer Gastritis Anxiety Hyponatremia Osteoporosis (~2019) Gallstone ETOH abuse Surgical History History of colonoscopy History of esophagogastroduodenoscopy (EGD) History of surgery on arm Family History Father No problems noted. Mother Lung cancer Other Substance abuse Substance use disorder Social History Household Members: Spouse and Family Housing: House Do you presently have visiting nurse or other home services: No Alcohol intake: former Patient Tobacco Use Status: Current everyday Tobacco user Tobacco use type: Cigarette Cigarette Packs Per Day: 1 Cigarettes Per Day: 20.0 Years Smoked: onset 15yo, 1ppd x 46yrs, 40+pyh e-Cigarette/Vaping Use: Currently Using Second Hand Smoke Exposure: No Advance Directives Date on File: 09/07/21 service: No Current occupational status: employed Cognitive needs: No Hearing needs: No Vision needs: No Questionnaire Thrive Questionnaire Date Thrive assessed: 07/31/24 AUDIT C Alcohol Use Questionnaire (AUDIT-C) 1. How often do you have a drink containing alcohol?: Never 3. How often do you have six or more drinks on one occasion?: Never Total Score: 0 CHRISTINE-7 AMB Questionnaire CHRISTINE-7 Date CHRISTINE - 7 assessed: 02/26/24 Source: Developed by Drs. Eliel Ulloa, Miriam Tapia, Rob Amin and colleagues, with an educational josseline from [employer]. Review of Systems Const All systems reviewed & are unremarkable except as noted in HPI and below Card Reports no additional complaints Resp Reports no additional complaints GI Reports no additional complaints Reports no additional complaints Physical exam (Primary Care) Vital Signs: Last Vital Signs Pulse 83 08/13/24 13:00 BP 110/70 08/13/24 13:00 Pulse Ox 96 08/13/24 13:00 Oxygen Delivery Method Room Air 08/13/24 13:00 BMI result Body Mass Index 21.3 Tobacco/Smoking Status: Tobacco use Status Tobacco use date assessed 08/13/24 08/13/24 13:00 Patient Tobacco Use Status Current everyday Tobacco 08/13/24 12:58 Tobacco use type Cigarette 08/13/24 12:58 e-Cigarette/Vaping Use Currently Using 08/13/24 12:58 Thrive Assessment: Date of Thrive Assessment Date Thrive assessed 07/31/24 08/13/24 12:58 Const General: no acute distress Neck Neck: Yes supple Resp Effort & Inspection: normal respiratory effort Auscultation: clear to auscultation bilaterally Cardio Rhythm: regular rhythm Heart sounds: S1 normal heart sound present and S2 normal heart sound present GI Palpation (GI): Soft to palpation Percussion: Yes normal to percussion Assessment and Plan Assessment & Plan (1) ETOH abuse: Code(s): F10.10 - Alcohol abuse, uncomplicated Plan: Patient will be starting a new alcoholics group meetings and will get established with a new counselor (2) Nicotine dependence, cigarettes, uncomplicated: Comment: (current smoker, onset 15yo, 1ppd x 46yrs, 40+pyh - fam hx lung ca) Code(s): F17.210 - Nicotine dependence, cigarettes, uncomplicated Plan: Tobacco quitting discussed (3) COPD (chronic obstructive pulmonary disease): Code(s): J44.9 - Chronic obstructive pulmonary disease, unspecified Plan: Continue Trelegy (4) Hyponatremia: Code(s): E87.1 - Hypo-osmolality and hyponatremia Plan: Patient was advised to follow fluid restriction to 48 oz a day and repeat electrolytes and magnesium level in 1 week (5) Anxiety: Code(s): F41.9 - Anxiety disorder, unspecified Plan: Continue sertraline Orders: Orders Comprehensive Met. Panel 1 Week F10.10 - Alcohol abuse, uncomplicated, F17.210 - Nicotine dependence, cigarettes, uncomplicated, J44.9 - Chronic obstructive pulmonary disease, unspecified Magnesium 1 Week F10.10 - Alcohol abuse, uncomplicated, F17.210 - Nicotine dependence, cigarettes, uncomplicated, J44.9 - Chronic obstructive pulmonary disease, unspecified Medications: New vhbizvwpazl-leeeqefmf-yahopkhk 100-62.5-25 mcg (Trelegy Ellipta) 1 inh inhalation DAILY 60 ea 4RF Coding Level of Care Code Est Pt Level 4 (45702) Diagnoses ETOH abuse F10.10 Nicotine dependence, cigarettes, uncomplicated F17.210 COPD (chronic obstructive pulmonary disease) J44.9 Hyponatremia E87.1 Anxiety F41.9
[2024-08-13 13:00] VITALS: BP 110/70; PULSE 83; O2SAT 96; BMI 21.3
== END 2024-08-13 14:13 | disposition home or self-care (01) ==
PROVIDERS: PCP Internal Medicine; Visit Provider Internal Medicine
DX: F10.10 Alcohol abuse, uncomplicated (principal); F17.210 Nicotine dependence, cigarettes, uncomplicated; J44.9 Chronic obstructive pulmonary disease, unspecified; E87.1 Hypo-osmolality and hyponatremia; F41.9 Anxiety disorder, unspecified

== ENCOUNTER → 2024-08-13 12:54 | Outpatient (BNVA) | payer MEDICAID, SELFPAY | PROVIDERS: PCP Internal Medicine; Visit Provider Internal Medicine | DX: F10.10 Alcohol abuse, uncomplicated (principal); J44.9 Chronic obstructive pulmonary disease, unspecified; E87.1 Hypo-osmolality and hyponatremia; F41.9 Anxiety disorder, unspecified; F17.210 Nicotine dependence, cigarettes, uncomplicated; Z71.6 Tobacco abuse counseling | CPT/HCPCS: 99212 ==

== ENCOUNTER 2024-09-29 13:42 | Outpatient (AMB) | payer OTHER, SELFPAY ==
[2024-09-29 13:46] VITALS: BP 142/80; PULSE 88; TEMP 36.7; O2SAT 98; BMI 21.3
--- NOTE | 2024-09-29 13:46 | MHC.OFFWIV ---
Intake Vital Signs 09/29/24 13:46 Height 5 ft 3 in Weight 120 lb BMI 21.3 BP 142/80 H Blood Pressure Location Rt brachial Position Sitting Pulse 88 Pulse Source Pulse Oximeter Temp 98.1 F Temp Source Oral Pulse Oximetry (%) 98 Oxygen Delivery Method Room Air Intake Visit Reasons: EP Vomiting, diarrhea, shakes Intake Note: pt is here for vomiting, diarrhea, and shakes Patient Tobacco Use Status: Current everyday Tobacco user Allergies chlordiazepoxide [From LIBRIUM] Adverse Reaction (Intermediate, Verified 09/29/24 13:46) severe confusion and hallucinations Do you need a note to return to daycare/school/sports/work: No HPI HPI Comments History of Present Illness Details Patient is a 63-year-old female complaining of 4 days of vomiting, diarrhea, acid reflux and ?the shakes?. She states there is nothing bloody or black in her diarrhea and her vomit is mostly water. She states she has not been eating much but was able to drink some coffee and has some toast this morning without vomiting it. She did take some Imodium which has helped her diarrhea a little bit. She did not test for COVID and she does not have any sick contacts. She did miss work this week and she is asking for a note to excuse her from work until October 02. PFSH Medical History Nicotine dependence, cigarettes, uncomplicated Duodenal ulcer Gastritis Anxiety Hyponatremia Osteoporosis (~2019) Gallstone ETOH abuse Surgical History History of colonoscopy History of esophagogastroduodenoscopy (EGD) History of surgery on arm Family History Father No problems noted. Mother Lung cancer Other Substance abuse Substance use disorder Social History Household Members: Spouse and Family Housing: House Do you presently have visiting nurse or other home services: No Alcohol intake: former Patient Tobacco Use Status: Current everyday Tobacco user Tobacco use type: Cigarette Cigarette Packs Per Day: 1 Cigarettes Per Day: 20.0 Years Smoked: onset 15yo, 1ppd x 46yrs, 40+pyh e-Cigarette/Vaping Use: Currently Using Second Hand Smoke Exposure: No Advance Directives Date on File: 09/07/21 service: No Current occupational status: employed Cognitive needs: No Hearing needs: No Vision needs: No Review of Systems Const All systems reviewed & are unremarkable except as noted in HPI and below Physical Exam Vital Signs: Last Vital Signs Temp 98.1 F 09/29/24 13:46 Pulse 88 09/29/24 13:46 BP 142/80 H 09/29/24 13:46 Pulse Ox 98 09/29/24 13:46 Oxygen Delivery Method Room Air 09/29/24 13:46 BMI result Body Mass Index 21.3 Const General: cooperative, healthy appearing, comfortable, no acute distress and well developed Orientation/consciousness: patient oriented x3 Limitations: no limitations HEENT Head: Yes normal to inspection Ears: hearing grossly normal bilaterally General nose exam: Normal external nose present Face and sinus: Yes normal facial exam Eyes General: appearance normal, both eyes and all related structures Neck Neck: Yes normal visual inspection and Yes full ROM Resp Effort & Inspection: normal respiratory effort and able to speak in complete sentences GI Inspection: Yes normal to inspection Palpation (GI): Soft to palpation and Tenderness to palpation present (GI) in the epigastrum Skin General skin exam: no rashes or lesions noted Neuro General: patient oriented x3 Extrem General: Yes normal to inspection Assessment & Plan Assessment & Plan (1) Diarrhea: Code(s): R19.7 - Diarrhea, unspecified Qualifiers: Diarrhea type: unspecified type Qualified Code(s): R19.7 - Diarrhea, unspecified Plan: Vital signs are stable and patient is well-appearing, physical exam remarkable for epigastric tenderness, probably because she has been vomiting for 4 days. Recommended she stick with clears and can start a bland diet, BRAT diet. Recommended Gatorade alternating with water. As it has been 4 days, I did give her the supplies for a GI panel which she can return at her leisure. I also did write a work note cover her from September 25 through October 02. Gave red flag warning signs and when to go to the emergency department. Plan See above Orders: Orders GI Panel Today R19.7 - Diarrhea, unspecified Coding Level of Care Code Est Pt Level 3 (48248) Diagnoses Diarrhea, unspecified type R19.7 Diarrhea type: unspecified type
== END 2024-09-29 14:58 | disposition home or self-care (01) ==
PROVIDERS: PCP Internal Medicine; Visit Provider Physician Assistant
DX: R19.7 Diarrhea, unspecified (principal)

== ENCOUNTER 2024-09-29 14:09 | Outpatient (REF) | payer OTHER, SELFPAY ==
[2024-09-29 16:44] LABS: Alanine Aminotransferase 21 U/L (0-31); Albumin Level 4.6 g/dL (3.5-5.0); Alkaline Phosphatase 75 U/L (39-117); Anion Gap 16 (12-20); Aspartate Amino Transferase 37 U/L (5-31); Bilirubin Total 1.3 mg/dL (0.0-1.0); Blood Urea Nitrogen 13 mg/dL (9-16); Calcium 9.2 mg/dL (8.4-10.2); Carbon Dioxide 22 mmol/L (22-29); Chloride 87 mmol/L (96-108); Estimated Glomerular Filt Rate > 60; Glucose Random 126 mg/dL (60-115); Magnesium 1.5 mg/dL (1.6-2.6); Potassium 3.3 mmol/L (3.3-5.1); Sodium 122 mmol/L (135-145); Total Protein 7.7 g/dL (6.5-8.0)
== END 2024-09-29 14:10 | disposition home or self-care (01) ==
LOC: HO.HMGCLDS 14:09
PROVIDERS: PCP Internal Medicine; Visit Provider Internal Medicine
DX: J44.9 Chronic obstructive pulmonary disease, unspecified (principal); F17.210 Nicotine dependence, cigarettes, uncomplicated; F10.10 Alcohol abuse, uncomplicated; R19.7 Diarrhea, unspecified
CPT/HCPCS: 36415; 80053; 83735; 99212

== ENCOUNTER 2024-09-30 18:18 | Emergency (ER) | payer OTHER, SELFPAY ==
--- NOTE | 2024-09-30 18:22 | ED.GENADULT ---
HPI - General Adult General Chief complaint: Recheck/Abnormal Lab/Rx Stated complaint: Low sodium level, referred to ED by Pcp Time Seen by Provider: 09/30/24 19:29 Source: patient and old records reviewed Mode of arrival: ambulatory Limitations: no limitations History of Present Illness ED Provider: SAL PERDOMO narrative: 63 yo female with PMH of chronic hyponatremia, COPD, anxiety, ETOH abuse but recently quit and has not drank in a week - she did have n/v/d during the withdrawals. Patient then stopped having symptoms on Friday. vomiting/diarrhea resolved Friday. Na yesterday on check was 122. Na 129 now better which is baseline and pateint states she wants to go home, declines fluids states she will drink carol ann SARMIENTO complaint: low Na Onset (ago): day(s) (1 ) Radiation: non-radiation Severity: mild Relieving factors: none Exacerbating factors: none Associated symptoms: weakness Treatments prior to arrival: none Related Data Home Medications ?Medication ?Instructions ?Recorded ?Confirmed magnesium 250 mg tablet 500 mg PO DAILY 07/07/22 08/13/24 vitamin B complex 1 cap PO DAILY 07/07/22 08/13/24 alendronate 70 mg tablet 70 mg PO TH 07/30/24 08/13/24 folic acid 1 mg tablet 1 mg PO DAILY 07/30/24 08/13/24 Previous Rx's ?Medication ?Instructions ?Recorded sertraline 50 mg tablet 50 mg PO DAILY #90 tabs 02/26/24 fluticasone fur. 100 mcg-umeclid 1 inh inhalation DAILY #60 ea 08/18/24 62.5 mcg-vilant 25 mcg inhalat.powder (Trelegy Ellipta) Allergies Allergy/AdvReac Type Severity Reaction Status Date / Time chlordiazepoxide AdvReac Intermediate severe Verified 09/30/24 18:24 [From LIBRIUM] confusion and hallucinations Review of Systems Review of Systems: Constitutional : No Fever, No Chills, No Fatigue ENT/Mouth : No sore throat, No Rhinorrhea Eyes: No Eye Pain, No Swelling, No Redness Cardiovascular : No Chest Pain, No SOB, No Dyspnea on Exertion Respiratory : No Cough, No Sputum Gastrointestinal : No Nausea, No Vomiting, No Diarrhea, No abdominal Pain Genitourinary : No Dysuria, No Urinary Frequency, No Hematuria, Musculoskeletal : No joint pain, No Myalgias, No Joint Swelling Skin : No Skin Lesions, No rash Neuro : pos Weakness, No Numbness, No Dizziness, no Headache All other systems reviewed and are negative [facility] Past Medical History Attestation statement: The following information was validated with the patient. Source: old records reviewed Medical History Nicotine dependence, cigarettes, uncomplicated Duodenal ulcer Gastritis Anxiety Hyponatremia Osteoporosis (~2019) Gallstone ETOH abuse Surgical History History of colonoscopy History of esophagogastroduodenoscopy (EGD) History of surgery on arm Family History Family History Father No problems noted. Mother Lung cancer Other Substance abuse Substance use disorder Social History Social History Household Members: Spouse and Family Housing: House Do you presently have visiting nurse or other home services: No Alcohol intake: current Alcohol intake frequency: 3 or more drinks per day Alcohol type: hard liquor Patient Tobacco Use Status: Current everyday Tobacco user Tobacco use type: Cigarette Cigarette Packs Per Day: 1 Cigarettes Per Day: 20.0 Years Smoked: onset 15yo, 1ppd x 46yrs, 40+pyh Smoked in Last 30 Days: Yes e-Cigarette/Vaping Use: Currently Using Second Hand Smoke Exposure: No Use of substances other than those prescribed or required for medical reasons: No Advance Directives: Yes Advance Directives on File: Yes Advance Directives Date on File: 09/07/21 service: No Current occupational status: employed Cognitive needs: No Hearing needs: No Vision needs: No Physical Exam ED Vital Signs: Vital Signs - 24 hr 09/30/24 18:23 09/30/24 19:37 Temperature 97 F 97.0 F Pulse Rate 96 78 Respiratory Rate 20 16 Blood Pressure 146/49 H 142/80 H Pulse Oximetry 98 97 Oxygen Delivery Method Room Air Room Air BMI result Body Mass Index 19.0 Appearance: Alert. Oriented X3. No acute distress. Eyes: Pupils equal, round and reactive to light. ENT: Pharynx normal. Neck: Normal inspection. Neck supple. CVS: Normal heart rate and rhythm. Pulses normal. Respiratory: No respiratory distress. Breath sounds normal. Abdomen: Soft and nontender. Skin: Skin warm and dry. Normal skin color. Normal skin turgor. Extremities: No lower extremity edema. No calf ttp Neuro: Oriented X 3. No motor deficit. No sensory deficit. Course Course Course Narrative: This is a Rapid Medical Exam performed in triage by Olga Longo PA-C. Full HPI, ROS and PE to be performed by primary ED provider. 63 yo F w/PMHx ETOH abuse in remission x2 weeks, gastritis, anxiety, presenting to the ED c/o low sodium 122, sent in by PCP. Reports generalized weakness/fatigue and shakiness. Had nausea, vomiting & diarrhea last week now resolved. PE: Ambulating with steady gait, frail. Acting appropriate Plan: EKG, labs, UA Medical Decision Making Medical Decision Making MDM Narrative: 63 yo female with PMH of chronic hyponatremia, COPD, anxiety, ETOH abuse with Na 122 yesterday now the Na is 129 today she denies being in diuretics other than mild weakness she notes she feels much better at this time she wants to go home, declines IVF. She is back to baseline and has not had any n/v Differential Diagnosis Differential Diagnoses: The differential diagnosis associated with the presentation includes chronic low Na Admission/Observation Consideration of admission/observation: Escalation of care including admission/observation considered at baseline stable for DC Lab Data [facility] Lab Attestation statement: I reviewed the patient's lab results. 09/30/24 19:02 09/30/24 19:02 Labs: Lab Results 09/30/24 Range/Units 19:02 Sodium 129 L (135-145) mmol/L Potassium 3.7 (3.3-5.1) mmol/L Chloride 94 L (96-108) mmol/L Carbon Dioxide 23 (22-29) mmol/L Anion Gap 16 (12-20) BUN 14 (9-16) mg/dL Creatinine 0.76 (0.5-1.4) mg/dL Estim Creat Clear Calc 63.2 Estimated GFR > 60 Random Glucose 219 H (60-115) mg/dL Osmolality 281 (281-305) mosm/kg Calcium 8.4 D (8.4-10.2) mg/dL Magnesium 1.7 (1.6-2.6) mg/dL Total Bilirubin 1.2 H (0.0-1.0) mg/dL Direct Bilirubin 0.5 (0.0-0.5) mg/dL AST 31 (5-31) U/L ALT 18 (0-31) U/L Alkaline Phosphatase 70 (39-117) U/L Total Protein 7.2 (6.5-8.0) g/dL Albumin 4.4 (3.5-5.0) g/dL Urine Color Dark Yellow Urine Appearance Clear Urine pH 6.0 (5.0-9.0) Ur Specific [place] 1.015 (1.005-1.025) Urine Protein Trace (Neg-Trace) mg/dL Urine Glucose (UA) Negative (Negative) mg/dL Urine Ketones Trace (Negative) mg/dL Urine Blood Negative (Negative) Urine Nitrite Negative (Negative) Ur Leukocyte Esterase Small (1+) H (Negative) Urine Osmolality 403 (373-1093) mosm/kg Ur Random Sodium 28.0 mmol/L Ur Random Potassium 26.0 mmol/L Ur Random Chloride 26.0 mmol/L Urine Opiates Screen Not Detected (Not Detect) Ur Buprenorphine Scrn Not Detected (Not Detect) ng/mL Ur Oxycodone Screen Not Detected (Not Detect) ng/mL Urine Methadone Screen Not Detected (Not Detect) ng/mL Urine Fentanyl Screen Not Detected (Not Detect) Ur Barbiturates Screen Not Detected (Not Detect) Ur Phencyclidine Scrn Not Detected (Not Detect) Ur Amphetamines Screen Not Detected (Not Detect) U Benzodiazepines Scrn Not Detected (Not Detect) Urine Cocaine Screen Not Detected (Not Detect) U Marijuana (THC) Screen Not Detected (Not Detect) Ethyl Alcohol < 10 mg/dL Influenza Type A (PCR) NEGATIVE (Negative) Influenza Type B (PCR) NEGATIVE (Negative) RSV RNA Qual (PCR) NEGATIVE (Negative) SARS-CoV-2 RNA (RT-PCR) NEGATIVE (Negative) Independent Interpretation I performed an independent interpretation of an: EKG Interpretation: Rate: 88 Rhythm: NSR [place]: normal Normal P waves. Normal EMILY. Normal QRS complex. ST T wave : normal no JOEL qTC: 467 prior studies: no acute ischemia The study has been interpreted contemporaneously by me. . External Record Review External record reviewed: Outpatient record and Prior outpatient labs Discharge Plan Discharge Clinical Impression: Chronic hyponatremia Patient Disposition: Home, Self-Care Instructions: Hyponatremia (ED) Additional Instructions: labs at baseline now 129 sodium eat more salt in your diet repeat labs on Friday with your doctor return for any worsening symptoms or concerns Prescriptions: No Action Trelegy Ellipta 100-62.5-25 mcg blister with device 1 inh inhalation DAILY Qty: 60 4RF magnesium 250 mg Tablet 500 mg PO DAILY vitamin B complex Capsule 1 cap PO DAILY alendronate 70 mg tablet 70 mg PO TH folic acid 1 mg Tablet 1 mg PO DAILY sertraline 50 mg tablet 50 mg PO DAILY Qty: 90 3RF Print Language: Kyrgyz
[2024-09-30 18:23] VITALS: BP 146/49; PULSE 96; RESP 20; TEMP 36.1; O2SAT 98; BMI 19.0
--- NOTE | 2024-09-30 18:25 | ECG_ITS ---
Test Reason : hyponatremia Blood Pressure : / mmHG Vent. Rate : 088 BPM Atrial Rate : 088 BPM P-R Int : 130 ms QRS Dur : 084 ms QT Int : 386 ms P-R-T Axes : 075 059 073 degrees QTc Int : 467 ms Normal sinus rhythm Normal ECG When compared with ECG of 30-JUL-2024 02:37, T wave inversion no longer evident in Anterior leads Referred By: Olga Longo Electronically Signed By:Segundo Stephens
[2024-09-30 19:11] LABS: MANUAL DIFF FLAG NO
[2024-09-30 19:12] LABS: Basophils Percent Auto 0.2 % (0-2); Eosinophils Percent Auto 0.3 % (0-4); Hematocrit 35.7 % (37.0-47.0); Hemoglobin 12.7 g/dl (12.0-16.0); Imm Gran Pct Auto 0.8 % (0.0-0.4); Lymphocytes Absolute Auto 2.6 X10*3/uL (1.2-4.9); Mean Corpuscular HGB Conc 35.6 g/dl (31.0-35.0); Mean Corpuscular Hemoglobin 34.8 pg (27.0-33.0); Mean Corpuscular Volume 97.8 fL (80.0-98.0); Mean Platelet Volume 9.8 fL (9.4-12.3); Monocytes Absolute Auto 0.9 X10*3/uL (0.1-1.2); Monocytes Percent Auto 7.3 % (2-11); Neutrophils Absolute Auto 8.6 x10*3/uL (2.0-8.3); Neutrophils Percent Auto 70.4 % (45-73); Platelet Count 155 X10*3/uL (160-400); Red Blood Count 3.65 X10*6/uL (4.20-5.50); Red Cell Distribution Width 12.2 % (11.0-16.0); White Blood Count 12.3 X10*3/uL (4.8-10.8)
[2024-09-30 19:14] LABS: Appearance Urine Clear; Color Urine Dark Yellow; Glucose Urine UA Negative (Negative); Leukocyte Esterase Urine Small (1+) (Negative); Nitrite Urine Negative (Negative); Specific Gravity - Urine 1.015 (1.005-1.025); UMIC TRIGGER UACC YES; Urine Blood Negative (Negative); Urine Ketones Trace mg/dL (Negative); Urine Protein Trace mg/dL (Neg-Trace)
[2024-09-30 19:27] LABS: Amphetamine Screen Urine Not Detected (Not Detect); Barbiturates, Urine Not Detected (Not Detect); Benzodiazepines Screen Urine Not Detected (Not Detect); Buprenorphine Scr Not Detected (Not Detect); Cannabinoid Screen Urine Not Detected (Not Detect); Cocaine Screen Urine Not Detected (Not Detect); Fentanyl, urine Not Detected (Not Detect); Methadone Screen, Urine Not Detected (Not Detect); Opiate Screen Urine Not Detected (Not Detect); Oxycodone Screen Urine Not Detected (Not Detect); Phencyclidine Screen Urine Not Detected (Not Detect)
[2024-09-30 19:37] VITALS: BP 142/80; PULSE 78; RESP 16; TEMP 36.1; O2SAT 97
[2024-09-30 19:38] LABS: Alanine Aminotransferase 18 U/L (0-31); Albumin Level 4.4 g/dL (3.5-5.0); Alkaline Phosphatase 70 U/L (39-117); Anion Gap 16 (12-20); Aspartate Amino Transferase 31 U/L (5-31); Bilirubin Direct 0.5 mg/dL (0.0-0.5); Bilirubin Total 1.2 mg/dL (0.0-1.0); Blood Urea Nitrogen 14 mg/dL (9-16); Calcium 8.4 mg/dL (8.4-10.2); Carbon Dioxide 23 mmol/L (22-29); Chloride 94 mmol/L (96-108); Creatinine Clr Calc Pharmacy 63.2; Estimated Glomerular Filt Rate > 60; Ethanol < 10 mg/dL; Glucose Random 219 mg/dL (60-115); Magnesium 1.7 mg/dL (1.6-2.6); Potassium 3.7 mmol/L (3.3-5.1); Sodium 129 mmol/L (135-145); Total Protein 7.2 g/dL (6.5-8.0)
[2024-09-30 19:39] LABS: Osmolality Urine 403 mosm/kg (373-1093); Osmolality, Serum 281 mosm/kg (281-305)
[2024-09-30 19:52] LABS: Influenza A PCR NEGATIVE (Negative); Influenza B PCR NEGATIVE (Negative); Resp Syncy Virus RNA Qual PCR NEGATIVE (Negative); SARS COV2 PCR INHOUSE NEGATIVE (Negative)
[2024-09-30 20:32] VITALS: BP 142/80; PULSE 78; RESP 16; TEMP 36.1; O2SAT 97
== END 2024-09-30 20:34 | disposition home or self-care (01) ==
PROVIDERS: Physician Assistant; Emergency Provider Emergency Medicine; PCP Internal Medicine
DX: E87.1 Hypo-osmolality and hyponatremia (principal); Z03.818 Encounter for observation for suspected exposure to other biological agents ruled out; Z51.81 Encounter for therapeutic drug level monitoring; Z79.899 Other long term (current) drug therapy
CPT/HCPCS: 0241U; 80048; 80076; 80307; 81003; 82436; 83735; 83930; 83935; 84133; 84300; 85025; 93005; 99284

== ENCOUNTER → 2024-09-30 18:25 | Outpatient (BNV) | payer OTHER, SELFPAY | PROVIDERS: Emergency Provider Emergency Medicine; PCP Internal Medicine; Visit Provider Internal Medicine Cardiovascular Disease | DX: E87.1 Hypo-osmolality and hyponatremia (principal) | CPT/HCPCS: 93010 ==

== ENCOUNTER 2024-10-07 07:00 | Outpatient (REF) | payer OTHER, SELFPAY ==
[2024-10-08 11:46] LABS: Adenovirus F 40/41 Not Detected (Not Detect.); Astrovirus Not Detected (Not Detect.); Campylobacter Not Detected (Not Detect.); Cryptosporidium Not Detected (Not Detect.); Cyclospora cayetanensis Not Detected (Not Detect.); E. coli EAEC Not Detected (Not Detect.); E. coli EPEC Not Detected (Not Detect.); E. coli ETEC Not Detected (Not Detect.); E. coli STEC Not Detected (Not Detect.); Entamoeba histolytica Not Detected (Not Detect.); Giardia lamblia Not Detected (Not Detect.); Norovirus GI/GII Not Detected (Not Detect.); Plesiomonas shigelloides Not Detected (Not Detect.); Rotavirus A Not Detected (Not Detect.); Salmonella Not Detected (Not Detect.); Sapovirus Not Detected (Not Detect.); Shigella sp./EIEC Not Detected (Not Detect.); Vibrio Not Detected (Not Detect.); Vibrio Cholerae Not Detected (Not Detect.); Yersinia enterocolitica Not Detected (Not Detect.)
== END 2024-10-07 07:01 | disposition home or self-care (01) ==
LOC: HO.HMGCLNP 07:00
PROVIDERS: PCP Internal Medicine; Visit Provider Physician Assistant
DX: R19.7 Diarrhea, unspecified (principal)
CPT/HCPCS: 87507

== ENCOUNTER 2024-11-15 10:26 | Outpatient (AMB) | payer OTHER, SELFPAY ==
--- OUTSIDE RECORDS SUMMARY | 2024-11-15 10:30 | XMS_ITS | Patient Health Record ---
Author Organization [facility] Address [address] [place] [id number] Care Team Providers Care Records Specialist Name Role Phone Stephy Lorenzana MD Primary Care Provider Unavaila Jermaine Swift Jr Unavailable [phone] Ruben SARMIENTO, Sonam Unavailable Unavailable REASON FOR REFERRAL No Information SOCIAL HISTORY Sex Assigned At : Social History Observation Description Sex Assigned At Unknown PROBLEMS Problem Type ICD Code Onset Dates Problem Status W/U Status Risk SNOMED Code Notes Problem Gastric ulcer (K25.9) Active confirmed Gastric ulcer (804243817) Problem Erosive esophagitis (K22.10) Active confirmed Erosive esophagitis (65695191) Problem Duodenal ulcer (K26.9) Active confirmed Duodenal ulcer (64304603) Problem Chronic gastritis (K29.50) Active confirmed Chronic gastritis (0650688) PLAN OF TREATMENT Pending Test Test Name Order Date Complete Blood Count no Diff 07/26/2022 Future Test Test Name Order Date UPPER GI ENDOSCOPY 05/10/2022 Insurance Providers Payer Name Payer Address Payer Phone Subscriber Number Group Number Insured Name Patient Relationship to Insured Coverage Start Date Coverage End Date [facility] [address] [address] [place], [place] [id number] EUN MURRAY Self - patient is the insured
--- OUTSIDE RECORDS SUMMARY | 2024-11-15 10:31 | XMS_ITS | Patient Health Record ---
[facility] Address [address] [place] [address] Care Team Providers Care Mains And Service Supervisor Name Role Phone Stephy Lorenzana MD Primary Care Provider Shahana Cast Unavailable [phone] Allergies No Known Allergies Reason For Referral No Information Medications Medication SIG (Take, Route, Frequency, Duration) Notes Start Date End Date Status Alendronate Sodium A ctive Solifenacin Succinate Not-Taking Immunizations Vaccine Route Administration Date Status Comme nts COVID-19 Pfizer BioNTech Vaccine Unknown 03/11/2021 Administered Second Dose: 04/02/2021 Social History Tobacco Use: Social History Observation Description Date Details (start date - stop date) Current Smoker NA - NA Tobacco Use/Smoking Question Answer Notes Are you a: current smoker How many cigarettes a day do you smoke? 11-20 How soon after you wake up do you smoke your fir st cigarette? 6-30 minutes Alcohol Screen Question Answer Notes Did you have a drink containing alcohol in the p ast year? No Points 0 Interpretation Negative Tobacco use other than smoking: Question Answer Notes Are you an other tobacco user? Yes V aping Problems Problem Type SNOMED Code ICD Code Onset Dates Problem Status W/U Status Risk Notes Problem Plantar wart (09475253) Plantar wart (B07.0) Active confirmed Plan Of Treatment No Information Insurance Providers Payer Name Payer Address Payer Phone Subscriber Number Group Number Insured Name Patient Relationship to Insured Coverage Start Date Coverage End Date [employer] [address] [place] [address] [phone] [id number] Jasmin Gonzalez Self - patient is the insured Medical (General) History Medical History History ICD Code Chicken pox Warts Surgical History Surgery Date(Month/Year) Hospitalization History Reason Date(Month/Year) C- UTI, dehydrated, lost alot of weigh t, and pt couldnt walk 05/06
--- NOTE | 2024-11-15 12:17 | MHC.OFFWIV ---
Intake Vital Signs 11/15/24 12:19 Weight 112 lb BP 122/80 Blood Pressure Location Rt brachial Position Sitting Pulse 62 Pulse Source Pulse Oximeter Pulse Oximetry (%) 98 Oxygen Delivery Method Room Air Intake Visit Reasons: EP ? ear infection Intake Note: Patient here for left ear pain that started friday. Patient Tobacco Use Status: Current everyday Tobacco user Allergies chlordiazepoxide [From LIBRIUM] Adverse Reaction (Intermediate, Verified 11/15/24 12:19) severe confusion and hallucinations HPI EP ? ear infection HPI Details This note is constructed using voice recognition software. While every effort has been made to ensure accuracy, chamfering machine operator errors may have been included. The patient is a 63 year old female who presents to the clinic today with left ear pain for the past 2 days. She denies fever, chills, cough, shortness of breath, she does feel that this is an ear infection as she has had similar in the past. She does have some congestion in her left maxillary sinus as well. She noticed that she had some tenderness on the external ear yesterday, when she woke up, which has resolved. PFSH Medical History Nicotine dependence, cigarettes, uncomplicated Duodenal ulcer Gastritis Anxiety Hyponatremia Osteoporosis (~2019) Gallstone ETOH abuse Surgical History History of colonoscopy History of esophagogastroduodenoscopy (EGD) History of surgery on arm Family History Father No problems noted. Mother Lung cancer Other Substance abuse Substance use disorder Social History Household Members: Spouse and Family Housing: House Do you presently have visiting nurse or other home services: No Alcohol intake: current Alcohol intake frequency: 3 or more drinks per day Alcohol type: hard liquor Patient Tobacco Use Status: Current everyday Tobacco user Tobacco use type: Cigarette Cigarette Packs Per Day: 1 Cigarettes Per Day: 20.0 Years Smoked: onset 15yo, 1ppd x 46yrs, 40+pyh e-Cigarette/Vaping Use: Currently Using Second Hand Smoke Exposure: No Advance Directives Date on File: 09/07/21 service: No Current occupational status: employed Cognitive needs: No Hearing needs: No Vision needs: No Review of Systems Const All systems reviewed & are unremarkable except as noted in HPI and below Physical Exam Vital Signs: Last Vital Signs Pulse 62 11/15/24 12:19 BP 122/80 11/15/24 12:19 Pulse Ox 98 11/15/24 12:19 Oxygen Delivery Method Room Air 11/15/24 12:19 Const General: cooperative, healthy appearing, comfortable and no acute distress Orientation/consciousness: patient oriented x3 HEENT Head: Yes normal to inspection, Yes No palpable skull fracture present and Yes normocephalic Ears: hearing grossly normal bilaterally, external ears normal, EAC's normal, mastoids normal (no TTP) bilaterally and TM abnormal (On the left) bulging and erythematous General nose exam: Normal external nose present Face and sinus: Yes normal facial exam Mouth: Normal oral and palatal mucosa present Teeth and gingiva: dentition normal Throat: Yes posterior oropharynx normal Eyes General: appearance normal, both eyes and all related structures Neck Neck: Yes normal visual inspection, Yes full ROM, Yes no lymphadenopathy, Yes no meningeal signs, Yes trachea midline and Yes supple Resp Effort & Inspection: normal respiratory effort and able to speak in complete sentences Skin General skin exam: no rashes or lesions noted Neuro General: patient oriented x3 and no meningeal signs Assessment & Plan Assessment & Plan (1) Otitis media: Code(s): H66.90 - Otitis media, unspecified, unspecified ear Qualifiers: Otitis media type: suppurative Chronicity: acute Laterality: left Recurrence: non-recurrent Spontaneous tympanic membrane rupture: without spontaneous rupture Qualified Code(s): H66.002 - Acute suppurative otitis media without spontaneous rupture of ear drum, left ear Plan: Supportive measures encouraged and reviewed. Antibiotic sent to requested pharmacy, advised patient to take antibiotics until completed and not to stop if feeling better, unless the patient has side effects. Advised patient to follow up with primary care provider with worsening or failure to resolve. Plan See above for full details and plan. Medications: New amoxicillin-pot clavulanate 875-125 mg 1 tab PO BID 10 days 20 tabs 0RF Coding Level of Care Code Est Pt Level 3 (65507) Diagnoses Non-recurrent acute suppurative otitis media of left ear without spontaneous rupture of tympanic membrane H66.002 Otitis media type: suppurative Chronicity: acute Laterality: left Recurrence: non-recurrent Spontaneous tympanic membrane rupture: without spontaneous rupture
[2024-11-15 12:19] VITALS: BP 122/80; PULSE 62; O2SAT 98
== END 2024-11-15 12:29 | disposition home or self-care (01) ==
PROVIDERS: PCP Internal Medicine; Visit Provider Registered Nurse
DX: H66.002 Acute suppurative otitis media without spontaneous rupture of ear drum, left ear (principal)

== ENCOUNTER 2025-04-19 18:41 | Inpatient (IN) | payer MEDICARE, MEDICAID, SELFPAY ==
[2025-04-19] VITALS (10 sets, daily range): BP systolic 114–150; BP diastolic 44–91; PULSE 71–99; RESP 13–22; TEMP 36.3–36.9; O2SAT 95–100; BMI 16.9
--- NOTE | 2025-04-19 | ECG_ITS ---
Test Reason : DIZZINESS Blood Pressure : */* mmHG Vent. Rate : 81 BPM Atrial Rate : 81 BPM P-R Int : 138 ms QRS Dur : 80 ms QT Int : 410 ms P-R-T Axes : 74 70 78 degrees QTcB Int : 476 ms Normal sinus rhythm Normal ECG When compared with ECG of 30-Sep-2024 18:38, No significant change was found Referred By: Generic ED Physician Electronically Signed By: JAVON CARDONA
--- NOTE | ~2025-04-19 | CT_ITS ---
CLINICAL HISTORY: LGIB, anemic CT abdomen and pelvis with and without contrast Comparison: None Findings: Minimal subsegmental atelectasis/scarring in lung bases. No consolidation or pleural effusion. Small gallstone in the gallbladder consistent with cholelithiasis. No biliary ductal dilatation. No focal hepatic abnormality. Spleen within normal limits. Pancreas is small and demonstrates diffuse scattered calcifications consistent with chronic pancreatitis. No peripancreatic inflammatory stranding to suggest acute pancreatitis Adrenal glands are normal. No renal or ureteral stones with enhancement of bilateral kidneys. Bilateral renal subcentimeter hypodense lesions likely cysts but too small to be fully characterized. No bowel obstruction, pneumoperitoneum or pneumatosis. Mild colonic ileus. No free fluid or loculated fluid collection. No active GI bleed is identified. Appendix is unremarkable. Uterus is small. Mildly distended urinary bladder which otherwise appears unremarkable. Atherosclerotic vascular disease with no aneurysm of the abdominal aorta. Diffuse demineralization. Mild compression fracture of T12 vertebral body with compression of the superior endplate likely nonacute. Avascular necrosis right femoral head. Degenerative disc disease L5-S1. Impression: 1. No active GI bleed is identified. If clinically indicated follow-up tagged RBCs nuclear medicine scan could be obtained. 2. Mild colonic ileus. 3. Cholelithiasis, chronic pancreatitis and additional nonacute findings as described. This document has been electronically signed by: Judie Kimball MD on 04/19/2025 23:18:05
[2025-04-19 19:04] LABS: MANUAL DIFF FLAG NO
[2025-04-19 19:06] LABS: Basophils Percent Auto 0.1 % (0-2); Eosinophils Percent Auto 0.1 % (0-4); Imm Gran Pct Auto 2.5 % (0.0-0.4); Lymphocytes Absolute Auto 2.9 X10*3/uL (1.2-4.9); Mean Corpuscular HGB Conc 34.1 g/dl (31.0-35.0); Mean Corpuscular Hemoglobin 36.3 pg (27.0-33.0); Mean Corpuscular Volume 106.5 fL (80.0-98.0); Mean Platelet Volume 9.4 fL (9.4-12.3); Monocytes Absolute Auto 1.1 X10*3/uL (0.1-1.2); Monocytes Percent Auto 8.8 % (2-11); Neutrophils Absolute Auto 7.7 x10*3/uL (2.0-8.3); Neutrophils Percent Auto 64.5 % (45-73); Platelet Count 171 X10*3/uL (160-400); Red Blood Count 1.24 X10*6/uL (4.20-5.50); Red Cell Distribution Width 18.3 % (11.0-16.0); White Blood Count 11.9 X10*3/uL (4.8-10.8)
[2025-04-19 19:27] LABS: Alanine Aminotransferase 18 U/L (0-31); Albumin Level 3.5 g/dL (3.5-5.0); Alkaline Phosphatase 45 U/L (39-117); Anion Gap 19 (12-20); Aspartate Amino Transferase 41 U/L (5-31); Bilirubin Direct 0.1 mg/dL (0.0-0.5); Bilirubin Total 0.4 mg/dL (0.0-1.0); Blood Urea Nitrogen 19 mg/dL (9-16); Calcium 7.9 mg/dL (8.4-10.2); Carbon Dioxide 20 mmol/L (22-29); Chloride 91 mmol/L (96-108); Creatinine Clr Calc Pharmacy 57.7; Estimated Glomerular Filt Rate > 60; Glucose Random 208 mg/dL (60-115); Lipase < 4 U/L (8-78); Magnesium 1.3 mg/dL (1.6-2.6); Potassium 3.7 mmol/L (3.3-5.1); Sodium 126 mmol/L (135-145); Total Protein 5.7 g/dL (6.5-8.0)
[2025-04-19 19:30] LABS: Troponin-I High Sensitivity 3.2 ng/L (<3.5-17.0)
[2025-04-19 19:34] LABS: NRBC Pct Auto 2.2 /100WBC (0.0-0.2)
[2025-04-19 19:39] LABS: Hematocrit 13.2 % (37.0-47.0)
[2025-04-19 19:42] LABS: Hemoglobin 4.5 g/dl (12.0-16.0); Influenza A PCR NEGATIVE (Negative); Influenza B PCR NEGATIVE (Negative); Resp Syncy Virus RNA Qual PCR NEGATIVE (Negative); SARS COV2 PCR INHOUSE NEGATIVE (Negative)
[2025-04-19 19:47] LABS: INTERNATIONAL NORM RATIO 1.2 (0.9-1.1); Prothrombin Time 13.6 SEC (10.9-12.4)
[2025-04-19 19:50] LABS: Partial Thromboplastin Time 24.7 SEC (26.0-36.8)
[2025-04-19] MEDS: 0.9 % Sodium Chloride 500 ML IV (19:51)
[2025-04-19] MEDS: Magnesium Sulfate/H2O 2 GM/50 ML PIGGYBACK IV (19:52)
[2025-04-19 19:59] LABS: OBS Int Ctl Valid YES; OBS1 POSITIVE (NEGATIVE)
[2025-04-19 20:25] LABS: Ethanol < 10 mg/dL
[2025-04-19] MEDS: Morphine Sulfate 4 MG/ML CARTRIDGE IVPUSH (20:25)
--- NOTE | 2025-04-19 20:28 | PC.NURSE ---
medicated per mar.
[2025-04-19] MEDS: iohexoL 350 MG/ML 100 ML INFUS..BTL 85 ML IV (22:31)
--- NOTE | 2025-04-19 23:33 | ED_ITS ---
HPI - Weakness General Chief complaint: Weakness Stated complaint: GI Bleed Time Seen by Provider: 04/19/25 18:54 Source: patient Limitations: no limitations History of Present Illness ED Provider: Autumn Reardon PA-C HPI Narrative: 64-year-old female with a history of alcohol use disorder, upper GI bleed secondary to duodenal ulcer, underlying macrocytic anemia, COPD, ongoing tobacco abuse who presents with bloody bowel movements x1 week. Patient states she has been having large volume bloody loose stools over the past week, having at least 1 episode a day. Associated lower abdominal discomfort,nausea at times with weakness and fatigue. . Denies fever. denies coffee-ground emesis or melena. Patient states she still consumes alcohol, the last time she drank was last week. When she does drink she states she drinks a pt of hard liquor. Patient denies prior alcohol withdrawal. Related Data Home Medications ?Medication ?Instructions ?Recorded ?Confirmed magnesium 250 mg tablet 500 mg PO DAILY 07/07/22 08/13/24 vitamin B complex 1 cap PO DAILY 07/07/22 08/13/24 alendronate 70 mg tablet 70 mg PO TH 07/30/24 08/13/24 folic acid 1 mg tablet 1 mg PO DAILY 07/30/24 08/13/24 Previous Rx's ?Medication ?Instructions ?Recorded sertraline 50 mg tablet 50 mg PO DAILY #90 tabs 02/26/24 fluticasone fur. 100 mcg-umeclid 1 inh inhalation DAILY #60 ea 08/18/24 62.5 mcg-vilant 25 mcg inhalat.powder (Trelegy Ellipta) amoxicillin 875 mg-potassium 1 tab PO BID 10 days #20 tabs 11/15/24 clavulanate 125 mg tablet Allergies Allergy/AdvReac Type Severity Reaction Status Date / Time chlordiazepoxide AdvReac Intermediate severe Verified 04/19/25 18:52 [From LIBRIUM] confusion and hallucinations Review of Systems 2 Review of Systems: Yes all other systems are reviewed and are negative Constitutional: Constitutional: Reports fatigue and Reports fever(s) Cardiovascular: Cardiovascular: Denies chest pain and Denies dyspnea Respiratory: Respiratory: Denies dyspnea Gastrointestinal: Gastrointestinal: Reports abdominal pain, Denies melena, Reports hematochezia, Denies coffee ground emesis, Denies constipation, Reports loose stools, Reports nausea and Denies vomiting Endocrine: Endocrine: Reports fatigue PMFSH Past Medical History Attestation statement: The following information was validated with the patient. Medical History Nicotine dependence, cigarettes, uncomplicated Duodenal ulcer Gastritis Anxiety Hyponatremia Osteoporosis (~2019) Gallstone ETOH abuse Surgical History History of colonoscopy History of esophagogastroduodenoscopy (EGD) History of surgery on arm Family History Family History Father No problems noted. Mother Lung cancer Other Substance abuse Substance use disorder Social History Social History Household Members: Spouse and Family Housing: House Do you presently have visiting nurse or other home services: No Alcohol intake: current Alcohol intake frequency: 0-2 drinks per day Alcohol type: hard liquor Patient Tobacco Use Status: Current everyday Tobacco user Tobacco use type: Cigarette Cigarette Packs Per Day: 1 Cigarettes Per Day: 20.0 Years Smoked: onset 15yo, 1ppd x 46yrs, 40+pyh Smoked in Last 30 Days: No e-Cigarette/Vaping Use: Currently Using Second Hand Smoke Exposure: No Use of substances other than those prescribed or required for medical reasons: No Advance Directives: Yes Advance Directives on File: Yes Advance Directives Date on File: 09/07/21 Do you have a plan to hurt others: No Plan service: No Current occupational status: employed Cognitive needs: No Hearing needs: No Vision needs: No Physical Exam 2 Vital Signs: Vital Signs: Last Vital Signs Temp 98.3 F 04/20/25 01:04 Pulse 70 04/20/25 01:04 Resp 28 H 04/20/25 01:04 BP 148/75 H 04/20/25 01:04 Pulse Ox 95 04/19/25 23:52 O2 Del Method Room Air 04/19/25 23:52 BMI result Body Mass Index 16.9 Const: Other: alert, pale Orientation/consciousness: patient oriented x3 Resp: Effort & Inspection: normal respiratory effort Cardio: Other: normal peripheral perfusion GI: Other: abdomen is soft, nondistended, mild tenderness across lower abdomen without guarding, stool dark brown and maroon tinged no melena Skin: Other: warm dry no rash Neuro: General: patient oriented x3, gait normal, no focal motor deficits and CN's II-XI intact bilaterally Psych: Other: cooperative Course Reevaluation(s) Reevaluation #1: speaking with from hospitalist service, he would like repeat H&H..... I did relate to him that the patient is not having active bloody bowel movements here in the ER, and the CT scan revealed no active bleeding Medications Administered Discontinued Medications Generic Name Dose Route Start Last Admin Trade Name Shaila PRN Reason Stop Dose Admin Diazepam 5 mg 04/19/25 23:40 04/19/25 23:59 Diazepam 10 Mg/2 Ml Cartridge IVPUSH 04/19/25 23:41 5 mg STAT STA Administration Sodium Chloride 500 mls @ 500 mls/hr 04/19/25 18:54 04/19/25 20:52 Ns IV 04/19/25 19:53 Infused .Q1H ONE Infusion Magnesium Sulfate 2 gm in 50 mls @ 25 mls/hr 04/19/25 19:32 04/19/25 21:50 Magnesium Sulfate/H2o IV 04/19/25 21:31 Infused ONCE ONE Infusion Iohexol 85 ml 04/19/25 22:31 04/19/25 22:31 Iohexol 350 Mg/Ml 100 Ml Infus..Btl IV 04/19/25 22:32 85 ml ONCE ONE Administration Morphine Sulfate 4 mg 04/19/25 20:08 04/19/25 20:25 Morphine Sulfate 4 Mg/Ml Cartridge IVPUSH 04/19/25 20:09 4 mg ONCE ONE Administration Protocol Medical Decision Making Medical Decision Making MDM Narrative: 64-year-old female with a history of alcohol use disorder, upper GI bleed secondary to duodenal ulcer, underlying macrocytic anemia, COPD, ongoing tobacco abuse who presents with bloody bowel movements x1 week. Patient states she has been having large volume bloody loose stools over the past week, having at least 1 episode a day. Associated lower abdominal discomfort,nausea at times with weakness and fatigue. . Denies fever. denies coffee-ground emesis or melena. Patient states she still consumes alcohol, the last time she drank was last week. When she does drink she states she drinks a pt of hard liquor. Patient denies prior alcohol withdrawal. problem: Alcohol use disorder, prior upper GI bleed, known anemia History: Per patient I have considered the following differential diagnoses: Diverticulitis, diverticulosis, polyp, malignancy, colitis Plan: We will be ordering a CT scan with GI protocol. Giving small bolus of IV fluid, morphine and Zofran. Adding on an ethanol level. Other screening labs already in process and resulted. We will be ordering blood products as she is critically anemic. Giving 2 g of magnesium, she is also hyponatremic, she will require a CIWA protocol as well. I have independently reviewed the following tests: Labs: Slight leukocytosis, critical anemia at 4.5 and 13.2, platelet count 171, the patient is hyponatremic at 126, magnesium at 1.3, ethanol negative at less than 10, viral panel negative, guaiac positive, repeat H&H 6.[address] abdomen and pelvis:Impression: 1. No active GI bleed is identified. If clinically indicated follow-up tagged RBCs nuclear medicine scan could be obtained. 2. Mild colonic ileus. 3. Cholelithiasis, chronic pancreatitis and additional nonacute findings as described. Lab Data 04/20/25 00:41 04/19/25 18:56 Labs: Lab Results 04/19/25 04/19/25 04/19/25 Range/Units 18:56 19:00 19:33 WBC 11.9 H (4.8-10.8) X10*3/uL RBC 1.24 L D (4.20-5.50) X10*6/uL Hgb 4.5 L* D (12.0-16.0) g/dl Hct 13.2 L* D (37.0-47.0) % MCV 106.5 H (80.0-98.0) fL MCH 36.3 H (27.0-33.0) pg MCHC 34.1 (31.0-35.0) g/dl RDW 18.3 H (11.0-16.0) % Plt Count 171 (160-400) X10*3/uL MPV 9.4 (9.4-12.3) fL Immature Gran % (Auto) 2.5 H (0.0-0.4) % Neut % (Auto) 64.5 (45-73) % Lymph % (Auto) 24.0 (20-40) % [place] % (Auto) 8.8 (2-11) % Eos % (Auto) 0.1 (0-4) % Baso % (Auto) 0.1 (0-2) % Lymph # (Auto) 2.9 (1.2-4.9) X10*3/uL [place] # (Auto) 1.1 (0.1-1.2) X10*3/uL Eos # (Auto) 0.0 (0.0-0.4) X10*3/uL Baso # (Auto) 0.0 (0.0-0.2) X10*3/uL Abs Immat Gran (auto) 0.30 H (0.00-0.03) X10*3/uL Absolute Neuts (auto) 7.7 (2.0-8.3) x10*3/uL Absolute Nucleated RBC 0.260 H (0.0-0.012) X10*3/uL Nucleated RBC % (auto) 2.2 H (0.0-0.2) /100WBC PT 13.6 H (10.9-12.4) SEC INR 1.2 H (0.9-1.1) APTT 24.7 L (26.0-36.8) SEC Sodium 126 L (135-145) mmol/L Potassium 3.7 (3.3-5.1) mmol/L Chloride 91 L (96-108) mmol/L Carbon Dioxide 20 L (22-29) mmol/L Anion Gap 19 (12-20) BUN 19 H (9-16) mg/dL Creatinine 0.73 (0.5-1.4) mg/dL Estim Creat Clear Calc 57.7 Estimated GFR > 60 Random Glucose 208 H (60-115) mg/dL Calcium 7.9 L (8.4-10.2) mg/dL Magnesium 1.3 L* (1.6-2.6) mg/dL Total Bilirubin 0.4 (0.0-1.0) mg/dL Direct Bilirubin 0.1 (0.0-0.5) mg/dL AST 41 H (5-31) U/L ALT 18 (0-31) U/L Alkaline Phosphatase 45 (39-117) U/L Troponin I High Sens 3.2 D (<3.5-17.0) ng/L Total Protein 5.7 L (6.5-8.0) g/dL Albumin 3.5 (3.5-5.0) g/dL Lipase < 4 L (8-78) U/L Stool Occult Blood POSITIVE (NEGATIVE) Ethyl Alcohol < 10 mg/dL Influenza Type A (PCR) NEGATIVE (Negative) Influenza Type B (PCR) NEGATIVE (Negative) RSV RNA Qual (PCR) NEGATIVE (Negative) SARS-CoV-2 RNA (RT-PCR) NEGATIVE (Negative) Blood Type A Positive Antibody Screen NEGATIVE Crossmatch See Detail 04/20/25 Range/Units 00:41 WBC (4.8-10.8) X10*3/uL RBC (4.20-5.50) X10*6/uL Hgb 6.5 L* D (12.0-16.0) g/dl Hct 18.6 L* D (37.0-47.0) % MCV (80.0-98.0) fL MCH (27.0-33.0) pg MCHC (31.0-35.0) g/dl RDW (11.0-16.0) % Plt Count (160-400) X10*3/uL MPV (9.4-12.3) fL Immature Gran % (Auto) (0.0-0.4) % Neut % (Auto) (45-73) % Lymph % (Auto) (20-40) % [place] % (Auto) (2-11) % Eos % (Auto) (0-4) % Baso % (Auto) (0-2) % Lymph # (Auto) (1.2-4.9) X10*3/uL [place] # (Auto) (0.1-1.2) X10*3/uL Eos # (Auto) (0.0-0.4) X10*3/uL Baso # (Auto) (0.0-0.2) X10*3/uL Abs Immat Gran (auto) (0.00-0.03) X10*3/uL Absolute Neuts (auto) (2.0-8.3) x10*3/uL Absolute Nucleated RBC (0.0-0.012) X10*3/uL Nucleated RBC % (auto) (0.0-0.2) /100WBC PT (10.9-12.4) SEC INR (0.9-1.1) APTT (26.0-36.8) SEC Sodium (135-145) mmol/L Potassium (3.3-5.1) mmol/L Chloride (96-108) mmol/L Carbon Dioxide (22-29) mmol/L Anion Gap (12-20) BUN (9-16) mg/dL Creatinine (0.5-1.4) mg/dL Estim Creat Clear Calc Estimated GFR Random Glucose (60-115) mg/dL Calcium (8.4-10.2) mg/dL Magnesium (1.6-2.6) mg/dL Total Bilirubin (0.0-1.0) mg/dL Direct Bilirubin (0.0-0.5) mg/dL AST (5-31) U/L ALT (0-31) U/L Alkaline Phosphatase (39-117) U/L Troponin I High Sens (<3.5-17.0) ng/L Total Protein (6.5-8.0) g/dL Albumin (3.5-5.0) g/dL Lipase (8-78) U/L Stool Occult Blood (NEGATIVE) Ethyl Alcohol mg/dL Influenza Type A (PCR) (Negative) Influenza Type B (PCR) (Negative) RSV RNA Qual (PCR) (Negative) SARS-CoV-2 RNA (RT-PCR) (Negative) Blood Type Antibody Screen Crossmatch Discharge Plan Discharge Clinical Impression: ETOH abuse, Acute lower GI bleeding Patient Disposition: Admitted As Inpatient Print Language: Maori
[2025-04-19] MEDS: diazePAM 10 MG/2 ML CARTRIDGE 5 MG IVPUSH (23:59)
[2025-04-20] VITALS (14 sets, daily range): BP systolic 114–152; BP diastolic 55–80; PULSE 60–95; RESP 12–28; TEMP 36.4–36.9; O2SAT 95–99; BMI 17.6
--- NOTE | 2025-04-20 00:23 | PM.IMHP ---
History of Present Illness Date of Service: 04/20/25 Attending physician on admission: Jona Sams Chief Complaint: Bloody stools Patient is a 64-year-old female with a past medical history significant for alcohol use disorder, history upper GI bleed secondary to duodenal ulcer chronic microcytic anemia, stage I COPD tobacco use disorder presented to the ED due to bloody stools x1 week. She reports at least 1 episode of a large movement daily. She has associated lower abdominal pain, mostly in the RLQ, and nausea as well as weakness and fatigue. She denies any fever, coffee-ground emesis melena. She does have a history alcohol use disorder in her last alcoholic drink was 1 week ago. When she does consume alcohol she drinks about 1 pt per day. She denies any chest pain, shortness of or urinary symptoms including frequency, urgency or dysuria. Review of Systems Constitutional: Constitutional: Denies body ache(s), Reports fatigue, Denies fever(s) and Denies headache(s) Eyes: Eyes: Denies change in vision and Denies photophobia ENT: Denies headache(s), Denies nasal congestion, Denies nasal discharge and Denies sore throat Cardiovascular: Cardiovascular: Denies chest pain, Denies rapid heart rate, Denies leg edema, Denies lightheadedness and Denies dyspnea Respiratory: Respiratory: Denies chest congestion, Denies cough, Denies dyspnea and Denies wheezing Gastrointestinal: Gastrointestinal: Reports as per HPI Genitourinary: Genitourinary: Denies difficulty voiding, Denies dysuria and Denies urinary urgency Musculoskeletal: Musculoskeletal: Denies back pain Integumentary/Breasts: Skin/Breast: Denies rash Neurologic: Denies confusion and Denies headache(s) Psychiatric: Psychiatric: Denies confusion Endocrine: Endocrine: Reports fatigue Hematologic/Lymphatic: Hematologic/Lymphatic: Denies easy bruising Allergic/Immunologic: Allergic/Immunologic: Denies wheezing PMFSH Medical History Nicotine dependence, cigarettes, uncomplicated Duodenal ulcer Gastritis Anxiety Hyponatremia Osteoporosis (~2019) Gallstone ETOH abuse Family History Father No problems noted. Mother Lung cancer Other Substance abuse Substance use disorder Surgical History History of colonoscopy History of esophagogastroduodenoscopy (EGD) History of surgery on arm Social History Household Members: Spouse and Family Housing: House Do you presently have visiting nurse or other home services: No Alcohol intake: current Alcohol intake frequency: 0-2 drinks per day Alcohol type: hard liquor Patient Tobacco Use Status: Current everyday Tobacco user Tobacco use type: Cigarette Cigarette Packs Per Day: 1 Cigarettes Per Day: 20.0 Years Smoked: onset 15yo, 1ppd x 46yrs, 40+pyh Smoked in Last 30 Days: No e-Cigarette/Vaping Use: Currently Using Second Hand Smoke Exposure: No Use of substances other than those prescribed or required for medical reasons: No Advance Directives: Yes Advance Directives on File: Yes Advance Directives Date on File: 09/07/21 Do you have a plan to hurt others: No Plan service: No Current occupational status: employed Cognitive needs: No Hearing needs: No Vision needs: No Meds Allergies Allergy/AdvReac Type Severity Reaction Status Date / Time chlordiazepoxide AdvReac Intermediate severe Verified 04/19/25 18:52 [From LIBRIUM] confusion and hallucinations Home Medications ?Medication ?Instructions ?Recorded ?Confirmed ?Last Taken ?Type magnesium 250 mg tablet 500 mg PO DAILY 07/07/22 08/13/24 1 Week Ago History ~07/23/24 vitamin B complex 1 cap PO DAILY 07/07/22 08/13/24 1 Week Ago History ~07/23/24 alendronate 70 mg tablet 70 mg PO TH 07/30/24 08/13/24 07/29/24 History folic acid 1 mg tablet 1 mg PO DAILY 07/30/24 08/13/24 07/23/24 History Physical Exam Vital Signs and Narrative: Vital Signs: Last Vital Signs Temp 98.5 F 04/19/25 23:52 Pulse 74 04/19/25 23:52 Resp 18 04/19/25 23:52 BP 148/91 H 04/19/25 23:52 Pulse Ox 95 04/19/25 23:52 O2 Del Method Room Air 04/19/25 23:52 BMI result Body Mass Index 16.9 General: AOx3, no acute distress Resp: CTA bilaterally CVS: S1, S2, RRR GI: +BS, tender RLQ, no distention Skin: Warm, dry Neuro: Cranial nerves II-XII grossly intact bilaterally. Motor grossly intact bilaterally Extremities: No LE edema Psych: Appropriate affect Const: General: No confusion Orientation/consciousness: No confusion Eyes: Direct Ophthalmoscopy: No photophobia Neuro: General: No confusion Results Labs 04/20/25 00:41 04/19/25 18:56 Labs: Laboratory Results - last 24 hr 04/19/25 04/19/25 04/19/25 18:56 19:00 19:33 MCV 106.5 H MCH 36.3 H MCHC 34.1 RDW 18.3 H Plt Count 171 MPV 9.4 Immature Gran % (Auto) 2.5 H Neut % (Auto) 64.5 Lymph % (Auto) 24.0 [place] % (Auto) 8.8 Eos % (Auto) 0.1 Baso % (Auto) 0.1 Lymph # (Auto) 2.9 [place] # (Auto) 1.1 Eos # (Auto) 0.0 Baso # (Auto) 0.0 Abs Immat Gran (auto) 0.30 H Absolute Neuts (auto) 7.7 Absolute Nucleated RBC 0.260 H Nucleated RBC % (auto) 2.2 H PT 13.6 H INR 1.2 H APTT 24.7 L Anion Gap 19 Estim Creat Clear Calc 57.7 Estimated GFR > 60 Random Glucose 208 H Calcium 7.9 L Magnesium 1.3 L* Total Bilirubin 0.4 Direct Bilirubin 0.1 AST 41 H ALT 18 Alkaline Phosphatase 45 Troponin I High Sens 3.2 D Total Protein 5.7 L Albumin 3.5 Lipase < 4 L Stool Occult Blood POSITIVE Ethyl Alcohol < 10 Influenza Type A (PCR) NEGATIVE Influenza Type B (PCR) NEGATIVE RSV RNA Qual (PCR) NEGATIVE SARS-CoV-2 RNA (RT-PCR) NEGATIVE Blood Type A Positive Antibody Screen NEGATIVE Crossmatch See Detail Assessment and Plan (1) Acute lower GI bleeding: Status: Acute (2) Macrocytic anemia: Status: Acute (3) Hyponatremia: Status: Acute (4) Hypochloremia: Status: Acute (5) Metabolic acidosis: Status: Acute (6) Alcohol use disorder: Status: Acute (7) Protein calorie malnutrition: Status: Acute (8) Nicotine dependence, cigarettes, uncomplicated: Status: Acute Plan Patient is a 64-year-old female with a past medical history significant for alcohol use disorder, history upper GI bleed secondary to duodenal ulcer chronic microcytic anemia, stage I COPD tobacco use disorder presented to the ED due to bloody stools x1 week. Acute lower GI bleed - hemoglobin 4.5, hematocrit 13 point - abdominopelvic CT negative for bleed, mild colonic ileus, chronic pancreatitis and cholelithiasis - AST mildly elevated at 41, ALT 18 - guaiac-positive - alcohol level normal - NPO - given 500 mL NS - 2 L PRBC ordered - GI panel - GI consult - recheck CBC after blood transfusion complain Macrocytic anemia - check B12 folate - iron studies Hypovolemic hyponatremia with hypochloremia and metabolic acidosis - secondary to GI bleed - given 500 mL NS in ED - 2 L PRBC - monitor BMP Hypomagnesemia - Mag 1.3 - given 2 g IV in ED - recheck magnesium in a.m. Alcohol use disorder - has not has a drink in 1 week, but does drink 1 pt per day when consuming - continue CIWA - no history of alcohol withdrawal Protein calorie malnutrition - BMI 16.9 - nutrition consult when appropriate Tobacco use disorder - smoking cessation encouraged - nicotine patch Full code VTE prophylaxis: Pneumoboots secondary to GI bleed Patient with acute GI bleed complicated by electrolyte imbalances, requiring admission for at least 2 midnights stay for blood transfusion monitoring and GI evaluation. Quality Stroke Does the patient have a stroke diagnosis?: No VTE Prior VTE?: No VTE Risk Level:: Medical - moderate - high VTE Device Contraindication: N/A - Device Ordered VTE Drug Contraindication: Treatment Not Indicated
[2025-04-20 00:52] LABS: Hematocrit 18.6 % (37.0-47.0); Hemoglobin 6.5 g/dl (12.0-16.0)
--- NOTE | 2025-04-20 01:18 | PC.NURSE ---
patient tolerating blood transfusion well, 1st unit is complete, 2nd unit has begun, patient utilized bedan without issue, voided x2, VSS, afebrile, resting comfortably on stretcher, +effect post administration of ordered Valium, A&Ox4, speaking in complete sentences, respirations even and unlabored, remains on full director of cardiac cath lab for continuous observation, awaiting admission bed
[2025-04-20 05:03] LABS: MANUAL DIFF FLAG NO
[2025-04-20 05:05] LABS: Basophils Percent Auto 0.2 % (0-2); Eosinophils Percent Auto 0.2 % (0-4); Hematocrit 24.8 % (37.0-47.0); Hemoglobin 8.5 g/dl (12.0-16.0); Imm Gran Pct Auto 1.8 % (0.0-0.4); Lymphocytes Absolute Auto 3.2 X10*3/uL (1.2-4.9); Lymphocytes Percent Auto 28.6 % (20-40); Mean Corpuscular HGB Conc 34.3 g/dl (31.0-35.0); Mean Corpuscular Hemoglobin 33.6 pg (27.0-33.0); Mean Platelet Volume 9.6 fL (9.4-12.3); Monocytes Absolute Auto 1.1 X10*3/uL (0.1-1.2); Monocytes Percent Auto 9.5 % (2-11); Neutrophils Absolute Auto 6.6 x10*3/uL (2.0-8.3); Neutrophils Percent Auto 59.7 % (45-73); Platelet Count 157 X10*3/uL (160-400); Red Blood Count 2.53 X10*6/uL (4.20-5.50); Red Cell Distribution Width 16.7 % (11.0-16.0); White Blood Count 11.1 X10*3/uL (4.8-10.8)
[2025-04-20 05:19] LABS: Anion Gap 17 (12-20); Blood Urea Nitrogen 12 mg/dL (9-16); Calcium 7.5 mg/dL (8.4-10.2); Carbon Dioxide 22 mmol/L (22-29); Chloride 93 mmol/L (96-108); Creatinine Clr Calc Pharmacy 76.7; Estimated Glomerular Filt Rate > 60; Glucose Random 103 mg/dL (60-115); Iron 51 mcg/dL (30-160); Magnesium 1.6 mg/dL (1.6-2.6); Percent Iron Saturation 24 % (15-50); Potassium 3.5 mmol/L (3.3-5.1); Sodium 128 mmol/L (135-145); Total Iron Binding Capacity 212 mcg/dL (228-428); Unsaturated Iron Binding 161 ug/dL
[2025-04-20 05:55] LABS: Folate 14.8 ng/mL (> or = 4.0); Vitamin B12 559 pg/mL (200-900)
--- NOTE | 2025-04-20 07:57 | PHA.MEDREC ---
Addendum entered by Vamshi Manning PharmD 04/20/25 08:11: reviewed Original Note: Pharmacy Consult ? Medication Reconciliation Pharmacy has completed the medication reconciliation. Patient states she is no longer taking Alendronate 70 mg, Fluticasone Fur.100 mcg-Umeclid 62.5 mcg-Vilant 25 mcg. Patient states she is still taking Sertraline 50 mg, however last fill date was 10/06/24 for 90 days. Patient says she last had her medications yesterday.
[2025-04-20 08:24] LABS: Iron 41 mcg/dL (30-160); Percent Iron Saturation 20 % (15-50); Total Iron Binding Capacity 206 mcg/dL (228-428); Unsaturated Iron Binding 165 ug/dL
[2025-04-20] MEDS: Sertraline HCL 50 MG TABLET PO (09:26)
[2025-04-20] MEDS: Multivitamin TABLET 1 TAB PO (09:26)
[2025-04-20] MEDS: Folic Acid 1 MG TABLET PO (09:27)
--- NOTE | 2025-04-20 09:38 | MHC.CM.PN ---
Addendum entered by Shakira Monsalve RN 04/20/25 09:45: MEDICARE CARD SENT TO PT REGISTRATION VIA [employer] Original Note: EMR REVIEWED PT W/GI BLEED/ETOH, CM MET W/PT AT BEDSIDE, PT A&O AND REPORTS SHE HAS A MEDICARE CARD HOWEVER PT REPORTS SHE SAID SHE GOT A LETTER SAYING IT WAS INACTIVE BECAUSE SHE OWED $185., PT A;SO REPORTS SHE HAS BEEN HAVING SOME DIFFICULTY W/HER MH AVI AND REF HAS BEEN EMAILED TO [facility]. PT IS FULLY INDEP, DENIES USE OF DME/SERVICES, PCP/HCP ON FILE VERIFIED AND PLAN FOR PT TO DC HOME SELF-CARE W/PT ARRANGING PRIVATE TRANSPORT.
--- NOTE | 2025-04-20 11:19 | HO.PM.IMPN ---
Subjective Subjective Date of Service: 04/20/25 Interval History: no further bloody bms Physical Exam Vital Signs: Vital Signs: Last Vital Signs Temp 97.6 F 04/20/25 09:05 Pulse 71 04/20/25 09:05 Resp 18 04/20/25 09:05 BP 152/69 H 04/20/25 09:05 Pulse Ox 98 04/20/25 09:05 O2 Del Method Room Air 04/20/25 09:05 BMI result Body Mass Index 17.6 General: AO X 3, no acute distress Resp: CTA bilateral, no accessory muscles used CVS: S1,S2,RRR GI: soft, non tender, non distended Neuro: motor grossly intact, alert Psych: appropriate affect, appropriate insight Objective Data Active Medications Acetaminophen (Acetaminophen 325 Mg Tablet) 650 mg PO Q6H PRN PRN Reason: Pain, Mild 1-3,fever,headache Calcium Carbonate (Calcium Carbonate 750 Mg Tab.Chew) 750 mg PO Q4H PRN PRN Reason: Heartburn Folic Acid (Folic Acid 1 Mg Tablet) 1 mg PO DAILY [facility] Last Admin: 04/20/25 09:27 Dose: 1 mg Documented By: ANA Magnesium Hydroxide (Milk Of Magnesia 30 Ml Oral.Susp) 30 ml PO DAILY PRN PRN Reason: Constipation Melatonin (Melatonin 3 Mg Tablet) 6 mg PO BEDTIME PRN PRN Reason: Insomnia Morphine Sulfate (Morphine Sulfate 4 Mg/Ml Cartridge) 2 mg IVPUSH Q4H PRN; Protocol PRN Reason: Pain, Severe (Pain Scale 7-10) Multivitamins/Vitamin C (Multivitamin Tablet) 1 tab PO DAILY [facility] Last Admin: 04/20/25 09:26 Dose: 1 tab Documented By: ANA Ondansetron HCl (Ondansetron Hcl 4 Mg/2 Ml Vial) 4 mg IVPUSH Q8H PRN PRN Reason: Nausea and Vomiting Oxycodone HCl (Oxycodone Hcl Immed Release 5 Mg Tablet) 5 mg PO Q6H PRN PRN Reason: Pain, Moderate(Pain Scale 4-6) Sertraline HCl (Sertraline Hcl 50 Mg Tablet) 50 mg PO DAILY [facility] Last Admin: 04/20/25 09:26 Dose: 50 mg Documented By: ANA Sodium Chloride (0.9 % Sodium Chloride Flush 3 Ml Syringe) 3 ml IVFLUSH QSHIFT [facility] Last Admin: 04/20/25 07:33 Dose: Not Given Documented By: REJI Non-Admin Reason: Patient Asleep Labs 04/20/25 04:58 04/20/25 04:58 Labs: Laboratory Results - last 24 hr 04/19/25 04/19/25 04/19/25 18:56 19:00 19:33 MCV 106.5 H MCH 36.3 H MCHC 34.1 RDW 18.3 H Plt Count 171 MPV 9.4 Immature Gran % (Auto) 2.5 H Neut % (Auto) 64.5 Lymph % (Auto) 24.0 [place] % (Auto) 8.8 Eos % (Auto) 0.1 Baso % (Auto) 0.1 Lymph # (Auto) 2.9 [place] # (Auto) 1.1 Eos # (Auto) 0.0 Baso # (Auto) 0.0 Abs Immat Gran (auto) 0.30 H Absolute Neuts (auto) 7.7 Absolute Nucleated RBC 0.260 H Nucleated RBC % (auto) 2.2 H Smear Path Review SEE NOTE PT 13.6 H INR 1.2 H APTT 24.7 L Anion Gap 19 Estim Creat Clear Calc 57.7 Estimated GFR > 60 Random Glucose 208 H Estimat Average Glucose TNP Hemoglobin A1c % TNP Calcium 7.9 L Magnesium 1.3 L* Iron 41 TIBC 206 L % Saturation 20 Unsat Iron Binding 165 Total Bilirubin 0.4 Direct Bilirubin 0.1 AST 41 H ALT 18 Alkaline Phosphatase 45 Troponin I High Sens 3.2 D Total Protein 5.7 L Albumin 3.5 Lipase < 4 L Vitamin B12 Folate Stool Occult Blood POSITIVE Ethyl Alcohol < 10 Influenza Type A (PCR) NEGATIVE Influenza Type B (PCR) NEGATIVE RSV RNA Qual (PCR) NEGATIVE SARS-CoV-2 RNA (RT-PCR) NEGATIVE Blood Type A Positive Antibody Screen NEGATIVE Crossmatch See Detail 04/20/25 04:58 MCV 98.0 D MCH 33.6 H MCHC 34.3 RDW 16.7 H Plt Count 157 L MPV 9.6 Immature Gran % (Auto) 1.8 H Neut % (Auto) 59.7 Lymph % (Auto) 28.6 [place] % (Auto) 9.5 Eos % (Auto) 0.2 Baso % (Auto) 0.2 Lymph # (Auto) 3.2 [place] # (Auto) 1.1 Eos # (Auto) 0.0 Baso # (Auto) 0.0 Abs Immat Gran (auto) 0.20 H Absolute Neuts (auto) 6.6 Absolute Nucleated RBC 0.330 H Nucleated RBC % (auto) 3.0 H Smear Path Review PT INR APTT Anion Gap 17 Estim Creat Clear Calc 76.7 Estimated GFR > 60 Random Glucose 103 Estimat Average Glucose Hemoglobin A1c % Calcium 7.5 L Magnesium 1.6 Iron 51 TIBC 212 L % Saturation 24 Unsat Iron Binding 161 Total Bilirubin Direct Bilirubin AST ALT Alkaline Phosphatase Troponin I High Sens Total Protein Albumin Lipase Vitamin B12 559 Folate 14.8 Stool Occult Blood Ethyl Alcohol Influenza Type A (PCR) Influenza Type B (PCR) RSV RNA Qual (PCR) SARS-CoV-2 RNA (RT-PCR) Blood Type Antibody Screen Crossmatch Assessment and Plan (1) ETOH abuse: Status: Acute Plan 64F H alcohol dependence, duodenal ulcer, COPD presented with hematochezia found to have severe anemia Acute blood loss anemia Transfused PRBCs and hemoglobin improved appropriately Pre transfusion iron studies not consistent with iron-deficiency, likely additional component of alcohol-related anemia Follow up GI, monitor hemoglobin Hypomagnesemia Replace and monitor Hyponatremia Likely beer [place], improving with fluids Monitor Protein calorie malnutrition Moderate, encouraged nutrition Alcohol dependence Monitor for withdrawal Continue vitamins DVT prophylaxis-mechanical due to GI bleed Full Code reason for continued hospitalization: Working up GI bleed Quality Stroke Does the patient have a stroke diagnosis?: No VTE Prior VTE?: No VTE Risk Level:: Medical - moderate - high VTE Device Contraindication: N/A - Device Ordered VTE Drug Contraindication: Treatment Not Indicated
--- NOTE | 2025-04-20 11:58 | MHC.CLN ---
CONSULT PT IS MODERATELY MALNOURISHED PT WITH MILDLY DEPLETED SUBCUTANEOUS FAT AND MUSCLE MASS WITH CHRONIC POOR PO INTAKE PT IS CURRENTLY NPO WHEN DIET TO ADVANCE RECOMMEND ADDING ENSURE BID TO INCREASE KCALS SUPP TO PROVIDE 700KCALS, 40G PROTEIN MONITOR PO INTAKE AND ENCOURAGE SUPPLEMENTS SEE ALSO FULL CLINICAL NUTRITON ASSESSMENT
--- NOTE | 2025-04-20 15:56 | PM.EVENT ---
Event Note Date of Service: 04/20/25 Event Note: GI EGD/Colonoscopy planned for 04/21 to evaluate gi bleeding. She is aware of risks and benefits and agreees to proceed. Time Spent With Patient Time: Total time managing care of this patient today ____ minutes.
[2025-04-20] MEDS: Omeprazole 40 MG CAPSULE.DR PO (18:06)
[2025-04-20] MEDS: 0.9 % Sodium Chloride Flush 3 ML SYRINGE IVFLUSH (18:06)
[2025-04-20] MEDS: PEG 3350/Na Sulf,Bicarb,Cl/KCL 4,000 ML SOLN.RECON 4000 ML PO (18:06)
--- NOTE | 2025-04-20 21:38 | CONS_ITS ---
DATE OF SERVICE: 04/20/2025 REFERRING PHYSICIAN: JOAN Brady REASON FOR CONSULTATION: GI bleeding. HISTORY OF PRESENT ILLNESS: The patient is a pleasant 64-year-old woman with a history of alcohol abuse, who was admitted to the hospital after presenting to the emergency room with symptoms of black and bloody stools. This was associated with abdominal pain, mostly in the lower quadrants bilaterally. She denies any hematemesis or melena. Initially stools were black and hard, but subsequently became reddish. She denies drinking alcohol over the past week, but has been intermittently sober. Alcohol level on admission was undetectable. She has been on a proton pump inhibitor as an outpatient because of a history of previous ulcer disease, but stopped taking this several months ago by her report. Her last endoscopy in June of 2022 showed duodenal ulcers with associated duodenitis. She believes her last colonoscopy was approximately 3 years ago. Records do not indicate any recent colonoscopy at that time. She also has been using some Advil intermittently, but not on a regular basis. On evaluation in the emergency department, her hematocrit was 13.2, down from 35.7. She was given 2 units of packed red blood cells and hematocrit this morning was 24.8. There has been no reported melena since admission per the patient and her registered nurse. PAST MEDICAL HISTORY: 1. Peptic ulcer disease as above. 2. Alcohol abuse, intermittently sober. 3. Anemia. 4. COPD. 5. Tobacco use. 6. Osteoporosis. 7. Gallbladder disease. 8. Anxiety. CURRENT MEDICATIONS: Her current medication list is reviewed in the chart. ALLERGIES: CHLORDIAZEPOXIDE. FAMILY HISTORY: This is reviewed with the patient and is noncontributory. SOCIAL HISTORY: There is tobacco use and alcohol use as described above. REVIEW OF SYSTEMS: SKIN: No pruritus. HEENT: Negative. CARDIOPULMONARY: No shortness of breath or chest pain. GASTROINTESTINAL: As above. GENITOURINARY: Negative. NEUROPSYCHIATRIC: Negative. PHYSICAL EXAMINATION: GENERAL: Shows a pleasant female, lying comfortably in bed. VITAL SIGNS: Reviewed in electronic medical record and are stable. SKIN: Anicteric. HEENT: Shows no scleral icterus. NECK: Without lymphadenopathy or thyromegaly. LUNGS: Clear. HEART: Shows regular rate and rhythm. S1, S2. No murmur. ABDOMEN: Soft without focal masses or tenderness. Bowel sounds are present. No organomegaly is noted. EXTREMITIES: Without edema. LABORATORY DATA AND IMAGING STUDIES: Reviewed. She did have a CAT scan, which was negative for any active GI bleeding. IMPRESSION: GI blood loss. From her description, this may represent a recurrent upper GI bleed from peptic ulcer disease, although with her description of bloody stools, I would recommend further evaluation with both upper endoscopy and colonoscopy to rule out the possibility of a lower GI source. We discussed risks and benefits of both procedures today. She understands these and agrees to proceed. She has been placed on a proton pump inhibitor. Thanks for asking me to see her. I will follow her in the hospital with you. MD MIKA Rothman/NEVIN / [phone]
[2025-04-21] VITALS (13 sets, daily range): BP systolic 98–164; BP diastolic 54–68; PULSE 63–90; RESP 11–18; TEMP 2.7–37.6; O2SAT 95–100
[2025-04-21 06:43] LABS: MANUAL DIFF FLAG NO
[2025-04-21 06:47] LABS: Basophils Percent Auto 0.1 % (0-2); Eosinophils Absolute Auto 0.1 X10*3/uL (0.0-0.4); Eosinophils Percent Auto 0.7 % (0-4); Hematocrit 22.8 % (37.0-47.0); Hemoglobin 8.2 g/dl (12.0-16.0); Imm Gran Abs Auto 0.12 X10*3/uL (0.00-0.03); Imm Gran Pct Auto 1.4 % (0.0-0.4); Lymphocytes Absolute Auto 2.1 X10*3/uL (1.2-4.9); Lymphocytes Percent Auto 24.1 % (20-40); Mean Corpuscular Hemoglobin 34.3 pg (27.0-33.0); Mean Corpuscular Volume 95.4 fL (80.0-98.0); Monocytes Absolute Auto 1.1 X10*3/uL (0.1-1.2); Monocytes Percent Auto 12.8 % (2-11); NRBC Pct Auto 0.6 /100WBC (0.0-0.2); Neutrophils Absolute Auto 5.4 x10*3/uL (2.0-8.3); Neutrophils Percent Auto 60.9 % (45-73); Platelet Count 155 X10*3/uL (160-400); Red Blood Count 2.39 X10*6/uL (4.20-5.50); Red Cell Distribution Width 19.3 % (11.0-16.0); White Blood Count 8.8 X10*3/uL (4.8-10.8)
[2025-04-21 07:31] LABS: Alanine Aminotransferase 19 U/L (0-31); Albumin Level 2.9 g/dL (3.5-5.0); Alkaline Phosphatase 41 U/L (39-117); Anion Gap 12 (12-20); Aspartate Amino Transferase 52 U/L (5-31); Bilirubin Direct 0.3 mg/dL (0.0-0.5); Bilirubin Total 0.7 mg/dL (0.0-1.0); Blood Urea Nitrogen 9 mg/dL (9-16); Calcium 7.2 mg/dL (8.4-10.2); Carbon Dioxide 29 mmol/L (22-29); Chloride 94 mmol/L (96-108); Estimated Glomerular Filt Rate > 60; Glucose Random 120 mg/dL (60-115); Magnesium 1.4 mg/dL (1.6-2.6); Sodium 132 mmol/L (135-145); Total Protein 4.9 g/dL (6.5-8.0)
[2025-04-21] MEDS: Magnesium Sulfate/H2O 2 GM/50 ML PIGGYBACK IV (07:56)
[2025-04-21] MEDS: Potassium Chloride ER 20 MEQ TAB.ER.PRT 40 MEQ PO (07:57)
[2025-04-21] MEDS: 0.9 % Sodium Chloride Flush 3 ML SYRINGE IVFLUSH ×2 (07:59→18:09)
--- NOTE | 2025-04-21 09:12 | P.CONAN_ITS ---
HPI - Anesthesia Eval Consult details Narrative: endo plus colon for eval gi bleed PMFSH Active Problems Active Problems: All Active Problems Protein calorie malnutrition (Acute) Alcohol use disorder (Acute) Metabolic acidosis (Acute) Hypochloremia (Acute) Acute lower GI bleeding (Acute) COPD (chronic obstructive pulmonary disease) (Acute) Electrolyte abnormality (Acute) Incontinence in female (Acute) Hyponatremia (Acute) Plantar callus (Acute) Nicotine dependence, cigarettes, uncomplicated (Acute) Osteoporosis (Acute ~2019) Chronic sore throat (Acute) ETOH abuse (Acute) Anxiety (Acute) Macrocytic anemia (Acute) Duodenal ulcer (Acute) GI bleed (Acute) Past Medical History Medical History Nicotine dependence, cigarettes, uncomplicated Duodenal ulcer Gastritis Anxiety Hyponatremia Osteoporosis (~2019) Gallstone ETOH abuse Family History Family History Father No problems noted. Mother Lung cancer Other Substance abuse Substance use disorder Family history of problems with anesthesia: No Surgical History Surgical History History of colonoscopy History of esophagogastroduodenoscopy (EGD) History of surgery on arm History of Problems with Anesthesia: No Social History Social History Household Members: Spouse Housing: House Do you presently have visiting nurse or other home services: No Alcohol intake: current Alcohol intake frequency: 0-2 drinks per day Alcohol type: hard liquor Patient Tobacco Use Status: Current everyday Tobacco user Tobacco use type: Cigarette Cigarette Packs Per Day: 1 Cigarettes Per Day: 20.0 Years Smoked: onset 15yo, 1ppd x 46yrs, 40+pyh Smoked in Last 30 Days: Yes e-Cigarette/Vaping Use: Currently Using Patient Interested in Nicotine Replacement: No Patient Given Instructions on How to Stop Smoking: No Second Hand Smoke Exposure: No Use of substances other than those prescribed or required for medical reasons: No Currently Displaying Signs/Symptoms of Drug Intoxication Withdrawal: No Have you been hit, kicked, punched, or otherwise hurt by someone within the past year? If so, by whom?: No Do you feel safe in your current relationship?: Yes Is there a partner from a previous relationship who is making you feel unsafe now?: No Are you made to feel afraid or neglected: No Advance Directives: Yes Advance Directives on File: Yes Advance Directives Date on File: 09/07/21 Do you have a plan to hurt others: No Plan Recently lost weight without trying: Yes How much weight loss: 2-13 pounds Eating poorly because of decreased appetite: Yes Nutrition screen score: 4 Nutrition Risks: Poor intake 0-25% >4 days Patient : No : No Poor oral hygiene: No service: No Current occupational status: employed Cognitive needs: No Hearing needs: No Vision needs: No Meds Allergies Allergy/AdvReac Type Severity Reaction Status Date / Time chlordiazepoxide AdvReac Intermediate severe Verified 04/19/25 18:52 [From [facility]] confusion and hallucinations Active Medications: Current Medications Acetaminophen (Acetaminophen 325 Mg Tablet) 650 mg PO Q6H PRN PRN Reason: Pain, Mild 1-3,fever,headache Calcium Carbonate (Calcium Carbonate 750 Mg Tab.Chew) 750 mg PO Q4H PRN PRN Reason: Heartburn Folic Acid (Folic Acid 1 Mg Tablet) 1 mg PO DAILY [facility] Last Admin: 04/21/25 07:44 Dose: Not Given Magnesium Sulfate (Magnesium Sulfate/H2o) 2 gm in 50 mls @ 25 mls/hr IV ONCE ONE Stop: 04/21/25 09:28 Last Admin: 04/21/25 07:56 Dose: 25 mls/hr Magnesium Hydroxide (Milk Of Magnesia 30 Ml Oral.Susp) 30 ml PO DAILY PRN PRN Reason: Constipation Melatonin (Melatonin 3 Mg Tablet) 6 mg PO BEDTIME PRN PRN Reason: Insomnia Morphine Sulfate (Morphine Sulfate 4 Mg/Ml Cartridge) 2 mg IVPUSH Q4H PRN; Protocol PRN Reason: Pain, Severe (Pain Scale 7-10) Multivitamins/Vitamin C (Multivitamin Tablet) 1 tab PO DAILY [facility] Last Admin: 04/21/25 07:44 Dose: Not Given Omeprazole (Omeprazole 40 Mg Capsule.Dr) 40 mg PO BID@0630,1630 [facility] Last Admin: 04/21/25 05:28 Dose: Not Given Ondansetron HCl (Ondansetron Hcl 4 Mg/2 Ml Vial) 4 mg IVPUSH Q8H PRN PRN Reason: Nausea and Vomiting Oxycodone HCl (Oxycodone Hcl Immed Release 5 Mg Tablet) 5 mg PO Q6H PRN PRN Reason: Pain, Moderate(Pain Scale 4-6) Sertraline HCl (Sertraline Hcl 50 Mg Tablet) 50 mg PO DAILY [facility] Last Admin: 04/21/25 07:44 Dose: Not Given Sodium Chloride (0.9 % Sodium Chloride Flush 3 Ml Syringe) 3 ml IVFLUSH QSHIFT [facility] Last Admin: 04/21/25 07:59 Dose: 3 ml Home Medications ?Medication ?Instructions ?Recorded ?Confirmed ?Last Taken ?Type magnesium 250 mg tablet 500 mg PO DAILY 07/07/22 04/20/25 04/19/25 History vitamin B complex 1 cap PO DAILY 07/07/22 04/20/25 04/19/25 History folic acid 1 mg tablet 1 mg PO DAILY 07/30/24 04/20/25 04/19/25 History Exam Height,Weight and Vital Signs: Height 5 ft 6 in Weight 49.6 kg Last Vital Signs Temp 99.7 F 04/21/25 06:58 Pulse 68 04/21/25 06:58 Resp 16 04/21/25 06:58 BP 125/68 04/21/25 06:58 Pulse Ox 97 04/21/25 06:58 O2 Del Method Room Air 04/21/25 06:58 Pertinent Lab Results Pertinent Lab Results: Laboratory Tests 04/19/25 04/19/25 04/19/25 18:56 19:00 19:33 WBC 11.9 H RBC 1.24 L D Hgb 4.5 L* D Hct 13.2 L* D MCV 106.5 H MCH 36.3 H MCHC 34.1 RDW 18.3 H Plt Count 171 MPV 9.4 Immature Gran % (Auto) 2.5 H Neut % (Auto) 64.5 Lymph % (Auto) 24.0 [place] % (Auto) 8.8 Eos % (Auto) 0.1 Baso % (Auto) 0.1 Lymph # (Auto) 2.9 [place] # (Auto) 1.1 Eos # (Auto) 0.0 Baso # (Auto) 0.0 Abs Immat Gran (auto) 0.30 H Absolute Neuts (auto) 7.7 Absolute Nucleated RBC 0.260 H Nucleated RBC % (auto) 2.2 H Smear Path Review SEE NOTE PT 13.6 H INR 1.2 H APTT 24.7 L Sodium 126 L Potassium 3.7 Chloride 91 L Carbon Dioxide 20 L Anion Gap 19 BUN 19 H Creatinine 0.73 Estim Creat Clear Calc 57.7 Estimated GFR > 60 Random Glucose 208 H Estimat Average Glucose TNP Hemoglobin A1c % TNP Calcium 7.9 L Magnesium 1.3 L* Iron 41 TIBC 206 L % Saturation 20 Unsat Iron Binding 165 Total Bilirubin 0.4 Direct Bilirubin 0.1 AST 41 H ALT 18 Alkaline Phosphatase 45 Troponin I High Sens 3.2 D Total Protein 5.7 L Albumin 3.5 Lipase < 4 L Vitamin B12 Folate Stool Occult Blood POSITIVE Ethyl Alcohol < 10 Influenza Type A (PCR) NEGATIVE Influenza Type B (PCR) NEGATIVE RSV RNA Qual (PCR) NEGATIVE SARS-CoV-2 RNA (RT-PCR) NEGATIVE Blood Type A Positive Antibody Screen NEGATIVE Crossmatch See Detail 04/20/25 04/20/25 04/21/25 00:41 04:58 06:22 WBC 11.1 H 8.8 RBC 2.53 L D 2.39 L Hgb 6.5 L* D 8.5 L D 8.2 L Hct 18.6 L* D 24.8 L D 22.8 L MCV 98.0 D 95.4 MCH 33.6 H 34.3 H MCHC 34.3 36.0 H RDW 16.7 H 19.3 H Plt Count 157 L 155 L MPV 9.6 9.0 L Immature Gran % (Auto) 1.8 H 1.4 H Neut % (Auto) 59.7 60.9 Lymph % (Auto) 28.6 24.1 [place] % (Auto) 9.5 12.8 H Eos % (Auto) 0.2 0.7 Baso % (Auto) 0.2 0.1 Lymph # (Auto) 3.2 2.1 [place] # (Auto) 1.1 1.1 Eos # (Auto) 0.0 0.1 Baso # (Auto) 0.0 0.0 Abs Immat Gran (auto) 0.20 H 0.12 H Absolute Neuts (auto) 6.6 5.4 Absolute Nucleated RBC 0.330 H 0.050 H Nucleated RBC % (auto) 3.0 H 0.6 H Smear Path Review PT INR APTT Sodium 128 L Potassium 3.5 Chloride 93 L Carbon Dioxide 22 Anion Gap 17 BUN 12 Creatinine 0.55 Estim Creat Clear Calc 76.7 Estimated GFR > 60 Random Glucose 103 Estimat Average Glucose Hemoglobin A1c % Calcium 7.5 L Magnesium 1.6 Iron 51 TIBC 212 L % Saturation 24 Unsat Iron Binding 161 Total Bilirubin Direct Bilirubin AST ALT Alkaline Phosphatase Troponin I High Sens Total Protein Albumin Lipase Vitamin B12 559 Folate 14.8 Stool Occult Blood Ethyl Alcohol Influenza Type A (PCR) Influenza Type B (PCR) RSV RNA Qual (PCR) SARS-CoV-2 RNA (RT-PCR) Blood Type Antibody Screen Crossmatch 04/21/25 06:41 WBC RBC Hgb Hct MCV MCH MCHC RDW Plt Count MPV Immature Gran % (Auto) Neut % (Auto) Lymph % (Auto) [place] % (Auto) Eos % (Auto) Baso % (Auto) Lymph # (Auto) [place] # (Auto) Eos # (Auto) Baso # (Auto) Abs Immat Gran (auto) Absolute Neuts (auto) Absolute Nucleated RBC Nucleated RBC % (auto) Smear Path Review PT INR APTT Sodium 132 L Potassium 3.0 L Chloride 94 L Carbon Dioxide 29 Anion Gap 12 BUN 9 Creatinine 0.57 Estim Creat Clear Calc 77.0 Estimated GFR > 60 Random Glucose 120 H Estimat Average Glucose Hemoglobin A1c % Calcium 7.2 L Magnesium 1.4 L* Iron TIBC % Saturation Unsat Iron Binding Total Bilirubin 0.7 Direct Bilirubin 0.3 AST 52 H ALT 19 Alkaline Phosphatase 41 Troponin I High Sens Total Protein 4.9 L Albumin 2.9 L Lipase Vitamin B12 Folate Stool Occult Blood Ethyl Alcohol Influenza Type A (PCR) Influenza Type B (PCR) RSV RNA Qual (PCR) SARS-CoV-2 RNA (RT-PCR) Blood Type Antibody Screen Crossmatch Airway Mallampati Class: II TM Dist: >3cm Neck ROM: Poor Heart: rrr Lungs: cta Assessment and Plan Assessment Anesthesia Assessment: Anesthesia Plan Discussed and Chart Reviewed Final Anesthetic Review Family History of Problems with Anesthesia: No History of Problems with Anesthesia: No NPO: Yes ASA Class: III (very low hct, need transfusion ???) Final Preanesthetic Review: No Changes in Pt Med Stat, Meds/Allgs Chart Reviewed, Consent Obtained/Reviewed and Anes Risks/Benef Reviewed Patient Risk: High Procedure Risk: Low Anesthetic Plan Anesthetic Plan: GA and MAC: Disposition: Standard PACU
[2025-04-21] MEDS: Albuterol Sulfate (0.083%) 2.5 MG/3 ML VIAL.NEB INHALE (10:40)
[2025-04-21] MEDS: Lactated Ringers 1,000 ML 80 ML IVCONT ×2 (10:48→18:03)
--- NOTE | 2025-04-21 11:14 | HO.PM.IMPN ---
Subjective Subjective Date of Service: 04/21/25 Interval History: no further bloody bms Physical Exam Vital Signs: Vital Signs: Last Vital Signs Temp 98.3 F 04/21/25 10:37 Pulse 66 04/21/25 10:37 Resp 12 04/21/25 10:37 BP 106/63 04/21/25 10:37 Pulse Ox 97 04/21/25 10:37 O2 Del Method Room Air 04/21/25 10:37 BMI result Body Mass Index 17.6 General: AO X 3, no acute distress Resp: CTA bilateral, no accessory muscles used CVS: S1,S2,RRR GI: soft, non tender, non distended Neuro: motor grossly intact, alert Psych: appropriate affect, appropriate insight Objective Data Active Medications Acetaminophen (Acetaminophen 325 Mg Tablet) 650 mg PO Q6H PRN PRN Reason: Pain, Mild 1-3,fever,headache Calcium Carbonate (Calcium Carbonate 750 Mg Tab.Chew) 750 mg PO Q4H PRN PRN Reason: Heartburn Folic Acid (Folic Acid 1 Mg Tablet) 1 mg PO DAILY [facility] Last Admin: 04/21/25 07:44 Dose: Not Given Documented By: ANA Non-Admin Reason: NPO Lactated Ringer's (Lr) 1,000 mls @ 80 mls/hr IVCONT .[id number] [facility] Last Admin: 04/21/25 10:48 Dose: 80 mls/hr Documented By: ARLYN Magnesium Hydroxide (Milk Of Magnesia 30 Ml Oral.Susp) 30 ml PO DAILY PRN PRN Reason: Constipation Melatonin (Melatonin 3 Mg Tablet) 6 mg PO BEDTIME PRN PRN Reason: Insomnia Morphine Sulfate (Morphine Sulfate 4 Mg/Ml Cartridge) 2 mg IVPUSH Q4H PRN; Protocol PRN Reason: Pain, Severe (Pain Scale 7-10) Multivitamins/Vitamin C (Multivitamin Tablet) 1 tab PO DAILY [facility] Last Admin: 04/21/25 07:44 Dose: Not Given Documented By: ANA Non-Admin Reason: NPO Naloxone HCl (Naloxone Hcl 0.4 Mg/Ml Vial) 0.04 mg IVPUSH Q5M PRN PRN Reason: Excessive sedation or RR < 8 Omeprazole (Omeprazole 40 Mg Capsule.Dr) 40 mg PO BID@0630,1630 [facility] Last Admin: 04/21/25 05:28 Dose: Not Given Documented By: PANDA Non-Admin Reason: NPO Ondansetron HCl (Ondansetron Hcl 4 Mg/2 Ml Vial) 4 mg IVPUSH Q8H PRN PRN Reason: Nausea and Vomiting Oxycodone HCl (Oxycodone Hcl Immed Release 5 Mg Tablet) 5 mg PO Q6H PRN PRN Reason: Pain, Moderate(Pain Scale 4-6) Sertraline HCl (Sertraline Hcl 50 Mg Tablet) 50 mg PO DAILY [facility] Last Admin: 04/21/25 07:44 Dose: Not Given Documented By: ANA Non-Admin Reason: NPO Sodium Chloride (0.9 % Sodium Chloride Flush 3 Ml Syringe) 3 ml IVFLUSH QSHIFT [facility] Last Admin: 04/21/25 07:59 Dose: 3 ml Documented By: ANA Labs 04/21/25 06:22 04/21/25 06:41 Labs: Laboratory Results - last 24 hr 04/19/25 04/21/25 04/21/25 19:00 06:22 06:41 MCV 95.4 MCH 34.3 H MCHC 36.0 H RDW 19.3 H Plt Count 155 L MPV 9.0 L Immature Gran % (Auto) 1.4 H Neut % (Auto) 60.9 Lymph % (Auto) 24.1 [place] % (Auto) 12.8 H Eos % (Auto) 0.7 Baso % (Auto) 0.1 Lymph # (Auto) 2.1 [place] # (Auto) 1.1 Eos # (Auto) 0.1 Baso # (Auto) 0.0 Abs Immat Gran (auto) 0.12 H Absolute Neuts (auto) 5.4 Absolute Nucleated RBC 0.050 H Nucleated RBC % (auto) 0.6 H Anion Gap 12 Estim Creat Clear Calc 77.0 Estimated GFR > 60 Random Glucose 120 H Calcium 7.2 L Magnesium 1.4 L* Total Bilirubin 0.7 Direct Bilirubin 0.3 AST 52 H ALT 19 Alkaline Phosphatase 41 Total Protein 4.9 L Albumin 2.9 L Blood Type A Positive Antibody Screen NEGATIVE Crossmatch See Detail Assessment and Plan (1) ETOH abuse: Status: Acute Plan 64F PMH alcohol dependence, duodenal ulcer, COPD presented with hematochezia found to have severe anemia Acute blood loss anemia Transfused PRBCs and hemoglobin improved appropriately plan egd/colonoscopy, monitor hemoglobin Hypomagnesemia Replace and monitor Hyponatremia Likely beer Potomania, improving with fluids Monitor Protein calorie malnutrition Moderate, encouraged nutrition Alcohol dependence Monitor for withdrawal Continue vitamins DVT prophylaxis-mechanical due to GI bleed Full Code reason for continued hospitalization: Working up GI bleed Quality Stroke Does the patient have a stroke diagnosis?: No VTE Prior VTE?: No VTE Risk Level:: Medical - moderate - high VTE Device Contraindication: N/A - Device Ordered VTE Drug Contraindication: Treatment Not Indicated
--- NOTE | 2025-04-21 11:51 | P.BOP_ITS ---
Brief Operative Note Date of Service: 04/21/25 Pre-op diagnosis: gi bleed Post-op diagnosis: same Surgeon: Jermaine Becerra MD Anesthesia: MAC Was an Burn Crew Member used for this Procedure?: No Estimated blood loss (mL): 5 Pathology: other Condition: stable Disposition: same day
--- NOTE | 2025-04-21 11:52 | PM.EVENT ---
Event Note Date of Service: 04/21/25 Event Note: egd/colonoscopy erosive esophagitis duodenal ulcers x3 no bleeding 2 colon polyps, biopised rec advance diet cont ppi f/u bx results Time Spent With Patient Time: Total time managing care of this patient today ____ minutes.
--- NOTE | 2025-04-21 12:44 | OP_ITS ---
DATE OF SERVICE: 04/21/2025 SURGEON: Jermaine Becerra MD INDICATIONS: GI bleeding. PREOPERATIVE DIAGNOSIS: POSTOPERATIVE DIAGNOSIS: PROCEDURE PERFORMED: Upper endoscopy, colonoscopy with biopsy. ESTIMATED BLOOD LOSS: COMPLICATIONS: ANESTHESIA: Monitored anesthesia care. ASSISTANTS: SPECIMENS: DESCRIPTION OF PROCEDURE: A history and physical was performed. The risks and benefits of the procedure were explained to the patient, and informed consent was obtained. The patient was placed in the left lateral decubitus position. The Olympus video gastroscope was introduced into the esophagus, stomach, and duodenum. Examination was performed. The scope was removed. She was repositioned for colonoscopy. A digital rectal exam was performed and was found to be normal. The Olympus pediatric video colonoscope was introduced into the rectum and advanced to the cecum. The cecum was identified by transillumination, palpation, and identification of ileocecal valve. Examination was performed. The scope was removed. She tolerated both procedures well and was returned to the recovery area in stable condition. FINDINGS: Upper endoscopy: 1. Esophagus: The esophagus showed changes of erosive esophagitis over the distal 1/3. There was no bleeding. 2. Stomach: The stomach showed no evidence of masses, ulcers, or polyps. 3. Duodenum: There were 3 ulcers in the duodenal bulb. All were clean bases without any bleeding. No therapy was performed. Colonoscopy: The terminal ileum was examined and appeared normal. The visualized colonic mucosa was normal. Two polyps were identified and removed, both measured less than 5 mm and removed with a biopsy forceps. These were located at 50 cm and 35 cm. The quality of the prep was good. Retroflexed examination showed some moderate-sized internal hemorrhoids. IMPRESSION: 1. Peptic ulcer disease. 2. Erosive esophagitis. 3. Colon polyps. RECOMMENDATION: 1. Follow up the biopsy results. 2. High-dose proton pump inhibitor. 3. Avoidance of tobacco, ibuprofen, and alcohol. MD MIKA Rothman/KIMBERLEEL / [id number]
[2025-04-21] MEDS: Omeprazole 40 MG CAPSULE.DR PO (18:05)
[2025-04-21] MEDS: Morphine Sulfate 4 MG/ML CARTRIDGE 2 MG IVPUSH (23:33)
[2025-04-22 03:15] VITALS: BP 114/66; PULSE 66; RESP 18; TEMP 36.4; O2SAT 94
[2025-04-22] MEDS: Lactated Ringers 1,000 ML 80 ML IVCONT (05:55)
[2025-04-22] MEDS: Omeprazole 40 MG CAPSULE.DR PO (05:55)
[2025-04-22] MEDS: Morphine Sulfate 4 MG/ML CARTRIDGE 2 MG IVPUSH (06:00)
[2025-04-22 07:02] LABS: MANUAL DIFF FLAG NO
[2025-04-22 07:04] LABS: Basophils Percent Auto 0.3 % (0-2); Eosinophils Absolute Auto 0.1 X10*3/uL (0.0-0.4); Eosinophils Percent Auto 1.3 % (0-4); Hematocrit 28.4 % (37.0-47.0); Hemoglobin 9.7 g/dl (12.0-16.0); Imm Gran Abs Auto 0.08 X10*3/uL (0.00-0.03); Lymphocytes Absolute Auto 2.7 X10*3/uL (1.2-4.9); Lymphocytes Percent Auto 33.9 % (20-40); Mean Corpuscular HGB Conc 34.2 g/dl (31.0-35.0); Mean Corpuscular Volume 99.6 fL (80.0-98.0); Mean Platelet Volume 9.9 fL (9.4-12.3); Monocytes Percent Auto 13.1 % (2-11); Neutrophils Percent Auto 50.4 % (45-73); Platelet Count 160 X10*3/uL (160-400); Red Blood Count 2.85 X10*6/uL (4.20-5.50); Red Cell Distribution Width 18.7 % (11.0-16.0); White Blood Count 7.9 X10*3/uL (4.8-10.8)
[2025-04-22 07:34] VITALS: BP 147/66; PULSE 59; RESP 18; TEMP 36.7; O2SAT 94
[2025-04-22 07:42] LABS: Blood Urea Nitrogen 7 mg/dL (9-16); Estimated Glomerular Filt Rate > 60; Glucose Random 78 mg/dL (60-115); Magnesium 1.9 mg/dL (1.6-2.6)
[2025-04-22 07:52] LABS: Anion Gap 10 (12-20); Calcium 7.7 mg/dL (8.4-10.2); Carbon Dioxide 29 mmol/L (22-29); Chloride 99 mmol/L (96-108); Potassium 4.3 mmol/L (3.3-5.1); Sodium 134 mmol/L (135-145)
--- NOTE | 2025-04-22 08:31 | HO.POSTANES ---
Post Anesthesia Evaluation Post Anesthesia Evaluation Date of Service: 04/22/25 Vital Signs: Vital Signs Temp Pulse Resp BP Pulse Ox O2 Del Method 04/22/25 07:34 98.0 F 59 18 147/66 H 94 Room Air 04/22/25 03:15 97.6 F 66 18 114/66 94 Room Air 04/21/25 23:21 97.5 F 68 18 123/58 L 97 Room Air Anesthesia: Monitored Mental Status: Awake Pain Control: Satisfactory Nausea/Vomiting: None Hydration: Adequate Anesthesia-Related Issues: No Anes. Related Issues
[2025-04-22] MEDS: Folic Acid 1 MG TABLET PO (09:41)
[2025-04-22] MEDS: Multivitamin TABLET 1 TAB PO (09:41)
[2025-04-22] MEDS: Sertraline HCL 50 MG TABLET PO (09:41)
--- NOTE | 2025-04-22 10:55 | P.DS_ITS ---
DS: Providers Provider Date of Service: 04/22/25 Date of admission: 04/20/25 00:11 Date of discharge: 04/22/25 Primary care physician: Stephy Lorenzana MD Consults: 04/20/25 00:19 Consult to Gastroenterology Routine Consulting Provider: Jermaine Becerra Reason for consultation: GI bleed Has provider been notified: No DS: Diagnosis Discharge Diagnosis (1) ETOH abuse: Status: Acute DS: Summary Hospital Course Hospital Course: from initial hpi: 64-year-old female with a past medical history significant for alcohol use disorder, history upper GI bleed secondary to duodenal ulcer chronic microcytic anemia, stage I COPD tobacco use disorder presented to the ED due to bloody stools x1 week. She reports at least 1 episode of a large movement daily. She has associated lower abdominal pain, mostly in the RLQ, and nausea as well as weakness and fatigue. She denies any fever, coffee-ground emesis melena. She does have a history alcohol use disorder in her last alcoholic drink was 1 week ago. When she does consume alcohol she drinks about 1 pt per day. She denies any chest pain, shortness of or urinary symptoms including frequency, urgency or dysuria. hospital course: Patient was admitted for acute blood loss anemia. Transfused PRBC and hemoglobin improved appropriately. Underwent EGD and colonoscopy which revealed polyps that were biopsied, duodenal ulcers no active bleed, erosive esophagitis. Recommendations were for high-dose PPI and follow up with Gastroenterology as outpatient. No further bleeding noted. For acute hypomagnesemia received replacement. For hyponatremia likely due to beer potomania improved. For protein calorie malnutrition moderate encouraged nutrition. For alcohol dependence had no withdrawal abstinence recommended. Time Attestation Discharge Coordination Time (in mins): 33 Quality: Safe Use of Opioids Does Pt have an Active Cancer Diagnosis on the Problem List?: No Quality: Stroke Does the patient have a stroke diagnosis?: No Physical Exam Vital Signs: Vital Signs: Last Vital Signs Temp 98.0 F 04/22/25 07:34 Pulse 59 04/22/25 07:34 Resp 18 04/22/25 07:34 BP 147/66 H 04/22/25 07:34 Pulse Ox 94 04/22/25 07:34 O2 Del Method Room Air 04/22/25 07:34 BMI result Body Mass Index 17.6 General: AO X 3, no acute distress Resp: CTA bilateral, no accessory muscles used CVS: S1,S2,RRR GI: soft, non tender, non distended Neuro: motor grossly intact, alert Psych: appropriate affect, appropriate insight DS: Data Data Completed and Pending Completed studies during hospitalization [Text1]: Procedures Detoxification Services for Substance Abuse Treatment (07/30/24) Excision of Duodenum, Via Natural or Artificial Opening Endoscopic, Diagnostic (05/02/22) Excision of Stomach, Pylorus, Via Natural or Artificial Opening Endoscopic, Diagnostic (07/07/22) Pending studies at discharge: Pending at discharge 04/21/25 11:38 Surgical [PTH] Routine Labs on day of discharge: Laboratory Results - last 24 hr 04/19/25 04/22/25 19:00 06:16 WBC 7.9 RBC 2.85 L Hgb 9.7 L Hct 28.4 L D MCV 99.6 H MCH 34.0 H MCHC 34.2 RDW 18.7 H Plt Count 160 MPV 9.9 Immature Gran % (Auto) 1.0 H Neut % (Auto) 50.4 Lymph % (Auto) 33.9 [place] % (Auto) 13.1 H Eos % (Auto) 1.3 Baso % (Auto) 0.3 Lymph # (Auto) 2.7 [place] # (Auto) 1.0 Eos # (Auto) 0.1 Baso # (Auto) 0.0 Abs Immat Gran (auto) 0.08 H Absolute Neuts (auto) 4.0 Absolute Nucleated RBC 0.000 Nucleated RBC % (auto) 0.0 Sodium 134 L Potassium 4.3 D Chloride 99 Carbon Dioxide 29 Anion Gap 10 L BUN 7 L Creatinine 0.57 Estim Creat Clear Calc 77.0 Estimated GFR > 60 Random Glucose 78 Calcium 7.7 L D Magnesium 1.9 Crossmatch See Detail Discharge Plan Discharge Anticipated Discharge Date/Time: 04/22/25 10:52 Patient Disposition: Home, Self-Care Discharge Diagnosis: gi bleed Referrals: Stephy Lorenzana MD [Primary Care Provider] - 1 Week Jermaine Becerra MD [Physician] - 1 Week Discharge Medications: New omeprazole 40 mg Capsule,Delayed Release(Dr/Ec) 40 mg PO BID@0630,1630 Qty: 180 0RF Continued magnesium 250 mg Tablet 500 mg PO DAILY vitamin B complex Capsule 1 cap PO DAILY folic acid 1 mg Tablet 1 mg PO DAILY sertraline 50 mg tablet 50 mg PO DAILY Qty: 90 3RF Discharge Orders: Discharge Order (Routine); Ordered 04/22/25 Ordered By: Sam Swann Diet: Advance to usual diet Activity on Discharge: As tolerated Stand Alone Forms: Patient Portal Discharge page Print Language: Togolese Care Plan Goals: recovery Health Concerns: pud Plan of Treatment: start omeprazole, no etoh Assessment: see above
--- NOTE | 2025-04-22 11:03 | MHC.CM.PN ---
PT TO DC HOME TODAY WITH NO SERVICES VIA PRIVATE TRANSPORT
[2025-04-22 11:09] VITALS: BP 117/63; PULSE 66; RESP 18; TEMP 36.6; O2SAT 97
--- NOTE | 2025-04-22 13:12 | P.PNGI_ITS ---
Subjective Subjective Date of Service: 04/22/25 (seen today on am rounds) Interval History: no bleeding tolerating diet Critical Care Time (minutes): 0 Physical Exam 2 Vital Signs: Vital Signs: Last Vital Signs Temp 97.9 F 04/22/25 11:09 Pulse 66 04/22/25 11:09 Resp 18 04/22/25 11:09 BP 117/63 04/22/25 11:09 Pulse Ox 97 04/22/25 11:09 O2 Del Method Room Air 04/22/25 11:09 BMI result Body Mass Index 17.6 Const: General: cooperative GI: Other: abdomen is soft and nontender Objective Data Labs 04/22/25 06:16 04/22/25 06:16 Labs: Laboratory Results - last 24 hr 04/22/25 06:16 WBC 7.9 RBC 2.85 L Hgb 9.7 L Hct 28.4 L D MCV 99.6 H MCH 34.0 H MCHC 34.2 RDW 18.7 H Plt Count 160 MPV 9.9 Immature Gran % (Auto) 1.0 H Neut % (Auto) 50.4 Lymph % (Auto) 33.9 [place] % (Auto) 13.1 H Eos % (Auto) 1.3 Baso % (Auto) 0.3 Lymph # (Auto) 2.7 [place] # (Auto) 1.0 Eos # (Auto) 0.1 Baso # (Auto) 0.0 Abs Immat Gran (auto) 0.08 H Absolute Neuts (auto) 4.0 Absolute Nucleated RBC 0.000 Nucleated RBC % (auto) 0.0 Sodium 134 L Potassium 4.3 D Chloride 99 Carbon Dioxide 29 Anion Gap 10 L BUN 7 L Creatinine 0.57 Estim Creat Clear Calc 77.0 Estimated GFR > 60 Random Glucose 78 Calcium 7.7 L D Magnesium 1.9 Procedures Date of Service Date of Service: 04/22/25 Progress Note: A&P Assessment and plan (1) Duodenal ulcer: Status: Acute Assessment and Plan: see below Plan I reviewed the EGD and colonoscopy findings with Jasmin she is stable with no further blood loss after 3 units of prbcs ok for d/c she is advised to f/u with my office for biopsy results and willl need repeat egd after treatment for the erosive esophagitis. Time Spent With Patient Time: Total time managing care of this patient today ____ minutes. Quality Stroke Does the patient have a stroke diagnosis?: No VTE Prior VTE?: No VTE Risk Level:: Medical - moderate - high VTE Device Contraindication: N/A - Device Ordered VTE Drug Contraindication: Treatment Not Indicated
== END 2025-04-22 14:02 | disposition home or self-care (01) | DRG 378 ==
LOC: HO.ED 23:42 → HO.EDOVER 04-20 01:34 → HO.IMC 04-20 07:22
PROVIDERS: Internal Medicine Gastroenterology; Physician Assistant Medical; Admitting Provider Physician Assistant; Emergency Provider Emergency Medicine; PCP Internal Medicine; Visit Provider Internal Medicine
PROC: 0DJ08ZZ Inspection of Upper Intestinal Tract, Via Natural or Artificial Opening Endoscopic (ICD-10-PCS; principal; 2025-04-21 10:50)
DX: K26.4 Chronic or unspecified duodenal ulcer with hemorrhage (principal); D62 Acute posthemorrhagic anemia; E44.0 Moderate protein-calorie malnutrition; Z68.1 Body mass index [BMI] 19.9 or less, adult; E87.1 Hypo-osmolality and hyponatremia; K22.11 Ulcer of esophagus with bleeding; E86.1 Hypovolemia; F17.210 Nicotine dependence, cigarettes, uncomplicated; Z71.6 Tobacco abuse counseling; K63.5 Polyp of colon; E83.42 Hypomagnesemia; E87.8 Other disorders of electrolyte and fluid balance, not elsewhere classified; Z71.3 Dietary counseling and surveillance; F10.20 Alcohol dependence, uncomplicated; Z20.822 Contact with and (suspected) exposure to COVID-19; Z79.899 Other long term (current) drug therapy
CPT/HCPCS: 0241U; 36415; 74178; 80048; 80053; 80076; 80307; 82248; 82272; 82607; 82746; 83036; 83540; 83690; 83735; 84484; 85014; 85018; 85025; 85610; 85730; 86850; 86900; 86901; 86923; 88305; 93005; 99285; J0171; J2270; J2371; J2704; J3360; J3475; J7120; P9016; Q9967

== ENCOUNTER → 2025-04-19 19:43 | Outpatient (BNV) | payer MEDICARE, SELFPAY | PROVIDERS: Admitting Provider Physician Assistant; Emergency Provider Emergency Medicine; PCP Internal Medicine; Visit Provider Internal Medicine | DX: R42 Dizziness and giddiness (principal) | CPT/HCPCS: 93010 ==

== ENCOUNTER → 2025-04-19 20:34 | Outpatient (BNV) | payer MEDICARE, SELFPAY | PROVIDERS: Emergency Provider Emergency Medicine; PCP Internal Medicine; Visit Provider Specialist | DX: K80.00 Calculus of gallbladder with acute cholecystitis without obstruction (principal); K86.1 Other chronic pancreatitis | CPT/HCPCS: 74178 ==

== ENCOUNTER → 2025-04-20 00:11 | Outpatient (BNV) | payer MEDICARE, SELFPAY | PROVIDERS: Admitting Provider Physician Assistant; Emergency Provider Emergency Medicine; PCP Internal Medicine; Visit Provider Internal Medicine | DX: F10.10 Alcohol abuse, uncomplicated (principal) | CPT/HCPCS: 99223; 99233; 99239; 99499 ==

== ENCOUNTER 2025-05-06 10:37 | Outpatient (REF) | payer MEDICAID, SELFPAY ==
[2025-05-06 13:50] LABS: MANUAL DIFF FLAG NO
[2025-05-06 14:00] LABS: Basophils Absolute Auto 0.1 X10*3/uL (0.0-0.2); Basophils Percent Auto 1.5 % (0-2); Eosinophils Absolute Auto 0.1 X10*3/uL (0.0-0.4); Hematocrit 33.6 % (37.0-47.0); Imm Gran Abs Auto 0.07 X10*3/uL (0.00-0.03); Imm Gran Pct Auto 0.9 % (0.0-0.4); Lymphocytes Absolute Auto 2.8 X10*3/uL (1.2-4.9); Lymphocytes Percent Auto 34.8 % (20-40); Mean Corpuscular HGB Conc 32.7 g/dl (31.0-35.0); Mean Corpuscular Hemoglobin 33.4 pg (27.0-33.0); Mean Corpuscular Volume 102.1 fL (80.0-98.0); Monocytes Absolute Auto 0.7 X10*3/uL (0.1-1.2); Monocytes Percent Auto 8.3 % (2-11); Neutrophils Absolute Auto 4.4 x10*3/uL (2.0-8.3); Neutrophils Percent Auto 53.5 % (45-73); Platelet Count 281 X10*3/uL (160-400); Red Blood Count 3.29 X10*6/uL (4.20-5.50); Red Cell Distribution Width 16.1 % (11.0-16.0); White Blood Count 8.2 X10*3/uL (4.8-10.8)
[2025-05-06 14:31] LABS: Alanine Aminotransferase 25 U/L (0-31); Albumin Level 4.1 g/dL (3.5-5.0); Alkaline Phosphatase 53 U/L (39-117); Anion Gap 13 (12-20); Aspartate Amino Transferase 32 U/L (5-31); Bilirubin Total 0.2 mg/dL (0.0-1.0); Blood Urea Nitrogen 18 mg/dL (9-16); Calcium 9.3 mg/dL (8.4-10.2); Carbon Dioxide 22 mmol/L (22-29); Chloride 106 mmol/L (96-108); Estimated Glomerular Filt Rate > 60; Glucose Random 87 mg/dL (60-115); Iron 58 mcg/dL (30-160); Percent Iron Saturation 18 % (15-50); Potassium 5.2 mmol/L (3.3-5.1); Sodium 136 mmol/L (135-145); Total Iron Binding Capacity 329 mcg/dL (228-428); Unsaturated Iron Binding 271 ug/dL
== END 2025-05-06 10:38 | disposition home or self-care (01) ==
LOC: HO.HMGCLDS 10:37
PROVIDERS: PCP Internal Medicine; Visit Provider Internal Medicine
DX: E61.1 Iron deficiency (principal); F10.10 Alcohol abuse, uncomplicated; K26.9 Duodenal ulcer, unspecified as acute or chronic, without hemorrhage or perforation
CPT/HCPCS: 36415; 80053; 83540; 85025; 96127; 99212

== ENCOUNTER 2025-05-06 10:37 | Outpatient (AMB) | payer MEDICAID, SELFPAY ==
--- OUTSIDE RECORDS SUMMARY | 2025-04-25 04:25 | XMS_ITS ---
Author Organization [facility] Address [address] [facility] [address] [place] [address] Care Team Providers Care Sports Team Marketing Intern Name Role Phone Stephy Lorenzana MD Primary Care Provider Unavaila steven Becerra Jr, Jermaine Unavailable [phone] Ruben SARMIENTO, oSnam Unavailable Unavailable REASON FOR VISIT Pathology Encounters Encounter Location Date Provider Diagnosis [facility] [address] [place] [address] [place] [phone] 04/25/2025 Jermaine Becerra Jr Plan Of Treatment Next Appt Details Provider Name:Jermaine romero Jr, 09/02/2025 10:00:00 AM, [address] [place] [address], [address], [place], [address], Progress Notes * [place] MURRAY[place]:1960 (64 yo F)Acc No.[id number]:04/25/2025 Patient: EUN PETERS :1960 A ge:64 Y S ex:Female Address:[address] [place] [address], [address] * true * Date: Generated for Lucai sophie/Albert/eTransmitting on: 0 05/06/2025 11:03 AM EDT
[2025-05-06 10:39] VITALS: BP 122/70; PULSE 73; RESP 20; TEMP 36.9; O2SAT 97; BMI 18.1
--- NOTE | 2025-05-06 10:39 | MHC.PC.OV ---
Vital Signs 05/06/25 10:39 Height 5 ft 6 in Weight 112 lb BMI 18.1 BP 122/70 Blood Pressure Location Lt brachial Position Sitting Respiration 20 Pulse 73 Pulse Source Pulse Oximeter Temp 98.5 F Temp Source Oral Pulse Oximetry (%) 97 Oxygen Delivery Method Room Air Intake Visit Reasons: TCM Intake Note: Pt is here today for TCM. Allergies chlordiazepoxide (From LIBRIUM) Adverse Reaction (Intermediate, Verified 05/06/25 10:39) severe confusion and hallucinations Medication List - Last Reconciled 05/06/25 by Stephy Lorenzana MD folic acid 1 mg PO DAILY magnesium 500 mg PO DAILY omeprazole 40 mg PO BID@0630,1630 sertraline 50 mg PO DAILY vitamin B complex 1 cap PO DAILY Tobacco use date assessed: 05/06/25 Fall risk assessment: No Falls in past year Last assessed Fall Risk: 05/06/25 Dental Screening Dental Screen Date: 05/06/25 Did you have a dental visit in the last 12 months?: Yes Did you have a dental problem in the last 6 months where you did not have access to dental care?: No Was dental information given to patient?: Patient has dentist HPI TCM HPI Details Patient presents for the follow-up of hospitalization at [facility] discharged on 04/22 for acute GI bleed symptomatic anemia status post 5 units of PRBC's transfusion.. EGD showed erosive esophagitis duodenal ulcer but no active bleeding and colonoscopy consistent with [address] TA polyp done by [address]. Becerra. Patient denies any recurrent bleeding. She has been abstaining from alcohol and taking omeprazole regularly TCM TCM Information Date of Discharge 04/22/25 Discharged From [facility] Interactive Contact Date (Reference documentation from this date) 04/26/25 [facility] Medical History Nicotine dependence, cigarettes, uncomplicated Duodenal ulcer Gastritis Anxiety Hyponatremia Osteoporosis (~2019) Gallstone ETOH abuse Surgical History (Updated 05/06/25 @ 16:13 by Stephy Lorenzana MD) History of colonoscopy History of esophagogastroduodenoscopy (EGD) History of surgery on arm Family History Father No problems noted. Mother Lung cancer Other Substance abuse Substance use disorder Social History Household Members: Spouse Housing: House Are you a primary ocular care technician to a significant other at home: No Do you presently have visiting nurse or other home services: No Alcohol intake: current Alcohol intake frequency: 3 or more drinks per day Alcohol type: hard liquor Patient Tobacco Use Status: Current everyday Tobacco user Tobacco use type: Cigarette Cigarette Packs Per Day: 1.5 Cigarettes Per Day: 30.0 Years Smoked: onset 15yo, 1ppd x 46yrs, 40+pyh Packs Per Year: 0 Packs per year/per ci.00 e-Cigarette/Vaping Use: Currently Using Second Hand Smoke Exposure: No Advance Directives Date on File: 09/07/21 service: No Current occupational status: employed Cognitive needs: No Hearing needs: No Vision needs: No Questionnaire PHQ-9 Over the last 2 weeks, how often have you been bothered by any of the following problems? 1. Little interest or pleasure in doing things: not at all 2. Feeling down, depressed, or hopeless: not at all 3. Trouble falling or staying asleep, or sleeping too much: not at all 4. Feeling tired or having little energy: not at all 5. Poor appetite or overeating: not at all 6. Feeling bad about yourself - or that you are a failure or have let yourself or your family down: not at all 7. Trouble concentrating on things, such as reading the newspaper or watching television: not at all 8. Moving or speaking so slowly that other people could have noticed. Or the opposite - being so fidgety or restless that you have been moving around a lot more than usual: not at all 9. Thoughts that you would be better off or of hurting yourself in some way: not at all Total score: 0 Depression Screening Interpretation: Negative Depression Screening Done: Yes 29971 - PHQ-9 Billing: Yes Source: Developed by Drs. Eliel Ulloa, Miriam Tapia, Rob Amin and colleagues, with an educational josseline from [employer]. Thrive Questionnaire Date Thrive assessed: 05/06/25 I am a: Patient What is your living situation today?: I have a steady place to live Within the past 12 months, did the food you bought not last and you didn't have the money to get more?: Never true Within the past 12 months, did you worry whether your food would run out before you got money to buy more?: Never true Do you have trouble paying for medicines?: No Do you have trouble getting transportation to medical appointments?: No Do you have trouble paying your heating and electricity bill?: No Do you have trouble taking care of your child, family member or friend?: No Do you have trouble with day-to-day activities such as bathing, preparing meals, shopping, managing finances, etc.?: No Are you currently unemployed and looking for a job?: I choose not to answer this question Are you interested in more education?: No Please select the resources that you would like help with: None Currently or been in a relationship where the following occur: No concerns reported THRIVE Score: 0 AUDIT C Alcohol Use Questionnaire (AUDIT-C) 1. How often do you have a drink containing alcohol?: Never 3. How often do you have six or more drinks on one occasion?: Never Total Score: 0 CHRISTINE-7 AMB Questionnaire CHRISTINE-7 Date CHRISTINE - 7 assessed: 05/06/25 Feeling nervous, anxious, or on edge: 0 = Not at all Not being able to stop or control worryin = Not at all Worrying too much about different things: 0 = Not at all Trouble relaxin = Not at all Being so restless that it is hard to sit still: 0 = Not at all Becoming easily annoyed or irritable: 0 = Not at all Feeling afraid as if something awful might happen: 0 = Not at all Total CHRISTINE-7 score (0-4 normal; 5-9 mild; 10-14 moderate; 15-21 severe): 0 Source: Developed by Drs. Eliel Ulloa, Miriam Tapia, Rob Amin and colleagues, with an educational josseline from [employer]. CHRISTINE-7 Assessment Billing CHRISTINE-7 Assessment Tool: CHRISTINE-7 Assessment 32954 Review of Systems Const All systems reviewed & are unremarkable except as noted in HPI and below Eyes Reports no additional complaints ENT Reports no additional complaints Card Reports no additional complaints Resp Reports no additional complaints GI Reports no additional complaints Reports no additional complaints Physical exam (Primary Care) Vital Signs: Last Vital Signs Temp 98.5 F 05/06/25 10:39 Pulse 73 05/06/25 10:39 Resp 20 05/06/25 10:39 BP 122/70 05/06/25 10:39 Pulse Ox 97 05/06/25 10:39 Oxygen Delivery Method Room Air 05/06/25 10:39 BMI result Body Mass Index 18.1 Tobacco/Smoking Status: Tobacco use Status Tobacco use date assessed 05/06/25 05/06/25 10:41 Patient Tobacco Use Status Current everyday Tobacco 05/06/25 10:41 Tobacco use type Cigarette 05/06/25 10:41 e-Cigarette/Vaping Use Currently Using 05/06/25 10:41 PHQ-9: PHQ-9 Score PHQ-9: Total score 0 05/06/25 11:06 Depression Screening Interpretation: Negative Thrive Assessment: Date of Thrive Assessment Date Thrive assessed 05/06/25 05/06/25 10:46 Currently or been in a relationship where the following occur: No concerns reported Const General: no acute distress HENMT Head: Yes normal to inspection Face and sinus: Yes normal facial exam Neck Neck: Yes supple Resp Effort & Inspection: normal respiratory effort Auscultation: clear to auscultation bilaterally Cardio Rhythm: regular rhythm Heart sounds: S1 normal heart sound present and S2 normal heart sound present GI Inspection: Yes normal to inspection Palpation (GI): Soft to palpation Percussion: Yes normal to percussion Auscultation: normal bowel sounds Coding Level of Care Code Est Pt Level 4 (05330) Diagnoses Anemia D64.9 ETOH abuse F10.10 Duodenal ulcer K26.9 Additional Codes CHRISTINE-7 Assessment Billing - CHRISTINE-7 Assessment Tool: CHRISTINE-7 Assessment 67477 ([id number]) PHQ-9 - 93687 - PHQ-9 Billing: Yes ([id number]) Assessment & Plan Assessment & Plan (1) Anemia: Comment: Iron deficiency due to GI bleed Code(s): D64.9 - Anemia, unspecified Category: Medical Plan: Check CBC and iron studies start iron supplement for 2 months repeat CBC (2) ETOH abuse: Code(s): F10.10 - Alcohol abuse, uncomplicated Category: Social Hx Plan: Quitting alcohol discussed with the patient she has a good support system with her confucianism group (3) Duodenal ulcer: Comment: (noted on 05/03/22 and 07/10/22 EGDs, 04/22/2025 no active bleed on EGD Code(s): K26.9 - Duodenal ulcer, unspecified as acute or chronic, without hemorrhage or perforation Category: Medical Plan: Continue PPI follow-up with GI Orders: Orders Complete Blood Count Auto Diff Today D64.9 - Anemia, unspecified, E61.1 - Iron deficiency Complete Blood Count Auto Diff 4 Months D64.9 - Anemia, unspecified, E61.1 - Iron deficiency Comprehensive Milmine. Panel Fast 4 Months D64.9 - Anemia, unspecified, E61.1 - Iron deficiency Comprehensive Met. Panel Today D64.9 - Anemia, unspecified, E61.1 - Iron deficiency IRON PROFILE Today D64.9 - Anemia, unspecified, E61.1 - Iron deficiency
== END 2025-05-06 16:16 | disposition home or self-care (01) ==
LOC: HO.HMCC 10:38
PROVIDERS: PCP Internal Medicine; Visit Provider Internal Medicine
DX: D64.9 Anemia, unspecified (principal); F10.10 Alcohol abuse, uncomplicated; K26.9 Duodenal ulcer, unspecified as acute or chronic, without hemorrhage or perforation

== ENCOUNTER 2025-09-12 12:16 | Outpatient (AMB) | payer MEDICARE, MEDICAID, SELFPAY ==
--- OUTSIDE RECORDS SUMMARY | 2025-04-21 07:00 | XMS_ITS ---
Author Organization [facility] Address [address] [place] [id number] Care Team Providers Care Ip Litigation Associate Name Role Phone Salomón SARMIENTO, Stephy Primary Care Provider Unavaila steven Becerra Jr, Jermaine Unavailable Ruben SARMIENTO, Sonam Unavailable Unavailable REASON FOR VISIT GI BLEED Encounters Encounter Location Date Provider [place] [facility] [place] [facility] [place] [address] [id number] [place]/21/2025 Jermaine Becerra Jr Plan Of Treatment No Information Progress Notes * [place] MURRAY[place]:1960 (64 yo F)Acc No.[id number]:04/21/2025 EGD and COL/MAC Patient: EUN PETERS Provider: Sanket Becerra MD :1960 A ge:64 Y S ex:Female Date:04/21/2025 Address:[address] [place], [place] [id number] Pcp:Stephy Lorenzana MD Subjective: * Chief Complaints: * 1 . GI BLEED. * Medical History: Objective: * Vitals: Assessment: Plan: * Treatment: * * The named appointment provid er may or may not be the originator of this progress note, and it is not deemed complete until electronically signed by the appointment provider. Sign off status: Pending * Provider: Sanket Becerra MD Date: 0 04/21/2025 Generated for Camron barrios/Albert/eTsamitting on: 03:38 PM EDT
--- OUTSIDE RECORDS SUMMARY | 2025-09-02 06:00 | XMS_ITS ---
Author Organization [facility] Address [address] [place] [phone] Care Team Providers Care Apple Press Operator Name Role Phone Salomón SARMIENTO, Stephy Primary Care Provider Unavaila steven Becerra Jr, Jermaine Unavailable Ruben SARMIENTO, Sonam Unavailable Unavailable REASON FOR VISIT Patient presents today for gastritis Encounters Encounter Location Date Provider Diagnosis [facility] [address] [place] [phone] 09/02/2025 Jermaine Becerra Jr Plan Of Treatment No Information Progress Notes * [place] MURRAYE[place]:1960 (64 yo F)Acc No.[id number]:09/02/2025 Progress Notes Patient: EUN PETERS Provider: Sanket Becerra MD :1960 A ge:64 Y S ex:Female Date:09/02/2025 Address:[address] [place], [place] [phone] Pcp:Stephy Lorenzana MD Subjective: * Chief Complaints: * 1 . Patient presents today for gastritis. * Medical History: Objective: * Vitals: Assessment: Plan: * Treatment: * * The named appointment provid er may or may not be the originator of this progress note, and it is not deemed complete until electronically signed by the appointment provider. Sign off status: Pending * Provider: Sanket Becerra MD Date: Generated for Camron barrios/Albert/Dayoitting on: 03:39 PM EDT
[2025-09-12 13:29] VITALS: BP 146/78; PULSE 72; TEMP 36.7; O2SAT 97; BMI 18.4
--- NOTE | 2025-09-12 13:29 | AM.OFFWIN_ITS ---
Intake Vital Signs 09/12/25 13:29 09/12/25 13:33 Height 5 ft 6 in Weight 114 lb BMI 18.4 BP 146/78 H 142/60 H Blood Pressure Location Lt brachial Rt brachial Position Sitting Sitting Pulse 72 Pulse Source Pulse Oximeter Temp 98.1 F Temp Source Oral Pulse Oximetry (%) 97 Oxygen Delivery Method Room Air Intake Visit Reasons: EP Weakness Intake Note: pt presents with weakness and lethargy s/p D/C with low sodium levels from [facility] in [place]- paperwork scanned to chart/pt holding Patient Tobacco Use Status: Current everyday Tobacco user Allergies chlordiazepoxide (From LIBRIUM) Adverse Reaction (Intermediate, Verified 09/12/25 13:34) severe confusion and hallucinations Do you need a note to return to daycare/school/sports/work: No HPI HPI Comments History of Present Illness Details 64 y/o Female Patient who presents to [facility] walk in clinic with c/o Feeling weak since the hospital discharge. She was admitted at [facility] in [place] 08/27 - 08/31. According to the patient she did relapse and had too much to drink that week before hospital admission. She was visiting her daughter in [place] that week. No much details given by patient - no hospital discharge notes available for review. PFSH Medical History Generalized body aches Nicotine dependence, cigarettes, uncomplicated Duodenal ulcer Gastritis Anxiety Hyponatremia Osteoporosis (~2019) Gallstone ETOH abuse Surgical History (Updated 05/06/25 @ 16:13 by Stephy Lorenzana MD) History of colonoscopy History of esophagogastroduodenoscopy (EGD) History of surgery on arm Family History Father No problems noted. Mother Lung cancer Other Substance abuse Substance use disorder Social History Household Members: Spouse Housing: House Are you a primary pharmacy customer care specialist to a significant other at home: No Do you presently have visiting nurse or other home services: No Alcohol intake: current Alcohol intake frequency: 3 or more drinks per day Alcohol type: hard liquor Patient Tobacco Use Status: Current everyday Tobacco user Tobacco use type: Cigarette Cigarette Packs Per Day: 1.5 Cigarettes Per Day: 30.0 Years Smoked: onset 15yo, 1ppd x 46yrs, 40+pyh e-Cigarette/Vaping Use: Currently Using Second Hand Smoke Exposure: No Advance Directives Date on File: 09/07/21 service: No Current occupational status: employed Cognitive needs: No Hearing needs: No Vision needs: No Review of Systems Const All systems reviewed & are unremarkable except as noted in HPI and below Physical Exam Vital Signs: Last Vital Signs Temp 98.1 F 09/12/25 13:29 Pulse 72 09/12/25 13:29 BP 142/60 H 09/12/25 13:33 Pulse Ox 97 09/12/25 13:29 Oxygen Delivery Method Room Air 09/12/25 13:29 BMI result Body Mass Index 18.4 Const General: no acute distress Nutritional Appearance: thin Orientation/consciousness: patient oriented x3 Resp Effort & Inspection: normal respiratory effort Cardio Rhythm: regular rhythm Neuro General: patient oriented x3, gait normal and moves all extremities Psych Speech and movement: Normal speech and movement present Assessment & Plan Assessment & Plan (1) Generalized body aches: Code(s): R52 - Pain, unspecified Plan: Patient scheduled to see PCP tomorrow for HDF Coding Level of Care Code Est Pt Level 4 (93738) Diagnoses Generalized body aches R52 Time Spent (min) 20
[2025-09-12 13:33] VITALS: BP 142/60
--- OUTSIDE RECORDS SUMMARY | 2025-09-12 15:39 | XMS_ITS | Patient Health Record ---
Author Organization [facility] Address [address] [place] [phone] Care Team Providers Care Digital Computer Operator Name Role Phone Stephy Lorenzana MD Primary Care Provider UnavailJermaine Parekh Jr Unavailable [phone] Sonam Miranda MD Unavailable Unavailable Results Component Value Reference Range Notes Pathology Reviewed date:04/25/2025 08:26:51 AM Interpretation: Performing Lab:[facility], [address] [place] [phone] Notes/Report: Reason For Referral No Information Problems Problem Type SNOMED Code ICD Code Onset Dates Problem Status W/U Status Risk Notes Problem Erosive esophagitis (12013688) Erosive esophagitis (K22.10) Active confirmed Problem Duodenal ulcer (01951114) Duodenal ulcer (K26.9) Active confirmed Problem Chronic gastritis (0353615) Chronic gastritis (K29.50) Active confirmed Problem Gastric ulcer (598933807) Gastric ulcer (K25.9) Active confirmed Encounters Encounter Location Date Provider Diagnosis [facility] Inpatient [address] [place] [phone] 04/21/2025 Jermaine Becerra Jr [facility] [address] [place] [phone] 04/25/2025 Jermaine Becerra Jr [facility] [address] [place] [phone] 09/01/2025 Jermaine Becerra Jr Plan Of Treatment Pending Test Test Name Order Date Complete Blood Count no Diff 07/26/2022 Future Test Test Name Order Date UPPER GI ENDOSCOPY 05/10/2022 Insurance Providers Payer Name Payer Address Payer Phone Subscriber Number Group Number Insured Name Patient Relationship to Insured Coverage Start Date Coverage End Date MEDICARE OF [facility] [address] [id number] EUN MURRAY Self - patient is the insured 5 MED[place] [address] [place] [phone] [id number] EUN MURRAY Self - patient is the insured 5
--- OUTSIDE RECORDS SUMMARY | 2025-09-12 15:39 | XMS_ITS | Clinical Summary ---
Author Organization [facility] Address [address] [place] [address], [place] [address] Care Team Providers Care It Risk Analyst Name Role Phone Unavailable Primary Care Provider Unavailabl e Social History Tobacco Use Types Packs/Day Years Used Date Smoking Tobacco: Never Assessed Comments Unknown Sex and Gender Information Value Date Recorded Sex Assigned at Not on file Legal Sex Female 5:11 PM EST Gender Identity Not on file Sexual Orientation Not on file Plan of Treatment Health Maintenance Due Date Last Done Comments Breast Cancer Screening 1960 Colorectal Cancer Screening: Annual FOBT 2008 Colorectal Cancer Screening: Colonoscopy 2008 Colorectal Cancer Screening: Sigmoidoscopy 2008 Pneumococcal Vaccine: 50+ Ye ars (2 of 2 - PCV) 10/09/2016 10/09/2015 Influenza Vaccine (#1) 2025 Pneumococcal Vaccine: Peds ( 0 to 5 Years) and At-Risk Patients (6 to 49 Years) Discontinued 10/09/2015 Hepatitis B Vaccine Aged Out No longe r eligible based on patient's age to complete this topic Insurance [facility] [employer] [facility] [employer]
--- OUTSIDE RECORDS SUMMARY | 2025-09-12 15:39 | XMS_ITS | Patient Health Record ---
Author Organization [facility] Address [address] [place] [address] Care Team Providers Care Can Labeler Name Role Phone Stephy Lorenzana MD Primary Care Provider Shahana Cast Unavailable [phone] Allergies No Known Allergies Reason For Referral [...] W/U Status Risk Notes Problem Plantar wart (48946612) Plantar wart (B07.0) Active confirmed Plan Of Treatment No Information Insurance Providers Payer Name Payer Address Payer Phone Subscriber Number Group Number Insured Name Patient Relationship to Insured Coverage Start Date Coverage End Date [employer] [address] [place] [address] [id number] Jasmin Gonzalez Self - patient is the insured Medical (General) History Medical History History ICD Code Chicken pox Warts Surgical History Surgery Date(Month/Year) Hospitalization History Reason Date(Month/Year) C- UTI, dehydrated, lost alot of weigh t, and pt couldnt walk 05/06
== END 2025-09-12 14:31 | disposition home or self-care (01) ==
PROVIDERS: PCP Internal Medicine; Visit Provider Nurse Practitioner Family
DX: R52 Pain, unspecified (principal)

== ENCOUNTER → 2025-09-12 12:16 | Outpatient (BNVA) | payer MEDICAID, SELFPAY | PROVIDERS: PCP Internal Medicine; Visit Provider Nurse Practitioner Family | DX: R53.1 Weakness (principal); R52 Pain, unspecified | CPT/HCPCS: 99212 ==

== ENCOUNTER 2025-09-13 13:48 | Outpatient (AMB) | payer MEDICARE, MEDICAID, SELFPAY ==
--- OUTSIDE RECORDS SUMMARY | 2025-04-21 07:00 | XMS_ITS ---
Author Organization Cantil [facility]bar [facility] Address [address] [place] [id number] Care Team Providers Care Candy Butcher Name Role Phone Salomón SARMIENTO, Stephy Primary Care Provider Unavaila steven Becerra Jr, Jermaine Unavailable [phone] Ruben SARMIENTO, Sonam Unavailable Unavailable REASON FOR VISIT GI BLEED Encounters Encounter Location Date Provider [place] [facility] [place] [address], [place] [id number] 04/21/2025 Jermaine Becerra Jr Plan Of Treatment No Information Progress Notes * [place]URRAY[place]:1960 (64 yo F)Acc No.[id number]:04/21/2025 EGD and COL/MAC Patient: EUN PETERS Provider: Sanket Becerra MD :1960 A ge:64 Y S ex:Female Date:04/21/2025 Address:[address] [place], [place] [id number] Pcp:Stephy Lorenzana MD Subjective: * Chief Complaints: [...] 0 04/21/2025 Generated for Camron barrios/Albert/eTsamitting on: 06:02 PM EDT
--- OUTSIDE RECORDS SUMMARY | 2025-09-02 06:00 | XMS_ITS ---
Author Organization [facility] Address [address] [place] [phone] Care Team Providers Care Brine Maker Name Role Phone Salomón SARMIENTO, Stephy Primary Care Provider Unavaila steven Becerra Jr, Jermaine Unavailable Ruben SARMIENTO, Sonam Unavailable Unavailable REASON FOR VISIT Patient presents today for gastritis Encounters Encounter Location Date Provider Diagnosis [facility] [address] [place] [phone] 09/02/2025 Jermaine Becerra Jr Plan Of Treatment No Information Progress Notes * [place] MURRAYEEDOB:1960 (64 yo F)Acc No.[id number]:09/02/2025 Progress Notes Patient: EUN PETERS Provider: Sanket Becerra MD :1960 A ge:64 Y S ex:Female Date:09/02/2025 Address:[address] [place], [place] [phone] Pcp:Stephy Lorenzana MD Subjective: * Chief Complaints: [...] MD Date: Generated for Camron barrios/Albert/Dayoitting on: 06:02 PM EDT
--- NOTE | 2025-09-13 14:04 | MHC.PC.OV ---
Vital Signs 09/13/25 14:05 Height 5 ft 6 in Weight 115 lb BMI 18.6 BP 124/66 Blood Pressure Location Lt brachial Position Sitting Respiration 19 Pulse 63 Pulse Source Pulse Oximeter Temp 98.3 F Temp Source Oral Pulse Oximetry (%) 99 Oxygen Delivery Method Room Air Intake Visit Reasons: Hospital follow up Intake Note: Pt is here today for a Hospital follow up visit. Allergies chlordiazepoxide (From LIBRIUM) Adverse Reaction (Intermediate, Verified 09/13/25 14:15) severe confusion and hallucinations Medication List - Last Reconciled 09/13/25 by Stephy Lorenzana MD biotin 1 mg PO DAILY folic acid 1 mg PO DAILY magnesium 500 mg PO DAILY omeprazole 40 mg PO BID@0630,1630 sertraline 50 mg PO DAILY vitamin B complex 1 cap PO DAILY Tobacco use date assessed: 09/13/25 Fall risk assessment: 2 + Falls in past year Last assessed Fall Risk: 09/13/25 Dental Screening Dental Screen Date: 05/06/25 HPI Hospital follow up HPI Details Pt presents for f/u hospitalization [facility] for ETOH overdose from 08/27-08/31 She reports heavy drinking on and off for the last 2 weeks. Patient underwent detox and correction of electrolyte abnormalities. Patient is feeling better and reports not drinking since the discharge. She schedule an appointment with her regular counselor and is planning to restart alcohol abuse program at her [facility]. Patient is not interested in AA meetings. She has been taking sertraline for chronic depression anxiety. [facility] Medical History Generalized body aches Nicotine dependence, cigarettes, uncomplicated Duodenal ulcer Gastritis Anxiety Hyponatremia Osteoporosis (~2019) Gallstone ETOH abuse Surgical History History of colonoscopy History of esophagogastroduodenoscopy (EGD) History of surgery on arm Family History Father No problems noted. Mother Lung cancer Other Substance abuse Substance use disorder Social History Household Members: Spouse Housing: House Are you a primary special needs child caregiver to a significant other at home: No Do you presently have visiting nurse or other home services: No Alcohol intake: current Alcohol intake frequency: 3 or more drinks per day Alcohol type: hard liquor Patient Tobacco Use Status: Current everyday Tobacco user Tobacco use type: Cigarette Cigarette Packs Per Day: 1.5 Cigarettes Per Day: 30.0 Years Smoked: onset 15yo, 1ppd x 46yrs, 40+pyh e-Cigarette/Vaping Use: Currently Using Second Hand Smoke Exposure: No Advance Directives Date on File: 09/07/21 service: No Current occupational status: employed Cognitive needs: No Hearing needs: No Vision needs: No Questionnaire Thrive Questionnaire Date Thrive assessed: 05/03/25 I am a: Patient What is your living situation today?: I have a steady place to live Within the past 12 months, did the food you bought not last and you didn't have the money to get more?: Never true Within the past 12 months, did you worry whether your food would run out before you got money to buy more?: Never true Do you have trouble paying for medicines?: No Do you have trouble getting transportation to medical appointments?: No Do you have trouble paying your heating and electricity bill?: No Do you have trouble taking care of your child, family member or friend?: No Do you have trouble with day-to-day activities such as bathing, preparing meals, shopping, managing finances, etc.?: No Are you currently unemployed and looking for a job?: I choose not to answer this question Are you interested in more education?: No Please select the resources that you would like help with: None Currently or been in a relationship where the following occur: No concerns reported THRIVE Score: 0 CHRISTINE-7 AMB Questionnaire CHRISTINE-7 Date CHRISTINE - 7 assessed: 05/06/25 Source: Developed by Drs. Eliel Ulloa, Miriam Tapia, Rob Amin and colleagues, with an educational josseline from [employer]. Review of Systems Const All systems reviewed & are unremarkable except as noted in HPI and below ENT Reports no additional complaints Card Reports no additional complaints Resp Reports no additional complaints GI Reports no additional complaints Reports no additional complaints Physical exam (Primary Care) Vital Signs: Last Vital Signs Temp 98.3 F 09/13/25 14:05 Pulse 63 09/13/25 14:05 Resp 19 09/13/25 14:05 BP 124/66 09/13/25 14:05 Pulse Ox 99 09/13/25 14:05 Oxygen Delivery Method Room Air 09/13/25 14:05 BMI result Body Mass Index 18.6 Tobacco/Smoking Status: Tobacco use Status Tobacco use date assessed 09/13/25 09/13/25 14:17 Patient Tobacco Use Status Current everyday Tobacco 09/13/25 14:06 Tobacco use type Cigarette 09/13/25 14:06 e-Cigarette/Vaping Use Currently Using 09/13/25 14:06 Thrive Assessment: Date of Thrive Assessment Date Thrive assessed 05/03/25 09/13/25 14:06 Currently or been in a relationship where the following occur: No concerns reported Const General: no acute distress HENMT Head: Yes normal to inspection Eyes General: appearance normal, both eyes and all related structures Neck Neck: Yes supple Resp Effort & Inspection: normal respiratory effort Auscultation: wheezes and diminished lung sounds Cardio Rhythm: regular rhythm Heart sounds: S1 normal heart sound present and S2 normal heart sound present GI Inspection: Yes normal to inspection Palpation (GI): Soft to palpation Percussion: Yes normal to percussion Coding Level of Care Code Est Pt Level 4 (22883) Diagnoses COPD (chronic obstructive pulmonary disease) J44.9 Alcohol use disorder F10.90 Assessment & Plan Assessment & Plan (1) COPD (chronic obstructive pulmonary disease): Code(s): J44.9 - Chronic obstructive pulmonary disease, unspecified Category: Medical Plan: Restart Anoro. Tobacco quitting discussed with the patient (2) Alcohol use disorder: Code(s): F10.90 - Alcohol use, unspecified, uncomplicated Category: Medical Plan: Patient will restart counseling and alcohol dependency program at her local [facility]. Comprehensive panel will be checked for history of hyponatremia, continue supplemental vitamins check vitamin B1 level Orders: Orders Comprehensive Met. Panel Today E61.1 - Iron deficiency, F10.90 - Alcohol use, unspecified, uncomplicated, J44.9 - Chronic obstructive pulmonary disease, unspecified Complete Blood Count Auto Diff Today E61.1 - Iron deficiency, F10.90 - Alcohol use, unspecified, uncomplicated, J44.9 - Chronic obstructive pulmonary disease, unspecified Vitamin B1 Today E61.1 - Iron deficiency, F10.90 - Alcohol use, unspecified, uncomplicated, J44.9 - Chronic obstructive pulmonary disease, unspecified Vitamin B12 and Folate Today E61.1 - Iron deficiency, F10.90 - Alcohol use, unspecified, uncomplicated, J44.9 - Chronic obstructive pulmonary disease, unspecified Medications: New Anoro Ellipta 62.5-25 mcg/actuation (umeclidinium-vilanterol) 1 inh inhalation DAILY 60 ea 3RF NS
[2025-09-13 14:05] VITALS: BP 124/66; PULSE 63; RESP 19; TEMP 36.8; O2SAT 99; BMI 18.6
--- OUTSIDE RECORDS SUMMARY | 2025-09-13 18:02 | XMS_ITS | Clinical Summary ---
Author Organization [facility] Facility Address [address] [place] [address], [place] [address] Care Team Providers Care Graduate Intern Name Role Phone Unavailable Primary Care Provider [...] patient's age to complete this topic Insurance [facility] [employer] [facility] [employer]
--- OUTSIDE RECORDS SUMMARY | 2025-09-13 18:03 | XMS_ITS | Patient Health Record ---
Author Organization [facility] Address [address] [place] [phone] Care Team Providers Care Breakfast Hostess Name Role Phone Stephy Lorenzana MD Primary Care Provider UnavailJermaine Parekh Jr Unavailable Sonam Miranda MD Unavailable Unavailable Results Component Value Reference Range Notes Pathology Reviewed date:04/25/2025 08:26:51 AM Interpretation: Performing Lab:[facility], [address] [place] [id number] Notes/Report: Reason For Referral No Information Problems Problem Type SNOMED Code ICD Code Onset Dates Problem Status W/U Status Risk Notes Problem Erosive esophagitis (14086858) Erosive esophagitis (K22.10) Active confirmed Problem Duodenal ulcer (62112190) Duodenal ulcer (K26.9) Active confirmed Problem Chronic gastritis (7889955) Chronic gastritis (K29.50) Active confirmed Problem Gastric ulcer (122978985) Gastric ulcer (K25.9) Active confirmed Encounters Encounter Location Date Provider Diagnosis [facility] Inpatient [address] [place] [id number] 04/21/2025 Jermaine Becerra Jr [facility] [address] [place] [phone] 04/25/2025 Jermaine Becerra Jr [facility] [address] [place] [phone] 09/01/2025 Jermaine Becerra Jr Plan Of Treatment Pending Test Test Name Order Date Complete Blood Count no Diff 07/26/2022 Future Test Test Name Order Date UPPER GI ENDOSCOPY 05/10/2022 Insurance Providers Payer Name Payer Address Payer Phone Subscriber Number Group Number Insured Name Patient Relationship to Insured Coverage Start Date Coverage End Date MEDICARE OF [facility] [address] [phone] [id number] EUN MURRAY Self - patient is the insured 5 MED[place] [address] [place] [phone] [id number] EUN MURRAY Self - patient is the insured 5
--- OUTSIDE RECORDS SUMMARY | 2025-09-13 18:03 | XMS_ITS | Patient Health Record ---
[facility] Address [address] [place] [address] Care Team Providers Care Customer Sales Representative Name Role Phone Stephy Lorenzana MD Primary Care Provider Shahana Cast Unavailable [phone] Allergies No Known Allergies Reason For Referral [...] W/U Status Risk Notes Problem Plantar wart (84504922) Plantar wart (B07.0) Active confirmed Plan Of Treatment No Information Insurance Providers Payer Name Payer Address Payer Phone Subscriber Number Group Number Insured Name Patient Relationship to Insured Coverage Start Date Coverage End Date [employer] [address] [place] [address] [phone] [id number] Jasmin Gonzalez Self - patient is the insured Medical (General) History Medical History History ICD Code Chicken pox Warts Surgical History Surgery Date(Month/Year) Hospitalization History Reason Date(Month/Year) C- UTI, dehydrated, lost alot of weigh t, and pt couldnt walk 05/06
== END 2025-09-13 15:26 | disposition home or self-care (01) ==
PROVIDERS: PCP Internal Medicine; Visit Provider Internal Medicine
DX: J44.9 Chronic obstructive pulmonary disease, unspecified (principal); F10.90 Alcohol use, unspecified, uncomplicated

== ENCOUNTER 2025-09-13 13:48 | Outpatient (REF) | payer MEDICARE, SELFPAY ==
[2025-09-13 16:28] LABS: MANUAL DIFF FLAG NO
[2025-09-13 16:57] LABS: Hematocrit 34.6 % (37.0-47.0); Hemoglobin 10.8 g/dl (12.0-16.0); Imm Gran Abs Auto 0.04 X10*3/uL (0.00-0.03); Imm Gran Pct Auto 0.6 % (0.0-0.4); Lymphocytes Absolute Auto 3.1 X10*3/uL (1.2-4.9); Mean Corpuscular HGB Conc 31.2 g/dl (31.0-35.0); Mean Corpuscular Hemoglobin 33.6 pg (27.0-33.0); Mean Corpuscular Volume 107.8 fL (80.0-98.0); NRBC Abs Auto 0.000 X10*3/uL (0.0-0.012); NRBC Pct Auto 0.0 /100WBC (0.0-0.2); Platelet Count 285 X10*3/uL (160-400); Red Blood Count 3.21 X10*6/uL (4.20-5.50); White Blood Count 7.2 X10*3/uL (4.8-10.8)
[2025-09-13 17:15] LABS: Alanine Aminotransferase 33 U/L (0-31); Albumin Level 4.4 g/dL (3.5-5.0); Alkaline Phosphatase 53 U/L (39-117); Anion Gap 13 (12-20); Aspartate Amino Transferase 44 U/L (5-31); Blood Urea Nitrogen 11 mg/dL (9-16); Calcium 9.2 mg/dL (8.4-10.2); Carbon Dioxide 22 mmol/L (22-29); Chloride 109 mmol/L (96-108); Estimated Glomerular Filt Rate > 60; Potassium 5.2 mmol/L (3.3-5.1); Sodium 139 mmol/L (135-145); Total Protein 7.1 g/dL (6.5-8.0)
[2025-09-13 17:36] LABS: Folate 13.4 ng/mL (> or = 4.0); Vitamin B12 576 pg/mL (200-900)
== END 2025-09-13 13:49 | disposition home or self-care (01) ==
LOC: HO.HMGCLDS 13:48
PROVIDERS: PCP Internal Medicine; Visit Provider Internal Medicine
DX: E61.1 Iron deficiency (principal); J44.9 Chronic obstructive pulmonary disease, unspecified; F10.90 Alcohol use, unspecified, uncomplicated; Z79.899 Other long term (current) drug therapy
CPT/HCPCS: 36415; 80053; 82607; 82746; 84425; 85025; 99212